=== PATIENT | male | born 1960 | race Caucasian/White ===

== ENCOUNTER 2018-10-03 16:16 | Inpatient (IN) | payer MEDICARE ==
[2018-10-03] MEDS ORDERED: ASPIRIN 81 MG PO STA (16:55)
[2018-10-03] MEDS ORDERED: IPRATROPIUM-ALBUTEROL 3 ML NEB INHALATION STA (16:55)
--- NOTE | 2018-10-03 17:10 | XR ---
EXAMINATION TYPE: XR chest 2V DATE OF EXAM: 10/03/2018 COMPARISON: NONE HISTORY: Chest pain TECHNIQUE: Frontal and lateral views of the chest are obtained. FINDINGS: Heart and mediastinum are normal. Lungs are clear of infiltrate. There is no pleural effus ion. There are chest leads. Bony thorax is intact. IMPRESSION: No active cardiopulmonary disease. Normal heart.
[2018-10-03 17:15] LABS: ALT 202 U/L (21-72); AST 685 U/L (17-59); African American GFR (CKD) >90 (>60 ml/min/1.73 sqM); Albumin 4.6 g/dL (3.5-5.0); Alkaline Phosphatase 154 U/L (38-126); Anion Gap 15 mmol/L; Blood Urea Nitrogen 10 mg/dL (9-20); Calcium 8.9 mg/dL (8.4-10.2); Carbon Dioxide 23 mmol/L (22-30); Chloride 101 mmol/L (98-107); Glucose 100 mg/dL (74-99); Magnesium 1.6 mg/dL (1.6-2.3); Non-African American GFR(CKD) >90 (>60 ml/min/1.73 sqM); Potassium 4.3 mmol/L (3.5-5.1); Sodium 139 mmol/L (137-145); Total Bilirubin 1.7 mg/dL (0.2-1.3)
[2018-10-03 17:19] LABS: Anisocytosis Slight; Basophils % (A) 1 %; Eosinophils # (A) 0.1 k/uL (0-0.7); Eosinophils % (A) 1 %; HCT 44.1 % (39.0-53.0); HGB 14.9 gm/dL (13.0-17.5); Lymphocytes # (A) 1.8 k/uL (1.0-4.8); Lymphocytes % (A) 41 %; MCH 30.4 pg (25.0-35.0); MCHC 33.8 g/dL (31.0-37.0); Mean Platelet Volume 9.9; Monocytes # (A) 0.3 k/uL (0-1.0); Monocytes % (A) 6 %; Neutrophils # (A) 2.1 k/uL (1.3-7.7); Neutrophils % (A) 48 %; RDW 16.1 % (11.5-15.5); WBC 4.5 k/uL (3.8-10.6)
[2018-10-03 17:20] LABS: INR 0.9 (<1.2); Partial Thromboplastin Time 26.6 sec (22.0-30.0); Prothrombin Time 10.2 sec (9.0-12.0)
[2018-10-03 17:33] LABS: Alcohol 378 mg/dL
[2018-10-03 17:42] LABS: Platelet Count 95 k/uL (150-450)
--- NOTE | 2018-10-03 18:58 | ED ---
Chest Pain HPI - General Chief Complaint: Chest Pain Stated Complaint: CHEST PAIN, Hx HEART DISEASE Time Seen by Provider: 10/03/18 16:25 Source: patient, family Mode of arrival: wheelchair Limitations: no limitations - History of Present Illness Initial Comments: The patient is a 57-year-old male who presents to the emergency department with reported chest pain. He does admit to a history of coronary artery disease. States his last cath was 2 years ago and he had a 50% occlusion. States that he has not followed up with his post splitter since then. He will occasionally get chest pain which starts in the right side of his chest and radiates over onto his left arm. Symptoms started 3 hours prior to arrival. Patient reports that he was resting comfortably in his chair when the pain came on. Admits to associated shortness of breath. Denies ripping or tearing to his back. The pain is not reproducible upon palpation. Denies any unilateral numbness or weakness. States that his sister did provide him with nitro that was not prescribed to him which did alleviated his symptoms. His sister then called EMS for assistance. He does arrive and states that he is pain-free. Denies associated nausea or vomiting. No diaphoresis. Denies any fevers or chills. Reports exertional shortness of breath over the past several weeks. Sister states that he cannot walk 10 feet across a room without having to stop and catch his breath. He does have a history of COPD. He is supposed to be on "10 different medications" however has not had them for approximately 3 weeks. He used to live in [place] up until 3 weeks ago when he moved to [place] to be with his sister. States when he traveled, he left his medications behind. He is only able to remember a few these medications. He has not been using any of his inhalers. He denies any abdominal pain. No changes in his bowel or bladder habits. There are no alleviating, precipitating or modifying factors - Related Data Home Medications Medication Instructions Recorded Confirmed Atorvastatin [Lipitor] 40 mg PO DAILY 10/04/18 10/04/18 Methocarbamol [Robaxin] 500 mg PO DAILY PRN 10/04/18 10/04/18 traZODone HCL 150 mg PO HS 10/04/18 10/04/18 Previous Rx's Medication Instructions Recorded Albuterol Sulfate [Proair Hfa] 2 puff INHALATION RT-Q6H PRN #1 10/05/18 hfa.aer.ad Aspirin EC [Ecotrin Low Dose] 81 mg PO DAILY #30 tablet. 10/05/18 Citalopram Hydrobromide [CeleXA] 40 mg PO DAILY #30 tablet 10/05/18 Isosorbide Mononitrate ER [Imdur] 30 mg PO DAILY #30 tab.er.24h 10/05/18 Lisinopril [Prinivil] 10 mg PO DAILY #30 tablet 10/05/18 Nitroglycerin Sl Tabs [Nitrostat] 0.4 mg SUBLINGUAL Q5M PRN #50 tab 10/05/18 Pantoprazole Sodium [Protonix] 40 mg PO DAILY #30 tablet. 10/05/18 Thiamine [Vitamin B-1] 100 mg PO DAILY #30 tab 10/05/18 Allergies Allergy/AdvReac Type Severity Reaction Status Date / Time Penicillins Allergy Anaphylaxis Verified 10/03/18 17:12 meperidine [From Demerol] AdvReac Hallucinati Verified 10/03/18 17:12 ons Opioids-Meperidine and AdvReac Hallucinati Verified 10/03/18 17:12 Related ons Opioids-Methadone and Related AdvReac Hallucinati Verified 10/03/18 17:12 ons quetiapine [From Seroquel] AdvReac Hallucinati Verified 10/03/18 17:12 ons Review of Systems ROS Statement: Those systems with pertinent positive or pertinent negative responses have been documented in the HPI. ROS Other: All systems not noted in ROS Statement are negative. EKG Findings - EKG Comments: EKG Findings:: EKG demonstrates a normal sinus rhythm with a ventricular rate of 90. WV interval 142. QRS 88. QTC 455. No acute ST segment elevations or depressions concerning for ischemic changes. Past Medical History Past Medical History: No Reported History History of Any Multi-Drug Resistant Organisms: None Reported Past Surgical History: No Surgical Hx Reported Past Psychological History: No Psychological Hx Reported Smoking Status: Current every day smoker Past Alcohol Use History: None Reported, Abuse, Daily, Heavy Past Drug Use History: None Reported - Past Family History Father Family Medical History: Coronary Artery Disease (CAD), Liver Disease Mother Family Medical History: Cancer Additional Family Medical History / Comment(s): LUNG DISEASE General Exam Limitations: no limitations General appearance: alert, in no apparent distress, appears intoxicated Head exam: Present: atraumatic, normocephalic, normal inspection Eye exam: Present: normal appearance, PERRL, EOMI. Absent: scleral icterus, conjunctival injection, periorbital swelling ENT exam: Present: normal exam, mucous membranes moist Neck exam: Present: normal inspection. Absent: tenderness, meningismus, lymphadenopathy Respiratory exam: Present: other (The patient has minimally decreased breath sounds bilaterally.). Absent: respiratory distress, wheezes, rales, rhonchi, stridor Cardiovascular Exam: Present: regular rate, normal rhythm, normal heart sounds. Absent: systolic murmur, diastolic murmur, rubs, gallop, clicks GI/Abdominal exam: Present: soft, tenderness (Mild generalized abdominal pain), normal bowel sounds. Absent: distended, guarding, rebound, rigid, pulsatile mass Extremities exam: Present: normal inspection, full ROM, normal capillary refill. Absent: tenderness, pedal edema, joint swelling, calf tenderness Back exam: Present: normal inspection Neurological exam: Present: alert, oriented X3, CN II-XII intact Psychiatric exam: Present: normal mood (The patient is mildly slurring his speech and does appear intoxicated) Skin exam: Present: warm, dry, intact, normal color. Absent: rash Course Vital Signs 10/03/18 10/03/18 10/03/18 16:20 16:28 16:30 Temperature 98.0 F Pulse Rate 98 92 Respiratory 18 20 Rate Blood Pressure 119/83 O2 Sat by Pulse 93 L 93 L 93 L Oximetry 10/03/18 10/03/18 10/03/18 17:00 17:21 17:29 Temperature Pulse Rate 93 87 90 Respiratory 20 Rate Blood Pressure 133/94 O2 Sat by Pulse 93 L Oximetry 10/03/18 10/03/18 10/03/18 17:30 18:00 18:30 Temperature Pulse Rate 95 86 85 Respiratory 19 18 14 Rate Blood Pressure 133/94 144/99 115/84 O2 Sat by Pulse Oximetry 10/03/18 10/03/18 10/03/18 19:00 19:30 20:00 Temperature Pulse Rate 79 84 103 H Respiratory 17 15 14 Rate Blood Pressure 113/77 108/80 111/79 O2 Sat by Pulse Oximetry Chest Pain MDM - Core Measures AMI Core Measures Followed: Yes - Differential Diagnosis AMI, ACS, Pericarditis, Pneumonia, Pleurisy-Other - MDM Upon arrival the patient is placed into room 1. He is hooked up to continuous pulse ox and cardiac monitoring. A 12-lead EKG is performed which demonstrates no acute ST elevations or depressions concerning for ischemia or infarction.. Physical exam is performed and the patient does appear intoxicated. He does report to drinking "a few" beers today. Sister is at bedside and states the patient is a daily drinker. The patient has an IV established. He is given 324 mg of chewable aspirin. He is pain free at this time. Laboratory studies are conducted. The patient did have a chest x-ray performed. He is provided with a Duonebs breathing treatment. Upon return of the results I did discuss them with the patient. His alcohol level is elevated at 378. I did recommend hospital admission for alcohol detoxification and for evaluation by cardiology. The patient did agree to this. I did call discuss case with Dr. Ocampo who did accept admission. Bridging orders were placed to include CIWA protocol. The patient was then transferred to floor in stable condition Disposition Clinical Impression: Chest pain, COPD (chronic obstructive pulmonary disease) with emphysema, Acute respiratory insufficiency Disposition: ADMITTED IP TO THIS HOSP Condition: Fair Is patient prescribed a controlled substance at d/c from ED?: No Decision to Admit Reason: Admit from EC Decision Date: 10/03/18 Decision Time: 18:58
[2018-10-03] MEDS ORDERED: NALOXONE 0.4 MG/ML 1 ML VIAL IV PRN (20:12)
[2018-10-03] MEDS ORDERED: THIAMINE 100 MG/ML 2 ML VIAL IM STA (20:19)
[2018-10-03] MEDS ORDERED: LORazepam 2 MG/ML INJ IV PRN ×3 (20:19)
[2018-10-03 21:19] VITALS: BMI 29.7
[2018-10-03 21:47] VITALS: RESP 18
[2018-10-04] MEDS: THIAMINE 100 MG TAB PO SCH ×3 (05:30→18:01)
[2018-10-04 06:04] LABS: Basophils % (A) 1 %; Eosinophils % (A) 1 %; HCT 43.5 % (39.0-53.0); HGB 14.5 gm/dL (13.0-17.5); Lymphocytes # (A) 1.1 k/uL (1.0-4.8); Lymphocytes % (A) 23 %; MCH 30.8 pg (25.0-35.0); MCHC 33.3 g/dL (31.0-37.0); MCV 92.5 fL (80.0-100.0); Mean Platelet Volume 9.6; Monocytes # (A) 0.2 k/uL (0-1.0); Monocytes % (A) 5 %; Neutrophils # (A) 3.2 k/uL (1.3-7.7); Neutrophils % (A) 69 %; RBC 4.71 m/uL (4.30-5.90); RDW 14.7 % (11.5-15.5); WBC 4.7 k/uL (3.8-10.6)
[2018-10-04 06:10] LABS: Platelet Count 65 k/uL (150-450)
[2018-10-04 06:15] LABS: ALT 211 U/L (21-72); African American GFR (CKD) >90 (>60 ml/min/1.73 sqM); Albumin 4.5 g/dL (3.5-5.0); Alkaline Phosphatase 155 U/L (38-126); Anion Gap 10 mmol/L; Blood Urea Nitrogen 10 mg/dL (9-20); Calcium 9.5 mg/dL (8.4-10.2); Carbon Dioxide 29 mmol/L (22-30); Chloride 101 mmol/L (98-107); Glucose 125 mg/dL (74-99); Non-African American GFR(CKD) >90 (>60 ml/min/1.73 sqM); Sodium 140 mmol/L (137-145); Total Protein 7.9 g/dL (6.3-8.2)
[2018-10-04 06:45] LABS: AST 831 U/L (17-59)
[2018-10-04] MEDS ORDERED: ONDANSETRON 4 MG/2 ML VIAL IVP STA (08:06)
[2018-10-04] MEDS ORDERED: METOPROLOL TARTRATE 25 MG TAB PO SCH (09:00)
[2018-10-04] MEDS ORDERED: ATORVASTATIN 80 MG TAB PO SCH (09:00)
--- NOTE | 2018-10-04 09:22 | US ---
EXAMINATION TYPE: US abdomen complete DATE OF EXAM: 10/04/2018 COMPARISON: NONE CLINICAL HISTORY: nausea, vomting, pain, elev LFTs. nausea and vomiting, RUQ pain, elevated LFT's EXAM MEASUREMENTS: Liver Length: 21.0 cm Gallbladder Wall: 0.3 cm CBD: 0.4 cm Spleen: 12.6 cm Right Kidney: 11.1 x 6.0 x 5.1 cm Left Kidney: 9.0 x 5.6 x 4.7 cm Technical limitations due to large amount of overlying bowel content Pancreas: Obscured by bowel gas Liver: enlarged, attenuating Gallbladder: hydropic Evidence for sonographic Tidwell's sign: yes CBD: appears wnl Spleen: wnl Right Kidney: no evidence of hydronephrosis Left Kidney: no evidence of hydronephrosis Upper IVC: wnl Abd Aorta: Obscured by overlying bowel gas IMPRESSION: 1. Bowel gas severely limits exam. 2. Mild fatty infiltration of liver and hepatomegaly
[2018-10-04] MEDS: PANTOPRAZOLE 40 MG/10 ML VIAL IVP SCH (09:51)
[2018-10-04] MEDS: ASPIRIN 81 MG PO SCH (09:52)
[2018-10-04] MEDS: SODIUM CHLORIDE 0.9% 1,000 ML IV SCH (09:52)
[2018-10-04 10:42] LABS: Cholesterol 247 mg/dL (<200); HDL Cholesterol 88 mg/dL (40-60); Triglycerides 450 mg/dL (<150)
--- NOTE | 2018-10-04 11:19 | ECHOF ---
Referral Reason: MEASUREMENTS -------- HEIGHT: 170.2 cm WEIGHT: 86.2 kg BP: 135/60 RVIDd: 2.8 cm (< 3.3) IVSd: 1.0 cm (0.6 - 1.1) LVIDd: 3.9 cm (3.9 - 5.3) LVPWd: 0.9 cm (0.6 - 1.1) IVSs: 1.6 cm LVIDs: 2.9 cm LVPWs: 1.1 cm Ao Diam: 3.1 cm (2.0 - 3.7) AV Cusp: 1.9 cm (1.5 - 2.6) LA Diam: 3.6 cm (2.7 - 3.8) MV EXCURSION: 16.594 mm (> 18.000) MV EF SLOPE: 107 mm/s (70 - 150) EPSS: 0.6 cm MV E Zeeshan: 0.46 m/s MV DecT: 260 ms MV A Zeeshan: 0.90 m/s MV E/A Ratio: 0.51 RAP: 5.00 mmHg RVSP: 12.32 mmHg FINDINGS -------- Sinus rhythm. This was a technically adequate study. LV size, wall thickness and systolic function are normal, with an EF greater than 55%. The left julian tricular size is normal. The right ventricle is normal in size. The left atrial size is normal. The right atrial size is normal. The aortic valve is trileaflet, and appears structurally normal. No aortic stenosis or regurgitation. There is trace mitral regurgitation. The tricuspid valve appears structurally normal. Right ventricular systolic pressure is normal at < 35 mmHg. There is no evidence of pulmonary hypertension. There is no pulmonic regurgitation present. The aortic root size is normal. There is no pericardial effusion. CONCLUSIONS -------- 1. Sinus rhythm. 2. This was a technically adequate study. 3. LV size, wall thickness and systolic function are normal, with an EF greater than 55%. 4. The left ventricular size is normal. 5. The right ventricle is normal in size. 6. The left atrial size is normal. 7. The right atrial size is normal. 8. The aortic valve is trileaflet, and appears structurally normal. No aortic stenosis or regurgitati on. 9. There is trace mitral regurgitation. 10. The tricuspid valve appears structurally normal. 11. Right ventricular systolic pressure is normal at < 35 mmHg. 12. There is no evidence of pulmonary hypertension. 13. There is no pulmonic regurgitation present. 14. The aortic root size is normal. 15. There is no pericardial effusion. PORCELAIN SLUSHER: Teresa Portillo RDCS
--- NOTE | 2018-10-04 11:39 | P.CRDCN ---
History of Present Illness History of present illness: This is a pleasant 57-year-old male past medical history significant for coronary artery disease, hypertension, dyslipidemia, regular heavy alcohol abuse, chronic nicotine dependence and asthma. He states he recently came to [place] from [place]. While living there he did see a trust officer and has undergone a heart catheterization revealing 2 blockages, one 50% and the other 20%. Unsure which vessel. We have been asked to see him in consultation for chest pain. He states he drinks heavily daily if he can help it. Yesterday he was drinking and started having pain in his chest from side to side and down in his abdomen. Last night he started feeling increasingly nauseated and has been vomiting all night. He denies any further symptoms of chest pain. He denies associated shortness of breath, dizziness or palpitations. There was no radiation to the arm, back, neck or jaw. EKG reveals sinus mechanism with no acute ST or T wave abnormalities noted. Chest x-ray is negative for an acute cardiopulmonary process. Echocardiogram reveals preserved LV systolic function with ejection fraction greater than 55%. Abdominal ultrasound reveals mild fatty infiltration of the liver and hepatomegaly, hydropic gallbladder and positive Tidwell sign. Laboratory data reviewed, WBC 4.7, hemoglobin 14.5, platelets 65, sodium 140, potassium 4.0, creatinine 0.73, magnesium 1.6, AST 831, a LT 211, alkaline phosphatase 155, cardiac enzymes negative 3, triglycerides 450. Current cardiac medications include aspirin 81 mg daily, atorvastatin 40 mg daily, imdur 30 mg daily, lisinopril 10 mg daily. At the time of my exam: CONSTITUTIONAL: Denies fever. Denies chills. EYES: Denies blurred vision. Denies vision changes. Denies eye pain. EARS, NOSE, MOUTH & THROAT: Denies headache. Denies sore throat. Denies ear pain. CARDIOVASCULAR: Denies chest pain. Denies shortness of breath. Denies orthopnea. Denies PND. Denies palpitations. RESPIRATORY: Denies cough. GASTROINTESTINAL: Complains of abdominal pain. Denies diarrhea. Denies constipation. complains of nausea and vomiting. MUSCULOSKELETAL: Denies myalgias. INTEGUMENTARY: Denies pruitis. Denies rash. NEUROLOGIC: Denies numbness. Denies tingling. Denies weakness. PSYCHIATRIC: Denies anxiety. Denies depression. ENDOCRINE: Denies fatigue. Denies weight change. Denies polydipsia. Denies polyurina. GENITOURINARY: Denies burning, hematuria or urgency with micturation. HEMATOLOGIC: Denies history of anemia. Denies bleeding. GENERAL: This is a 57-year-old male in no apparent distress at the time of my examination. HEENT: Head is atraumatic, normocephalic. Pupils are equal, round. Sclerae anicteric. Conjunctivae are clear. Mucous membranes of the mouth are moist. Neck is supple. There is no jugular venous distention. No carotid bruit is heard. LUNGS: Clear to auscultation no wheezes, rales or rhonchi. No chest wall tenderness is noted on palpation or with deep breathing. Diminished bilaterally. HEART: Regular rate and rhythm without murmurs, rubs or gallops. S1 and S2 heard. ABDOMEN: Soft, mildly tender throughout, positive Tidwell's sign. Bowel sounds are heard. No organomegaly noted. EXTREMITIES: No evidence of peripheral edema and no calf tenderness noted. VASCULAR: Radial and dorsalis pedis pulses palpated, no evidence of clubbing. NEUROLOGIC: Patient is awake, alert and oriented x3. ASSESSMENT Chest pain, atypical for angina. An acute coronary event has been ruled. Acute alcohol intoxication Thrombocytopenia Hypertension Dyslipidemia History of coronary artery disease. Per the patient he underwent heart catheterization last year and was told he has 2 blockages, 50% and 20%. Unsure of exact arteries or details. He does not remember the name of the trust officer or the hospital where he had it done. Chronic nicotine dependence PLAN An acute coronary event has been ruled out. Obtain 2D echocardiogram and doppler study to assess cardiac structure and function. Resume lisinopril, imdur and aspirin as previously ordered. Ongoing medical management of abdominal pain. Tobacco and alcohol cessation recommended. We will continue to follow as needed. Thank you kindly for this consultation. Nurse Practitioner note has been reviewed, I agree with a documented findings an d plan of care. Patient was seen and examined. Past Medical History Past Medical History: No Reported History History of Any Multi-Drug Resistant Organisms: None Reported Past Surgical History: No Surgical Hx Reported Additional Past Surgical History / Comment(s): LEFT AND AND RIGHT KNEE SX. LEFT FEMUR FX. HEART CATH NO STENTS Past Anesthesia/Blood Transfusion Reactions: No Reported Reaction Past Psychological History: No Psychological Hx Reported Smoking Status: Current every day smoker Past Alcohol Use History: None Reported, Abuse, Daily, Heavy Past Drug Use History: None Reported - Past Family History Father Family Medical History: Coronary Artery Disease (CAD), Liver Disease Mother Family Medical History: Cancer Additional Family Medical History / Comment(s): LUNG DISEASE Medications and Allergies Home Medications Medication Instructions Recorded Confirmed Type Albuterol Sulfate [Proair Hfa] 2 puff INHALATION RT-Q6H PRN 10/04/18 10/04/18 History Aspirin EC [Ecotrin Low Dose] 81 mg PO DAILY 10/04/18 10/04/18 History Atorvastatin [Lipitor] 40 mg PO DAILY 10/04/18 10/04/18 History Citalopram Hydrobromide [CeleXA] 40 mg PO DAILY 10/04/18 10/04/18 History Ibuprofen [Motrin] 600 mg PO Q6HR PRN 10/04/18 10/04/18 History Isosorbide Mononitrate ER [Imdur] 30 mg PO DAILY 10/04/18 10/04/18 History Lisinopril [Prinivil] 10 mg PO DAILY 10/04/18 10/04/18 History Methocarbamol [Robaxin] 500 mg PO DAILY PRN 10/04/18 10/04/18 History Nitroglycerin Sl Tabs [Nitrostat] 0.4 mg SUBLINGUAL Q5M PRN 10/04/18 10/04/18 History Pantoprazole Sodium [Protonix] 40 mg PO DAILY 10/04/18 10/04/18 History Thiamine [Vitamin B-1] 100 mg PO DAILY 10/04/18 10/04/18 History traZODone HCL 150 mg PO HS 10/04/18 10/04/18 History Allergies Allergy/AdvReac Type Severity Reaction Status Date / Time Penicillins Allergy Anaphylaxis Verified 10/03/18 17:12 meperidine [From Demerol] AdvReac Hallucinati Verified 10/03/18 17:12 ons Opioids-Meperidine and AdvReac Hallucinati Verified 10/03/18 17:12 Related ons Opioids-Methadone and Related AdvReac Hallucinati Verified 10/03/18 17:12 ons quetiapine [From Seroquel] AdvReac Hallucinati Verified 10/03/18 17:12 ons Physical Exam Vitals: Vital Signs Temp Pulse Pulse Resp BP BP BP 10/04/18 07:00 98.0 F 85 18 150/107 10/04/18 04:00 98.2 F 92 18 147/66 10/04/18 00:00 85 18 10/03/18 23:41 98.2 F 85 18 126/84 10/03/18 21:00 98.6 F 88 18 133/87 10/03/18 20:00 103 H 14 111/79 10/03/18 19:30 84 15 108/80 10/03/18 19:00 79 17 113/77 10/03/18 18:30 85 14 115/84 10/03/18 18:00 86 18 144/99 10/03/18 17:30 95 19 133/94 10/03/18 17:29 90 10/03/18 17:21 87 10/03/18 17:00 93 20 133/94 10/03/18 16:30 92 20 10/03/18 16:28 10/03/18 16:20 98.0 F 98 18 119/83 Pulse Ox 10/04/18 07:00 10/04/18 04:00 93 L 10/04/18 00:00 10/03/18 23:41 97 10/03/18 21:00 92 L 10/03/18 20:00 10/03/18 19:30 10/03/18 19:00 10/03/18 18:30 10/03/18 18:00 10/03/18 17:30 10/03/18 17:29 10/03/18 17:21 10/03/18 17:00 93 L 10/03/18 16:30 93 L 10/03/18 16:28 93 L 10/03/18 16:20 93 L Intake and Output 10/03/18 10/04/18 10/04/18 22:59 06:59 14:59 Other: # Voids 1 Weight 86.183 kg Results 10/04/18 05:22 10/04/18 05:22 Cardiac Enzymes 10/03/18 10/03/18 10/03/18 Range/Units 16:30 16:30 22:25 AST 685 H (17-59) U/L Troponin I <0.012 <0.012 (0.000-0.034) ng/mL 10/04/18 10/04/18 Range/Units 05:22 05:22 AST 831 H (17-59) U/L Troponin I <0.012 (0.000-0.034) ng/mL Coagulation 10/03/18 Range/Units 16:30 PT 10.2 (9.0-12.0) sec APTT 26.6 (22.0-30.0) sec CBC 10/03/18 10/04/18 Range/Units 16:30 05:22 WBC 4.5 4.7 (3.8-10.6) k/uL RBC 4.90 4.71 (4.30-5.90) m/uL Hgb 14.9 14.5 (13.0-17.5) gm/dL Hct 44.1 43.5 (39.0-53.0) % Plt Count 95 L 65 L (150-450) k/uL Comprehensive Metabolic Panel 10/03/18 10/04/18 Range/Units 16:30 05:22 Sodium 139 140 (137-145) mmol/L Potassium 4.3 4.0 (3.5-5.1) mmol/L Chloride 101 101 (98-107) mmol/L Carbon Dioxide 23 29 (22-30) mmol/L BUN 10 10 (9-20) mg/dL Creatinine 0.59 L 0.73 (0.66-1.25) mg/dL Glucose 100 H 125 H (74-99) mg/dL Calcium 8.9 9.5 (8.4-10.2) mg/dL AST 685 H 831 H (17-59) U/L ALT 202 H 211 H (21-72) U/L Alkaline Phosphatase 154 H 155 H (38-126) U/L Total Protein 8.0 7.9 (6.3-8.2) g/dL Albumin 4.6 4.5 (3.5-5.0) g/dL Current Medications Generic Name Dose Route Start Last Admin Trade Name Freq PRN Reason Stop Dose Admin Lorazepam 1 mg 10/03/18 20:19 Ativan IV Q2HR PRN CIWA 8 or 9 Lorazepam 1 mg 10/03/18 20:19 10/03/18 21:35 Ativan IV 1 mg Q1HR PRN Administration CIWA 10 to 15 Lorazepam 2 mg 10/03/18 20:19 Ativan IV 10/05/18 20:19 Q10M PRN CIWA 16 or higher Naloxone HCl 0.2 mg 10/03/18 20:12 Narcan IV Q2M PRN Opioid Reversal Pantoprazole Sodium 40 mg 10/04/18 09:00 Protonix IVP DAILY DEAN Thiamine HCl 100 mg 10/03/18 21:00 10/04/18 05:30 Vitamin B-1 PO Not Given BID-W/MEALS DEAN Intake and Output 10/03/18 10/04/18 10/04/18 22:59 06:59 14:59 Other: # Voids 1 Weight 86.183 kg 10/04/18 05:22 10/04/18 05:22
[2018-10-04] MEDS: LISINOPRIL 10 MG TAB PO SCH (11:51)
[2018-10-04] MEDS: ISOSORBIDE MONONITRATE ER 30 MG TAB.ER.24H PO SCH (11:51)
--- NOTE | 2018-10-04 19:04 | P.HPIM ---
History of Present Illness H&P Date: 10/04/18 Chief Complaint: Chest pain Patient is a 57-year-old male with a known history of coronary artery disease, hypertension, hyperlipidemia and alcohol abuse and nicotine addiction recently came from [place] presented to hospital with complaints of chest pain. Chest pain is mainly epigastric region and is radiating across the right side of the abdomen and to the back sometimes. No radiation to the on neck or to back Denied any shortness of breath. No headache or dizziness. Patient does have nausea and episodes of vomiting. No status of vomiting. Patient otherwise has been drinking on a daily basis. Patient was intoxicated on admission. X-ray showed no acute cardio process next and EKG showed normal sinus rhythm. Echo cardiac exam showed normal ejection fraction with ejection fraction 55%. No r wall motion abnormalities noted Laboratory data showed elevated liver enzymes AST 831 and ALT 211 and alk phos 155 Triglycerides 450 neck and troponin 3 negative THE ABDOMEN SHOWED MILD FATTY INFILTRATION OF THE LIVER AND HEPATOMEGALY, HYDROPIC GALLBLADDER AND POSITIVE MOSHER SIGN. Review of Systems Constitutional: Patient denies any fever or chills . No generalized weakness or weight loss. Abdomen: Does have nausea vomiting or abdominal pain. Cardiovascular: Patient denies any chest pain or short of breath no palpitations. Respiratory: patient denied any cough is from production. No shortness of br eath Neurologic: Patient denied any numbness or tingling headache. Musculoskeletal: Patient denies any complaints of joint swelling or deformity. Skin: Negative Psychiatric: Negative Endocrine: No heat or cold intolerance. No recent weight gain. Genitourinary: No dysuria or hematuria. All other 14 point ROS negative except the above Past Medical History Past Medical History: No Reported History History of Any Multi-Drug Resistant Organisms: None Reported Past Surgical History: No Surgical Hx Reported Additional Past Surgical History / Comment(s): LEFT AND AND RIGHT KNEE SX. LEFT FEMUR FX. HEART CATH NO STENTS Past Anesthesia/Blood Transfusion Reactions: No Reported Reaction Past Psychological History: No Psychological Hx Reported Smoking Status: Current every day smoker Past Alcohol Use History: None Reported, Abuse, Daily, Heavy Past Drug Use History: None Reported - Past Family History Father Family Medical History: Coronary Artery Disease (CAD), Liver Disease Mother Family Medical History: Cancer Additional Family Medical History / Comment(s): LUNG DISEASE Medications and Allergies Home Medications Medication Instructions Recorded Confirmed Type Albuterol Sulfate [Proair Hfa] 2 puff INHALATION RT-Q6H PRN 10/04/18 10/04/18 History Aspirin EC [Ecotrin Low Dose] 81 mg PO DAILY 10/04/18 10/04/18 History Atorvastatin [Lipitor] 40 mg PO DAILY 10/04/18 10/04/18 History Citalopram Hydrobromide [CeleXA] 40 mg PO DAILY 10/04/18 10/04/18 History Ibuprofen [Motrin] 600 mg PO Q6HR PRN 10/04/18 10/04/18 History Isosorbide Mononitrate ER [Imdur] 30 mg PO DAILY 10/04/18 10/04/18 History Lisinopril [Prinivil] 10 mg PO DAILY 10/04/18 10/04/18 History Methocarbamol [Robaxin] 500 mg PO DAILY PRN 10/04/18 10/04/18 History Nitroglycerin Sl Tabs [Nitrostat] 0.4 mg SUBLINGUAL Q5M PRN 10/04/18 10/04/18 History Pantoprazole Sodium [Protonix] 40 mg PO DAILY 10/04/18 10/04/18 History Thiamine [Vitamin B-1] 100 mg PO DAILY 10/04/18 10/04/18 History traZODone HCL 150 mg PO HS 10/04/18 10/04/18 History Allergies Allergy/AdvReac Type Severity Reaction Status Date / Time Penicillins Allergy Anaphylaxis Verified 10/03/18 17:12 meperidine [From Demerol] AdvReac Hallucinati Verified 10/03/18 17:12 ons Opioids-Meperidine and AdvReac Hallucinati Verified 10/03/18 17:12 Related ons Opioids-Methadone and Related AdvReac Hallucinati Verified 10/03/18 17:12 ons quetiapine [From Seroquel] AdvReac Hallucinati Verified 10/03/18 17:12 ons Physical Exam Vitals: Vital Signs Temp Pulse Pulse Resp BP BP BP 10/04/18 07:00 98.0 F 85 18 150/107 10/04/18 04:00 98.2 F 92 18 147/66 10/04/18 00:00 85 18 10/03/18 23:41 98.2 F 85 18 126/84 10/03/18 21:00 98.6 F 88 18 133/87 10/03/18 20:00 103 H 14 111/79 10/03/18 19:30 84 15 108/80 10/03/18 19:00 79 17 113/77 10/03/18 18:30 85 14 115/84 10/03/18 18:00 86 18 144/99 10/03/18 17:30 95 19 133/94 10/03/18 17:29 90 10/03/18 17:21 87 10/03/18 17:00 93 20 133/94 10/03/18 16:30 92 20 10/03/18 16:28 10/03/18 16:20 98.0 F 98 18 119/83 Pulse Ox 10/04/18 07:00 10/04/18 04:00 93 L 10/04/18 00:00 10/03/18 23:41 97 10/03/18 21:00 92 L 10/03/18 20:00 10/03/18 19:30 10/03/18 19:00 10/03/18 18:30 10/03/18 18:00 10/03/18 17:30 10/03/18 17:29 10/03/18 17:21 10/03/18 17:00 93 L 10/03/18 16:30 93 L 10/03/18 16:28 93 L 10/03/18 16:20 93 L Intake and Output 10/03/18 10/04/18 10/04/18 22:59 06:59 14:59 Other: # Voids 1 Weight 86.183 kg PHYSICAL EXAMINATION: Patient is lying in the bed comfortably, no acute distress, awake alert and oriented.. HEENT: Normocephalic. Neck is supple. Pupils reactive. Nostrils clear. Oral cavity is moist. Ears reveal no drainage. Neck reveals no JVD, carotid bruits, or thyromegaly. CHEST EXAMINATION: Trachea is central. Symmetrical expansion. Lung lowery clear to auscultation and percussion. CARDIAC: Normal S1, S2 with no gallops. No murmurs ABDOMEN: Soft. No right upper quadrant tenderness. Mild epigastric tenderness. Bowel sounds normal. No organomegaly. No abdominal bruits. Extremities: reveal no edema. No clubbing or cyanosis Neurologically awake, alert, oriented x3 with well-coordinated movements. No focal deficits noted Skin: No rash or skin lesions. Psychiatric: Coperative. Nonsuicidal Musculoskeletal: No joint swelling or deformity. Normal range of motion. Results CBC & Chem 7: 10/04/18 05:22 10/04/18 05:22 Labs: Abnormal Lab Results - Last 24 Hours (Table) 10/03/18 10/03/18 10/04/18 Range/Units 16:30 16:30 05:22 RDW 16.1 H (11.5-15.5) % Plt Count 95 L 65 L (150-450) k/uL Creatinine 0.59 L (0.66-1.25) mg/dL Glucose 100 H (74-99) mg/dL Total Bilirubin 1.7 H (0.2-1.3) mg/dL AST 685 H (17-59) U/L ALT 202 H (21-72) U/L Alkaline Phosphatase 154 H (38-126) U/L Serum Alcohol 378 H* mg/dL 10/04/18 Range/Units 05:22 RDW (11.5-15.5) % Plt Count (150-450) k/uL Creatinine (0.66-1.25) mg/dL Glucose 125 H (74-99) mg/dL Total Bilirubin 2.0 H (0.2-1.3) mg/dL AST 831 H (17-59) U/L ALT 211 H (21-72) U/L Alkaline Phosphatase 155 H (38-126) U/L Serum Alcohol mg/dL Thrombosis Risk Factor Assmnt - DVT/VTE Prophylaxis DVT/VTE Prophylaxis: Pharmacologic Prophylaxis ordered - Choose All That Apply Any of the Below Risk Factors Present?: Yes Each Factor Represents 1 point: Acute [place], Age 41-60 years, Obesity (BMI >25) Other Risk Factors: No Other congenital or acquired thrombophilia - If yes, enter type in comment: No Thrombosis Risk Factor Assessment Total Risk Factor Score: 3 Thrombosis Risk Factor Assessment Level: Moderate Risk Assessment and Plan Assessment: Atypical chest pain. Ruled out ACS. Epigastric pain likely alcoholic gastritis Fatty infiltration of the liver Elevated liver and dense possible alcohol Hepatitis Acute alcohol intoxication on admission Osteopenia Hypertriglyceridemia Hypertension and hyperlipidemia History of coronary artery disease no history of PCI Nicotine dependence DVT prophylaxis Plan: Patient will be continued on home blood pressure medications in the form of Imdur, lisinopril and also continue with aspirin. Patient be started on Protonix IV. Continue with IV hydration. Monitor for alcohol withdrawal symptoms. Follow up liver enzymes. Cardiology has seen the patient and 2-D echo Was done which showed normal ejection fraction. Smoking cessation and CESSATION was counseled extensively. Further recommendations based on the clinical course. Time with Patient: Greater than 30
[2018-10-05 04:51] VITALS: BP 127/85; PULSE 79; TEMP 98.4
[2018-10-05] MEDS: SODIUM CHLORIDE 0.9% 1,000 ML IV SCH ×2 (05:12→06:47)
[2018-10-05 07:37] LABS: Basophils # (A) 0.1 k/uL (0-0.2); Basophils % (A) 1 %; Eosinophils # (A) 0.1 k/uL (0-0.7); Eosinophils % (A) 2 %; HGB 13.3 gm/dL (13.0-17.5); Lymphocytes # (A) 1.1 k/uL (1.0-4.8); Lymphocytes % (A) 28 %; MCH 30.7 pg (25.0-35.0); MCHC 32.4 g/dL (31.0-37.0); MCV 94.7 fL (80.0-100.0); Mean Platelet Volume 10.1; Monocytes # (A) 0.3 k/uL (0-1.0); Monocytes % (A) 6 %; Neutrophils # (A) 2.4 k/uL (1.3-7.7); Neutrophils % (A) 61 %; RBC 4.33 m/uL (4.30-5.90); RDW 14.9 % (11.5-15.5)
[2018-10-05] MEDS: ISOSORBIDE MONONITRATE ER 30 MG TAB.ER.24H PO SCH (07:40)
[2018-10-05] MEDS: ASPIRIN 81 MG PO SCH (07:40)
[2018-10-05] MEDS: THIAMINE 100 MG TAB PO SCH (07:40)
[2018-10-05] MEDS: LISINOPRIL 10 MG TAB PO SCH (07:40)
[2018-10-05] MEDS: PANTOPRAZOLE 40 MG/10 ML VIAL IVP SCH (07:41)
[2018-10-05 07:42] LABS: Platelet Count 51 k/uL (150-450)
[2018-10-05 07:54] LABS: ALT 181 U/L (21-72); AST 623 U/L (17-59); African American GFR (CKD) >90 (>60 ml/min/1.73 sqM); Albumin 4.1 g/dL (3.5-5.0); Alkaline Phosphatase 142 U/L (38-126); Anion Gap 6 mmol/L; Blood Urea Nitrogen 9 mg/dL (9-20); Calcium 8.8 mg/dL (8.4-10.2); Carbon Dioxide 31 mmol/L (22-30); Chloride 101 mmol/L (98-107); Glucose 90 mg/dL (74-99); Non-African American GFR(CKD) >90 (>60 ml/min/1.73 sqM); Potassium 4.3 mmol/L (3.5-5.1); Sodium 138 mmol/L (137-145); Total Bilirubin 2.8 mg/dL (0.2-1.3); Total Protein 7.1 g/dL (6.3-8.2)
--- NOTE | 2018-10-05 12:23 | P.DS ---
Providers Date of admission: 10/04/18 08:57 Expected date of discharge: 10/05/18 Attending physician: Rob Griffith Consults: 10/03/18 20:16 Consult Physician Urgent Consulting Provider: [facility] Consult Reason/Comments: acute chest pain, hx ASCAD Do you want consulting provider notified?: Yes Primary care physician: Stated None Hospital Course: Discharge diagnoses Atypical chest pain. Ruled out ACS. Echo showed normal ejection fraction. Seen by cardiology. Epigastric pain likely alcoholic gastritis Fatty infiltration of the liver Elevated liver and dense possible alcohol Hepatitis Acute alcohol intoxication on admission Osteopenia Hypertriglyceridemia Hypertension and hyperlipidemia History of coronary artery disease no history of PCI Nicotine dependence DVT prophylaxis Hospital course Patient is a 57-year-old male with a known history of coronary artery disease, hypertension, hyperlipidemia and alcohol abuse and nicotine addiction recently bianca salas from [place] presented to hospital with complaints of chest pain. Chest pain is mainly epigastric region and is radiating across the right side of the abdomen and to the back sometimes. No radiation to the on neck or to back Denied any shortness of breath. No headache or dizziness. Patient does have nausea and episodes of vomiting. No status of vomiting. Patient otherwise has been drinking on a daily basis. Patient was intoxicated on admission. X-ray showed no acute cardio process next and EKG showed normal sinus rhythm. Echo cardiac exam showed normal ejection fraction with ejection fraction 55%. No r wall motion abnormalities noted Laboratory data showed elevated liver enzymes AST 831 and ALT 211 and alk phos 155 Triglycerides 450 neck and troponin 3 negative THE ABDOMEN SHOWED MILD FATTY INFILTRATION OF THE LIVER AND HEPATOMEGALY, HYDROPIC GALLBLADDER AND POSITIVE MOSHER SIGN. 10/05/2018 Patient denied any complaints of chest pain or shortness of breath today. Right upper quadrant discomfort is much improved. Liver enzymes are trending down. Patient is able to walk with a walker. Patient will need support with a walker with ambulation for which DME prescription was signed. No nausea vomiting or diarrhea. Patient is stable to be discharged home and follow-up with family physician. He was counseled extensively for alcohol cessation. Patient was advised to hold atorvastatin for the next 1 week due to elevated liver enzymes. Continue Protonix daily. PHYSICAL EXAMINATION: Patient is lying in the bed comfortably, no acute distress, awake alert and oriented.. HEENT: Normocephalic. Neck is supple. Pupils reactive. Nostrils clear. Oral cavity is moist. Ears reveal no drainage. Neck reveals no JVD, carotid bruits, or thyromegaly. CHEST EXAMINATION: Trachea is central. Symmetrical expansion. Lung lowery clear to auscultation and percussion. CARDIAC: Normal S1, S2 with no gallops. No murmurs ABDOMEN: Soft. Mild Right upper quadrant tenderness. Bowel sounds normal. No organomegaly. No abdominal bruits. Extremities: reveal no edema. No clubbing or cyanosis Neurologically awake, alert, oriented x3 with well-coordinated movements. No focal deficits noted Skin: No rash or skin lesions. Psychiatric: Coperative. Nonsuicidal Musculoskeletal: No joint swelling or deformity. Normal range of motion. Vital Signs 10/05/18 04:50 Temperature 98.4 F Pulse Rate [ 79 Bilateral Dorsalis Pedis] Respiratory 18 Rate Blood Pressure 127/85 [Left Arm] O2 Sat by Pulse 95 Oximetry Total time taken greater than 35 minutes including 18 minutes for counseling and coordination of care. Patient Condition at Discharge: Stable Plan - Discharge Summary Discharge Rx Participant: No New Discharge Prescriptions: Continue Thiamine [Vitamin B-1] 100 mg PO DAILY Nitroglycerin Sl Tabs [Nitrostat] 0.4 mg SUBLINGUAL Q5M PRN PRN Reason: Chest Pain Methocarbamol [Robaxin] 500 mg PO DAILY PRN PRN Reason: Muscle Spasm Lisinopril [Prinivil] 10 mg PO DAILY Isosorbide Mononitrate ER [Imdur] 30 mg PO DAILY Citalopram Hydrobromide [CeleXA] 40 mg PO DAILY Atorvastatin [Lipitor] 40 mg PO DAILY Aspirin EC [Ecotrin Low Dose] 81 mg PO DAILY Albuterol Sulfate [Proair Hfa] 2 puff INHALATION RT-Q6H PRN PRN Reason: Shortness Of Breath traZODone HCL 150 mg PO HS Pantoprazole Sodium [Protonix] 40 mg PO DAILY #30 tablet.dr Discontinued Ibuprofen [Motrin] 600 mg PO Q6HR PRN PRN Reason: Pain Discharge Medication List Albuterol Sulfate [Proair Hfa] 2 puff INHALATION RT-Q6H PRN 10/04/18 [History] Aspirin EC [Ecotrin Low Dose] 81 mg PO DAILY 10/04/18 [History] Atorvastatin [Lipitor] 40 mg PO DAILY 10/04/18 [History] Citalopram Hydrobromide [CeleXA] 40 mg PO DAILY 10/04/18 [History] Isosorbide Mononitrate ER [Imdur] 30 mg PO DAILY 10/04/18 [History] Lisinopril [Prinivil] 10 mg PO DAILY 10/04/18 [History] Methocarbamol [Robaxin] 500 mg PO DAILY PRN 10/04/18 [History] Nitroglycerin Sl Tabs [Nitrostat] 0.4 mg SUBLINGUAL Q5M PRN 10/04/18 [History] Thiamine [Vitamin B-1] 100 mg PO DAILY 10/04/18 [History] traZODone HCL 150 mg PO HS 10/04/18 [History] Pantoprazole Sodium [Protonix] 40 mg PO DAILY #30 tablet. 10/05/18 [Rx] Follow up Appointment(s)/Referral(s): None,Stated [Primary Care Provider] - 1-2 days Frandy Mason MD [STAFF PHYSICIAN] - 1 Week Activity/Diet/Wound Care/Special Instructions: pt will be d/c with a walker - s/t weakness, COPD, and gait disfunction. Discharge Disposition: HOME SELF-CARE
== END 2018-10-05 13:32 | disposition home or self-care (01) | DRG 392 ==
LOC: EC 16:16 → 1SOBS 20:12 → OBSVTOIN 10-04 08:57 → 3NMEDONC 10-04 14:12
PROVIDERS: ADMIT Internal Medicine; ATTEND Internal Medicine
DX: K29.20 Alcoholic gastritis without bleeding (principal); K82.1 Hydrops of gallbladder; R07.89 Other chest pain; F10.129 Alcohol abuse with intoxication, unspecified; D69.6 Thrombocytopenia, unspecified; I25.10 Atherosclerotic heart disease of native coronary artery without angina pectoris; I10 Essential (primary) hypertension; K70.10 Alcoholic hepatitis without ascites; E78.5 Hyperlipidemia, unspecified; F17.200 Nicotine dependence, unspecified, uncomplicated; E78.1 Pure hyperglyceridemia; J44.9 Chronic obstructive pulmonary disease, unspecified; Y90.8 Blood alcohol level of 240 mg/100 ml or more; M85.80 Other specified disorders of bone density and structure, unspecified site; Z79.82 Long term (current) use of aspirin; Z79.899 Other long term (current) drug therapy; Z82.49 Family history of ischemic heart disease and other diseases of the circulatory system; Z88.5 Allergy status to narcotic agent; Z88.0 Allergy status to penicillin; Z88.8 Allergy status to other drugs, medicaments and biological substances; Z98.890 Other specified postprocedural states; Z83.6 Family history of other diseases of the respiratory system
CPT/HCPCS: 36415; 71046; 76700; 80053; 80061; 80320; 83690; 83735; 83880; 84484; 85025; 85610; 85730; 93005; 93306; 94640; 99285

== ENCOUNTER 2019-05-09 12:48 | Inpatient (IN) | payer MEDICARE ==
[2019-05-09] MEDS ORDERED: SODIUM CHLORIDE 0.9% 1,000 ML IV STA (13:04)
[2019-05-09] MEDS ORDERED: HYDROmorphone 0.5 MG/0.5 ML SYRINGE IVP STA (13:04)
[2019-05-09] MEDS ORDERED: PANTOPRAZOLE 40 MG/10 ML VIAL IVP STA (13:04)
[2019-05-09] MEDS ORDERED: ONDANSETRON 4 MG/2 ML VIAL IVP STA (13:05)
--- NOTE | 2019-05-09 13:16 | ED ---
General Adult HPI - General Chief complaint: Abdominal Pain Stated complaint: abd pain Time Seen by Provider: 05/09/19 12:50 Source: patient, RN notes reviewed, old records reviewed Mode of arrival: ambulatory Limitations: no limitations - History of Present Illness Initial comments: This is a 58-year-old male who presents emergency department with past medical history significant for smoking high blood pressure high cholesterol states his heart disease. Patient also states he is a heavy drinker. Patient states she's been having intermittent right upper quadrant abdominal pain for a few months. Patient states he vomits almost every single day. Patient states he is having much more right upper quadrant abdominal pain today so he decided come to the emergency department. Patient denies any fever chills. Patient denies any chest pain palpitations difficulty breathing shortness of breath. Patient denies any diarrhea. Patient denies any dysuria hematuria or urinary frequency patient states his last drink was yesterday - Related Data Previous Rx's Medication Instructions Recorded Albuterol Sulfate [Proair Hfa] 2 puff INHALATION RT-Q6H PRN #1 10/05/18 hfa.[id number] Aspirin EC [Ecotrin Low Dose] 81 mg PO DAILY #30 tablet. 10/05/18 Citalopram Hydrobromide [CeleXA] 40 mg PO DAILY #30 tablet 10/05/18 Isosorbide Mononitrate ER [Imdur] 30 mg PO DAILY #30 tab.er.24h 10/05/18 Lisinopril [Prinivil] 10 mg PO DAILY #30 tablet 10/05/18 Nitroglycerin Sl Tabs [Nitrostat] 0.4 mg SUBLINGUAL Q5M PRN #50 tab 10/05/18 Pantoprazole Sodium [Protonix] 40 mg PO DAILY #30 tablet. 10/05/18 Thiamine [Vitamin B-1] 100 mg PO DAILY #30 tab 10/05/18 Allergies Allergy/AdvReac Type Severity Reaction Status Date / Time Penicillins Allergy Anaphylaxis Verified 05/09/19 16:09 meperidine [From Demerol] AdvReac Hallucinati Verified 05/09/19 16:09 ons Opioids-Meperidine and AdvReac Hallucinati Verified 05/09/19 16:09 Related ons Opioids-Methadone and Related AdvReac Hallucinati Verified 05/09/19 16:09 ons quetiapine [From Seroquel] AdvReac Hallucinati Verified 05/09/19 16:09 ons Review of Systems ROS Statement: Those systems with pertinent positive or pertinent negative responses have been documented in the HPI. ROS Other: All systems not noted in ROS Statement are negative. Past Medical History Past Medical History: GERD/Reflux, Hyperlipidemia, Hypertension History of Any Multi-Drug Resistant Organisms: None Reported Past Surgical History: Orthopedic Surgery Additional Past Surgical History / Comment(s): LEFT AND AND RIGHT KNEE SX. LEFT FEMUR FX. HEART CATH NO STENTS Past Anesthesia/Blood Transfusion Reactions: No Reported Reaction Past Psychological History: No Psychological Hx Reported Smoking Status: Current every day smoker Past Alcohol Use History: None Reported, Abuse, Daily, Heavy Past Drug Use History: None Reported - Past Family History Father Family Medical History: Coronary Artery Disease (CAD), Liver Disease Mother Family Medical History: Cancer Additional Family Medical History / Comment(s): LUNG DISEASE General Exam - General Exam Comments Initial Comments: GENERAL: Patient is well-developed and well-nourished. Patient is nontoxic and well- hydrated and is in mild distress. ENT: Neck is soft and supple. No significant lymphadenopathy is noted. Oropharynx is clear. Moist mucous membranes. Neck has full range of motion without eliciting any pain. EYES: The sclera were anicteric and conjunctiva were pink and moist. Extraocular movements were intact and pupils were equal round and reactive to light. Eyelids were unremarkable. PULMONARY: Unlabored respirations. Good breath sounds bilaterally. No audible rales rhonchi or wheezing was noted. CARDIOVASCULAR: There is a regular rate and rhythm without any murmurs gallops or rubs. ABDOMEN: Patient is right upper quadrant abdominal pain epigastric abdominal pain SKIN: Skin is clear with no lesions or rashes and otherwise unremarkable. NEUROLOGIC: Patient is alert and oriented x3. Cranial nerves II through XII are grossly intact. Motor and sensory are also intact. Normal speech, volume and content. Symmetrical smile. MUSCULOSKELETAL: Normal extremities with adequate strength and full range of motion. No lower extremity swelling or edema. No calf tenderness. LYMPHATICS: No significant lymphadenopathy is noted PSYCHIATRIC: Normal psychiatric evaluation. Limitations: no limitations Course Vital Signs 05/09/19 05/09/19 12:50 15:53 Temperature 99.2 F Pulse Rate 104 H 78 Respiratory 18 16 Rate Blood Pressure 134/88 132/76 O2 Sat by Pulse 97 99 Oximetry Medical Decision Making - Medical Decision Making EKG shows sinus tachycardia at 104 bpm UT interval 144 QRS is 82 QT intervals 358 QTC is 470. I spoke with the nurse practitioner for Dr. Fitzgerald and she accepted the patient. Wrote admitting orders. CT showed an enlarged liver with ascites and some gallstones with sludge. - Lab Data Result diagrams: 05/09/19 13:15 05/09/19 13:15 Lab Results 05/09/19 05/09/19 05/09/19 Range/Units 13:15 13:15 13:15 WBC 7.3 (3.8-10.6) k/uL RBC 4.25 L (4.30-5.90) m/uL Hgb 13.1 (13.0-17.5) gm/dL Hct 38.4 L (39.0-53.0) % MCV 90.3 (80.0-100.0) fL MCH 30.9 (25.0-35.0) pg MCHC 34.2 (31.0-37.0) g/dL RDW 15.5 (11.5-15.5) % Plt Count 83 L (150-450) k/uL Neutrophils % 70 % Lymphocytes % 16 % Monocytes % 10 % Eosinophils % 3 % Basophils % 1 % Neutrophils # 5.1 (1.3-7.7) k/uL Lymphocytes # 1.1 (1.0-4.8) k/uL Monocytes # 0.7 (0-1.0) k/uL Eosinophils # 0.2 (0-0.7) k/uL Basophils # 0.1 (0-0.2) k/uL PT 12.9 H (9.0-12.0) sec INR 1.3 H (<1.2) APTT 31.8 H (22.0-30.0) sec Sodium 135 L (137-145) mmol/L Potassium 5.2 H (3.5-5.1) mmol/L Chloride 101 (98-107) mmol/L Carbon Dioxide 26 (22-30) mmol/L Anion Gap 8 mmol/L BUN 4 L (9-20) mg/dL Creatinine 0.54 L (0.66-1.25) mg/dL Est GFR (CKD-EPI)AfAm >90 (>60 ml/min/1.73 sqM) Est GFR (CKD-EPI)NonAf >90 (>60 ml/min/1.73 sqM) Glucose 103 H (74-99) mg/dL Plasma Lactic Acid [place] (0.7-2.0) mmol/L Calcium 7.9 L (8.4-10.2) mg/dL Total Bilirubin 4.1 H (0.2-1.3) mg/dL AST 208 H (17-59) U/L ALT 19 (4-49) U/L Alkaline Phosphatase 149 H (38-126) U/L Troponin I (0.000-0.034) ng/mL Total Protein 8.2 (6.3-8.2) g/dL Albumin 3.5 (3.5-5.0) g/dL Amylase 144 H (30-110) U/L Lipase 268 (23-300) U/L Urine Color Urine Appearance (Clear) Urine pH (5.0-8.0) Ur Specific [place] (1.001-1.035) Urine Protein (Negative) Urine Glucose (UA) (Negative) Urine Ketones (Negative) Urine Blood (Negative) Urine Nitrite (Negative) Urine Bilirubin (Negative) Urine Urobilinogen (<2.0) mg/dL Ur Leukocyte Esterase (Negative) Serum Alcohol 212 H* mg/dL 05/09/19 05/09/19 05/09/19 Range/Units 13:15 13:15 13:55 WBC (3.8-10.6) k/uL RBC (4.30-5.90) m/uL Hgb (13.0-17.5) gm/dL Hct (39.0-53.0) % MCV (80.0-100.0) fL MCH (25.0-35.0) pg MCHC (31.0-37.0) g/dL RDW (11.5-15.5) % Plt Count (150-450) k/uL Neutrophils % % Lymphocytes % % Monocytes % % Eosinophils % % Basophils % % Neutrophils # (1.3-7.7) k/uL Lymphocytes # (1.0-4.8) k/uL Monocytes # (0-1.0) k/uL Eosinophils # (0-0.7) k/uL Basophils # (0-0.2) k/uL PT (9.0-12.0) sec INR (<1.2) APTT (22.0-30.0) sec Sodium (137-145) mmol/L Potassium (3.5-5.1) mmol/L Chloride (98-107) mmol/L Carbon Dioxide (22-30) mmol/L Anion Gap mmol/L BUN (9-20) mg/dL Creatinine (0.66-1.25) mg/dL Est GFR (CKD-EPI)AfAm (>60 ml/min/1.73 sqM) Est GFR (CKD-EPI)NonAf (>60 ml/min/1.73 sqM) Glucose (74-99) mg/dL Plasma Lactic Acid [place] 1.8 (0.7-2.0) mmol/L Calcium (8.4-10.2) mg/dL Total Bilirubin (0.2-1.3) mg/dL AST (17-59) U/L ALT (4-49) U/L Alkaline Phosphatase (38-126) U/L Troponin I <0.012 (0.000-0.034) ng/mL Total Protein (6.3-8.2) g/dL Albumin (3.5-5.0) g/dL Amylase (30-110) U/L Lipase (23-300) U/L Urine Color Dark Yellow Urine Appearance Clear (Clear) Urine pH 6.5 (5.0-8.0) Ur Specific [place] 1.012 (1.001-1.035) Urine Protein Trace H (Negative) Urine Glucose (UA) Negative (Negative) Urine Ketones Negative (Negative) Urine Blood Negative (Negative) Urine Nitrite Negative (Negative) Urine Bilirubin 1+ H (Negative) Urine Urobilinogen 12.0 (<2.0) mg/dL Ur Leukocyte Esterase Negative (Negative) Serum Alcohol mg/dL Disposition Clinical Impression: Right upper quadrant pain, Alcohol intoxication, Ascites Disposition: ADMITTED IP TO THIS [facility] Referrals: Bon Reich MD [Primary Care Provider] - 1-2 days Time of Disposition: 16:20
[2019-05-09 13:36] LABS: ALT 19 U/L (4-49); AST 208 U/L (17-59); African American GFR (CKD) >90 (>60 ml/min/1.73 sqM); Albumin 3.5 g/dL (3.5-5.0); Alkaline Phosphatase 149 U/L (38-126); Amylase 144 U/L (30-110); Anion Gap 8 mmol/L; Blood Urea Nitrogen 4 mg/dL (9-20); Calcium 7.9 mg/dL (8.4-10.2); Carbon Dioxide 26 mmol/L (22-30); Chloride 101 mmol/L (98-107); Glucose 103 mg/dL (74-99); Non-African American GFR(CKD) >90 (>60 ml/min/1.73 sqM); Sodium 135 mmol/L (137-145); Total Bilirubin 4.1 mg/dL (0.2-1.3); Total Protein 8.2 g/dL (6.3-8.2)
[2019-05-09 13:40] LABS: Basophils # (A) 0.1 k/uL (0-0.2); Basophils % (A) 1 %; Eosinophils # (A) 0.2 k/uL (0-0.7); Eosinophils % (A) 3 %; HCT 38.4 % (39.0-53.0); HGB 13.1 gm/dL (13.0-17.5); Lymphocytes # (A) 1.1 k/uL (1.0-4.8); Lymphocytes % (A) 16 %; MCH 30.9 pg (25.0-35.0); MCHC 34.2 g/dL (31.0-37.0); MCV 90.3 fL (80.0-100.0); Mean Platelet Volume 11.8; Monocytes # (A) 0.7 k/uL (0-1.0); Monocytes % (A) 10 %; Neutrophils # (A) 5.1 k/uL (1.3-7.7); Neutrophils % (A) 70 %; RBC 4.25 m/uL (4.30-5.90); RDW 15.5 % (11.5-15.5); WBC 7.3 k/uL (3.8-10.6)
[2019-05-09 13:41] LABS: Platelet Count 83 k/uL (150-450)
[2019-05-09 13:46] LABS: Alcohol 212 mg/dL; Potassium 5.2 mmol/L (3.5-5.1)
--- NOTE | 2019-05-09 13:53 | XR ---
EXAMINATION TYPE: XR chest 2V DATE OF EXAM: 05/09/2019 COMPARISON: Chest x-ray October 03, 2018. HISTORY: Chest and abdominal pain. TECHNIQUE: Frontal and lateral views of the chest are obtained. FINDINGS: There is chronic parenchymal changes bilaterally without suspicious focal air space opacity, pleural effusion, or pneumothorax seen. The cardiac silhouette size remains within normal limits. Multilevel spurring in the thoracic spine. IMPRESSION: Chronic changes without acute pulmonary process.
[2019-05-09 14:07] LABS: INR 1.3 (<1.2); Partial Thromboplastin Time 31.8 sec (22.0-30.0); Prothrombin Time 12.9 sec (9.0-12.0)
[2019-05-09] MEDS ORDERED: LORazepam 2 MG/ML INJ IV PRN (14:10)
[2019-05-09] MEDS: LORazepam 2 MG/ML INJ IV PRN ×2 (14:14→22:50)
[2019-05-09 14:16] LABS: Appearance,Urine Clear (Clear); Bilirubin,Urine 1+ (Negative); Blood,Urine Negative (Negative); Color,Urine Dark Yellow; Glucose,Urine (UA) Negative (Negative); Ketones,Urine Negative (Negative); Leukocyte Esterase,Urine Negative (Negative); Nitrite,Urine Negative (Negative); PH, Urine 6.5 (5.0-8.0); Protein,Urine Trace (Negative); Specific Gravity,Urine 1.012 (1.001-1.035)
--- NOTE | 2019-05-09 15:02 | CT ---
EXAMINATION TYPE: CT abdomen pelvis w con DATE OF EXAM: 05/09/2019 COMPARISON: Ultrasound abdomen October 04, 2018 HISTORY: Right upper quadrant pain with vomiting. CT DLP: 1260.5 mGycm, Automated Exposure Control for Dose Reduction was Utilized. CONTRAST: CT scan of the abdomen and pelvis is performed with oral and with IV Contrast, patient injected with 100 mL of Isovue 300. FINDINGS: LUNG BASES: No significant abnormality is appreciated. LIVER/GB: Liver is diffusely low dense consistent with fatty infiltration and/or underlying hepatocel lular disease. Liver size upper limits of normal. Some surrounding ascites. Some inferior density in gallbladder could reflect small stones and/or gallbladder sludge. Gallbladder has some distended any ins without significant wall thickening or obvious focal surrounding inflammatory change. No biliary dilatation. PANCREAS: No significant abnormality is seen. SPLEEN: Splenomegaly at 14.4 cm long axis coronal image 74. Some surrounding ascites. ADRENALS: No significant abnormality is seen. KIDNEYS: No significant abnormality is seen. BOWEL: Small sized hiatal hernia. Evaluation slightly suboptimal due to lack of enteric contrast. No suspicious small or large bowel dilatation. Mild to moderate wall thickening in the transverse colon. Scattered diverticula throughout the transverse and left colon. PROSTATE/SEMINAL VESICLES: No gross abnormality seen. LYMPH NODES: No greater than 1cm abdominal or pelvic lymph nodes are appreciated. OSSEOUS STRUCTURES: No significant abnormality is seen. OTHER: Right sided pelvic phleboliths. Mild abdominal and mild to moderate pelvic ascites. Moderate c alcified plaque of the distal abdominal aorta extending into iliac branch vessels IMPRESSION: 1. Mild abdominal and pelvic ascites. Possible fatty infiltration of liver versus underlying hepatoce llular disease. Liver size noted upper limits of normal. Splenomegaly present. Findings of ascites an d splenomegaly would increase suspicion for the latter. 2. Possible small intraluminal gallstones and/or sludge without convincing secondary CT findings for acute cholecystitis. 3. Probable mild to moderate uncomplicated acute colitis involving the transverse colon. Correlate cl inically.
[2019-05-09] MEDS ORDERED: SODIUM CHLORIDE 0.9% 1,000 ML with MVI, ADULT NO.4 WITH VIT K 10 ML, THIAMINE 100 MG, F... IV ONE ×4 (16:06)
[2019-05-09] MEDS: SODIUM CHLORIDE 0.9% 1,000 ML IV ONE (16:24)
[2019-05-09] MEDS ORDERED: NITROGLYCERIN SL TABS 0.4 MG TAB SUBLINGUAL PRN (19:29)
[2019-05-09] MEDS ORDERED: ALBUTEROL NEBULIZED 2.5 MG/3 ML INHALATION PRN (19:29)
[2019-05-09] MEDS ORDERED: ACETAMINOPHEN TAB 325 MG TAB PO PRN (19:32)
[2019-05-09] MEDS: HYDROcodone/APAP 5-325MG 1 EACH TAB PO PRN (22:44)
[2019-05-10] MEDS: SODIUM CHLORIDE 0.9% 1,000 ML IV ONE (01:55)
[2019-05-10] MEDS: HYDROcodone/APAP 5-325MG 1 EACH TAB PO PRN ×2 (03:57→09:15)
[2019-05-10] MEDS: PANTOPRAZOLE 40 MG TABLET PO SCH (09:17)
[2019-05-10] MEDS: ASPIRIN 81 MG PO SCH (09:17)
[2019-05-10] MEDS: ISOSORBIDE MONONITRATE ER 30 MG TAB.ER.24H PO SCH (09:17)
[2019-05-10] MEDS: CITALOPRAM HYDROBROMIDE 20 MG TAB PO SCH (09:17)
[2019-05-10] MEDS: LISINOPRIL 10 MG TAB PO SCH (09:17)
--- NOTE | 2019-05-10 11:25 | US ---
EXAMINATION TYPE: US gallbladder DATE OF EXAM: 05/10/2019 COMPARISON: CT 2019 CLINICAL HISTORY: RUQ pain, gallstones, rule out CBD dilation. RUQ pain, N/V, exam done portable. EXAM MEASUREMENTS: Liver Length: 15.9 cm Gallbladder Wall: 0.4 cm CBD: 0.4 cm Right Kidney: 10.5 x 6.6 x 5.3 cm Pancreas: obscured by overlying midline bowel gas Liver: attenuating, heterogeneous, increased echogenicity, mildly nodular contour Gallbladder: borderline hydropic, mild wall thickening, low level echoes seen within dependant porti on represented of biliary sludge Evidence for sonographic Tidwell's sign: no CBD: visualized portions wnl, limited by overlying bowel gas Right Kidney: wnl Abdominal ascites seen in RUQ IMPRESSION: 1. Cirrhotic morphology of the liver with perihepatic ascites. 2. Biliary sludge is seen and mild gallbladder wall thickening, however the common bile duct is withi n normal limits and mild wall thickening is likely attributable to the adjacent ascites and hepatocel lular disease.
--- NOTE | 2019-05-10 12:42 | P.HPIM ---
History of Present Illness Patient is a pleasant 58-year-old male came in with complaints of right upper quadrant abdominal pain although patient has tenderness predominantly in the epigastric area rather than upper quadrant abdominal pain this pain has been g oing on for about a week not related to food squeezing type of pain moderate amount of pain which is better now because of IV pain medication he received patient denied any fever chills patient was having nausea and vomiting almost every day for about a month patient does drink alcohol heavily about 10-15 beers a day. Tums of breath fever chills hematuria or dysuria, hematemesis melena or hematochezia. Ultrasound circumflex showed some biliary sludge and mostly ascites. CAT scan was reviewed as well which showed mild colitis. Lipase within normal limits. Review of Systems REVIEW OF SYSTEMS: CONSTITUTIONAL: No fever, no malaise, no fatigue. HEENT: No recent visual problems or hearing problems. Denied any sore throat. CARDIOVASCULAR: No chest pain, orthopnea, PND, no palpitations, no syncope. PULMONARY: No shortness of breath, no cough, no hemoptysis. GASTROINTESTINAL: As mentioned in HPI NEUROLOGICAL: No headaches, no weakness, no numbness. HEMATOLOGICAL: Denies any bleeding or petechiae. GENITOURINARY: Denies any burning micturition, frequency, or urgency. MUSCULOSKELETAL/RHEUMATOLOGICAL: Denies any joint pain, swelling, or any muscle pain. ENDOCRINE: Denies any polyuria or polydipsia. The rest of the 14-point review of systems is negative. Past Medical History Past Medical History: GERD/Reflux, Hyperlipidemia, Hypertension Additional Past Medical History / Comment(s): Patient states he needs a left knee replacement. History of Any Multi-Drug Resistant Organisms: None Reported Past Surgical History: Orthopedic Surgery Additional Past Surgical History / Comment(s): LEFT AND AND RIGHT KNEE SX. LEFT FEMUR FX. HEART CATH NO STENTS Past Anesthesia/Blood Transfusion Reactions: No Reported Reaction Past Psychological History: No Psychological Hx Reported Smoking Status: Current every day smoker Past Alcohol Use History: None Reported, Abuse, Daily, Heavy Past Drug Use History: None Reported - Past Family History Father Family Medical History: Coronary Artery Disease (CAD), Liver Disease Mother Family Medical History: Cancer Additional Family Medical History / Comment(s): LUNG DISEASE Medications and Allergies Home Medications Medication Instructions Recorded Confirmed Type Albuterol Sulfate [Proair Hfa] 2 puff INHALATION RT-Q6H PRN #1 10/05/18 05/09/19 Rx hfa.aer.ad Aspirin EC [Ecotrin Low Dose] 81 mg PO DAILY #30 tablet. 10/05/18 05/09/19 Rx Citalopram Hydrobromide [CeleXA] 40 mg PO DAILY #30 tablet 10/05/18 05/09/19 Rx Isosorbide Mononitrate ER [Imdur] 30 mg PO DAILY #30 tab.er.24h 10/05/18 05/09/19 Rx Lisinopril [Prinivil] 10 mg PO DAILY #30 tablet 10/05/18 05/09/19 Rx Nitroglycerin Sl Tabs [Nitrostat] 0.4 mg SUBLINGUAL Q5M PRN #50 tab 10/05/18 05/09/19 Rx Pantoprazole Sodium [Protonix] 40 mg PO DAILY #30 tablet. 10/05/18 05/09/19 Rx Thiamine [Vitamin B-1] 100 mg PO DAILY #30 tab 10/05/18 05/09/19 Rx Allergies Allergy/AdvReac Type Severity Reaction Status Date / Time Penicillins Allergy Anaphylaxis Verified 05/09/19 16:09 meperidine [From Demerol] AdvReac Hallucinati Verified 05/09/19 16:09 ons Opioids-Meperidine and AdvReac Hallucinati Verified 05/09/19 16:09 Related ons Opioids-Methadone and Related AdvReac Hallucinati Verified 05/09/19 16:09 ons quetiapine [From Seroquel] AdvReac Hallucinati Verified 05/09/19 16:09 ons Physical Exam Vitals: Vital Signs Temp Pulse Pulse Resp BP BP Pulse Ox 05/10/19 11:59 98.1 F 96 20 144/83 95 05/10/19 05:00 98.7 F 89 16 145/80 93 L 05/09/19 20:53 98.5 F 96 20 122/78 95 05/09/19 17:10 98.3 F 117 H 17 136/86 88 L 05/09/19 15:53 78 16 132/76 99 05/09/19 12:50 99.2 F 104 H 18 134/88 97 Intake and Output 05/09/19 05/10/19 05/10/19 22:59 06:59 14:59 Other: Voiding Method Urinal # Voids 1 2 Weight 86.183 kg PHYSICAL EXAMINATION: GENERAL: The patient is alert and oriented x3, not in any acute distress. Well developed, well nourished. HEENT: Pupils are round and equally reacting to light. EOMI. patient does have scleral icterus scleral icterus. No conjunctival pallor. Normocephalic, atraumatic. No pharyngeal erythema. No thyromegaly. CARDIOVASCULAR: S1 and S2 present. No murmurs, rubs, or gallops. PULMONARY: Chest is clear to auscultation, no wheezing or crackles. ABDOMEN: Distended with fluid shift does have good bowel sounds, minimal tenderness in the epigastric area Tidwell's sign is negative MUSCULOSKELETAL: No joint swelling or deformity. EXTREMITIES: No cyanosis, clubbing, or pedal edema. NEUROLOGICAL: Gross neurological examination did not reveal any focal deficits. SKIN: No rashes. Results CBC & Chem 7: 05/09/19 13:15 05/09/19 13:15 Labs: Abnormal Lab Results - Last 24 Hours (Table) 05/09/19 05/09/19 05/09/19 Range/Units 13:15 13:15 13:15 RBC 4.25 L (4.30-5.90) m/uL Hct 38.4 L (39.0-53.0) % Plt Count 83 L (150-450) k/uL PT 12.9 H (9.0-12.0) sec INR 1.3 H (<1.2) APTT 31.8 H (22.0-30.0) sec Sodium 135 L (137-145) mmol/L Potassium 5.2 H (3.5-5.1) mmol/L BUN 4 L (9-20) mg/dL Creatinine 0.54 L (0.66-1.25) mg/dL Glucose 103 H (74-99) mg/dL Calcium 7.9 L (8.4-10.2) mg/dL Total Bilirubin 4.1 H (0.2-1.3) mg/dL AST 208 H (17-59) U/L Alkaline Phosphatase 149 H (38-126) U/L Amylase 144 H (30-110) U/L Urine Protein (Negative) Urine Bilirubin (Negative) Serum Alcohol 212 H* mg/dL 05/09/19 Range/Units 13:55 RBC (4.30-5.90) m/uL Hct (39.0-53.0) % Plt Count (150-450) k/uL PT (9.0-12.0) sec INR (<1.2) APTT (22.0-30.0) sec Sodium (137-145) mmol/L Potassium (3.5-5.1) mmol/L BUN (9-20) mg/dL Creatinine (0.66-1.25) mg/dL Glucose (74-99) mg/dL Calcium (8.4-10.2) mg/dL Total Bilirubin (0.2-1.3) mg/dL AST (17-59) U/L Alkaline Phosphatase (38-126) U/L Amylase (30-110) U/L Urine Protein Trace H (Negative) Urine Bilirubin 1+ H (Negative) Serum Alcohol mg/dL Thrombosis Risk Factor Assmnt - Choose All That Apply Each Factor Represents 1 point: Age 41-60 years, Obesity (BMI >25), Swollen legs (current) Other congenital or acquired thrombophilia - If yes, enter type in comment: No Thrombosis Risk Factor Assessment Total Risk Factor Score: 3 Thrombosis Risk Factor Assessment Level: Moderate Risk Assessment and Plan Plan: -Abdominal pain mostly epigastric mostly secondary to alcoholic gastritis patient will be continued on Protonix IV fluids will be discontinued because of ascites and volume overload. We'll also consult the general surgery as there is some biliary sludge with possible thickening of the gallbladder. Gastric probably was was consulted as well -Alcohol withdrawal: Patient will be monitored for withdrawals patient lasting of alcohol was yesterday and his alcohol level was about 200 on arrival to ER. Extensive counseling regarding alcohol was provided patient is accepting and agreeable that he is to quit alcohol -Alcoholic cirrhosis: Patient does have ascites further supportive care -Obstructive jaundice secondary to cirrhosis -Hypertension continue with lisinopril -Hyperkalemia secondary to hemolysis continue with lisinopril repeat compensative metabolic profile tomorrow -Depression -Acute alcoholic hepatitis expected to improve with cessation of alcohol -COPD without any acute exacerbation -Thrombocytopenia secondary to cirrhosis and splenic splenic sequestration
--- NOTE | 2019-05-10 15:01 | CONS ---
CONSULTATION DATE OF SERVICE: 05/10/2019 REASON FOR CONSULTATION: Elevated LFTs and right upper quadrant abdominal pain. HISTORY OF PRESENT ILLNESS: The patient is a 58-year-old pleasant white male with history of heavy alcohol abuse for the last 40 years duration. He came to the emergency room complaining of epigastric and right upper quadrant abdominal pain for the last several weeks duration. His symptoms have been progressively getting worse, especially in the last one week associated with nausea, vomiting, and not feeling well. He came to the emergency room and was noted to have elevated LFTs and jaundice and hence we are consulted for further evaluation. He did have a CT of the abdomen and pelvis done that showed enlarged liver with hepatic steatosis and some biliary sludge as well as mild ascites. PAST MEDICAL HISTORY: Significant for heavy alcohol abuse, hypertension, hyperlipidemia, gastroesophageal reflux disease. PAST SURGICAL HISTORY: Left and right knee surgery. MEDICATIONS: At home include albuterol, aspirin, Isordil, nitroglycerin sublingual p.r.n., Prinivil, pantoprazole, and thiamine. ALLERGIES: To DEMEROL, OPIOIDS, SEROQUEL and PENICILLIN. SOCIAL HISTORY: Heavy alcohol abuse as mentioned above, Chronic smoker. FAMILY HISTORY: Father coronary artery disease and chronic liver disease. Mother had lung disease. REVIEW OF SYSTEMS: CARDIOPULMONARY: He denies any chest pain. He does complain of some shortness of breath. : No dysuria, hematuria. MUSCULOSKELETAL: Unremarkable. SKIN: Unremarkable. ENDOCRINE: Unremarkable. PSYCHIATRIC: Unremarkable. NEUROLOGY: Unremarkable. ENT/VISION: Unremarkable. CONSTITUTIONAL: No recent weight loss. No fever, chills, night sweats. PHYSICAL EXAMINATION: Blood pressure is 144/83, pulse rate 96, temperature 98.1. HEENT: Examination unremarkable, sclerae deeply icteric. Oral cavity no lesions. NECK: No JVD or lymph node enlargement. CHEST: Clear to auscultation. HEART: Regular rate and rhythm. ABDOMEN: Soft. Tenderness in the right upper quadrant area. Liver was palpable at least 4 cm below the right costal margin and was very tender. Spleen was not palpable. No free fluid appreciated. EXTREMITIES: No pedal edema. SKIN: No rashes. NEUROLOGIC: Alert and oriented x3. No focal deficits. LABS: WBC 7.3, hemoglobin 13.1, platelets 83,000. PT 12.9, INR 1.3. Sodium 135, potassium 5.2, BUN and creatinine are normal. AST 208, ALT 19, alkaline phosphatase 149, and T- bilirubin of 4.1. Amylase and lipase are normal. CT of the abdomen and pelvis done in the emergency room did show evidence of hepatomegaly with fatty infiltration of the liver, but underlying hepatocellular disease could not be excluded. Also, there was small ascites noted and some sludge noted in the gallbladder with no biliary ductal dilation. IMPRESSION: 1. This is a patient with history of heavy alcohol abuse, admitted to the hospital with an epigastric and right upper quadrant abdominal pain for the last few weeks duration associated with intermittent nausea and vomiting. 2. Labs. He is noted to have elevated bilirubin with AST more than ALT now and CAT scan showing diffuse hepatomegaly with fatty infiltration of the liver and the clinical as well as biochemical picture is consistent with acute alcoholic hepatitis with possible superimposed on possible underlying alcoholic liver disease. 3. Mild ascites. 4. Splenomegaly secondary to portal hypertension. 5. Epigastric and right upper quadrant abdominal pain related to acute alcoholic hepatitis. 6. Sludge in the gallbladder. RECOMMENDATIONS: 1. I had a lengthy discussion with the patient regarding abstinence from alcohol. 2. Start him on Protonix 40 mg daily. 3. Obtain ultrasound of the right upper quadrant to rule out any gallstones or acute cholecystitis. 4. Start him on a clear liquid diet and advance as tolerated. 5. Repeat labs in the morning. 6. Hepatitis serologies for A, B and C and will follow with you closely during his hospital stay. Thank you for this consultation. MMODL / IJN: [id number] /
[2019-05-10 18:54] LABS: Hepatitis A Antibody IgM Non-Reactive (Non-Reactive); Hepatitis B Core IgM Non-Reactive (Non-Reactive); Hepatitis B Surface Antigen Non-Reactive (Non-Reactive); Hepatitis C IgG Antibody Non-Reactive (Non-Reactive)
[2019-05-11 07:26] LABS: ALT 16 U/L (4-49); AST 133 U/L (17-59); African American GFR (CKD) >90 (>60 ml/min/1.73 sqM); Alkaline Phosphatase 125 U/L (38-126); Amylase 64 U/L (30-110); Anion Gap 6 mmol/L; Blood Urea Nitrogen 9 mg/dL (9-20); Calcium 7.9 mg/dL (8.4-10.2); Carbon Dioxide 28 mmol/L (22-30); Chloride 100 mmol/L (98-107); Glucose 85 mg/dL (74-99); Non-African American GFR(CKD) >90 (>60 ml/min/1.73 sqM); Potassium 4.1 mmol/L (3.5-5.1); Sodium 134 mmol/L (137-145); Total Bilirubin 7.1 mg/dL (0.2-1.3); Total Protein 7.2 g/dL (6.3-8.2)
[2019-05-11] MEDS: NICOTINE 21MG/24HR PATCH TRANSDERM SCH ×2 (09:00→09:02)
[2019-05-11] MEDS: ISOSORBIDE MONONITRATE ER 30 MG TAB.ER.24H PO SCH (09:01)
[2019-05-11] MEDS: CITALOPRAM HYDROBROMIDE 20 MG TAB PO SCH (09:01)
[2019-05-11] MEDS: ASPIRIN 81 MG PO SCH (09:01)
[2019-05-11] MEDS: PANTOPRAZOLE 40 MG TABLET PO SCH (09:01)
[2019-05-11] MEDS: LISINOPRIL 10 MG TAB PO SCH (09:01)
[2019-05-11] MEDS: LORazepam 2 MG/ML INJ IV PRN ×6 (09:10→22:54)
--- NOTE | 2019-05-11 09:54 | P.GSCN ---
History of Present Illness Consult date: 05/11/19 Reason for Consult: Right upper quadrant pain History of present illness: This a 58-year-old male with history of alcohol abuse. Patient has h epatomegaly. He has known cirrhosis and ascites. Patient had complaints of right quadrant pain. Patient's gallbladder shows evidence of gallbladder wall thickening and sludge in the gallbladder. The patient was admitted after acute alcohol intoxication. His blood alcohol level was over 200. He currently feels better today. Past Medical History Past Medical History: GERD/Reflux, Hyperlipidemia, Hypertension Additional Past Medical History / Comment(s): Patient states he needs a left knee replacement. History of Any Multi-Drug Resistant Organisms: None Reported Past Surgical History: Orthopedic Surgery Additional Past Surgical History / Comment(s): LEFT AND AND RIGHT KNEE SX. LEFT FEMUR FX. HEART CATH NO STENTS Past Anesthesia/Blood Transfusion Reactions: No Reported Reaction Past Psychological History: No Psychological Hx Reported Smoking Status: Current every day smoker Past Alcohol Use History: None Reported, Abuse, Daily, Heavy Past Drug Use History: None Reported - Past Family History Father Family Medical History: Coronary Artery Disease (CAD), Liver Disease Mother Family Medical History: Cancer Additional Family Medical History / Comment(s): LUNG DISEASE Medications and Allergies Home Medications Medication Instructions Recorded Confirmed Type Albuterol Sulfate [Proair Hfa] 2 puff INHALATION RT-Q6H PRN #1 10/05/18 05/09/19 Rx hfa.aer.ad Aspirin EC [Ecotrin Low Dose] 81 mg PO DAILY #30 tablet. 10/05/18 05/09/19 Rx Citalopram Hydrobromide [CeleXA] 40 mg PO DAILY #30 tablet 10/05/18 05/09/19 Rx Isosorbide Mononitrate ER [Imdur] 30 mg PO DAILY #30 tab.er.24h 10/05/18 05/09/19 Rx Lisinopril [Prinivil] 10 mg PO DAILY #30 tablet 10/05/18 05/09/19 Rx Nitroglycerin Sl Tabs [Nitrostat] 0.4 mg SUBLINGUAL Q5M PRN #50 tab 10/05/18 05/09/19 Rx Pantoprazole Sodium [Protonix] 40 mg PO DAILY #30 tablet. 10/05/18 05/09/19 Rx Thiamine [Vitamin B-1] 100 mg PO DAILY #30 tab 10/05/18 05/09/19 Rx Allergies Allergy/AdvReac Type Severity Reaction Status Date / Time Penicillins Allergy Anaphylaxis Verified 05/09/19 16:09 meperidine [From Demerol] AdvReac Hallucinati Verified 05/09/19 16:09 ons Opioids-Meperidine and AdvReac Hallucinati Verified 05/09/19 16:09 Related ons Opioids-Methadone and Related AdvReac Hallucinati Verified 05/09/19 16:09 ons quetiapine [From Seroquel] AdvReac Hallucinati Verified 05/09/19 16:09 ons Surgical - Exam Vital Signs Temp Pulse Resp BP Pulse Ox 99.2 F 104 H 18 134/88 97 05/09/19 12:50 05/09/19 12:50 05/09/19 12:50 05/09/19 12:50 05/09/19 12:50 - General well developed, well nourished, no distress - Eyes PERRL - ENT normal pinna - Neck no masses - Respiratory normal expansion - Cardiovascular Rhythm: regular - Abdomen Mild right quadrant tenderness Abdomen: soft Results - Labs 05/09/19 13:15 05/11/19 06:52 Abnormal Lab Results - Last 24 Hours (Table) 05/11/19 05/11/19 Range/Units 06:52 06:52 Sodium 134 L (137-145) mmol/L Creatinine 0.52 L (0.66-1.25) mg/dL Calcium 7.9 L (8.4-10.2) mg/dL Total Bilirubin 7.1 H (0.2-1.3) mg/dL AST 133 H (17-59) U/L Ammonia 40 H (<30) umol/L Albumin 3.0 L (3.5-5.0) g/dL Diabetes panel 05/11/19 Range/Units 06:52 Sodium 134 L (137-145) mmol/L Potassium 4.1 (3.5-5.1) mmol/L Chloride 100 (98-107) mmol/L Carbon Dioxide 28 (22-30) mmol/L BUN 9 (9-20) mg/dL Creatinine 0.52 L (0.66-1.25) mg/dL Glucose 85 (74-99) mg/dL Calcium 7.9 L (8.4-10.2) mg/dL AST 133 H (17-59) U/L ALT 16 (4-49) U/L Alkaline Phosphatase 125 (38-126) U/L Total Protein 7.2 (6.3-8.2) g/dL Albumin 3.0 L (3.5-5.0) g/dL Calcium panel 05/11/19 Range/Units 06:52 Calcium 7.9 L (8.4-10.2) mg/dL Albumin 3.0 L (3.5-5.0) g/dL Pituitary panel 05/11/19 Range/Units 06:52 Sodium 134 L (137-145) mmol/L Potassium 4.1 (3.5-5.1) mmol/L Chloride 100 (98-107) mmol/L Carbon Dioxide 28 (22-30) mmol/L BUN 9 (9-20) mg/dL Creatinine 0.52 L (0.66-1.25) mg/dL Glucose 85 (74-99) mg/dL Calcium 7.9 L (8.4-10.2) mg/dL Adrenal panel 05/11/19 Range/Units 06:52 Sodium 134 L (137-145) mmol/L Potassium 4.1 (3.5-5.1) mmol/L Chloride 100 (98-107) mmol/L Carbon Dioxide 28 (22-30) mmol/L BUN 9 (9-20) mg/dL Creatinine 0.52 L (0.66-1.25) mg/dL Glucose 85 (74-99) mg/dL Calcium 7.9 L (8.4-10.2) mg/dL Total Bilirubin 7.1 H (0.2-1.3) mg/dL AST 133 H (17-59) U/L ALT 16 (4-49) U/L Alkaline Phosphatase 125 (38-126) U/L Total Protein 7.2 (6.3-8.2) g/dL Albumin 3.0 L (3.5-5.0) g/dL Assessment and Plan Assessment: Chronic cholecystitis Alcohol cirrhosis Patient will be observed. If he becomes symptomatic we may consider laparoscopic ostectomy as an outpatient.
--- NOTE | 2019-05-11 10:40 | PN ---
PROGRESS NOTE DATE OF SERVICE: 05/11/2019 Patient is a 58-year-old pleasant white male admitted with history of heavy alcohol abuse, admitted to the hospital with severe acute alcoholic hepatitis and right upper quadrant abdominal pain. He is very shaky this morning. He continues to complain of some discomfort in the right upper quadrant. He reports no nausea, vomiting. PHYSICAL EXAMINATION: Appears comfortable, in no apparent distress. Vital signs are stable. Blood pressure 146/88, pulse 85, temperature 98.2. HEENT: Examination unremarkable, conjunctivae pink, sclerae icteric, oral cavity no lesions. NECK: No JVD or lymph node enlargement. CHEST: Clear to auscultation. HEART: Regular rate and rhythm. ABDOMEN: Soft. There was a significant hepatomegaly with tenderness in the right upper quadrant noted. Rest of the abdomen was benign. No free fluid identified. EXTREMITIES: No pedal edema. SKIN: No rashes. NEURO: He is alert and oriented x3. No focal deficits. EXTREMITIES: Tremors noted. LABS: From today, CBC is not available. Bilirubin is 7.1, AST 133, ALT 16, alkaline phosphatase is 125, BUN and creatinine are normal. IMPRESSION: 1. Alcohol withdrawal. 2. Acute alcoholic hepatitis with hepatomegaly and right upper quadrant abdominal pain. 3. Alcoholic cirrhosis of the liver. 4. Mild thrombocytopenia. 5. Heavy alcohol abuse of 30 years' duration. RECOMMENDATION: 1. Watch for DTs closely. 2. Continue with Protonix 40 mg twice daily. 3. Advance diet as tolerated. 4. Agree with surgical consultation. 5. Abstinence from alcohol. 6. Repeat labs in the morning and will follow with you closely. Thank you for this consultation. MMODL / IJN: [id number] /
[2019-05-11] MEDS ORDERED: IPRATROPIUM 0.5 MG/2.5 ML NEBU INHALATION PRN (10:51)
[2019-05-11] MEDS: DOXYCYCLINE 100 MG CAP PO SCH ×2 (11:45→22:45)
--- NOTE | 2019-05-11 15:28 | P.PN ---
Subjective 58-year-old male was admitted for right upper quadrant abdominal pain patient still has abdominal pain was diagnosed with chronic cholecystitis although surgical intervention is not being planned at this time. Patient does have cirrhosis alcoholic. Patient is presently undergoing alcohol withdrawals and requiring high amounts of Ativan at this time. When I evaluated the patient is doing well but patient started having withdrawals later with significant hallucinations Constitutional: Denied any fatigue denied any fever. Cardio vascular: denied any chest pain, palpitations Gastrointestinal denied any nausea vomiting Pulmonary: Denied any shortness of breath cough Neurologic denied any new focal deficits All inpatient medications were reviewed and appropriate changes in these medications as dictated in the interval history and assessment and plan. Objective - Vital Signs Vital signs: Vital Signs Temp 97.9 F 05/11/19 12:58 Pulse 103 H 05/11/19 12:58 Resp 20 05/11/19 12:58 BP 124/78 05/11/19 12:58 Pulse Ox 93 L 05/11/19 12:58 Intake & Output 05/10/19 05/11/19 05/11/19 18:59 06:59 18:59 Intake Total 290 Output Total 450 650 Balance -450 -650 290 Intake: Oral 290 Output: Urine 400 650 Emesis 50 Other: Voiding Method Urinal Urinal Urinal # Voids 2 5 # Bowel Movements 1 - Exam PHYSICAL EXAMINATION: GENERAL: The patient is alert and oriented x3, not in any acute distress. Well developed, well nourished. HEENT: Pupils are round and equally reacting to light. EOMI. patient does have scleral icterus scleral icterus. No conjunctival pallor. Normocephalic, atraumatic. No pharyngeal erythema. No thyromegaly. CARDIOVASCULAR: S1 and S2 present. No murmurs, rubs, or gallops. PULMONARY: Chest is clear to auscultation, no wheezing or crackles. ABDOMEN: Distended with fluid shift does have good bowel sounds, minimal tenderness in the epigastric area , patient does have right upper quadrant tenderness MUSCULOSKELETAL: No joint swelling or deformity. EXTREMITIES: No cyanosis, clubbing, or pedal edema. NEUROLOGICAL: Gross neurological examination did not reveal any focal deficits. SKIN: No rashes. - Labs CBC & Chem 7: 05/09/19 13:15 05/11/19 06:52 Labs: Abnormal Lab Results - Last 24 Hours (Table) 05/11/19 05/11/19 Range/Units 06:52 06:52 Sodium 134 L (137-145) mmol/L Creatinine 0.52 L (0.66-1.25) mg/dL Calcium 7.9 L (8.4-10.2) mg/dL Total Bilirubin 7.1 H (0.2-1.3) mg/dL AST 133 H (17-59) U/L Ammonia 40 H (<30) umol/L Albumin 3.0 L (3.5-5.0) g/dL Assessment and Plan Plan: -Abdominal pain possibly of chronic cholecystitis, patient may have alcoholic gastritis as well mostly epigastric mostly secondary to alcoholic gastritis patient will be continued on Protonix I, Gen. surgery and gastroenterology evaluated the patient -Alcohol withdrawal: Patient will be monitored for withdrawals patient lasting of alcohol was yesterday and his alcohol level was about 200 on arrival to ER. Extensive counseling regarding alcohol was provided patient is accepting and agreeable that he is to quit alcohol -Alcoholic cirrhosis: Patient does have ascites further supportive care -Obstructive jaundice secondary to cirrhosis -Hypertension continue with lisinopril -Hyperkalemia secondary to hemolysis continue with lisinopril. 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
[2019-05-11] MEDS: SYMBICORT 160-4.5 MCG INHALER INHALATION SCH (18:53)
[2019-05-11] MEDS ORDERED: IBUPROFEN 400 MG TAB PO PRN (22:05)
[2019-05-12] MEDS: metroNIDAZOLE-NS PMX 500 MG in SALINE 1 100ML.BAG IVPB SCH ×3 (00:45→16:12)
[2019-05-12 06:41] LABS: HCT 35.1 % (39.0-53.0); HGB 11.3 gm/dL (13.0-17.5); MCH 30.6 pg (25.0-35.0); MCHC 32.3 g/dL (31.0-37.0); MCV 94.7 fL (80.0-100.0); Mean Platelet Volume 11.5; RBC 3.71 m/uL (4.30-5.90); RDW 15.6 % (11.5-15.5); WBC 6.2 k/uL (3.8-10.6)
[2019-05-12 06:45] LABS: Platelet Count 67 k/uL (150-450)
[2019-05-12 06:50] LABS: ALT 17 U/L (4-49); AST 119 U/L (17-59); African American GFR (CKD) >90 (>60 ml/min/1.73 sqM); Albumin 2.7 g/dL (3.5-5.0); Alkaline Phosphatase 111 U/L (38-126); Anion Gap 6 mmol/L; Blood Urea Nitrogen 9 mg/dL (9-20); Calcium 7.8 mg/dL (8.4-10.2); Carbon Dioxide 28 mmol/L (22-30); Chloride 100 mmol/L (98-107); Glucose 82 mg/dL (74-99); Non-African American GFR(CKD) >90 (>60 ml/min/1.73 sqM); Potassium 3.6 mmol/L (3.5-5.1); Sodium 134 mmol/L (137-145); Total Bilirubin 6.2 mg/dL (0.2-1.3); Total Protein 6.9 g/dL (6.3-8.2)
[2019-05-12] MEDS: CITALOPRAM HYDROBROMIDE 20 MG TAB PO SCH (08:11)
[2019-05-12] MEDS: DOXYCYCLINE 100 MG CAP PO SCH (08:11)
[2019-05-12] MEDS: PANTOPRAZOLE 40 MG TABLET PO SCH (08:12)
[2019-05-12] MEDS: LISINOPRIL 10 MG TAB PO SCH (08:12)
[2019-05-12] MEDS: NICOTINE 21MG/24HR PATCH TRANSDERM SCH (08:12)
[2019-05-12] MEDS: ISOSORBIDE MONONITRATE ER 30 MG TAB.ER.24H PO SCH (08:12)
[2019-05-12] MEDS: ASPIRIN 81 MG PO SCH (08:12)
[2019-05-12] MEDS: SYMBICORT 160-4.5 MCG INHALER INHALATION SCH ×2 (08:54→19:20)
--- NOTE | 2019-05-12 11:13 | P.PN ---
Progress Note - Text Progress Note Date: 05/12/19 The patient resting comfortably in his bed. He states he was confused last night. There is a question whether he went through DTs. On exam is lesser stable. His evidence soft. History of chronically cholecystitis with biliary sludge and thickened gallbladder wall. The patient is admitted for acute alcohol intoxication. He will be treated conservatively this time. We will plan to see him in the outpatient setting and reevaluate his gallbladder then.
--- NOTE | 2019-05-12 14:37 | P.PN ---
Subjective 58-year-old male was admitted for right upper quadrant abdominal pain patient still has abdominal pain was diagnosed with chronic cholecystitis although surgical intervention is not being planned at this time. Patient does have cirrhosis alcoholic. Patient is presently undergoing alcohol withdrawals and requiring high amounts of Ativan at this time. When I evaluated the patient is doing well but patient started having withdrawals later with significant hallucinations 05/12/2019 Patient right upper quadrant abdominal pain is much better today. This is secondary to alcoholic hepatitis rather than biliary sludge or gallbladder disease. Patient was started on antibiotics I do not believe he will require antibiotics upon discharge. Believe these were started secondary to mild colitis is pretty nonspecific colitis. Patient's withdrawal symptoms are much better today requiring much less Ativan today Constitutional: Denied any fatigue denied any fever. Cardio vascular: denied any chest pain, palpitations Gastrointestinal denied any nausea vomiting Pulmonary: Denied any shortness of breath cough Neurologic denied any new focal deficits All inpatient medications were reviewed and appropriate changes in these medications as dictated in the interval history and assessment and plan. Objective - Vital Signs Vital signs: Vital Signs Temp 98.6 F 05/12/19 12:51 Pulse 87 05/12/19 12:51 Resp 18 05/12/19 12:51 BP 145/92 05/12/19 12:51 Pulse Ox 95 05/12/19 12:51 Intake & Output 05/11/19 05/12/19 05/12/19 18:59 06:59 18:59 Intake Total 290 540 Balance 290 540 Intake: Oral 290 540 Other: Voiding Method Urinal Urinal # Voids 2 3 3 # Bowel Movements 1 - Exam PHYSICAL EXAMINATION: GENERAL: The patient is alert and oriented x3, not in any acute distress. Well developed, well nourished. HEENT: Pupils are round and equally reacting to light. EOMI. patient does have scleral icterus scleral icterus. No conjunctival pallor. Normocephalic, atraumatic. No pharyngeal erythema. No thyromegaly. CARDIOVASCULAR: S1 and S2 present. No murmurs, rubs, or gallops. PULMONARY: Chest is clear to auscultation, no wheezing or crackles. ABDOMEN: Distended with fluid shift does have good bowel sounds, minimal tenderness in the epigastric area , patient does have right upper quadrant tenderness MUSCULOSKELETAL: No joint swelling or deformity. EXTREMITIES: No cyanosis, clubbing, or pedal edema. NEUROLOGICAL: Gross neurological examination did not reveal any focal deficits. SKIN: No rashes. - Labs CBC & Chem 7: 05/12/19 06:16 05/12/19 06:16 Labs: Abnormal Lab Results - Last 24 Hours (Table) 05/12/19 05/12/19 Range/Units 06:16 06:16 RBC 3.71 L (4.30-5.90) m/uL Hgb 11.3 L (13.0-17.5) gm/dL Hct 35.1 L (39.0-53.0) % RDW 15.6 H (11.5-15.5) % Plt Count 67 L (150-450) k/uL Sodium 134 L (137-145) mmol/L Creatinine 0.55 L (0.66-1.25) mg/dL Calcium 7.8 L (8.4-10.2) mg/dL Total Bilirubin 6.2 H (0.2-1.3) mg/dL AST 119 H (17-59) U/L Albumin 2.7 L (3.5-5.0) g/dL Assessment and Plan Plan: -Abdominal pain probably secondary to alcoholic hepatitis patient does have some biliary sludge I do not believe that is completed to be getting his pain -Alcohol withdrawal: Patient will be monitored for withdrawals patient lasting of alcohol was yesterday and his alcohol level was about 200 on arrival to ER. Extensive counseling regarding alcohol was provided patient is accepting and agreeable that he is to quit alcohol -Alcoholic cirrhosis: Patient does have ascites further supportive care -Obstructive jaundice secondary to cirrhosis -Hypertension continue with lisinopril -Hyperkalemia resolved now -Depression -Acute alcoholic hepatitis expected to improve with cessation of alcohol -COPD without any acute exacerbation -Thrombocytopenia secondary to cirrhosis and splenic splenic sequestration
--- NOTE | 2019-05-12 16:37 | PN ---
PROGRESS NOTE DATE OF SERVICE: 05/12/2019 Patient is a 58 -year-old white male with acute alcoholic hepatitis and cirrhosis of the liver, admitted to the hospital with severe right upper quadrant abdominal pain associated with nausea, vomiting. He states that the pain is improving. He is going through alcohol withdrawal. He denies any nausea, vomiting. No fever, chills, night sweats. PHYSICAL EXAMINATION: Appears comfortable in no apparent distress. VITAL SIGNS: Stable. Blood pressure is 145/92, pulse 87, temperature 98.6. HEENT examination unremarkable. Conjunctivae pink. Sclerae icteric. Oral cavity no lesions. NECK: No JVD. No lymph node enlargement. CHEST: Clear to auscultation. HEART: Regular rate and rhythm. ABDOMEN is tender in the right upper quadrant area. Bowel sounds are positive. EXTREMITIES: No pedal edema. Significant tremor noted. NEUROLOGIC: Alert and oriented x3. No focal deficits. LABS: From today WBC 6.2, hemoglobin 11.3, platelets 67,000. T-bilirubin is 6.2, AST 119, ALT 17, alkaline phosphatase 111. Hepatitis serology for A, B and C were negative. IMPRESSION: 1. Acute alcohol withdrawal. 2. Alcoholic hepatitis superimposed on alcoholic cirrhosis of the liver. 3. Right upper quadrant pain, most likely related to tender hepatomegaly from acute alcoholic hepatitis, cannot rule out cholecystitis. 4. Thrombocytopenia secondary to underlying liver disease. RECOMMENDATIONS: 1. Continue with symptomatic and supportive care. 2. Repeat labs in the morning. 3. Abstinence from alcohol. 4. We will follow with you closely. Thank you for this consultation. MMODL / IJN: [id number] /
[2019-05-12] MEDS: HYDROcodone/APAP 5-325MG 1 EACH TAB PO PRN (19:33)
[2019-05-13] MEDS: metroNIDAZOLE-NS PMX 500 MG in SALINE 1 100ML.BAG IVPB SCH ×2 (00:20→10:30)
[2019-05-13] MEDS: HYDROcodone/APAP 5-325MG 1 EACH TAB PO PRN (02:08)
[2019-05-13] MEDS: SYMBICORT 160-4.5 MCG INHALER INHALATION SCH ×2 (07:20→19:35)
[2019-05-13] MEDS ORDERED: PROCHLORPERAZINE 10 MG TAB PO PRN (09:27)
[2019-05-13] MEDS: PANTOPRAZOLE 40 MG TABLET PO SCH (10:30)
[2019-05-13] MEDS: NICOTINE 21MG/24HR PATCH TRANSDERM SCH ×2 (10:30→10:35)
[2019-05-13] MEDS: CITALOPRAM HYDROBROMIDE 20 MG TAB PO SCH (10:31)
[2019-05-13] MEDS: ASPIRIN 81 MG PO SCH (10:31)
[2019-05-13] MEDS: LISINOPRIL 10 MG TAB PO SCH (10:31)
[2019-05-13] MEDS: ISOSORBIDE MONONITRATE ER 30 MG TAB.ER.24H PO SCH (10:31)
--- NOTE | 2019-05-13 11:24 | P.PN ---
Subjective Progress Note Date: 05/13/19 CHIEF COMPLAINT: Cholecystitis HISTORY OF PRESENT ILLNESS: Patient examined at the bedside and Dr. Mckee. Patient reports his abdominal pain is tolerable. He complains of shakiness and nausea this morning. PHYSICAL EXAM: VITAL SIGNS: Reviewed. GENERAL: Well-developed in no acute distress. HEENT: No sclera icterus. Extraocular movements grossly intact. Moist buccal mucosa. Head is atraumatic, normocephalic. ABDOMEN: Soft. Nondistended. Minimal tenderness. NEUROLOGIC: Alert and oriented. Cranial nerves II through XII grossly intact. ASSESSMENT: 1. Chronic cholecystitis 2. Alcohol abuse PLAN: -Continue diet as tolerated. NPO at midnight -Patient to undergo laparoscopic cholecystectomy tomorrow with Dr. Mckee Nurse practitioner note has been reviewed by physician. Signing provider agrees with the documented findings, assessment, and plan of care. Objective - Vital Signs Vital signs: Vital Signs Temp 97.7 F 05/13/19 05:15 Pulse 71 05/13/19 05:15 Resp 20 05/13/19 05:15 BP 95/47 05/13/19 05:15 Pulse Ox 98 05/13/19 05:15 Intake & Output 05/12/19 05/13/19 05/13/19 18:59 06:59 18:59 Intake Total 640 300 Balance 640 300 Intake: IV 100 metroNIDAZOLE-NS PMX 500 100 mg In Saline 1 100ml.bag @ 100 mls/hr IVPB Q8HR [facility] Rx#:[id number] Oral 540 300 Other: Voiding Method Urinal Incontinent # Voids 3 2 2 # Bowel Movements 0 - Labs CBC & Chem 7: 05/12/19 06:16 05/13/19 11:39 Labs: Microbiology - Last 24 Hours (Table) 05/11/19 22:09 Blood Culture - Preliminary Blood No Growth after 24 hours
[2019-05-13 12:00] LABS: ALT 19 U/L (4-49); AST 112 U/L (17-59); African American GFR (CKD) >90 (>60 ml/min/1.73 sqM); Alkaline Phosphatase 115 U/L (38-126); Anion Gap 6 mmol/L; Blood Urea Nitrogen 9 mg/dL (9-20); Calcium 7.7 mg/dL (8.4-10.2); Carbon Dioxide 28 mmol/L (22-30); Chloride 97 mmol/L (98-107); Glucose 124 mg/dL (74-99); Non-African American GFR(CKD) >90 (>60 ml/min/1.73 sqM); Potassium 3.8 mmol/L (3.5-5.1); Sodium 131 mmol/L (137-145); Total Bilirubin 6.6 mg/dL (0.2-1.3); Total Protein 7.4 g/dL (6.3-8.2)
--- NOTE | 2019-05-13 13:31 | P.PN ---
Subjective Progress Note Date: 05/13/19 Principal diagnosis: 58-year-old male was admitted for right upper quadrant abdominal pain patient still has abdominal pain was diagnosed with chronic cholecystitis although surgical intervention is not being planned at this time. Patient does have cirrhosis alcoholic. Patient is presently undergoing alcohol withdrawals and requiring high amounts of Ativan at this time. When I evaluated the patient is doing well but patient started having withdrawals later with significant hallucinations 05/12/2019 Patient right upper quadrant abdominal pain is much better today. This is secondary to alcoholic hepatitis rather than biliary sludge or gallbladder disease. Patient was started on antibiotics I do not believe he will require antibiotics upon discharge. Believe these were started secondary to mild colitis is pretty nonspecific colitis. Patient's withdrawal symptoms are much better today requiring much less Ativan today Constitutional: Denied any fatigue denied any fever. Cardio vascular: denied any chest pain, palpitations Gastrointestinal denied any nausea vomiting Pulmonary: Denied any shortness of breath cough Neurologic denied any new focal deficits 05/13/2019 Patient is seen in follow-up today and continues to be quite weak requiring assistance with ambulation. PT/OT evaluated the patient recommending subacute rehab for strength and mobility. Patient states that his abdominal pain is gotten better although he continues to be nauseated at times and states that he had an episode of emesis last night. Flagyl will be discontinued today. Surgery following the patient. Patient will undergo laparoscopic cholecystectomy tomorrow. Currently no reports of chest pain, shortness of breath, or palpitations. Patient is afebrile. Patient remains on a regular diet and will be made nothing by mouth at midnight. Case management and social work following as patient will likely need subacute rehab upon discharge. Objective - Vital Signs Vital signs: Vital Signs Temp 98.0 F 05/13/19 12:02 Pulse 86 05/13/19 12:02 Resp 20 05/13/19 12:02 BP 122/79 05/13/19 12:02 Pulse Ox 94 L 05/13/19 12:02 Intake & Output 05/12/19 05/13/19 05/13/19 18:59 06:59 18:59 Intake Total 640 300 Balance 640 300 Intake: IV 100 metroNIDAZOLE-NS PMX 500 100 mg In Saline 1 100ml.bag @ 100 mls/hr IVPB Q8HR [facility] Rx#:[id number] Oral 540 300 Other: Voiding Method Urinal Incontinent # Voids 3 2 2 # Bowel Movements 0 - Exam GENERAL: The patient is alert and oriented x3, not in any acute distress. Well developed, well nourished. HEENT: Pupils are round and equally reacting to light. EOMI. patient does have scleral icterus scleral icterus. No conjunctival pallor. Normocephalic, atraumatic. No pharyngeal erythema. No thyromegaly. CARDIOVASCULAR: S1 and S2 present. No murmurs, rubs, or gallops. PULMONARY: Chest is clear to auscultation, no wheezing or crackles. ABDOMEN: Positive bowel sounds, mildly distended, obese minimal tenderness in the epigastric area , patient does have right upper quadrant tenderness MUSCULOSKELETAL: No joint swelling or deformity. EXTREMITIES: No cyanosis, clubbing, or pedal edema. NEUROLOGICAL: Gross neurological examination did not reveal any focal deficits. Diffusely weak. SKIN: No rashes. - Labs CBC & Chem 7: 05/12/19 06:16 05/13/19 11:39 Labs: Abnormal Lab Results - Last 24 Hours (Table) 05/13/19 Range/Units 11:39 Sodium 131 L (137-145) mmol/L Chloride 97 L (98-107) mmol/L Creatinine 0.52 L (0.66-1.25) mg/dL Glucose 124 H (74-99) mg/dL Calcium 7.7 L (8.4-10.2) mg/dL Total Bilirubin 6.6 H (0.2-1.3) mg/dL AST 112 H (17-59) U/L Albumin 3.0 L (3.5-5.0) g/dL Microbiology - Last 24 Hours (Table) 05/11/19 22:09 Blood Culture - Preliminary Blood No Growth after 24 hours Assessment and Plan Assessment: -Abdominal pain probably secondary to alcoholic hepatitis patient does have some biliary sludge and is being followed by surgery. Patient undergoing cholecystectomy with Dr. Mckee tomorrow -Alcohol withdrawal: Patient will be monitored for withdrawals -Alcoholic cirrhosis: Patient does have ascites further supportive care -Obstructive jaundice secondary to cirrhosis -Hypertension -Hyperkalemia resolved now -Depression -Acute alcoholic hepatitis expected to improve with cessation of alcohol -COPD without any acute exacerbation -Thrombocytopenia secondary to cirrhosis and splenic sequestration Plan: To continue with current medications. Patient will undergo acute cholecystectomy tomorrow and will be made nothing by mouth midnight. Lisinopril is on hold as patient was slightly hypotensive and will continue to monitor closely. Will repeat a.m. labs. Further recommendations to follow. Case management and social work following as patient will likely need some form of subacute rehab upon discharge.
--- NOTE | 2019-05-13 14:49 | PN ---
PROGRESS NOTE DATE OF SERVICE: 05/13/2019 Patient is a 58-year-old pleasant white male with history of acute alcoholic hepatitis/alcoholic cirrhosis of the liver. Admitted to the hospital with right upper quadrant abdominal pain which is gradually improving. He still is going through alcohol withdrawal. He denies any symptoms. Reports no nausea, vomiting. On a regular diet, tolerating well. PHYSICAL EXAMINATION: He appears comfortable. No apparent distress. Vital signs are stable. Blood pressure is 122/79, pulse rate 89, temperature 98. HEENT: Examination unremarkable. Conjunctivae are pink. Sclerae nonicteric. Oral cavity no lesions. NECK: No JVD or lymph node enlargement. CHEST: Clear to auscultation. HEART: Regular rate and rhythm. ABDOMEN: Soft. Bowel sounds are positive. Mild tenderness in the right upper quadrant area. EXTREMITIES: No pedal edema. SKIN: No rashes. NEUROLOGIC: Alert and oriented x3. No focal deficits. LABS: From today CBC not available. T-bilirubin is down to 6.6, AST 112, ALT 19, alkaline phosphatase normal, BUN and creatinine normal. Hepatitis serologies for A, B and C were negative. IMPRESSION: 1. Right upper quadrant abdominal pain secondary to acute alcoholic hepatitis, but he may have a component of chronic cholecystitis. Will be following the patient closely. 2. Alcoholic cirrhosis of the liver. 3. Alcohol withdrawal. 4. Thrombocytopenia secondary to alcoholic liver disease. RECOMMENDATION: 1. Management of alcohol withdrawal for the medicine team. 2. Monitor LFTs on a daily basis. 3. Advance diet as tolerated. 4. Abstinence from alcohol. 5. Will follow with you closely. Thank you for this consultation. MMODL / IJN: [id number] /
[2019-05-14 07:06] LABS: Anisocytosis Slight; Basophils # (A) 0.1 k/uL (0-0.2); Basophils % (A) 1 %; Eosinophils # (A) 0.2 k/uL (0-0.7); Eosinophils % (A) 3 %; HCT 36.1 % (39.0-53.0); HGB 11.7 gm/dL (13.0-17.5); Lymphocytes % (A) 15 %; MCH 30.8 pg (25.0-35.0); MCHC 32.3 g/dL (31.0-37.0); MCV 95.3 fL (80.0-100.0); Mean Platelet Volume 10.9; Monocytes # (A) 0.8 k/uL (0-1.0); Monocytes % (A) 13 %; Neutrophils % (A) 65 %; RBC 3.79 m/uL (4.30-5.90); RDW 16.1 % (11.5-15.5); WBC 6.2 k/uL (3.8-10.6)
[2019-05-14 07:12] LABS: ALT 17 U/L (4-49); AST 97 U/L (17-59); African American GFR (CKD) >90 (>60 ml/min/1.73 sqM); Albumin 2.8 g/dL (3.5-5.0); Alkaline Phosphatase 104 U/L (38-126); Anion Gap 8 mmol/L; Blood Urea Nitrogen 7 mg/dL (9-20); Calcium 7.6 mg/dL (8.4-10.2); Carbon Dioxide 24 mmol/L (22-30); Chloride 100 mmol/L (98-107); Glucose 86 mg/dL (74-99); Non-African American GFR(CKD) >90 (>60 ml/min/1.73 sqM); Potassium 3.8 mmol/L (3.5-5.1); Sodium 132 mmol/L (137-145); Total Bilirubin 6.1 mg/dL (0.2-1.3); Total Protein 6.9 g/dL (6.3-8.2)
[2019-05-14] MEDS: SYMBICORT 160-4.5 MCG INHALER INHALATION SCH ×2 (07:40→19:20)
[2019-05-14 07:41] LABS: Platelet Count 73 k/uL (150-450)
[2019-05-14] MEDS ORDERED: LACTATED RINGERS 1,000 ML IV ONE ×4 (08:32→14:12)
[2019-05-14] MEDS ORDERED: PROPOFOL 10 MG/ML 20 ML VIAL IV ONE (09:15)
[2019-05-14] MEDS ORDERED: NEOSTIGMINE 1 MG/ML 10 ML VIAL ONE (09:15)
[2019-05-14] MEDS ORDERED: GLYCOPYRROLATE 0.2 MG/ML 2 ML VIAL ONE (09:15)
[2019-05-14] MEDS ORDERED: SUCCINYLCHOLINE CHLORIDE 100 MG/5 ML SYR IV ONE (09:15)
[2019-05-14] MEDS ORDERED: LIDOCAINE 1% INJ 10MG/ML (20 ML MDV) ONE (09:15)
[2019-05-14] MEDS ORDERED: ROCURONIUM BROMIDE 10 MG/ML 5 ML VIAL IV ONE (09:15)
[2019-05-14] MEDS ORDERED: PHENYLEPHRINE-0.9% NACL SYG 1 MG/10 ML SYRINGE ONE (09:15)
[2019-05-14] MEDS ORDERED: fentaNYL (PF) 50 MCG/ML 2 ML AMP ONE (09:15)
[2019-05-14] MEDS ORDERED: MIDAZOLAM 2 MG/2 ML VIAL ONE (09:15)
[2019-05-14] MEDS ORDERED: BUPIVACAIN-EPI 0.25%-1:200,000 30 ML VIAL SQ ONE (09:21)
[2019-05-14] MEDS ORDERED: NALOXONE 0.4 MG/ML 1 ML VIAL IV PRN (11:05)
[2019-05-14] MEDS ORDERED: ONDANSETRON 4 MG/2 ML VIAL IVP PRN (11:05)
[2019-05-14] MEDS ORDERED: PHYTONADIONE 10 MG in SODIUM CHLORIDE 0.9% 50 ML IVPB STA (11:08)
--- NOTE | 2019-05-14 11:13 | P.OP ---
Date of Procedure: 05/14/19 Preoperative Diagnosis: Cholecystitis Cholelithiasis Postoperative Diagnosis: Cholecystitis Cholelithiasis Cirrhosis Ascites Procedure(s) Performed: Diagnostic laparoscopy Open cholecystectomy Anesthesia: BRITNEY Surgeon: Jerald Mckee Estimated Blood Loss (ml): 300 Pathology: other (Gallbladder) Condition: stable Disposition: PACU Description of Procedure: The patient was placed on the operating table. The patient received a general endotracheal tube anesthesia. The patients abdomen was prepped and draped in the usual sterile fashion. Through an infraumbilical stab incision, the fascia of the anterior abdominal wall was grasped with a pair of Kochers and then the Veress needle was placed in the peritoneal cavity. Position of the Veress needle was confirmed with positive drop test. The abdomen was then insufflated. After adequate insufflation, the 10 mm trocar was placed in the peritoneal cavity. Following this the laparoscope was placed in the peritoneal cavity. The patient was placed in the head-up, right side up position and then a 5 mm trocar was placed in the right lateral and right subcostal position under direct visualization. A 8 mm trocar was placed in the epigastric position. The gallbladder was grasped in the fundus and infundibulum. Traction on the gallbladder was placed in the lateral and the cephalad positions. There was a large volume ascites in the perineal cavity. Approximately 1500 mL of ascites was aspirated. The gallbladder was inflamed. The gallbladder cannot be retracted significantly due to cirrhosis of liver. The liver was quite quite firm and nonmobile. The gallbladder wall. Inflamed. During manipulation the gallbladder the gallbladder wall was torn and the fundus of the gallbladder. The bile and small gallstones were aspirated. At this point decided to perform a dome down technique removing the gallbladder the natasha hepatis appeared to be inflamed and due to the patient's history of cirrhosis the liver and perineal surface was very friable. During the dissection of the gallbladder and there was some bleeding from the gallbladder which was controlled using Harmonic scissors. At this point due to the inability of the gallbladder to be mobilized due to the cirrhotic liver decided to perform the procedure and open technique. The trochars withdrawn. A standard right subcostal incision was made. Using left cautery the abdominal wall was divided. And the abdomen was entered. There is approximately another liter of ascites which was aspirated. The Bookwalter passed this wound. The gallbladder was then dissected off of the liver using left cautery. Due to the inflammation near the natasha hepatis was decided to perform a subtotal cholecystectomy. Using a right angle clamp the neck of the gallbladder was occluded the gallbladder was then transected and sent to pathology. Using 0 silk ties the gallbladder neck was then ligated. 2-0 silk ties were used to ligate the neck of the gallbladder. The liver bed was inspected for hemostasis. There is small bleeding points which were quite blade. A piece of Surgicel was placed in the liver bed. A JANELL drain is placed across the gallbladder fossa. And brought out through separate stab incision. The sponges were removed. The abdomen was irrigated. The fascia was then closed with looped #1 PDS suture. Skin was closed rakel. The trocar sites were closed rakel. There was some ascites leaking from the trocar site at the umbilicus. And then the umbilicus was reclosed with using 3-0 Monocryl suture. Sterile dressing applied. Patient top she will was sent to recovery room stable condition. T
[2019-05-14] MEDS: HYDROmorphone 0.5 MG/0.5 ML SYRINGE IVP PRN ×6 (11:27→23:37)
--- NOTE | 2019-05-14 12:06 | P.PN ---
Subjective Progress Note Date: 05/14/19 Principal diagnosis: 58-year-old male was admitted for right upper quadrant abdominal pain patient still has abdominal pain was diagnosed with chronic cholecystitis although surgical intervention is not being planned at this time. Patient does have cirrhosis alcoholic. Patient is presently undergoing alcohol withdrawals and requiring high amounts of Ativan at this time. When I evaluated the patient is doing well but patient started having withdrawals later with significant hallucinations 05/12/2019 Patient right upper quadrant abdominal pain is much better today. This is secondary to alcoholic hepatitis rather than biliary sludge or gallbladder disease. Patient was started on antibiotics I do not believe he will require antibiotics upon discharge. Believe these were started secondary to mild colitis is pretty nonspecific colitis. Patient's withdrawal symptoms are much better today requiring much less Ativan today Constitutional: Denied any fatigue denied any fever. Cardio vascular: denied any chest pain, palpitations Gastrointestinal denied any nausea vomiting Pulmonary: Denied any shortness of breath cough Neurologic denied any new focal deficits 05/13/2019 Patient is seen in follow-up today and continues to be quite weak requiring assistance with ambulation. PT/OT evaluated the patient recommending subacute rehab for strength and mobility. Patient states that his abdominal pain is gotten better although he continues to be nauseated at times and states that he had an episode of emesis last night. Flagyl will be discontinued today. Surgery following the patient. Patient will undergo laparoscopic cholecystectomy tomorrow. Currently no reports of chest pain, shortness of breath, or palpitations. Patient is afebrile. Patient remains on a regular diet and will be made nothing by mouth at midnight. Case management and social work following as patient will likely need subacute rehab upon discharge. 05/14/2019 Patient is being taken to the OR for prepping to have a cholecystectomy today. Will await report. No reports of chest pain, shortness of breath, or palpitations. Patient has been nothing by mouth since midnight. Some slight nausea with no vomiting noted. Sodium is slightly low at 132. Bilirubin slowly trending down at 6.1. Hemoglobin is stable at 11.7. Patient is maintained on ceftriaxone and will continue at this time. Objective - Vital Signs Vital signs: Vital Signs Temp 98.6 F 05/14/19 11:15 Pulse 83 05/14/19 11:46 Resp 18 05/14/19 11:46 BP 78/52 05/14/19 11:46 Pulse Ox 99 05/14/19 11:46 Intake & Output 05/13/19 05/14/19 05/14/19 18:59 06:59 18:59 Intake Total 350 1000 Output Total 100 500 Balance -100 350 500 Intake: IV 1000 Oral 350 Output: Urine 100 Estimated Blood Loss 500 Other: Voiding Method Incontinent Urinal # Voids 1 2 # Bowel Movements 0 1 - Exam GENERAL: The patient is alert and oriented x3, not in any acute distress. Well developed, well nourished. HEENT: Pupils are round and equally reacting to light. EOMI. patient does have scleral icterus. No conjunctival pallor. Normocephalic, atraumatic. No pharyngeal erythema. No thyromegaly. CARDIOVASCULAR: S1 and S2 present. No murmurs, rubs, or gallops. PULMONARY: Chest is clear to auscultation, no wheezing or crackles. ABDOMEN: Positive bowel sounds, mildly distended, obese, minimal tenderness in the epigastric area , patient does have right upper quadrant tenderness MUSCULOSKELETAL: No joint swelling or deformity. EXTREMITIES: No cyanosis, clubbing, or pedal edema. NEUROLOGICAL: Gross neurological examination did not reveal any focal deficits. Diffusely weak. SKIN: No rashes. - Labs CBC & Chem 7: 05/14/19 06:13 05/14/19 06:13 Labs: Abnormal Lab Results - Last 24 Hours (Table) 05/13/19 05/14/19 05/14/19 Range/Units 11:39 06:13 06:13 RBC 3.79 L (4.30-5.90) m/uL Hgb 11.7 L (13.0-17.5) gm/dL Hct 36.1 L (39.0-53.0) % RDW 16.1 H (11.5-15.5) % Plt Count 73 L (150-450) k/uL Sodium 131 L 132 L (137-145) mmol/L Chloride 97 L (98-107) mmol/L BUN 7 L (9-20) mg/dL Creatinine 0.52 L 0.51 L (0.66-1.25) mg/dL Glucose 124 H (74-99) mg/dL Calcium 7.7 L 7.6 L (8.4-10.2) mg/dL Total Bilirubin 6.6 H 6.1 H (0.2-1.3) mg/dL AST 112 H 97 H (17-59) U/L Albumin 3.0 L 2.8 L (3.5-5.0) g/dL Microbiology - Last 24 Hours (Table) 05/11/19 22:09 Blood Culture - Preliminary Blood No Growth after 48 hours Assessment and Plan Assessment: -Abdominal pain probably secondary to alcoholic hepatitis patient does have some biliary sludge and is being followed by surgery. Patient will be undergoing cholecystectomy with Dr. Mckee today. Will await report. -Alcohol withdrawal: Patient will be monitored for withdrawals -Alcoholic cirrhosis: Patient does have ascites further supportive care -Obstructive jaundice secondary to cirrhosis. GI following. 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 Patient is undergoing an acute cholecystectomy this morning. Will continue to monitor vital signs and labs closely. Will repeat a.m. labs. Further recommendations to follow. Case management and social work following as patient will need some subacute rehab upon discharge.
[2019-05-14 12:12] LABS: Anisocytosis Slight; HGB 10.9 gm/dL (13.0-17.5); MCH 31.7 pg (25.0-35.0); MCV 96.2 fL (80.0-100.0); Mean Platelet Volume 11.2; RBC 3.43 m/uL (4.30-5.90); RDW 16.2 % (11.5-15.5); WBC 7.9 k/uL (3.8-10.6)
[2019-05-14 12:18] LABS: Platelet Count 85 k/uL (150-450)
[2019-05-14 12:19] LABS: ALT 20 U/L (4-49); AST 118 U/L (17-59); African American GFR (CKD) >90 (>60 ml/min/1.73 sqM); Albumin 2.5 g/dL (3.5-5.0); Alkaline Phosphatase 93 U/L (38-126); Anion Gap 10 mmol/L; Blood Urea Nitrogen 8 mg/dL (9-20); Calcium 7.4 mg/dL (8.4-10.2); Carbon Dioxide 22 mmol/L (22-30); Chloride 100 mmol/L (98-107); Glucose 105 mg/dL (74-99); Non-African American GFR(CKD) >90 (>60 ml/min/1.73 sqM); Sodium 132 mmol/L (137-145); Total Protein 6.2 g/dL (6.3-8.2)
[2019-05-14 12:23] LABS: INR 1.7 (<1.2); Prothrombin Time 16.4 sec (9.0-12.0)
[2019-05-14] MEDS: ISOSORBIDE MONONITRATE ER 30 MG TAB.ER.24H PO SCH (12:54)
[2019-05-14] MEDS: CITALOPRAM HYDROBROMIDE 20 MG TAB PO SCH (12:54)
[2019-05-14] MEDS: PANTOPRAZOLE 40 MG TABLET PO SCH (12:54)
[2019-05-14] MEDS: NICOTINE 21MG/24HR PATCH TRANSDERM SCH (12:54)
[2019-05-14] MEDS: ASPIRIN 81 MG PO SCH (12:54)
[2019-05-14] MEDS ORDERED: ALBUMIN HUMAN 5% 500 ML in EMPTY BAG 1 BAG IVPB ONE (13:00)
[2019-05-14] MEDS: HYDROmorphone 0.5 MG/0.5 ML SYRINGE IVP ONE ×2 (13:25→15:12)
[2019-05-14] MEDS ORDERED: SODIUM CHLORIDE 0.9% 500 ML 500 ML IV ONE (14:12)
--- NOTE | 2019-05-14 15:52 | PN ---
PROGRESS NOTE DATE OF SERVICE: 05/14/2019 Patient is a 58-year-old white male admitted to hospital with right upper quadrant abdominal pain. History of alcoholic cirrhosis of the liver and acute alcoholic hepatitis. He is being evaluated by Dr. Mckee and the plan is to proceed with gallbladder surgery for chronic cholecystitis. The patient still has some right upper quadrant abdominal pain. He reports no other symptoms. Alcohol withdrawal is improving. PHYSICAL EXAMINATION: He appears comfortable, in no apparent distress. Vital signs are stable. Blood pressure is 102/65, pulse rate of 83, temperature 98. HEENT: Examination unremarkable, conjunctivae are pink, sclerae icteric. Oral cavity no lesions. NECK: No JVD or lymph node enlargement. CHEST: Clear to auscultation. HEART: Regular rate and rhythm. ABDOMEN: Soft mild tenderness in the right upper quadrant area, the rest of the abdomen is benign. EXTREMITIES: No pedal edema. SKIN: No rashes. NEURO: He is more alert and oriented x3. No focal deficits. Mild tremors noted. LABS: From today WBC 7.9, hemoglobin 10.9, platelets 85,000. INR is 1.7. Bilirubin down to 6. ALT and AST 118 and 20, respectively, albumin is 2.5. IMPRESSION: 1. Acute alcoholic hepatitis with jaundice and mild elevation of serum transaminases, gradually improving. 2. Alcohol withdrawal, improving. 3. Right upper quadrant abdominal pain/questionable chronic cholecystitis surgery. Schedule him for gallbladder surgery today. RECOMMENDATION: 1. Continue with current management. 2. Repeat labs in the morning and will follow with you closely. Thank you for this consultation. MMODL / IJN: [id number] /
[2019-05-14] MEDS: LACTATED RINGERS 1,000 ML IV ONE ×2 (15:53→16:43)
[2019-05-15] MEDS ORDERED: ACETAMINOPHEN TAB 325 MG TAB PO PRN (00:09)
[2019-05-15] MEDS: PANTOPRAZOLE 40 MG TABLET PO SCH (07:41)
[2019-05-15] MEDS: HYDROcodone/APAP 5-325MG 1 EACH TAB PO PRN ×2 (07:41→15:57)
[2019-05-15 07:50] LABS: Anisocytosis Slight; Basophils % (A) 0 %; Eosinophils # (A) 0.2 k/uL (0-0.7); Eosinophils % (A) 2 %; HCT 29.8 % (39.0-53.0); HGB 9.7 gm/dL (13.0-17.5); Lymphocytes # (A) 1.1 k/uL (1.0-4.8); Lymphocytes % (A) 13 %; MCH 31.6 pg (25.0-35.0); MCHC 32.4 g/dL (31.0-37.0); MCV 97.5 fL (80.0-100.0); Macrocytosis Slight; Mean Platelet Volume 11.6; Monocytes # (A) 1.1 k/uL (0-1.0); Monocytes % (A) 13 %; Neutrophils % (A) 70 %; RBC 3.06 m/uL (4.30-5.90); RDW 16.4 % (11.5-15.5); WBC 8.6 k/uL (3.8-10.6)
[2019-05-15 07:59] LABS: ALT 18 U/L (4-49); AST 91 U/L (17-59); African American GFR (CKD) >90 (>60 ml/min/1.73 sqM); Albumin 2.6 g/dL (3.5-5.0); Alkaline Phosphatase 63 U/L (38-126); Anion Gap 8 mmol/L; Blood Urea Nitrogen 15 mg/dL (9-20); Calcium 7.5 mg/dL (8.4-10.2); Carbon Dioxide 26 mmol/L (22-30); Chloride 100 mmol/L (98-107); Glucose 92 mg/dL (74-99); Non-African American GFR(CKD) >90 (>60 ml/min/1.73 sqM); Potassium 4.1 mmol/L (3.5-5.1); Sodium 134 mmol/L (137-145); Total Bilirubin 5.7 mg/dL (0.2-1.3)
[2019-05-15] MEDS: SYMBICORT 160-4.5 MCG INHALER INHALATION SCH ×2 (08:56→20:05)
[2019-05-15 09:03] LABS: Large Platelets Present; Platelet Count 92 k/uL (150-450)
[2019-05-15] MEDS: CITALOPRAM HYDROBROMIDE 20 MG TAB PO SCH (10:00)
[2019-05-15] MEDS: ASPIRIN 81 MG PO SCH (10:00)
[2019-05-15] MEDS: NICOTINE 21MG/24HR PATCH TRANSDERM SCH (10:00)
[2019-05-15] MEDS: ISOSORBIDE MONONITRATE ER 30 MG TAB.ER.24H PO SCH (10:00)
--- NOTE | 2019-05-15 11:49 | P.PN ---
Progress Note - Text Progress Note Date: 05/15/19 The patient resting comfortably in his bed. He is very hungry and wishes some Z. On exam his vital signs are stable. His abdomen soft. Incision sites clean and intact. Patient has a JANELL drain with obvious ascites present. Status post open cholecystectomy, cirrhosis, ascites. Patient will start diet. We will remove his JANELL drain once we are certain that there is no evidence of a bile leak.
--- NOTE | 2019-05-15 14:29 | P.PN ---
Subjective Progress Note Date: 05/15/19 Principal diagnosis: 58-year-old male was admitted for right upper quadrant abdominal pain patient still has abdominal pain was diagnosed with chronic cholecystitis although surgical intervention is not being planned at this time. Patient does have cirrhosis alcoholic. Patient is presently undergoing alcohol withdrawals and requiring high amounts of Ativan at this time. When I evaluated the patient is doing well but patient started having withdrawals later with significant hallucinations 05/12/2019 Patient right upper quadrant abdominal pain is much better today. This is secondary to alcoholic hepatitis rather than biliary sludge or gallbladder disease. Patient was started on antibiotics I do not believe he will require antibiotics upon discharge. Believe these were started secondary to mild colitis is pretty nonspecific colitis. Patient's withdrawal symptoms are much better today requiring much less Ativan today Constitutional: Denied any fatigue denied any fever. Cardio vascular: denied any chest pain, palpitations Gastrointestinal denied any nausea vomiting Pulmonary: Denied any shortness of breath cough Neurologic denied any new focal deficits 05/13/2019 Patient is seen in follow-up today and continues to be quite weak requiring assistance with ambulation. PT/OT evaluated the patient recommending subacute rehab for strength and mobility. Patient states that his abdominal pain is gotten better although he continues to be nauseated at times and states that he had an episode of emesis last night. Flagyl will be discontinued today. Surgery following the patient. Patient will undergo laparoscopic cholecystectomy tomorrow. Currently no reports of chest pain, shortness of breath, or palpitations. Patient is afebrile. Patient remains on a regular diet and will be made nothing by mouth at midnight. Case management and social work following as patient will likely need subacute rehab upon discharge. 05/14/2019 Patient is being taken to the OR for prepping to have a cholecystectomy today. Will await report. No reports of chest pain, shortness of breath, or palpitations. Patient has been nothing by mouth since midnight. Some slight nausea with no vomiting noted. Sodium is slightly low at 132. Bilirubin slowly trending down at 6.1. Hemoglobin is stable at 11.7. Patient is maintained on ceftriaxone and will continue at this time. 05/15/2019 Patient is seen and evaluated status post open cholecystectomy yesterday. Maria Elena ent was noted to have a large amount of ascites noted during surgery. Patient has a JANELL drain on the lower right side that continues to drain large amounts of ascitic fluid. He is currently nothing by mouth and states that he is feeling better and would like to eat. Patient denies any passing of gas or bowel movements at this time. Patient remains on ceftriaxone and will continue at this time. Patient is also requesting for physical therapy to come and work with them today as he would like to get out of the bed. Patient is urinating with a urinal. Currently no reports of chest pain, shortness of breath, or palpitations. Patient is afebrile. No reports of nausea or vomiting as patient has been nothing by mouth. Diet will be ordered. Will continue to monitor closely. Case management and social work are following as patient will be going to rehab for continued PT/OT therapy once stabilized and discharged. Objective - Vital Signs Vital signs: Vital Signs Temp 99.2 F 05/15/19 06:12 Pulse 91 05/15/19 06:12 Resp 20 05/15/19 06:12 BP 101/66 05/15/19 06:12 Pulse Ox 95 05/15/19 06:12 Intake & Output 05/14/19 05/15/19 05/15/19 18:59 06:59 18:59 Intake Total 3964 0 Output Total 880 1060 100 Balance 3084 -1060 -100 Intake: IV 2600 Oral 0 Blood Product 1364 Ffp 24 Cp2d Unit 242 [id number] Ffp 24 Cpd Unit 311 [id number] Output: Drainage 80 1010 Abdomen 80 1010 Urine 300 100 Post Void Residual 50 Estimated Blood Loss 500 Other: Voiding Method Urinal Urinal # Voids 2 - Exam GENERAL: The patient is alert and oriented x3, not in any acute distress. Well developed, well nourished. HEENT: Pupils are round and equally reacting to light. EOMI. patient does have scleral icterus. No conjunctival pallor. Normocephalic, atraumatic. No pharyngeal erythema. No thyromegaly. CARDIOVASCULAR: S1 and S2 present. No murmurs, rubs, or gallops. PULMONARY: Chest is clear to auscultation, no wheezing or crackles. ABDOMEN: Positive bowel sounds, mildly distended, obese, minimal tenderness in the mid-epigastric area , surgical dressings status post open cholecystectomy yesterday are dry and intact with JANELL drain noted on the right side MUSCULOSKELETAL: No joint swelling or deformity. EXTREMITIES: No cyanosis, clubbing, or pedal edema. NEUROLOGICAL: Gross neurological examination did not reveal any focal deficits. Diffusely weak. SKIN: No rashes. - Labs CBC & Chem 7: 05/15/19 06:51 05/15/19 06:51 Labs: Abnormal Lab Results - Last 24 Hours (Table) 05/15/19 05/15/19 Range/Units 06:51 06:51 RBC 3.06 L (4.30-5.90) m/uL Hgb 9.7 L (13.0-17.5) gm/dL Hct 29.8 L (39.0-53.0) % RDW 16.4 H (11.5-15.5) % Plt Count 92 L (150-450) k/uL Monocytes # 1.1 H (0-1.0) k/uL Sodium 134 L (137-145) mmol/L Calcium 7.5 L (8.4-10.2) mg/dL Total Bilirubin 5.7 H (0.2-1.3) mg/dL AST 91 H (17-59) U/L Total Protein 6.0 L (6.3-8.2) g/dL Albumin 2.6 L (3.5-5.0) g/dL Microbiology - Last 24 Hours (Table) 05/11/19 22:09 Blood Culture - Preliminary Blood No Growth after 72 hours Assessment and Plan Assessment: -Abdominal pain probably secondary to alcoholic hepatitis patient does have some biliary sludge and is being followed by surgery. Patient underwent open cholecystectomy with Dr. Mckee yesterday and is postop day #1. Large amount of ascites noted during surgery and irrigated. JANELL drain noted with large a john of ascitic fluid. -Alcohol withdrawal: Patient will be monitored for withdrawals, no active w ithdrawals noted. -Alcoholic cirrhosis: Patient does have ascites further supportive care -Obstructive jaundice secondary to cirrhosis. GI following. 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 Patient underwent open cholecystectomy yesterday. Will continue to monitor vital signs and labs closely. Will repeat a.m. labs. Encouraged Increased activity as tolerated and incentive spirometer ordered. Diet will be resumed. Further recommendations to follow. Case management and social work following as patient will need subacute rehab once stabilized and discharged.
--- NOTE | 2019-05-15 15:10 | PN ---
PROGRESS NOTE DATE OF DICTATION: 05/15/2019 Patient is a 58-year-old pleasant white male admitted to the hospital with acute alcoholic hepatitis and right upper quadrant abdominal pain. While in the hospital, he went through DTs. He was also diagnosed with chronic cholecystitis and underwent open cholecystectomy by Dr. Mckee yesterday, has a JANELL drain in place. The patient still complains of right upper quadrant abdominal pain. He reports no nausea, vomiting. He feels somewhat weak and tired. He is undergoing physical therapy currently. PHYSICAL EXAMINATION: Vital signs are stable, blood pressure is 199/62, pulse rate 92, temperature 98.7. HEENT: Examination unremarkable. Conjunctivae are pink. Sclerae nonicteric. Oral cavity, no lesions. NECK: No JVD or lymph node enlargement. CHEST: Clear to auscultation. HEART: Regular rate and rhythm. ABDOMEN: Soft. There is a JANELL drain in the right upper quadrant. There was benign extremities, no pedal edema. SKIN: No rashes. NEURO: He is alert and oriented x3. No focal deficits. LABS: WBC 8.6, hemoglobin 9.7, platelets are 92,000. Bilirubin is 5.7, AST 91, ALT 18, and alkaline phosphatase normal. IMPRESSION: 1. Acute alcoholic hepatitis with alcoholic cirrhosis of the liver with stable LFTs. 2. Alcohol withdrawal, resolved. 3. Chronic cholecystitis, status post gallbladder surgery yesterday. 4. Mild coagulopathy secondary to underlying liver disease. 5. Anemia and thrombocytopenia secondary to hypersplenism from chronic liver disease. RECOMMENDATION: 1. Continue with symptomatic and supportive care. 2. Follow labs on a daily basis. 3. Abstinence from alcohol. 4. Continue antibiotics. 5. Continue Protonix 40 mg daily. 6. Will follow with you closely. Thank you for this consultation. MMODL / IJN: [id number] /
[2019-05-16] MEDS: HYDROcodone/APAP 5-325MG 1 EACH TAB PO PRN ×3 (01:50→22:19)
[2019-05-16 07:43] LABS: Anisocytosis Slight; Basophils % (A) 0 %; Eosinophils # (A) 0.2 k/uL (0-0.7); Eosinophils % (A) 2 %; HCT 30.5 % (39.0-53.0); Lymphocytes % (A) 11 %; MCHC 32.7 g/dL (31.0-37.0); MCV 97.9 fL (80.0-100.0); Macrocytosis Slight; Mean Platelet Volume 11.3; Monocytes # (A) 1.1 k/uL (0-1.0); Monocytes % (A) 13 %; Neutrophils # (A) 6.1 k/uL (1.3-7.7); Neutrophils % (A) 71 %; Platelet Count 108 k/uL (150-450); RBC 3.11 m/uL (4.30-5.90); RDW 16.3 % (11.5-15.5); WBC 8.6 k/uL (3.8-10.6)
[2019-05-16 07:55] LABS: African American GFR (CKD) >90 (>60 ml/min/1.73 sqM); Anion Gap 6 mmol/L; Blood Urea Nitrogen 14 mg/dL (9-20); Calcium 7.7 mg/dL (8.4-10.2); Carbon Dioxide 27 mmol/L (22-30); Chloride 100 mmol/L (98-107); Glucose 121 mg/dL (74-99); Non-African American GFR(CKD) >90 (>60 ml/min/1.73 sqM); Potassium 3.7 mmol/L (3.5-5.1); Sodium 133 mmol/L (137-145)
[2019-05-16] MEDS: SYMBICORT 160-4.5 MCG INHALER INHALATION SCH ×2 (07:55→21:01)
[2019-05-16 09:25] LABS: Large Platelets Present
[2019-05-16 09:26] LABS: Poikilocytosis (M) Present; Target Cells Present
--- NOTE | 2019-05-16 10:24 | PN ---
PROGRESS NOTE DATE OF DICTATION: 05/16/2019 The patient is a 58-year-old pleasant white male admitted to the hospital with right upper quadrant abdominal pain, acute alcoholic hepatitis/alcoholic cirrhosis of the liver and chronic cholecystitis, status post gallbladder surgery [address] Mckee, has a JANELL drain in place which had approximately 200 mL of bilious fluid. The patient states overall he is feeling better. No nausea, vomiting. PHYSICAL EXAMINATION: On physical examination, blood pressure 111/70, pulse rate 98, temperature 98.4. HEENT EXAMINATION: Unremarkable. Conjunctivae pink. Sclerae anicteric. Oral cavity no lesions. NECK; No JVD or lymph node enlargement. CHEST: Clear to auscultation. HEART: Regular rate and rhythm. ABDOMEN: Soft. Bowel sounds are positive. No organomegaly. EXTREMITIES: No pedal edema. SKIN: No rashes. NEURO: He is alert and oriented x3. No focal deficits. LABS: Labs from today: WBC 8.6, hemoglobin 10, platelets 108. Basic metabolic panel is within normal limits. IMPRESSION: 1. Acute alcoholic hepatitis/alcoholic cirrhosis of the liver, which is gradually improving. 2. Chronic cholecystitis, status post gallbladder surgery by Dr. Mckee 2 days ago. Has some serosanguineous drainage from the JANELL drain, but no obvious bile leak noted. 3. Thrombocytopenia and anemia secondary to portal hypertension. 4. Mild coagulopathy. RECOMMENDATIONS: Advance diet as tolerated. Monitor labs closely. Continue current management. Repeat labs in the morning and will follow with you closely. MMODL / IJN: [id number] /
[2019-05-16] MEDS: ASPIRIN 81 MG PO SCH (10:38)
[2019-05-16] MEDS: PANTOPRAZOLE 40 MG TABLET PO SCH (10:39)
[2019-05-16] MEDS: CITALOPRAM HYDROBROMIDE 20 MG TAB PO SCH (10:39)
[2019-05-16] MEDS: ISOSORBIDE MONONITRATE ER 30 MG TAB.ER.24H PO SCH (10:39)
[2019-05-16] MEDS: NICOTINE 21MG/24HR PATCH TRANSDERM SCH (10:39)
[2019-05-16 10:54] LABS: Albumin 2.5 g/dL (3.5-5.0); Bilirubin, Conjugated 0.9 mg/dL (0.0-0.3); Bilirubin, Delta 1.9 mg/dL (0.0-0.2); Bilirubin,Unconjugated 1.9 mg/dL (0.0-1.1); Total Bilirubin 4.7 mg/dL (0.2-1.3); Total Protein 5.7 g/dL (6.3-8.2)
--- NOTE | 2019-05-16 13:40 | P.PN ---
Subjective Progress Note Date: 05/16/19 Principal diagnosis: 58-year-old male was admitted for right upper quadrant abdominal pain patient still has abdominal pain was diagnosed with chronic cholecystitis although surgical intervention is not being planned at this time. Patient does have cirrhosis alcoholic. Patient is presently undergoing alcohol withdrawals and requiring high amounts of Ativan at this time. When I evaluated the patient is doing well but patient started having withdrawals later with significant hallucinations 05/12/2019 Patient right upper quadrant abdominal pain is much better today. This is secondary to alcoholic hepatitis rather than biliary sludge or gallbladder disease. Patient was started on antibiotics I do not believe he will require antibiotics upon discharge. Believe these were started secondary to mild colitis is pretty nonspecific colitis. Patient's withdrawal symptoms are much better today requiring much less Ativan today Constitutional: Denied any fatigue denied any fever. Cardio vascular: denied any chest pain, palpitations Gastrointestinal denied any nausea vomiting Pulmonary: Denied any shortness of breath cough Neurologic denied any new focal deficits 05/13/2019 Patient is seen in follow-up today and continues to be quite weak requiring assistance with ambulation. PT/OT evaluated the patient recommending subacute rehab for strength and mobility. Patient states that his abdominal pain is gotten better although he continues to be nauseated at times and states that he had an episode of emesis last night. Flagyl will be discontinued today. Surgery following the patient. Patient will undergo laparoscopic cholecystectomy tomorrow. Currently no reports of chest pain, shortness of breath, or palpitations. Patient is afebrile. Patient remains on a regular diet and will be made nothing by mouth at midnight. Case management and social work following as patient will likely need subacute rehab upon discharge. 05/14/2019 Patient is being taken to the OR for prepping to have a cholecystectomy today. Will await report. No reports of chest pain, shortness of breath, or palpitations. Patient has been nothing by mouth since midnight. Some slight nausea with no vomiting noted. Sodium is slightly low at 132. Bilirubin slowly trending down at 6.1. Hemoglobin is stable at 11.7. Patient is maintained on ceftriaxone and will continue at this time. 05/15/2019 Patient is seen and evaluated status post open cholecystectomy yesterday. Maria Elena ent was noted to have a large amount of ascites noted during surgery. Patient has a JANELL drain on the lower right side that continues to drain large amounts of ascitic fluid. He is currently nothing by mouth and states that he is feeling better and would like to eat. Patient denies any passing of gas or bowel movements at this time. Patient remains on ceftriaxone and will continue at this time. Patient is also requesting for physical therapy to come and work with them today as he would like to get out of the bed. Patient is urinating with a urinal. Currently no reports of chest pain, shortness of breath, or palpitations. Patient is afebrile. No reports of nausea or vomiting as patient has been nothing by mouth. Diet will be ordered. Will continue to monitor closely. Case management and social work are following as patient will be going to rehab for continued PT/OT therapy once stabilized and discharged. 05/16/2019 Patient is seen in follow-up today postop day #2 cholecystectomy and is up walking with physical therapy. Patient states he is passing gas although no bowel movements yet. Patient was resumed on a regular diet and tolerating well with no reports of nausea or vomiting. Patient remains on oxygen of 2 L with saturations of 93%. Orthopedics of chest pain, shortness of breath, or palpitations. Patient is having a hard time coughing due to abdominal discomf ort and instructed the patient to continue using a pillow when needing to cough. Will order incentive spirometer. Patient continues to have a large amounts of serosanguineous fluid which is mostly due to his ascites from the JANELL drain. Surgery is following. Plan is for rehab at [facility] once stabilized and discharged. Objective - Vital Signs Vital signs: Vital Signs Temp 98.4 F 05/16/19 05:00 Pulse 98 05/16/19 05:00 Resp 20 05/16/19 05:00 BP 111/70 05/16/19 05:00 Pulse Ox 93 L 05/16/19 05:00 Intake & Output 05/15/19 05/16/19 05/16/19 18:59 06:59 18:59 Intake Total 200 Output Total 870 790 100 Balance -870 -790 100 Intake: Oral 200 Output: Drainage 570 340 100 Abdomen 570 340 100 Urine 300 450 Other: Voiding Method Urinal Urinal - Exam GENERAL: The patient is alert and oriented x3, not in any acute distress. Well developed, well nourished. HEENT: Pupils are round and equally reacting to light. EOMI. patient does have scleral icterus. No conjunctival pallor. Normocephalic, atraumatic. No pharyngeal erythema. No thyromegaly. CARDIOVASCULAR: S1 and S2 present. No murmurs, rubs, or gallops. PULMONARY: Diminished breath sounds at the bases with a few scattered crackles noted ABDOMEN: Positive bowel sounds, non-distended, obese, minimal tenderness in the mid-epigastric area , surgical dressings status post open cholecystectomy yesterday are dry and intact with JANELL drain noted on the right side MUSCULOSKELETAL: No joint swelling or deformity. EXTREMITIES: No cyanosis, clubbing, or pedal edema. NEUROLOGICAL: Gross neurological examination did not reveal any focal deficits. Diffusely weak. SKIN: No rashes. - Labs CBC & Chem 7: 05/16/19 06:47 05/16/19 06:47 Labs: Abnormal Lab Results - Last 24 Hours (Table) 05/16/19 05/16/19 05/16/19 Range/Units 06:47 06:47 06:47 RBC 3.11 L (4.30-5.90) m/uL Hgb 10.0 L (13.0-17.5) gm/dL Hct 30.5 L (39.0-53.0) % RDW 16.3 H (11.5-15.5) % Plt Count 108 L (150-450) k/uL Monocytes # 1.1 H (0-1.0) k/uL Sodium 133 L (137-145) mmol/L Creatinine 0.58 L (0.66-1.25) mg/dL Glucose 121 H (74-99) mg/dL Calcium 7.7 L (8.4-10.2) mg/dL Total Bilirubin 4.7 H (0.2-1.3) mg/dL Conjugated Bilirubin 0.9 H (0.0-0.3) mg/dL Unconjugated Bilirubin 1.9 H (0.0-1.1) mg/dL Delta Bilirubin 1.9 H (0.0-0.2) mg/dL AST 85 H (17-59) U/L Total Protein 5.7 L (6.3-8.2) g/dL Albumin 2.5 L (3.5-5.0) g/dL Microbiology - Last 24 Hours (Table) 05/15/19 01:32 Blood Culture - Preliminary Blood No Growth after 24 hours 05/11/19 22:09 Blood Culture - Preliminary Blood No Growth after 96 hours Assessment and Plan Assessment: -Abdominal pain probably secondary to alcoholic hepatitis patient does have some biliary sludge and is being followed by surgery. Patient underwent open cholecystectomy with Dr. Mckee yesterday and is postop day #2. Large amount of ascites noted during surgery and irrigated. JANELL drain noted with large amounts of ascitic fluid. -Alcohol withdrawal: Patient will be monitored for withdrawals, no active withdrawals noted. -Alcoholic cirrhosis: Patient does have ascites further supportive care -Obstructive jaundice secondary to cirrhosis. GI following. 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 Patient underwent open cholecystectomy postop day #2. Will continue to monitor vital signs and labs closely. Will repeat a.m. labs. Encouraged Increased activity as tolerated and incentive spirometer ordered. Further recommendations to follow. Case management and social work following as patient will need subacute rehab once stabilized and discharged.
[2019-05-17] MEDS: HYDROcodone/APAP 5-325MG 1 EACH TAB PO PRN ×3 (06:25→23:07)
[2019-05-17 07:55] LABS: ALT 17 U/L (4-49); AST 89 U/L (17-59); African American GFR (CKD) >90 (>60 ml/min/1.73 sqM); Albumin 2.4 g/dL (3.5-5.0); Alkaline Phosphatase 87 U/L (38-126); Anion Gap 5 mmol/L; Blood Urea Nitrogen 16 mg/dL (9-20); Calcium 7.6 mg/dL (8.4-10.2); Carbon Dioxide 26 mmol/L (22-30); Chloride 101 mmol/L (98-107); Glucose 99 mg/dL (74-99); Non-African American GFR(CKD) >90 (>60 ml/min/1.73 sqM); Potassium 3.9 mmol/L (3.5-5.1); Sodium 132 mmol/L (137-145); Total Protein 5.8 g/dL (6.3-8.2)
[2019-05-17] MEDS: SYMBICORT 160-4.5 MCG INHALER INHALATION SCH ×2 (07:59→19:48)
[2019-05-17] MEDS: ISOSORBIDE MONONITRATE ER 30 MG TAB.ER.24H PO SCH (08:07)
[2019-05-17] MEDS: NICOTINE 21MG/24HR PATCH TRANSDERM SCH (08:07)
[2019-05-17] MEDS: CITALOPRAM HYDROBROMIDE 20 MG TAB PO SCH (08:07)
[2019-05-17] MEDS: PANTOPRAZOLE 40 MG TABLET PO SCH (08:07)
[2019-05-17] MEDS: ASPIRIN 81 MG PO SCH (08:07)
[2019-05-17 10:15] VITALS: BMI 29.7
--- NOTE | 2019-05-17 11:25 | PN ---
PROGRESS NOTE DATE OF DICTATION: 05/17/2019 The patient is a 58-year-old pleasant white male with history of alcoholic cirrhosis of the liver and acute alcoholic hepatitis, admitted to the hospital with right upper quadrant abdominal pain, chronic cholecystitis, underwent cholecystectomy with Dr. Mckee with a JANELL drain which is draining approximately 800 mL of serosanguineous fluid. The patient states he is feeling better. He was complaining of constipation and abdominal bloating. He denies any nausea, vomiting. PHYSICAL EXAMINATION: On physical examination, blood pressure is 96/61, pulse rate 94, temperature 98.1. HEENT EXAMINATION: Unremarkable. Conjunctivae pink. Sclerae icteric. Oral cavity no lesions. NECK: No JVD or lymph node enlargement. CHEST: Clear to auscultation. HEART: Regular rate and rhythm. ABDOMEN: Soft. JANELL drain in place. Serosanguineous fluid noted EXTREMITIES: No pedal edema. SKIN: No rashes. NEURO: He is alert and oriented x3. No focal deficits. LABS: CBC was not done today, but basic metabolic panel was within normal limits. Bilirubin is 4. AST and ALT are 89 and 17 respectively. Alkaline phosphatase 87. IMPRESSION: 1. Acute alcoholic hepatitis with alcoholic cirrhosis of the liver which is gradually improving. 2. Status post gallbladder surgery 3 days ago with JANELL drain of serous fluid, which most likely is ascitic fluid. 3. Mild anemia and thrombocytopenia secondary to underlying liver disease. 4. Alcohol withdrawal, resolved. 5. Mild coagulopathy secondary to underlying liver disease. RECOMMENDATIONS: 1. Continue with broad-spectrum antibiotics. 2. Monitor LFTs closely. 3. We will start him on Lasix 40 mg daily as well as Aldactone 50 mg daily for the ascites in the hope that JANELL drain will improve. 4. We will follow with you. Thank you for this consultation. MMODL / IJN: [id number] /
[2019-05-17] MEDS: SPIRONOLACTONE 25 MG TAB PO SCH ×2 (12:04→14:56)
[2019-05-17] MEDS: FUROSEMIDE 40 MG TAB PO SCH ×2 (12:07→12:28)
--- NOTE | 2019-05-17 13:36 | P.PN ---
Subjective Progress Note Date: 05/17/19 Principal diagnosis: 58-year-old male was admitted for right upper quadrant abdominal pain patient still has abdominal pain was diagnosed with chronic cholecystitis although surgical intervention is not being planned at this time. Patient does have cirrhosis alcoholic. Patient is presently undergoing alcohol withdrawals and requiring high amounts of Ativan at this time. When I evaluated the patient is doing well but patient started having withdrawals later with significant hallucinations 05/12/2019 Patient right upper quadrant abdominal pain is much better today. This is secondary to alcoholic hepatitis rather than biliary sludge or gallbladder disease. Patient was started on antibiotics I do not believe he will require antibiotics upon discharge. Believe these were started secondary to mild colitis is pretty nonspecific colitis. Patient's withdrawal symptoms are much better today requiring much less Ativan today Constitutional: Denied any fatigue denied any fever. Cardio vascular: denied any chest pain, palpitations Gastrointestinal denied any nausea vomiting Pulmonary: Denied any shortness of breath cough Neurologic denied any new focal deficits 05/13/2019 Patient is seen in follow-up today and continues to be quite weak requiring assistance with ambulation. PT/OT evaluated the patient recommending subacute rehab for strength and mobility. Patient states that his abdominal pain is gotten better although he continues to be nauseated at times and states that he had an episode of emesis last night. Flagyl will be discontinued today. Surgery following the patient. Patient will undergo laparoscopic cholecystectomy tomorrow. Currently no reports of chest pain, shortness of breath, or palpitations. Patient is afebrile. Patient remains on a regular diet and will be made nothing by mouth at midnight. Case management and social work following as patient will likely need subacute rehab upon discharge. 05/14/2019 Patient is being taken to the OR for prepping to have a cholecystectomy today. Will await report. No reports of chest pain, shortness of breath, or palpitations. Patient has been nothing by mouth since midnight. Some slight nausea with no vomiting noted. Sodium is slightly low at 132. Bilirubin slowly trending down at 6.1. Hemoglobin is stable at 11.7. Patient is maintained on ceftriaxone and will continue at this time. 05/15/2019 Patient is seen and evaluated status post open cholecystectomy yesterday. Maria Elena ent was noted to have a large amount of ascites noted during surgery. Patient has a JANELL drain on the lower right side that continues to drain large amounts of ascitic fluid. He is currently nothing by mouth and states that he is feeling better and would like to eat. Patient denies any passing of gas or bowel movements at this time. Patient remains on ceftriaxone and will continue at this time. Patient is also requesting for physical therapy to come and work with them today as he would like to get out of the bed. Patient is urinating with a urinal. Currently no reports of chest pain, shortness of breath, or palpitations. Patient is afebrile. No reports of nausea or vomiting as patient has been nothing by mouth. Diet will be ordered. Will continue to monitor closely. Case management and social work are following as patient will be going to rehab for continued PT/OT therapy once stabilized and discharged. 05/16/2019 Patient is seen in follow-up today postop day #2 cholecystectomy and is up walking with physical therapy. Patient states he is passing gas although no bowel movements yet. Patient was resumed on a regular diet and tolerating well with no reports of nausea or vomiting. Patient remains on oxygen of 2 L with saturations of 93%. Orthopedics of chest pain, shortness of breath, or palpitations. Patient is having a hard time coughing due to abdominal discomf ort and instructed the patient to continue using a pillow when needing to cough. Will order incentive spirometer. Patient continues to have a large amounts of serosanguineous fluid which is mostly due to his ascites from the JANELL drain. Surgery is following. Plan is for rehab at [facility] once stabilized and discharged. 05/17/2019 Patient is seen in follow-up today sitting up in the chair on room air. No reports of chest pain, shortness of breath, or palpitations. Patient is afebr ile. No reports of nausea or vomiting and patient is tolerating diet. Patient continues with the JANELL drain with large amounts of serosanguineous output most likely due to the ascites. Patient was initiated on Lasix and Aldactone although being held at this time due to low blood pressures. 90s to low 100s systolic. GI and surgery following. Patient to continue working with physical therapy. Patient remains on ceftriaxone and will continue at this time. Patient states he was having some mild dysuria with urination and a urinalysis with culture reflux was ordered. Will await report. Sodium is slightly low at 132 will continue to monitor closely. Current creatinine is 0.60. Total bili lorenzo slightly improved at 4.0. Objective - Vital Signs Vital signs: Vital Signs Temp 98.1 F 05/17/19 04:50 Pulse 94 05/17/19 04:50 Resp 20 05/17/19 04:50 BP 96/61 05/17/19 04:50 Pulse Ox 92 L 05/17/19 04:50 Intake & Output 05/16/19 05/17/19 05/17/19 18:59 06:59 18:59 Intake Total 400 300 Output Total 2050 70 800 Balance -1650 230 -800 Weight 86.183 kg Intake: Oral 400 300 Output: Gastric Drainage 1700 Drainage 350 70 800 Abdomen 350 70 800 Other: Voiding Method Urinal # Voids 1 2 - Exam GENERAL: The patient is alert and oriented x3, not in any acute distress. Well developed, well nourished. HEENT: Pupils are round and equally reacting to light. EOMI. patient does have scleral icterus. No conjunctival pallor. Normocephalic, atraumatic. No pharyngeal erythema. No thyromegaly. CARDIOVASCULAR: S1 and S2 present. No murmurs, rubs, or gallops. PULMONARY: Diminished breath sounds at the bases with no wheezing or crackles noted. ABDOMEN: Positive bowel sounds, non-distended, obese, minimal tenderness in the mid-epigastric area , surgical dressings status post open cholecystectomy yesterday are dry and intact with JANELL drain noted on the right side MUSCULOSKELETAL: No joint swelling or deformity. EXTREMITIES: No cyanosis, clubbing, or pedal edema. NEUROLOGICAL: Gross neurological examination did not reveal any focal deficits. Diffusely weak. SKIN: No rashes. - Labs CBC & Chem 7: 05/16/19 06:47 05/17/19 07:03 Labs: Abnormal Lab Results - Last 24 Hours (Table) 05/17/19 Range/Units 07:03 Sodium 132 L (137-145) mmol/L Creatinine 0.60 L (0.66-1.25) mg/dL Calcium 7.6 L (8.4-10.2) mg/dL Total Bilirubin 4.0 H (0.2-1.3) mg/dL AST 89 H (17-59) U/L Total Protein 5.8 L (6.3-8.2) g/dL Albumin 2.4 L (3.5-5.0) g/dL Microbiology - Last 24 Hours (Table) 05/15/19 01:32 Blood Culture - Preliminary Blood No Growth after 48 hours 05/11/19 22:09 Blood Culture - Preliminary Blood No Growth after 120 hours Assessment and Plan Assessment: -Abdominal pain probably secondary to alcoholic hepatitis patient does have some biliary sludge and is being followed by surgery. Patient underwent open rigoberto cystectomy with Dr. Mckee yesterday and is postop day #3. Large amount of ascites noted during surgery and irrigated. JANELL drain noted with large amounts of ascitic fluid. -Alcohol withdrawal: Patient will be monitored for withdrawals, no active withdrawals noted. -Alcoholic cirrhosis: Patient does have ascites further supportive care -Obstructive jaundice secondary to cirrhosis. GI following. 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 Patient underwent open cholecystectomy postop day #3. Will continue to monitor vital signs and labs closely. Will repeat a.m. labs. Encouraged Increased activity as tolerated and incentive spirometer ordered. Further recommendations to follow. Case management and social work following as patient will need subacute rehab once stabilized and discharged.
--- NOTE | 2019-05-17 14:00 | P.PN ---
Progress Note - Text Progress Note Date: 05/17/19 The patient is resting comfortably in his bed. He appears to have some confusion. On exam his vital signs are stable. Abdomen soft. Incision sites clean and intact. Patient has history of ascites. There is some minimal bilious staining of his ascites. Status post open cholestatic. Patient will have his JANELL drain removed tomorrow. He may have significant ascites leak from this. It may require suturing of the skin. Dr. Byrnes we'll reassess him.
[2019-05-17 15:23] LABS: Appearance,Urine Clear (Clear); Bilirubin,Urine 1+ (Negative); Blood,Urine Negative (Negative); Color,Urine Dark Brown; Glucose,Urine (UA) Negative (Negative); Ketones,Urine Negative (Negative); Leukocyte Esterase,Urine Negative (Negative); Nitrite,Urine Negative (Negative); Protein,Urine Trace (Negative); Specific Gravity,Urine 1.036 (1.001-1.035); Urobilinogen,Urine <2.0 mg/dL (<2.0)
[2019-05-18] MEDS: HYDROcodone/APAP 5-325MG 1 EACH TAB PO PRN ×2 (05:35→15:07)
[2019-05-18 07:19] LABS: Glucose,Whole Blood 100 mg/dL (75-99)
[2019-05-18] MEDS: SYMBICORT 160-4.5 MCG INHALER INHALATION SCH ×2 (07:43→21:28)
[2019-05-18 07:47] LABS: ALT 17 U/L (4-49); AST 87 U/L (17-59); African American GFR (CKD) >90 (>60 ml/min/1.73 sqM); Alkaline Phosphatase 88 U/L (38-126); Anion Gap 7 mmol/L; Blood Urea Nitrogen 17 mg/dL (9-20); Calcium 7.4 mg/dL (8.4-10.2); Carbon Dioxide 27 mmol/L (22-30); Chloride 100 mmol/L (98-107); Glucose 94 mg/dL (74-99); Non-African American GFR(CKD) >90 (>60 ml/min/1.73 sqM); Potassium 3.9 mmol/L (3.5-5.1); Sodium 134 mmol/L (137-145); Total Bilirubin 3.1 mg/dL (0.2-1.3)
[2019-05-18 08:08] LABS: Anisocytosis Slight; Basophils # (A) 0.1 k/uL (0-0.2); Basophils % (A) 1 %; Eosinophils # (A) 0.2 k/uL (0-0.7); Eosinophils % (A) 3 %; HCT 30.1 % (39.0-53.0); HGB 9.8 gm/dL (13.0-17.5); Lymphocytes # (A) 1.4 k/uL (1.0-4.8); Lymphocytes % (A) 18 %; MCH 31.8 pg (25.0-35.0); MCHC 32.7 g/dL (31.0-37.0); MCV 97.3 fL (80.0-100.0); Macrocytosis Slight; Mean Platelet Volume 10.8; Monocytes # (A) 1.1 k/uL (0-1.0); Monocytes % (A) 14 %; Neutrophils # (A) 4.5 k/uL (1.3-7.7); Neutrophils % (A) 60 %; Platelet Count 159 k/uL (150-450); RBC 3.09 m/uL (4.30-5.90); RDW 16.2 % (11.5-15.5); WBC 7.5 k/uL (3.8-10.6)
[2019-05-18] MEDS: FUROSEMIDE 40 MG TAB PO SCH (09:28)
[2019-05-18] MEDS: PANTOPRAZOLE 40 MG TABLET PO SCH (09:28)
[2019-05-18] MEDS: SPIRONOLACTONE 25 MG TAB PO SCH ×2 (09:28→21:30)
[2019-05-18] MEDS: NICOTINE 21MG/24HR PATCH TRANSDERM SCH (09:28)
[2019-05-18] MEDS: ISOSORBIDE MONONITRATE ER 30 MG TAB.ER.24H PO SCH (09:28)
[2019-05-18] MEDS: ASPIRIN 81 MG PO SCH (09:28)
[2019-05-18] MEDS: CITALOPRAM HYDROBROMIDE 20 MG TAB PO SCH (09:28)
--- NOTE | 2019-05-18 13:38 | P.PN ---
Subjective Progress Note Date: 05/18/19 CHIEF COMPLAINT: Cholecystitis HISTORY OF PRESENT ILLNESS: The patient is a 58year-old male status open post cholecystectomy, 05/14/2019. He has history of alcoholism including cirrhosis of the liver as well as ascites. He is tolerating a soft diet. No reports of increased abdominal pain. He con tinues to have moderate drainage from his JANELL. He is pending placement for rehab ROS: No reports of nausea and vomiting. No fevers or chills. No new chest pain. PHYSICAL EXAM: VITAL SIGNS: Reviewed CONSTITUTIONAL: Well developed and in no acute distress. EYES: Conjuctivae without sclera icterus. Extraocular movements grossly intact. HEAD, EARS, NOSE, THROAT: Moist buccal mucosa. Head is atraumatic, normocephalic. Hears conversational speech. No nasal drainage. NECK: Supple. No thyroidomegaly. RESPIRATORY: Non-labored respirations and equal bilateral excursions. CARDIOVASCULAR: Palpable 2+ radial pulses. ABDOMEN: JANELL intact. JANELL output decreased from 3 L/24 hrs to under 1 L/12hrs today. JANELL serous. Has ascites MUSCULOSKELETAL: No gross deformity of the lower extremities noted. No clubbing. No cyanosis. SKIN: Good skin turgor. Well perfused. NEUROLOGIC: Cranial nerves I through XII grossly intact. No focal or lateralizing signs. PSYCH: Appropriate affect. Alert and oriented to person, place and time. CLINICAL LABS: White blood cell count normal, 7500. ASSESSMENT: 1. Cholecystitis with cirrhosis of the liver 2. Abdominal ascites PLAN: 1. Management of cirrhosis per medicine. 2. Continue JANELL drain to monitor treatment of cirrhosis Objective - Vital Signs Vital signs: Vital Signs Temp 98.3 F 05/18/19 04:24 Pulse 84 05/18/19 08:00 Resp 16 05/18/19 08:00 BP 102/69 05/18/19 04:24 Pulse Ox 93 L 05/18/19 04:24 Intake & Output 05/17/19 05/18/19 05/18/19 18:59 06:59 18:59 Output Total 3100 1145 Balance -3100 -1145 Weight 86.183 kg Output: Drainage 2900 795 Abdomen 2900 795 Urine 200 350 Other: Voiding Method Urinal Urinal # Voids 1 - Labs CBC & Chem 7: 05/18/19 06:59 05/18/19 06:59 Labs: Abnormal Lab Results - Last 24 Hours (Table) 05/17/19 05/18/19 05/18/19 Range/Units 15:00 06:58 06:59 RBC 3.09 L (4.30-5.90) m/uL Hgb 9.8 L (13.0-17.5) gm/dL Hct 30.1 L (39.0-53.0) % RDW 16.2 H (11.5-15.5) % Monocytes # 1.1 H (0-1.0) k/uL Sodium (137-145) mmol/L Creatinine (0.66-1.25) mg/dL POC Glucose (mg/dL) 100 H (75-99) mg/dL Calcium (8.4-10.2) mg/dL Total Bilirubin (0.2-1.3) mg/dL AST (17-59) U/L Ur Specific [place] 1.036 H (1.001-1.035) Urine Protein Trace H (Negative) Urine Bilirubin 1+ H (Negative) 05/18/19 Range/Units 06:59 RBC (4.30-5.90) m/uL Hgb (13.0-17.5) gm/dL Hct (39.0-53.0) % RDW (11.5-15.5) % Monocytes # (0-1.0) k/uL Sodium 134 L (137-145) mmol/L Creatinine 0.56 L (0.66-1.25) mg/dL POC Glucose (mg/dL) (75-99) mg/dL Calcium 7.4 L (8.4-10.2) mg/dL Total Bilirubin 3.1 H (0.2-1.3) mg/dL AST 87 H (17-59) U/L Ur Specific [place] (1.001-1.035) Urine Protein (Negative) Urine Bilirubin (Negative) Microbiology - Last 24 Hours (Table) 05/15/19 01:32 Blood Culture - Preliminary Blood No Growth after 72 hours 05/11/19 22:09 Blood Culture - Final Blood No Growth after 144 hours
--- NOTE | 2019-05-18 14:41 | PN ---
PROGRESS NOTE DATE OF DICTATION: 05/18/2019 The patient is a 58-year-old pleasant white male admitted to the hospital with right upper quadrant abdominal pain, status post gallbladder surgery 3 days ago. He has a JANELL drain in place which is draining approximately 800 mL of serosanguineous fluid. The patient denies any symptoms. PHYSICAL EXAMINATION: Appears comfortable. No apparent distress. Vital signs are stable. Blood pressure 122/86, pulse rate 67, temperature 98.3. HEENT examination unremarkable. Conjunctivae pink. Sclerae anicteric. Oral cavity no lesions. NECK: No JVD or lymph node enlargement. CHEST: Clear to auscultation. HEART: Regular rate and rhythm. ABDOMEN: Soft. Bowel sounds are positive. No organomegaly. JANELL drain has serosanguineous fluid noted. EXTREMITIES: No pedal edema. SKIN: No rashes. NEUROLOGIC: Alert and oriented x3. No focal deficits. LABS: Labs from today show WBC 7.5, hemoglobin 9.3, platelets normal. Basic metabolic panel is within normal limits. BUN and creatinine are normal. T-bilirubin is 3.1, AST 87, ALT 17, alkaline phosphatase 80. IMPRESSION: 1. Chronic cholecystitis, status post gallbladder surgery [address] Mckee; now has significant amount of serosanguineous drainage from the JANELL drain, probably from ongoing ascites. The patient was started on Lasix 40 mg daily and Aldactone 50 mg daily yesterday. 2. Acute alcoholic hepatitis with improving bilirubin and liver function tests. 3. Alcohol withdrawal, resolved. 4. Heavy alcohol abuse. 5. History of alcoholic cirrhosis of the liver. RECOMMENDATIONS: 1. Continue with diuretics. 2. Low-salt diet. 3. Monitor the JANELL drain closely. Thank you for this consultation. MMODL / IJN: [id number] /
[2019-05-19] MEDS: SYMBICORT 160-4.5 MCG INHALER INHALATION SCH ×2 (08:18→19:39)
--- NOTE | 2019-05-19 10:14 | PN ---
PROGRESS NOTE DATE OF DICTATION: 05/19/2019 The patient is a 58-year-old white male with history of alcoholic hepatitis, alcoholic cirrhosis and ascites, admitted to hospital with chronic cholecystitis/right upper quadrant abdominal pain, status post cholecystectomy by Dr. Mckee 3 days ago and has a JANELL drain in place draining ascites fluid. He had approximately 800 fluid of ascitic drained through the JANELL drain yesterday. He was started on Lasix 40 mg daily and Aldactone 150 mg daily with no significant change in output. The patient denies any complaints. PHYSICAL EXAMINATION: Appears comfortable. Blood pressure 102/67, pulse 82, temperature 98.7. HEENT examination unremarkable. Conjunctivae pink. Sclerae anicteric. Oral cavity no lesions. NECK: No JVD or lymph node enlargement. CHEST: Clear to auscultation. HEART: Regular rate and rhythm. ABDOMEN: Soft. Bowel sounds are positive. JANELL drain has serous fluid noted. EXTREMITIES: No pedal edema. SKIN no rashes. NEURO he is alert and oriented x3. No focal deficits. LAB: No labs done from today. IMPRESSION: 1. Acute alcoholic hepatitis/alcoholic cirrhosis of the liver with ascites. 2. Status post cholecystectomy 4 days ago with a JANELL drain which is draining ascitic fluid almost 800 mL yesterday. Presently on Lasix 40 mg daily as well as and Aldactone 50 mg daily with no significant change in the output. 3. Acute alcoholic hepatitis. Bilirubin is 3.1 today. 4. Alcoholic cirrhosis of the liver. RECOMMENDATIONS: 1. We will increase Aldactone to 100 mg daily. 2. Continue with Lasix 40 mg daily. 3. Low-salt diet. 4. Monitor JANELL output daily. Thank you for this consultation. MMODL / IJN: [id number] /
[2019-05-19] MEDS: SPIRONOLACTONE 25 MG TAB PO SCH ×2 (10:41→21:18)
[2019-05-19] MEDS: PANTOPRAZOLE 40 MG TABLET PO SCH (10:41)
[2019-05-19] MEDS: CITALOPRAM HYDROBROMIDE 20 MG TAB PO SCH (10:41)
[2019-05-19] MEDS: ISOSORBIDE MONONITRATE ER 30 MG TAB.ER.24H PO SCH (10:41)
[2019-05-19] MEDS: HYDROcodone/APAP 5-325MG 1 EACH TAB PO PRN ×2 (10:46→17:45)
[2019-05-19] MEDS: NICOTINE 21MG/24HR PATCH TRANSDERM SCH (11:03)
[2019-05-19] MEDS: ASPIRIN 81 MG PO SCH (11:03)
[2019-05-19] MEDS: FUROSEMIDE 40 MG TAB PO SCH ×2 (11:03→17:42)
--- NOTE | 2019-05-19 13:18 | P.PN ---
Subjective Progress Note Date: 05/19/19 CHIEF COMPLAINT: Cholecystitis HISTORY OF PRESENT ILLNESS: The patient is a 58-year-old male status open post cholecystectomy, 05/14/2019. He has history of alcoholism including cirrhosis of the liver as well as ascites. He reports occasional epigastric abdominal pain however is tolerating diet. He has moderate ascites which has improved with adjustment of medications. Output from ascites down at least 1 L. ROS: No reports of nausea and vomiting. No fevers or chills. No new chest pain. PHYSICAL EXAM: VITAL SIGNS: Reviewed CONSTITUTIONAL: Well developed and in no acute distress. EYES: Conjuctivae with mild sclera icterus. Extraocular movements grossly intact. HEAD, EARS, NOSE, THROAT: Moist buccal mucosa. Head is atraumatic, normocephalic. Hears conversational speech. No nasal drainage. NECK: Supple. No thyroidomegaly. RESPIRATORY: Non-labored respirations and equal bilateral excursions. CARDIOVASCULAR: Palpable 2+ radial pulses. ABDOMEN: JANELL serous. No peritonitis. JANELL output down from 3320 mL per 24 hours down to 1795 per 24 hours. Output for last 12 hours 860 mL MUSCULOSKELETAL: No gross deformity of the lower extremities noted. No clubbing. No cyanosis. SKIN: Good skin turgor. Well perfused. NEUROLOGIC: Cranial nerves I through XII grossly intact. No focal or lateralizing signs. PSYCH: Appropriate affect. Alert and oriented to person, place and time. CLINICAL LABS: Total bilirubin down from 4.0-3.1. ASSESSMENT: 1. Cholecystitis with cirrhosis of the liver 2. Abdominal ascites PLAN: 1. Adult and has been adjusted to accommodate for moderate abdominal ascites. Medication adjustment successful with 1500 mL less abdominal ascites out of JANELL 2. Continue JANELL to monitor ascites management Objective - Vital Signs Vital signs: Vital Signs Temp 98.6 F 05/19/19 12:13 Pulse 90 05/19/19 12:13 Resp 16 05/19/19 12:13 BP 111/76 05/19/19 12:13 Pulse Ox 93 L 05/19/19 12:13 Intake & Output 05/18/19 05/19/19 05/19/19 18:59 06:59 18:59 Intake Total 1080 500 Output Total 1350 860 Balance -270 -360 Intake: Oral 1080 500 Output: Drainage 1350 860 Abdomen 1350 860 Other: Voiding Method Urinal Urinal # Voids 2 3 - Labs CBC & Chem 7: 05/18/19 06:59 05/18/19 06:59 Labs: Microbiology - Last 24 Hours (Table) 05/15/19 01:32 Blood Culture - Preliminary Blood No Growth after 96 hours Assessment and Plan (1) Ascites Current Visit: Yes Status: Acute Code(s): R18.8 - OTHER ASCITES SNOMED C ode(s): 749393326 (2) Cirrhosis with alcoholism Current Visit: Yes Status: Acute Code(s): K70.30 - ALCOHOLIC CIRRHOSIS OF LIVER WITHOUT ASCITES SNOMED Code(s): 764965427 (3) Gallstones Current Visit: Yes Status: Acute Code(s): K80.20 - CALCULUS OF GALLBLADDER W/O CHOLECYSTITIS W/O OBSTRUCTION SNOMED Code(s): 355742540 (4) Hyperbilirubinemia Current Visit: Yes Status: Acute Code(s): E80.6 - OTHER DISORDERS OF BILIRUBIN METABOLISM SNOMED Code(s): 22652560 (5) Right upper quadrant pain Current Visit: Yes Status: Acute Code(s): R10.11 - RIGHT UPPER QUADRANT PAIN SNOMED Code(s): 979074160
--- NOTE | 2019-05-19 14:40 | P.PN ---
Subjective Progress Note Date: 05/19/19 Principal diagnosis: Acute cholecystitis Status post exploratory laparotomy and cholecystectomy Alcoholic liver cirrhosis/ascites 58-year-old male patient with history of alcoholic liver disease- cirrhosis/hepatitis/ascites admitted with chronic cholecystitis and underwent open posterior cholecystectomy on 05/14/2019; patient continues to have a JANELL drain for training acetic fluid 05/19/2019; Patient is seen and evaluated in room at bedside; has been tolerating diet well; patient continues to have JANELL drain left in place to monitor ascites; patient had 800 mL of the sciatic fluid drained through the JANELL drain yesterday; patient was started on Lasix 40 mg daily along with Aldactone 50 mg without any significant change in output; GI is following and recommending to increase Aldactone 200 mg daily and continue with Lasix 40 mg daily; patient will continue with a low-salt diet and JANELL drain output for be monitored closely Objective - Vital Signs Vital signs: Vital Signs Temp 98.6 F 05/19/19 12:13 Pulse 90 05/19/19 12:13 Resp 16 05/19/19 12:13 BP 111/76 05/19/19 12:13 Pulse Ox 93 L 05/19/19 12:13 Intake & Output 05/18/19 05/19/19 05/19/19 18:59 06:59 18:59 Intake Total 1080 500 Output Total 1350 860 Balance -270 -360 Intake: Oral 1080 500 Output: Drainage 1350 860 Abdomen 1350 860 Other: Voiding Method Urinal Urinal # Voids 2 3 - Exam GENERAL: The patient is alert and oriented x3, not in any acute distress. Well developed, well nourished. HEENT: Pupils are round and equally reacting to light. EOMI. patient does have scleral icterus. No conjunctival pallor. Normocephalic, atraumatic. No pharyngeal erythema. No thyromegaly. CARDIOVASCULAR: S1 and S2 present. No murmurs, rubs, or gallops. PULMONARY: Diminished breath sounds at the bases with no wheezing or crackles noted. ABDOMEN: Positive bowel sounds, non-distended, obese, minimal tenderness in the mid-epigastric area , surgical dressings status post open cholecystectomy yesterday are dry and intact with JANELL drain noted on the right side MUSCULOSKELETAL: No joint swelling or deformity. EXTREMITIES: No cyanosis, clubbing, or pedal edema. NEUROLOGICAL: Gross neurological examination did not reveal any focal deficits. Diffusely weak. SKIN: No rashes. - Labs CBC & Chem 7: 05/18/19 06:59 05/18/19 06:59 Labs: Microbiology - Last 24 Hours (Table) 05/15/19 01:32 Blood Culture - Preliminary Blood No Growth after 96 hours Assessment and Plan Assessment: -Abdominal pain probably secondary to alcoholic hepatitis patient does have some biliary sludge and is being followed by surgery. Patient underwent open cholecystectomy with Dr. Mckee yesterday and is postop day #3. Large amount of ascites noted during surgery and irrigated. JANELL drain noted with large amoun ts of ascitic fluid. -Alcohol withdrawal: Patient will be monitored for withdrawals, no active withd rawals noted. -Alcoholic cirrhosis: Patient does have ascites further supportive care -Obstructive jaundice secondary to cirrhosis. GI following. 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 Patient underwent open cholecystectomy postop day #3. Will continue to monitor vital signs and labs closely. Will repeat a.m. labs. Encouraged Increased activity as tolerated and incentive spirometer ordered. Further recommendations to follow. Case management and social work following as patient will need subacute rehab once stabilized and discharged.
[2019-05-20] MEDS: NICOTINE 21MG/24HR PATCH TRANSDERM SCH (07:23)
[2019-05-20] MEDS: SYMBICORT 160-4.5 MCG INHALER INHALATION SCH ×2 (07:39→20:03)
[2019-05-20] MEDS: CITALOPRAM HYDROBROMIDE 20 MG TAB PO SCH (07:51)
[2019-05-20] MEDS: FUROSEMIDE 40 MG TAB PO SCH ×2 (07:52→15:25)
[2019-05-20] MEDS: PANTOPRAZOLE 40 MG TABLET PO SCH (07:52)
[2019-05-20] MEDS: ASPIRIN 81 MG PO SCH (07:52)
[2019-05-20] MEDS: SPIRONOLACTONE 25 MG TAB PO SCH ×2 (07:52→20:03)
[2019-05-20] MEDS: ISOSORBIDE MONONITRATE ER 30 MG TAB.ER.24H PO SCH (07:52)
[2019-05-20 08:04] LABS: Anisocytosis Slight; Basophils # (A) 0.1 k/uL (0-0.2); Basophils % (A) 1 %; Eosinophils # (A) 0.3 k/uL (0-0.7); Eosinophils % (A) 2 %; HCT 35.2 % (39.0-53.0); HGB 11.2 gm/dL (13.0-17.5); Lymphocytes # (A) 1.6 k/uL (1.0-4.8); Lymphocytes % (A) 13 %; MCH 30.9 pg (25.0-35.0); MCHC 31.8 g/dL (31.0-37.0); MCV 96.9 fL (80.0-100.0); Mean Platelet Volume 10.8; Monocytes # (A) 1.4 k/uL (0-1.0); Monocytes % (A) 11 %; Neutrophils # (A) 8.6 k/uL (1.3-7.7); Neutrophils % (A) 70 %; Platelet Count 205 k/uL (150-450); RBC 3.63 m/uL (4.30-5.90); RDW 16.2 % (11.5-15.5); WBC 12.3 k/uL (3.8-10.6)
[2019-05-20 08:09] LABS: ALT 20 U/L (4-49); AST 104 U/L (17-59); African American GFR (CKD) >90 (>60 ml/min/1.73 sqM); Albumin 2.5 g/dL (3.5-5.0); Alkaline Phosphatase 110 U/L (38-126); Anion Gap 9 mmol/L; Bilirubin, Conjugated 0.4 mg/dL (0.0-0.3); Bilirubin, Delta 1.6 mg/dL (0.0-0.2); Bilirubin,Unconjugated 1.7 mg/dL (0.0-1.1); Blood Urea Nitrogen 20 mg/dL (9-20); Calcium 7.7 mg/dL (8.4-10.2); Carbon Dioxide 24 mmol/L (22-30); Chloride 99 mmol/L (98-107); Glucose 101 mg/dL (74-99); Non-African American GFR(CKD) >90 (>60 ml/min/1.73 sqM); Potassium 3.9 mmol/L (3.5-5.1); Sodium 132 mmol/L (137-145); Total Bilirubin 3.7 mg/dL (0.2-1.3); Total Protein 6.2 g/dL (6.3-8.2)
[2019-05-20] MEDS: HYDROcodone/APAP 5-325MG 1 EACH TAB PO PRN ×3 (09:10→21:25)
--- NOTE | 2019-05-20 14:33 | P.PN ---
Subjective This is a pleasant 58-year-old male status post open cholecystectomy 05/14/2019. JANELL drain in place with serous drainage noted in the drain. He denies abdominal pain, nausea or vomiting. Blood pressure 97/66 heart rate 59 afebrile and maintaining oxygen saturation on room air. Laboratory data reviewed, WBC 12.3, hemoglobin 11.2, platelets 205, total bilirubin 3.7, delta 1.6. There has been 1820 mL of drainage from the JANELL. GENERAL: No acute distress. HEENT: Head is atraumatic, normocephalic. Pupils are equal, round. Sclerae anicteric. Conjunctivae are clear. Mucous membranes of the mouth are moist. Neck is supple. ABDOMEN: Soft, nontender. Bowel sounds are heard. No organomegaly noted. JANELL drain in place with serous fluid noted in the bulb. NEUROLOGIC: Patient is awake, alert and oriented x3. ASSESSMENT Cholecystitis with cirrhosis of the liver status post cholecystectomy Ascites PLAN Remove JANELL drain. Suspect there may be minimal leakage from the drainage site. If it persists we will place a suture. Ascites management per primary care team with Philippe. Nurse Practitioner note has been reviewed, I agree with a documented findings and plan of care. Patient was seen and examined. Objective - Vital Signs Vital signs: Vital Signs Temp 97.5 F L 05/20/19 12:40 Pulse 59 L 05/20/19 12:40 Resp 16 05/20/19 12:40 BP 97/66 05/20/19 12:40 Pulse Ox 92 L 05/20/19 12:40 Intake & Output 05/19/19 05/20/19 05/20/19 18:59 06:59 18:59 Intake Total 540 200 Output Total 1270 550 Balance -730 -350 Intake: Oral 540 200 Output: Drainage 1270 550 Abdomen 1270 550 Other: # Voids 5 3 - Labs CBC & Chem 7: 05/20/19 07:18 05/20/19 07:18 Labs: Abnormal Lab Results - Last 24 Hours (Table) 05/20/19 05/20/19 Range/Units 07:18 07:18 WBC 12.3 H (3.8-10.6) k/uL RBC 3.63 L (4.30-5.90) m/uL Hgb 11.2 L (13.0-17.5) gm/dL Hct 35.2 L (39.0-53.0) % RDW 16.2 H (11.5-15.5) % Neutrophils # 8.6 H (1.3-7.7) k/uL Monocytes # 1.4 H (0-1.0) k/uL Sodium 132 L (137-145) mmol/L Glucose 101 H (74-99) mg/dL Calcium 7.7 L (8.4-10.2) mg/dL Total Bilirubin 3.7 H (0.2-1.3) mg/dL Conjugated Bilirubin 0.4 H (0.0-0.3) mg/dL Unconjugated Bilirubin 1.7 H (0.0-1.1) mg/dL Delta Bilirubin 1.6 H (0.0-0.2) mg/dL AST 104 H (17-59) U/L Total Protein 6.2 L (6.3-8.2) g/dL Albumin 2.5 L (3.5-5.0) g/dL Microbiology - Last 24 Hours (Table) 05/15/19 01:32 Blood Culture - Preliminary Blood No Growth after 120 hours
--- NOTE | 2019-05-20 15:23 | P.PN ---
Subjective Progress Note Date: 05/20/19 Principal diagnosis: 58-year-old male was admitted for right upper quadrant abdominal pain patient still has abdominal pain was diagnosed with chronic cholecystitis although surgical intervention is not being planned at this time. Patient does have cirrhosis alcoholic. Patient is presently undergoing alcohol withdrawals and requiring high amounts of Ativan at this time. When I evaluated the patient is doing well but patient started having withdrawals later with significant hallucinations 05/12/2019 Patient right upper quadrant abdominal pain is much better today. This is secondary to alcoholic hepatitis rather than biliary sludge or gallbladder disease. Patient was started on antibiotics I do not believe he will require antibiotics upon discharge. Believe these were started secondary to mild colitis is pretty nonspecific colitis. Patient's withdrawal symptoms are much better today requiring much less Ativan today Constitutional: Denied any fatigue denied any fever. Cardio vascular: denied any chest pain, palpitations Gastrointestinal denied any nausea vomiting Pulmonary: Denied any shortness of breath cough Neurologic denied any new focal deficits 05/13/2019 Patient is seen in follow-up today and continues to be quite weak requiring assistance with ambulation. PT/OT evaluated the patient recommending subacute rehab for strength and mobility. Patient states that his abdominal pain is gotten better although he continues to be nauseated at times and states that he had an episode of emesis last night. Flagyl will be discontinued today. Surgery following the patient. Patient will undergo laparoscopic cholecystectomy tomorrow. Currently no reports of chest pain, shortness of breath, or palpitations. Patient is afebrile. Patient remains on a regular diet and will be made nothing by mouth at midnight. Case management and social work following as patient will likely need subacute rehab upon discharge. 05/14/2019 Patient is being taken to the OR for prepping to have a cholecystectomy today. Will await report. No reports of chest pain, shortness of breath, or palpitations. Patient has been nothing by mouth since midnight. Some slight nausea with no vomiting noted. Sodium is slightly low at 132. Bilirubin slowly trending down at 6.1. Hemoglobin is stable at 11.7. Patient is maintained on ceftriaxone and will continue at this time. 05/15/2019 Patient is seen and evaluated status post open cholecystectomy yesterday. Maria Elena ent was noted to have a large amount of ascites noted during surgery. Patient has a JANELL drain on the lower right side that continues to drain large amounts of ascitic fluid. He is currently nothing by mouth and states that he is feeling better and would like to eat. Patient denies any passing of gas or bowel movements at this time. Patient remains on ceftriaxone and will continue at this time. Patient is also requesting for physical therapy to come and work with them today as he would like to get out of the bed. Patient is urinating with a urinal. Currently no reports of chest pain, shortness of breath, or palpitations. Patient is afebrile. No reports of nausea or vomiting as patient has been nothing by mouth. Diet will be ordered. Will continue to monitor closely. Case management and social work are following as patient will be going to rehab for continued PT/OT therapy once stabilized and discharged. 05/16/2019 Patient is seen in follow-up today postop day #2 cholecystectomy and is up walking with physical therapy. Patient states he is passing gas although no bowel movements yet. Patient was resumed on a regular diet and tolerating well with no reports of nausea or vomiting. Patient remains on oxygen of 2 L with saturations of 93%. Orthopedics of chest pain, shortness of breath, or palpitations. Patient is having a hard time coughing due to abdominal discomf ort and instructed the patient to continue using a pillow when needing to cough. Will order incentive spirometer. Patient continues to have a large amounts of serosanguineous fluid which is mostly due to his ascites from the JANELL drain. Surgery is following. Plan is for rehab at [facility] once stabilized and discharged. 05/17/2019 Patient is seen in follow-up today sitting up in the chair on room air. No reports of chest pain, shortness of breath, or palpitations. Patient is afebr ile. No reports of nausea or vomiting and patient is tolerating diet. Patient continues with the JANELL drain with large amounts of serosanguineous output most likely due to the ascites. Patient was initiated on Lasix and Aldactone although being held at this time due to low blood pressures. 90s to low 100s systolic. GI and surgery following. Patient to continue working with physical therapy. Patient remains on ceftriaxone and will continue at this time. Patient states he was having some mild dysuria with urination and a urinalysis with culture reflux was ordered. Will await report. Sodium is slightly low at 132 will continue to monitor closely. Current creatinine is 0.60. Total bili lorenzo slightly improved at 4.0. 05/20/2019 Patient is seen and evaluated in follow-up today sitting up at the side of the bed and appears to be in no acute distress. Surgery is planning on removing the JANELL drain today and patient states he would like to go today. Patient was recently initiated on Aldactone and Lasix and continues to have large amount of ascites drainage and will increase diuretics and continue to monitor. Will repeat a.m. labs. Patient's white blood count slightly elevated at 12.3 although not experiencing any fevers or other signs of infection. No reports of chest pain, shortness of breath, or palpitations. Patient is afebrile. No reports of nausea or vomiting and patient is tolerating diet. Patient sodium slightly low at 132. GI and surgery are following. acoustical material worker also following for possible ECF placement once patient is stabilized and discharged. Objective - Vital Signs Vital signs: Vital Signs Temp 97.5 F L 05/20/19 12:40 Pulse 59 L 05/20/19 12:40 Resp 16 05/20/19 12:40 BP 97/66 05/20/19 12:40 Pulse Ox 92 L 05/20/19 12:40 Intake & Output 05/19/19 05/20/19 05/20/19 18:59 06:59 18:59 Intake Total 540 200 540 Output Total 1270 550 Balance -730 -350 540 Intake: Oral 540 200 540 Output: Drainage 1270 550 Abdomen 1270 550 Other: # Voids 5 3 4 - Exam GENERAL: The patient is alert and oriented x3, not in any acute distress. Well developed, well nourished. HEENT: Pupils are round and equally reacting to light. EOMI. patient does have scleral icterus. No conjunctival pallor. Normocephalic, atraumatic. No pharyngeal erythema. No thyromegaly. CARDIOVASCULAR: S1 and S2 present. No murmurs, rubs, or gallops. PULMONARY: Diminished breath sounds at the bases with no wheezing or crackles noted. ABDOMEN: Positive bowel sounds, non-distended, obese, nontender, JANELL noted on the right side MUSCULOSKELETAL: No joint swelling or deformity. EXTREMITIES: No cyanosis, clubbing, or pedal edema. NEUROLOGICAL: Gross neurological examination did not reveal any focal deficits. Diffusely weak. SKIN: No rashes. - Labs CBC & Chem 7: 05/20/19 07:18 05/20/19 07:18 Labs: Abnormal Lab Results - Last 24 Hours (Table) 05/20/19 05/20/19 Range/Units 07:18 07:18 WBC 12.3 H (3.8-10.6) k/uL RBC 3.63 L (4.30-5.90) m/uL Hgb 11.2 L (13.0-17.5) gm/dL Hct 35.2 L (39.0-53.0) % RDW 16.2 H (11.5-15.5) % Neutrophils # 8.6 H (1.3-7.7) k/uL Monocytes # 1.4 H (0-1.0) k/uL Sodium 132 L (137-145) mmol/L Glucose 101 H (74-99) mg/dL Calcium 7.7 L (8.4-10.2) mg/dL Total Bilirubin 3.7 H (0.2-1.3) mg/dL Conjugated Bilirubin 0.4 H (0.0-0.3) mg/dL Unconjugated Bilirubin 1.7 H (0.0-1.1) mg/dL Delta Bilirubin 1.6 H (0.0-0.2) mg/dL AST 104 H (17-59) U/L Total Protein 6.2 L (6.3-8.2) g/dL Albumin 2.5 L (3.5-5.0) g/dL Microbiology - Last 24 Hours (Table) 05/15/19 01:32 Blood Culture - Preliminary Blood No Growth after 120 hours Assessment and Plan Assessment: -Abdominal pain probably secondary to alcoholic hepatitis patient does have some biliary sludge and is being followed by surgery. Patient underwent open cholecystectomy with Dr. Mckee. JANELL drain to be removed today. -Alcohol withdrawal: Patient will be monitored for withdrawals, no active withdrawals noted. -Alcoholic cirrhosis: Patient does have ascites further supportive care -Obstructive jaundice secondary to cirrhosis. GI following. 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 JANELL drain is scheduled to be removed today with surgery. Will continue to monitor vital signs and labs closely. Will repeat a.m. labs. Encouraged Increased activity as tolerated and incentive spirometer ordered. Further recommendations to follow. Case management and social work following as patient will need subacute rehab once stabilized and discharged. Aldactone and Lasix being increased. Possible discharge in 24-48 hours.
--- NOTE | 2019-05-20 21:15 | P.PN ---
Subjective Progress Note Date: 05/20/19 Principal diagnosis: Decompensated alcoholic cirrhosis Patient seen lying in bed reporting he is doing well tolerating diet. No abdominal pain. Objective - Vital Signs Vital signs: Vital Signs Temp 98.2 F 05/20/19 05:00 Pulse 80 05/20/19 05:00 Resp 20 05/20/19 05:00 BP 105/68 05/20/19 05:00 Pulse Ox 92 L 05/20/19 05:00 Intake & Output 05/19/19 05/20/19 05/20/19 18:59 06:59 18:59 Intake Total 540 200 Output Total 1270 550 Balance -730 -350 Intake: Oral 540 200 Output: Drainage 1270 550 Abdomen 1270 550 Other: # Voids 5 3 - Exam On physical examination, patient appears comfortable in no apparent distress. HEAD: Normocephalic, atraumatic. EYES: No scleral icterus. No conjunctival injection. MOUTH: No lesions, tongue midline. NECK: Trachea midline, no gross abnormalities. ABDOMEN: Soft, mildly distended. Bowel sounds are positive. No organomegaly. No guarding or rigidity. EXTREMITIES: No pedal edema. SKIN: No rashes, no jaundice. NEUROLOGIC: Alert and oriented x3. No focal deficits. - Labs CBC & Chem 7: 05/20/19 07:18 05/20/19 07:18 Labs: Abnormal Lab Results - Last 24 Hours (Table) 05/20/19 05/20/19 Range/Units 07:18 07:18 WBC 12.3 H (3.8-10.6) k/uL RBC 3.63 L (4.30-5.90) m/uL Hgb 11.2 L (13.0-17.5) gm/dL Hct 35.2 L (39.0-53.0) % RDW 16.2 H (11.5-15.5) % Neutrophils # 8.6 H (1.3-7.7) k/uL Monocytes # 1.4 H (0-1.0) k/uL Sodium 132 L (137-145) mmol/L Glucose 101 H (74-99) mg/dL Calcium 7.7 L (8.4-10.2) mg/dL Total Bilirubin 3.7 H (0.2-1.3) mg/dL Conjugated Bilirubin 0.4 H (0.0-0.3) mg/dL Unconjugated Bilirubin 1.7 H (0.0-1.1) mg/dL Delta Bilirubin 1.6 H (0.0-0.2) mg/dL AST 104 H (17-59) U/L Total Protein 6.2 L (6.3-8.2) g/dL Albumin 2.5 L (3.5-5.0) g/dL Microbiology - Last 24 Hours (Table) 05/15/19 01:32 Blood Culture - Preliminary Blood No Growth after 120 hours Assessment and Plan (1) Cirrhosis with alcoholism Narrative/Plan: 58-year-old male with decompensated alcoholic cirrhosis currently status post cholecystectomy. Current Visit: Yes Status: Acute Code(s): K70.30 - ALCOHOLIC CIRRHOSIS OF LIVER WITHOUT ASCITES SNOMED Code(s): 607421016 Plan: Supportive care Okay for diet as tolerated Continue to monitor CBC, CMP Avoid hepatotoxic medications Appreciate surgical recommendations Continue Aldactone and Lasix Avoid alcohol use Thank you for allowing us to the care of the patient
[2019-05-21] MEDS: HYDROcodone/APAP 5-325MG 1 EACH TAB PO PRN (06:05)
[2019-05-21] MEDS: SYMBICORT 160-4.5 MCG INHALER INHALATION SCH (08:01)
[2019-05-21 08:11] LABS: Anisocytosis Slight; Basophils # (A) 0.1 k/uL (0-0.2); Basophils % (A) 1 %; Eosinophils # (A) 0.3 k/uL (0-0.7); Eosinophils % (A) 2 %; HCT 34.7 % (39.0-53.0); Lymphocytes # (A) 1.3 k/uL (1.0-4.8); Lymphocytes % (A) 11 %; MCH 30.7 pg (25.0-35.0); MCHC 31.7 g/dL (31.0-37.0); MCV 96.9 fL (80.0-100.0); Mean Platelet Volume 10.7; Monocytes # (A) 1.3 k/uL (0-1.0); Monocytes % (A) 11 %; Neutrophils # (A) 8.2 k/uL (1.3-7.7); Neutrophils % (A) 71 %; Platelet Count 206 k/uL (150-450); RBC 3.58 m/uL (4.30-5.90); RDW 16.2 % (11.5-15.5); WBC 11.5 k/uL (3.8-10.6)
[2019-05-21] MEDS: NICOTINE 21MG/24HR PATCH TRANSDERM SCH (08:15)
[2019-05-21] MEDS: FUROSEMIDE 40 MG TAB PO SCH (08:15)
[2019-05-21] MEDS: SPIRONOLACTONE 25 MG TAB PO SCH (08:15)
[2019-05-21] MEDS: ISOSORBIDE MONONITRATE ER 30 MG TAB.ER.24H PO SCH (08:15)
[2019-05-21] MEDS: PANTOPRAZOLE 40 MG TABLET PO SCH (08:15)
[2019-05-21] MEDS: CITALOPRAM HYDROBROMIDE 20 MG TAB PO SCH (08:17)
[2019-05-21 08:18] LABS: ALT 21 U/L (4-49); AST 114 U/L (17-59); African American GFR (CKD) >90 (>60 ml/min/1.73 sqM); Albumin 2.5 g/dL (3.5-5.0); Alkaline Phosphatase 109 U/L (38-126); Anion Gap 9 mmol/L; Blood Urea Nitrogen 24 mg/dL (9-20); Calcium 7.8 mg/dL (8.4-10.2); Carbon Dioxide 26 mmol/L (22-30); Chloride 99 mmol/L (98-107); Glucose 100 mg/dL (74-99); Non-African American GFR(CKD) >90 (>60 ml/min/1.73 sqM); Potassium 3.9 mmol/L (3.5-5.1); Sodium 134 mmol/L (137-145); Total Bilirubin 3.5 mg/dL (0.2-1.3); Total Protein 6.3 g/dL (6.3-8.2)
[2019-05-21] MEDS: ASPIRIN 81 MG PO SCH (08:19)
--- NOTE | 2019-05-21 10:56 | P.PN ---
Subjective This is a pleasant 58-year-old male status post open cholecystectomy 05/14/2019. JANELL drain removed yesterday without incident. Dressing is clean, dry and intact with no evidence of drainage. Blood pressure 99/63 heart rate 74 afebrile maintaining oxygen saturation on room air. Laboratory data reviewed, WBC 11.5, hemoglobin 11, platelets 206, sodium 134, potassium 3.9, creatinine 0.88, total bilirubin 3.5, AST 114 and albumin 2.5. GENERAL: No acute distress. HEENT: Head is atraumatic, normocephalic. Pupils are equal, round. Sclerae anicteric. Conjunctivae are clear. Mucous membranes of the mouth are moist. Neck is supple. ABDOMEN: Soft, nontender. Bowel sounds are heard. No organomegaly noted. Dressi ng to the right upper abdomen clean, dry and intact with no evidence of drainage. NEUROLOGIC: Patient is awake, alert and oriented x3. ASSESSMENT Cholecystitis with cirrhosis of the liver status post cholecystectomy Ascites PLAN Stable for discharge from a surgical perspective. Follow up in the office in 1-week with Dr. Mckee The above impression and plan of care have been discussed and directed by the signing physician. Yvonne Bello, nurse practitioner, acting as scribe for signing physician. Objective - Vital Signs Vital signs: Vital Signs Temp 97.8 F 05/21/19 05:00 Pulse 74 05/21/19 05:00 Resp 16 05/21/19 05:00 BP 99/63 05/21/19 05:00 Pulse Ox 92 L 05/21/19 05:00 Intake & Output 05/20/19 05/21/19 05/21/19 18:59 06:59 18:59 Intake Total 1080 Output Total 650 500 Balance 430 -500 Intake: Oral 1080 Output: Drainage 650 Abdomen 650 Urine 500 Other: Voiding Method Urinal # Voids 2 1 - Labs CBC & Chem 7: 05/21/19 07:07 05/21/19 07:07 Labs: Abnormal Lab Results - Last 24 Hours (Table) 05/21/19 05/21/19 Range/Units 07:07 07:07 WBC 11.5 H (3.8-10.6) k/uL RBC 3.58 L (4.30-5.90) m/uL Hgb 11.0 L (13.0-17.5) gm/dL Hct 34.7 L (39.0-53.0) % RDW 16.2 H (11.5-15.5) % Neutrophils # 8.2 H (1.3-7.7) k/uL Monocytes # 1.3 H (0-1.0) k/uL Sodium 134 L (137-145) mmol/L BUN 24 H (9-20) mg/dL Glucose 100 H (74-99) mg/dL Calcium 7.8 L (8.4-10.2) mg/dL Total Bilirubin 3.5 H (0.2-1.3) mg/dL AST 114 H (17-59) U/L Albumin 2.5 L (3.5-5.0) g/dL Microbiology - Last 24 Hours (Table) 05/15/19 01:32 Blood Culture - Final Blood No Growth after 144 hours
[2019-05-21 13:51] VITALS: BP 102/66; PULSE 96; RESP 18; TEMP 98
--- NOTE | 2019-05-21 15:35 | P.DS ---
Providers Date of admission: 05/10/19 14:29 Expected date of discharge: 05/21/19 Attending physician: Cortney Matthews Consults: 05/09/19 16:04 Consult Physician Urgent Consulting Provider: Angeles Mason Consult Reason/Comments: Alcoholic hepatitis Do you want consulting provider notified?: Yes 05/10/19 12:34 Consult Physician Routine Consulting Provider: Jerald Mckee Consult Reason/Comments: biliary sludge Do you want consulting provider notified?: Yes Primary care physician: Rachana Crockett Hospital Course: Final diagnosis -Abdominal pain probably secondary to alcoholic hepatitis patient does have some biliary sludge -Status post cholecystectomy -Alcohol withdrawal -Alcoholic cirrhosis: Patient does have ascites -Obstructive jaundice secondary to cirrhosis -Hypertension -Hyperkalemia -Depression -Acute alcoholic hepatitis -COPD without any acute exacerbation -Thrombocytopenia secondary to cirrhosis and splenic sequestration Discharge disposition Patient is being discharged in a stable condition with guarded prognosis to home and will follow-up with Dr. Reich upon discharge. Patient will also follow-up with surgery and GI in the outpatient setting. Total time taken is 35 minutes. History of present illness This is a 58-year-old male who was recently admitted with right upper quadrant abdominal pain and alcoholic cirrhosis and was being closely monitored. GI and surgery were following. Patient continued to have severe abdominal discomfort along with vomiting and underwent open cholecystectomy. Patient continued to have large amounts of ascites with drainage from the JANELL drain. Patient was initiated on Lasix and Aldactone and will continue in the outpatient setting. Patient's JANELL drain was removed with no further leaking noted. Patient initially was quite weak requiring assistance and needing possible rehab upon discharge. Patient continued to significantly improve and has refused rehab and Homecare and would like to return home with his family. Patient instructed to follow-up with primary care provider along with surgery and GI in the outpatient setting. Discussed with the patient extensively about continuing to avoid alcohol and tobacco use. Currently no reports of chest pain, shortness of breath, or palpitations. Patient is afebrile. No reports of nausea or vomiting and patient is tolerating diet. Patient will be discharged home today. On exam vital signs are stable. Temp is 98.0F, pulse is 96, respirations are 18, blood pressure is 102/66, oxygen saturation is 92-95% on room air. Cardio S1, S2 are muffled. Respiratory shows diminished breath sounds at the bases otherwise clear to auscultation. Abdomen is soft and nontender. Nervous system shows no focal deficits. Please refer to medication reconciliation sheet for a list of medications. Patient Condition at Discharge: Stable Plan - Discharge Summary New Discharge Prescriptions: New Spironolactone [Aldactone] 50 mg PO BID 30 Days #60 tab Furosemide [Lasix] 40 mg PO BID@0900,1600 30 Days #60 tab HYDROcodone/APAP 5-325MG [[place] 5-325] 1 each PO Q6HR PRN #12 tab PRN Reason: MODERATE Pain Budesonide-Formot 160-4.5 Mcg [Symbicort 160-4.5 Mcg Inhaler] 2 puff INHALATION RT-BID 30 Days #1 puff Acetaminophen Tab [Tylenol] 650 mg PO Q6HR PRN tab PRN Reason: Fever And/ Or Pain Continue Pantoprazole Sodium [Protonix] 40 mg PO DAILY #30 tablet. Citalopram Hydrobromide [CeleXA] 40 mg PO DAILY #30 tablet Aspirin EC [Ecotrin Low Dose] 81 mg PO DAILY #30 tablet. Isosorbide Mononitrate ER [Imdur] 30 mg PO DAILY #30 tab.er.24h Nitroglycerin Sl Tabs [Nitrostat] 0.4 mg SUBLINGUAL Q5M PRN #50 tab PRN Reason: Chest Pain Albuterol Sulfate [Proair Hfa] 2 puff INHALATION RT-Q6H PRN #1 hfa.aer.ad PRN Reason: Shortness Of Breath Thiamine [Vitamin B-1] 100 mg PO DAILY #30 tab Discontinued Lisinopril [Prinivil] 10 mg PO DAILY #30 tablet Discharge Medication List Albuterol Sulfate [Proair Hfa] 2 puff INHALATION RT-Q6H PRN #1 hfa.aer.ad 10/05/18 [Rx] Aspirin EC [Ecotrin Low Dose] 81 mg PO DAILY #30 tablet. 10/05/18 [Rx] Citalopram Hydrobromide [CeleXA] 40 mg PO DAILY #30 tablet 10/05/18 [Rx] Isosorbide Mononitrate ER [Imdur] 30 mg PO DAILY #30 tab.er.24h 10/05/18 [Rx] Nitroglycerin Sl Tabs [Nitrostat] 0.4 mg SUBLINGUAL Q5M PRN #50 tab 10/05/18 [Rx] Pantoprazole Sodium [Protonix] 40 mg PO DAILY #30 tablet.dr 10/05/18 [Rx] Thiamine [Vitamin B-1] 100 mg PO DAILY #30 tab 10/05/18 [Rx] Acetaminophen Tab [Tylenol] 650 mg PO Q6HR PRN tab 05/21/19 [Rx] Budesonide-Formot 160-4.5 Mcg [Symbicort 160-4.5 Mcg Inhaler] 2 puff INHALATION RT-BID 30 Days #1 puff 05/21/19 [Rx] Furosemide [Lasix] 40 mg PO BID@0900,1600 30 Days #60 tab 05/21/19 [Rx] HYDROcodone/APAP 5-325MG [[place] 5-325] 1 each PO Q6HR PRN #12 tab 05/21/19 [Rx] Spironolactone [Aldactone] 50 mg PO BID 30 Days #60 tab 05/21/19 [Rx] Follow up Appointment(s)/Referral(s): Bon Reich MD [Primary Care Provider] - 1-2 days (Please call office for Hospital follow up appointment ) Angeles Mason MD [STAFF PHYSICIAN] - 06/10/19 2:30 pm ( Please arrive 15min early , bring ID and insurance card. ) Jerald Mckee MD [STAFF PHYSICIAN] - 05/28/19 1:40 pm (If PT feels like he is doing well at the end of the week, the appointment can be chaged to a phone call appointment by calling the office Monday to have the appointment changed. ) Ambulatory/Diagnostic Orders: Complete Blood Count w/diff [LAB.AMB] Time Frame: 2 Days, Location: None Selected Comprehensive Metabolic Panel [LAB.AMB] Time Frame: 2 Days, Location: None Selected Patient Instructions/Handouts: Low Fat Diet (DC), Open Cholecystectomy (DC) Activity/Diet/Wound Care/Special Instructions: Activity Limited until follow-up Continue current diet Follow-up with primary care provider upon discharge Repeat labs in 2-3 days Follow-up with surgery in one week Avoid all alcohol intake Avoid tobacco use Follow-up with GI in 2-3 weeks Discharge Disposition: HOME SELF-CARE
--- NOTE | 2019-05-21 19:45 | P.PN ---
Subjective Progress Note Date: 05/21/19 Principal diagnosis: Decompensated alcoholic cirrhosis Patient seen lying in bed, denying any acute complaints. Tolerating diet. He is reporting that abdominal pain is improved. Objective - Vital Signs Vital signs: Vital Signs Temp 97.8 F 05/21/19 05:00 Pulse 74 05/21/19 05:00 Resp 16 05/21/19 05:00 BP 99/63 05/21/19 05:00 Pulse Ox 92 L 05/21/19 05:00 Intake & Output 05/20/19 05/21/19 05/21/19 18:59 06:59 18:59 Intake Total 1080 Output Total 650 500 Balance 430 -500 Intake: Oral 1080 Output: Drainage 650 Abdomen 650 Urine 500 Other: Voiding Method Urinal # Voids 2 1 - Exam On physical examination, patient appears comfortable in no apparent distress. HEAD: Normocephalic, atraumatic. EYES: No scleral icterus. No conjunctival injection. MOUTH: No lesions, tongue midline. NECK: Trachea midline, no gross abnormalities. ABDOMEN: Soft, mildly distended. Bowel sounds are positive. No organomegaly. No guarding or rigidity. EXTREMITIES: No pedal edema. SKIN: No rashes, no jaundice. NEUROLOGIC: Alert and oriented x3. No focal deficits. - Labs CBC & Chem 7: 05/21/19 07:07 05/21/19 07:07 Labs: Abnormal Lab Results - Last 24 Hours (Table) 05/21/19 05/21/19 Range/Units 07:07 07:07 WBC 11.5 H (3.8-10.6) k/uL RBC 3.58 L (4.30-5.90) m/uL Hgb 11.0 L (13.0-17.5) gm/dL Hct 34.7 L (39.0-53.0) % RDW 16.2 H (11.5-15.5) % Neutrophils # 8.2 H (1.3-7.7) k/uL Monocytes # 1.3 H (0-1.0) k/uL Sodium 134 L (137-145) mmol/L BUN 24 H (9-20) mg/dL Glucose 100 H (74-99) mg/dL Calcium 7.8 L (8.4-10.2) mg/dL Total Bilirubin 3.5 H (0.2-1.3) mg/dL AST 114 H (17-59) U/L Albumin 2.5 L (3.5-5.0) g/dL Microbiology - Last 24 Hours (Table) 05/15/19 01:32 Blood Culture - Final Blood No Growth after 144 hours Assessment and Plan (1) Cirrhosis with alcoholism Narrative/Plan: 58-year-old male with decompensated alcoholic cirrhosis currently status post cholecystectomy. Status: Acute Code(s): K70.30 - ALCOHOLIC CIRRHOSIS OF LIVER WITHOUT ASCITES SNOMED Code(s): 996542996 Plan: Supportive care Okay for diet as tolerated Continue to monitor CBC, CMP Avoid hepatotoxic medications Appreciate surgical recommendations Continue Aldactone and Lasix Avoid alcohol use Thank you for allowing us to the care of the patient
--- NOTE | 2019-05-22 12:13 | CDI ---
Documentation Clarification Form Date: 05/22/19 From: Mildred Ty Phone: If you have a question about this query, please contact Ruth Reeder, [employer] at [phone] between 8am and 5pm. Admit Date: 05/09/19 Discharge Date:05/21/19 Patient Name: Og Ontiveros Visit Number: [id number] ATTENTION: The Clinical Documentation Specialists (CDI) and [facility] Coding Staff appreciate your assistance in clarifying documentation. Please respond to the clarification below the line at the bottom and electronically sign. The CDI & [facility] Coding staff will review the response and follow-up if needed. Please note: Queries are made part of the Legal Health Record. If you have any questions, please contact the author of this message via ITS. Dear Dr. Ocampo History of heavy alcohol abuse is documented in Dr. Mason's consult note and progress notes and Dr. Mckee's consult note and progress notes. Cirrhosis with alcoholism is documented in Dr. Peterson's 05/17 & 05/[address] Dinero's 05/19 & 05/20 progress notes. History/Risk Factors: Patient drinks about 10 - 15 beers a day. Clinical Indicators: Elevated alcohol level, withdrawals, hallucinations Labs: Alcohol level 212, AST 208, ALT 19, MCV 96.2 Treatment: IV Ativan, 1 liter bolus NS, IV vitamins(multivit, thiamine, folic acid) In your professional opinion, can you please clarify if the above clinical indicators and treatment signify any of the following? Alcohol withdrawal with withdrawal delirium Delirium tremens Impending delirium tremens Alcohol dependence with impending delirium tremens Alcohol dependence Alcohol abuse Alcohol abuse with preventative treatment for tremors Other, please specify Unable to determine AND Evidence of thiamine deficiency due to chronic alcohol use/alcoholism Prophylactic treatment of potential thiamine deficiency associated with alcohol use/alcoholism Unable to determine Other, please specify Alcohol dependence with impending DTs AND prophylactic treatment of potential thiamine deficiency. MTDD
== END 2019-05-21 15:03 | disposition home or self-care (01) | DRG 414 ==
LOC: EC 12:48 → 5NMEDONC 16:26 → 6NMEDSUR 05-10 11:35 → OBSVTOIN 05-10 14:29
PROVIDERS: ADMIT Hospitalist; ATTEND Hospitalist
DX: K70.11 Alcoholic hepatitis with ascites (principal); K83.1 Obstruction of bile duct; D68.9 Coagulation defect, unspecified; K76.6 Portal hypertension; K80.10 Calculus of gallbladder with chronic cholecystitis without obstruction; F10.239 Alcohol dependence with withdrawal, unspecified; E51.9 Thiamine deficiency, unspecified; K70.31 Alcoholic cirrhosis of liver with ascites; D63.8 Anemia in other chronic diseases classified elsewhere; D69.59 Other secondary thrombocytopenia; D73.1 Hypersplenism; E78.00 Pure hypercholesterolemia, unspecified; E78.5 Hyperlipidemia, unspecified; E87.5 Hyperkalemia; E87.70 Fluid overload, unspecified; F17.200 Nicotine dependence, unspecified, uncomplicated; F32.9 Major depressive disorder, single episode, unspecified; I10 Essential (primary) hypertension; J44.9 Chronic obstructive pulmonary disease, unspecified; K29.20 Alcoholic gastritis without bleeding; K52.9 Noninfective gastroenteritis and colitis, unspecified; K59.00 Constipation, unspecified; K21.9 Gastro-esophageal reflux disease without esophagitis; E66.9 Obesity, unspecified; R32 Unspecified urinary incontinence; Z68.29 Body mass index [BMI] 29.0-29.9, adult; Z79.82 Long term (current) use of aspirin; Z79.899 Other long term (current) drug therapy; Z88.5 Allergy status to narcotic agent; Z88.0 Allergy status to penicillin; Z88.8 Allergy status to other drugs, medicaments and biological substances; Z82.49 Family history of ischemic heart disease and other diseases of the circulatory system; Z80.9 Family history of malignant neoplasm, unspecified; Z83.79 Family history of other diseases of the digestive system; Z83.6 Family history of other diseases of the respiratory system; Y90.7 Blood alcohol level of 200-239 mg/100 ml
CPT/HCPCS: 36415; 71046; 74177; 76705; 80048; 80053; 80074; 80076; 80320; 81003; 82140; 82150; 82247; 83605; 83690; 84075; 84450; 84460; 84484; 85025; 85027; 85610; 85730; 86850; 86900; 86901; 87040; 88304; 93005; 94640; 94760; 96361; 96374; 96375; 99285

== ENCOUNTER → 2019-05-27 | Outpatient (CLI) | payer MEDICARE ==
[2019-05-27 12:43] LABS: Basophils # (A) 0.1 k/uL (0-0.2); Basophils % (A) 0 %; Eosinophils # (A) 0.2 k/uL (0-0.7); Eosinophils % (A) 2 %; HCT 40.8 % (39.0-53.0); HGB 13.7 gm/dL (13.0-17.5); Lymphocytes # (A) 1.4 k/uL (1.0-4.8); Lymphocytes % (A) 10 %; MCHC 33.5 g/dL (31.0-37.0); MCV 95.3 fL (80.0-100.0); Mean Platelet Volume 10.1; Monocytes # (A) 0.9 k/uL (0-1.0); Monocytes % (A) 7 %; Neutrophils % (A) 80 %; Platelet Count 265 k/uL (150-450); RBC 4.28 m/uL (4.30-5.90); RDW 15.6 % (11.5-15.5); WBC 13.8 k/uL (3.8-10.6)
[2019-05-27 13:10] LABS: ALT 25 U/L (4-49); AST 145 U/L (17-59); African American GFR (CKD) >90 (>60 ml/min/1.73 sqM); Albumin 3.3 g/dL (3.5-5.0); Albumin/Globulin Ratio 0.7; Alkaline Phosphatase 131 U/L (38-126); Anion Gap 14 mmol/L; Blood Urea Nitrogen 17 mg/dL (9-20); Calcium 8.6 mg/dL (8.4-10.2); Carbon Dioxide 25 mmol/L (22-30); Chloride 90 mmol/L (98-107); Globulin 4.5 g/dL; Glucose 107 mg/dL (74-99); Non-African American GFR(CKD) >90 (>60 ml/min/1.73 sqM); Sodium 129 mmol/L (137-145); Total Bilirubin 3.4 mg/dL (0.2-1.3); Total Protein 7.8 g/dL (6.3-8.2)
== END | disposition home or self-care (01) ==
LOC: LABWHC1 11:39
PROVIDERS: ATTEND Registered Nurse
DX: K70.30 Alcoholic cirrhosis of liver without ascites (principal); E87.1 Hypo-osmolality and hyponatremia; D72.829 Elevated white blood cell count, unspecified
CPT/HCPCS: 36415; 80053; 85025

== ENCOUNTER 2019-07-10 17:21 | Inpatient (IN) | payer MEDICARE ==
[2019-07-10] MEDS ORDERED: PANTOPRAZOLE 40 MG/10 ML VIAL IVP STA (18:40)
--- NOTE | 2019-07-10 18:46 | ED ---
General Adult HPI - General Chief complaint: Abdominal Pain Stated complaint: sent by pcp Time Seen by Provider: 07/10/19 18:08 Source: patient, RN notes reviewed Mode of arrival: wheelchair Limitations: no limitations - History of Present Illness Initial comments: Patient is a pleasant 58-year-old male presenting to the emergency department with abdominal distention. Symptoms have worsened over the past several days. Patient does have some mild discomfort of the upper abdomen. Patient has had similar symptoms previously and has been drained. Patient needed to have many liters drained off his abdomen prior to having gallbladder procedure. Patient was drinking again after that. Gallbladder was removed of May with Dr. Mckee. No fevers. No confusion - Related Data Previous Rx's Medication Instructions Recorded Albuterol Sulfate [Proair Hfa] 2 puff INHALATION RT-Q6H PRN #1 10/05/18 hfa.aer.ad Aspirin EC [Ecotrin Low Dose] 81 mg PO DAILY #30 tablet. 10/05/18 Citalopram Hydrobromide [CeleXA] 40 mg PO DAILY #30 tablet 10/05/18 Isosorbide Mononitrate ER [Imdur] 30 mg PO DAILY #30 tab.er.24h 10/05/18 Nitroglycerin Sl Tabs [Nitrostat] 0.4 mg SUBLINGUAL Q5M PRN #50 tab 10/05/18 Pantoprazole Sodium [Protonix] 40 mg PO DAILY #30 tablet. 10/05/18 Thiamine [Vitamin B-1] 100 mg PO DAILY #30 tab 10/05/18 Acetaminophen Tab [Tylenol] 650 mg PO Q6HR PRN tab 05/21/19 Budesonide-Formot 160-4.5 Mcg 2 puff INHALATION RT-BID 30 Days 05/21/19 [Symbicort 160-4.5 Mcg Inhaler] #1 puff Furosemide [Lasix] 40 mg PO BID@0900,1600 30 Days #60 05/21/19 tab HYDROcodone/APAP 5-325MG [[place] 1 each PO Q6HR PRN #12 tab 05/21/19 5-325] Spironolactone [Aldactone] 50 mg PO BID 30 Days #60 tab 05/21/19 Allergies Allergy/AdvReac Type Severity Reaction Status Date / Time Penicillins Allergy Anaphylaxis Verified 07/10/19 17:28 meperidine [From Demerol] AdvReac Hallucinati Verified 07/10/19 17:28 ons Opioids-Meperidine and AdvReac Hallucinati Verified 07/10/19 17:28 Related ons Opioids-Methadone and Related AdvReac Hallucinati Verified 07/10/19 17:28 ons quetiapine [From Seroquel] AdvReac Hallucinati Verified 07/10/19 17:28 ons Review of Systems ROS Statement: Those systems with pertinent positive or pertinent negative responses have been documented in the HPI. ROS Other: All systems not noted in ROS Statement are negative. Constitutional: Denies: fever Eyes: Denies: eye pain ENT: Denies: ear pain Respiratory: Denies: cough, dyspnea Cardiovascular: Denies: chest pain Endocrine: Denies: fatigue Gastrointestinal: Reports: as per HPI, abdominal pain Genitourinary: Denies: dysuria Musculoskeletal: Denies: back pain Skin: Denies: rash Neurological: Denies: weakness Past Medical History Past Medical History: GERD/Reflux, Hyperlipidemia, Hypertension Additional Past Medical History / Comment(s): Patient states he needs a left knee replacement. History of Any Multi-Drug Resistant Organisms: None Reported Past Surgical History: Orthopedic Surgery Additional Past Surgical History / Comment(s): LEFT AND AND RIGHT KNEE SX. LEFT FEMUR FX. HEART CATH NO STENTS Past Anesthesia/Blood Transfusion Reactions: No Reported Reaction Past Psychological History: No Psychological Hx Reported Smoking Status: Current every day smoker Past Alcohol Use History: Rare Past Drug Use History: None Reported - Past Family History Father Family Medical History: Coronary Artery Disease (CAD), Liver Disease Mother Family Medical History: Cancer Additional Family Medical History / Comment(s): LUNG DISEASE General Exam Limitations: no limitations General appearance: alert, in no apparent distress Head exam: Present: normocephalic Eye exam: Present: normal appearance Neck exam: Present: normal inspection Respiratory exam: Present: normal lung sounds bilaterally Cardiovascular Exam: Present: regular rate, normal rhythm Expanded Peripheral pulses: 2+: Dorsalis Pedis (R), Dorsalis Pedis (L) GI/Abdominal exam: Present: distended, tenderness (Mild upper abdominal tenderness) Extremities exam: Present: pedal edema (+1 bilateral). Absent: calf tenderness Neurological exam: Present: alert Psychiatric exam: Present: normal affect, normal mood Skin exam: Present: normal color Course Vital Signs 07/10/19 17:25 Temperature 98.8 F Pulse Rate 96 Respiratory 18 Rate Blood Pressure 101/69 O2 Sat by Pulse 97 Oximetry Medical Decision Making - Medical Decision Making Patient is updated on plan. Case was discussed with Dr. Matthews, who will admit covering for Dr. brooks. Consult will be placed for Dr. Mckee and interventional radiology. Disposition Clinical Impression: Ascites Disposition: ADMITTED IP TO THIS HOSP Is patient prescribed a controlled substance at d/c from ED?: No Referrals: Bon Reich MD [Primary Care Provider] - 1-2 days Decision Time: 18:48
[2019-07-10] MEDS ORDERED: ONDANSETRON 4 MG/2 ML VIAL IVP PRN (18:48)
[2019-07-10] MEDS ORDERED: NALOXONE 0.4 MG/ML 1 ML VIAL IV PRN (18:48)
[2019-07-10 19:30] LABS: ALT 14 U/L (4-49); AST 58 U/L (17-59); African American GFR (CKD) >90 (>60 ml/min/1.73 sqM); Albumin 2.8 g/dL (3.5-5.0); Alkaline Phosphatase 85 U/L (38-126); Amylase 67 U/L (30-110); Anion Gap 8 mmol/L; Blood Urea Nitrogen 7 mg/dL (9-20); Calcium 8.5 mg/dL (8.4-10.2); Carbon Dioxide 26 mmol/L (22-30); Chloride 94 mmol/L (98-107); Glucose 98 mg/dL (74-99); Non-African American GFR(CKD) >90 (>60 ml/min/1.73 sqM); Potassium 3.1 mmol/L (3.5-5.1); Sodium 128 mmol/L (137-145); Total Bilirubin 1.9 mg/dL (0.2-1.3); Total Protein 6.8 g/dL (6.3-8.2)
[2019-07-10 19:34] LABS: INR 1.2 (<1.2); Partial Thromboplastin Time 22.6 sec (22.0-30.0); Prothrombin Time 12.2 sec (9.0-12.0)
[2019-07-10 19:45] LABS: Basophils # (A) 0.1 k/uL (0-0.2); Basophils % (A) 1 %; Eosinophils # (A) 0.3 k/uL (0-0.7); Eosinophils % (A) 5 %; HCT 34.3 % (39.0-53.0); HGB 11.6 gm/dL (13.0-17.5); Lymphocytes # (A) 1.5 k/uL (1.0-4.8); Lymphocytes % (A) 26 %; MCH 31.4 pg (25.0-35.0); MCHC 33.9 g/dL (31.0-37.0); MCV 92.4 fL (80.0-100.0); Monocytes # (A) 0.6 k/uL (0-1.0); Monocytes % (A) 10 %; Neutrophils # (A) 3.2 k/uL (1.3-7.7); Neutrophils % (A) 55 %; RBC 3.71 m/uL (4.30-5.90); RDW 14.2 % (11.5-15.5); WBC 5.8 k/uL (3.8-10.6)
[2019-07-10 19:49] LABS: Platelet Count 122 k/uL (150-450)
[2019-07-10 20:22] LABS: Appearance,Urine Clear (Clear); Bilirubin,Urine Negative (Negative); Blood,Urine Negative (Negative); Color,Urine Yellow; Glucose,Urine (UA) Negative (Negative); Ketones,Urine Negative (Negative); Leukocyte Esterase,Urine Negative (Negative); Nitrite,Urine Negative (Negative); Protein,Urine Negative (Negative); Specific Gravity,Urine 1.008 (1.001-1.035)
[2019-07-10 20:31] LABS: Amphetamine Screen,Urine Not Detected (NotDetected); Barbiturate Screen,Urine Detected (NotDetected); Benzodiazepines Screen,Urine Not Detected (NotDetected); Cocaine Screen,Urine Not Detected (NotDetected); Methadone Screen, Urine Not Detected (NotDetected); Opiate Screen,Urine Not Detected (NotDetected); Oxycodone Screen, Urine Not Detected (NotDetected); Phencyclidine Screen,Urine Not Detected (NotDetected); Tricyclic Antidepressant,Urine Not Detected (NotDetected); Urn Cannabinoid Scrn Not Detected (NotDetected)
--- NOTE | 2019-07-10 20:41 | XR ---
EXAMINATION TYPE: XR KUB DATE OF EXAM: 07/10/2019 COMPARISON: NONE HISTORY: Abdominal pain TECHNIQUE: 2 views FINDINGS: 2 views upright were obtained and show no sign of intestinal obstruction or pneumoperitoneu m. Fecal pattern is normal. There is no evidence of a mass. Lung bases are clear. There are no pathol ogic calcifications over the kidneys. IMPRESSION: Nonacute abdomen.
[2019-07-10] MEDS: FUROSEMIDE 10 MG/ML 4 ML VIAL IV SCH (22:19)
[2019-07-10] MEDS: SODIUM CHLORIDE 0.9% 1,000 ML IV SCH (22:21)
--- NOTE | 2019-07-10 23:24 | HP ---
HISTORY AND PHYSICAL DATE OF SERVICE: 07/10/2019 CHIEF COMPLAINT: Abdominal pain. HISTORY OF PRESENT ILLNESS: This 58-year-old gentleman with a past medical history of multiple medical problems such as history of hypertension, hyperlipidemia, history of depression, history of COPD, being followed by Dr. Reich's office and [facility] in the outpatient setting, was admitted recently and had a cholecystectomy by Dr. Mckee. The patient had approximately 7 L fluid also drained during that admission. The patient also had a surgical biopsy of the gallbladder at that time and the patient apparently went to rehab. The biopsy showed chronic cholecystitis. After the rehab the patient was having progressive abdominal pain and abdominal distention. Because of increasing difficulty, the patient came to [facility] and was admitted for evaluation and treatment. The labs are pending at this time. The patient is even unable to ambulate. The patient has some difficulty in breathing, also. There is no history of any chest pain or palpitations. No history of headache, loss of consciousness, seizures. The abdomen is significantly distended. PAST MEDICAL HISTORY: History of recent cholecystectomy surgery and fluid drainage, hypertension, hyperlipidemia, history of DJD, history of GERD. HOME MEDICATIONS: 1. Thiamine 100 mg p.o. daily. 2. Aldactone 50 mg p.o. b.i.d. 3. Protonix 40 mg p.o. b.i.d. 4. Nitrostat 0.4 sublingually p.r.n. 5. Imdur 30 mg p.o. daily. 6. [place] one q.6 p.r.n. 7. Lasix 40 mg p.o. b.i.d. 8. Celexa 40 mg daily. 9. Symbicort 160/4.5 two puffs b.i.d. 10.Ecotrin 81 mg daily. 11.Albuterol 2 puffs q.6. 12.Tylenol 650 q.6 p.r.n. ALLERGIES: PENICILLIN, MEPERIDINE, OPIOIDS AND SEROQUEL. FAMILY HISTORY: History of coronary artery disease, liver disease and lung disease. SOCIAL HISTORY: History of significant alcoholism previously. Even now patient takes about 2 drinks per day. Continues smoking history. No history of substance abuse. REVIEW OF SYSTEMS: ENT: No diminished hearing. No diminished vision. CARDIOVASCULAR SYSTEM: No angina, palpitations. RESPIRATORY SYSTEM: As mentioned earlier. GI: As mentioned earlier. : No dysuria or retention. NERVOUS SYSTEM: No numbness, weakness. ALLERGY/IMMUNOLOGY: No asthma, hayfever. MUSCULOSKELETAL: As mentioned earlier. HEMATOLOGY/ONCOLOGY: No history of anemia. ENDOCRINE: No history of diabetes, hypothyroidism. CONSTITUTIONAL: As mentioned earlier. DERMATOLOGY: Negative. RHEUMATOLOGY: Negative. PSYCHIATRY: As mentioned earlier. PHYSICAL EXAMINATION: Patient alert and oriented x3. Pulse 96, blood pressure 101/69, respiration 18, temperature 98.8, pulse ox 97% on room air. HEENT: Conjunctivae normal. Oral mucosa moist. NECK: No jugular venous distention. No carotid bruit. No lymph node enlargement. CARDIOVASCULAR SYSTEM: S1, S2 muffled. No S3. No S4. RESPIRATORY SYSTEM: Breath sounds diminished at the bases. No rhonchi. No crackles. ABDOMEN: Soft. Diffuse distention. Massive ascites present. Fluid thrill also present. No mass palpable. Healed scars present. No tenderness. No guarding. No rigidity. Bowel sounds diminished. LEGS: Minimal edema. NERVOUS SYSTEM: Higher functions as mentioned earlier. Moves all 4 limbs. No focal motor or sensory deficit. LYMPHATICS: No lymph node palpable in neck, axillae or groin. SKIN: No ulcer, rash, bleeding. JOINTS: No active deforming arthropathy. LABS: Labs are pending at this time. The previous labs showed increased WBC and some coagulopathy as well as hyponatremia and features of obstructive jaundice as well. ASSESSMENT: 1. Diffuse abdominal distention with possible ascites secondary to cirrhosis of the liver. 2. Cirrhosis of the liver, possibly secondary to alcoholic cirrhosis. 3. History of recent cholecystectomy as well as drainage of ascitic fluid. 4. History of hypertension. 5. Hyperlipidemia. 6. History of gastroesophageal reflux disease. 7. History of degenerative joint disease, left knee replacement. 8. History of continued ongoing nicotine dependence. 9. History of hyponatremia. RECOMMENDATIONS AND DISCUSSION: In this 58-year-old gentleman who presented with multiple complex medical issues, we will monitor the patient closely, continue the current medications, continue symptomatic treatment. I would recommend basic labs. I would also recommend a CT scan of the abdomen and pelvis as well as interventional radiology evaluation for possible ascitic aspiration and studies of the ascitic fluid, including protein, albumin, LDH as well as culture and cytology. I would also recommend diuretics and continue to monitor. Surgery and Gastroenterology will be consulted. Overall prognosis guarded because of the multiple complex medical issues. Further recommendations to follow. Hepatitis panel also will be noted. A copy of this dictation is being forwarded to Dr. Salazar, who is the primary physician. [id number] / IJN: [id number] /
[2019-07-11 09:45] LABS: Basophils % (A) 0 %; Eosinophils # (A) 0.2 k/uL (0-0.7); Eosinophils % (A) 4 %; HGB 10.6 gm/dL (13.0-17.5); Lymphocytes # (A) 1.5 k/uL (1.0-4.8); Lymphocytes % (A) 32 %; MCH 29.8 pg (25.0-35.0); Mean Platelet Volume 9.7; Monocytes # (A) 0.5 k/uL (0-1.0); Monocytes % (A) 11 %; Neutrophils # (A) 2.4 k/uL (1.3-7.7); Neutrophils % (A) 51 %; Platelet Count 119 k/uL (150-450); RBC 3.55 m/uL (4.30-5.90); RDW 14.3 % (11.5-15.5); WBC 4.7 k/uL (3.8-10.6)
[2019-07-11] MEDS: FUROSEMIDE 10 MG/ML 4 ML VIAL IV SCH ×2 (09:54→21:07)
[2019-07-11] MEDS: PANTOPRAZOLE 40 MG/10 ML VIAL IV SCH (09:54)
[2019-07-11 09:59] LABS: ALT 12 U/L (4-49); AST 49 U/L (17-59); African American GFR (CKD) >90 (>60 ml/min/1.73 sqM); Albumin 2.4 g/dL (3.5-5.0); Alkaline Phosphatase 55 U/L (38-126); Anion Gap 5 mmol/L; Blood Urea Nitrogen 9 mg/dL (9-20); Calcium 8.1 mg/dL (8.4-10.2); Carbon Dioxide 32 mmol/L (22-30); Chloride 96 mmol/L (98-107); Glucose 91 mg/dL (74-99); Non-African American GFR(CKD) >90 (>60 ml/min/1.73 sqM); Potassium 3.3 mmol/L (3.5-5.1); Sodium 133 mmol/L (137-145); Total Bilirubin 2.6 mg/dL (0.2-1.3); Total Protein 5.9 g/dL (6.3-8.2)
--- NOTE | 2019-07-11 10:44 | US ---
EXAMINATION TYPE: US abdomen limited DATE OF EXAM: 07/11/2019 COMPARISON: None CLINICAL HISTORY: ascites. Fluid check TECHNIQUE/FINDINGS: Grayscale imaging was performed of the abdomen to assess for ascites only. All fo ur quadrants scanned. Ascites visualized in all quadrants. IMPRESSION: Moderate abdominal ascites visualized in all 4 quadrants.
--- NOTE | 2019-07-11 12:38 | P.GSCN ---
History of Present Illness Consult date: 07/11/19 Reason for Consult: Abdominal pain and ascites Requesting physician: Morro Cartagena History of present illness: CHIEF COMPLAINT: Abdominal pain and ascites HISTORY OF PRESENT ILLNESS: 58-year-old male who presented to the emergency room chief complaint of abdominal pain. Patient has a history of alcohol abuse. Patient underwent open cholecystectomy with Dr. Mckee on 05/14/2019. Patient had 1 L of ascites fluid aspirated during surgery. PAST MEDICAL HISTORY: See list. PAST SURGICAL HISTORY: See list. SOCIAL HISTORY: No illicit drug use. REVIEW OF SYSTEMS: CONSTITUTIONAL: Denies fever or chills. HEENT: Denies blurred vision, vision changes, or eye pain. Denies hemoptysis CARDIOVASCULAR: Denies chest pain or pressure. RESPIRATORY: No shortness of breath. GASTROINTESTINAL: Refer to HPI for pertinent findings HEMATOLOGIC: Denies bleeding disorders. GENITOURINARY: Denies any blood in urine. SKIN: Denies pruitis. Denies rash. PHYSICAL EXAM: VITAL SIGNS: Reviewed. GENERAL: Well-developed in no acute distress. HEENT: No sclera icterus. Extraocular movements grossly intact. Moist buccal mucosa. Head is atraumatic, normocephalic. ABDOMEN: Firm. Distended. Ascites present. NEUROLOGIC: Alert and oriented. Cranial nerves II through XII grossly intact. LABORATORY DATA: WBC 4.7. Hemoglobin 10.6. Platelet count 119. IMAGING: Abdominal ultrasound: Moderate abdominal ascites visualized in all 4 quadrants ASSESSMENT: 1. Abdominal pain 2. Ascites 3. History of alcohol abuse 4. History of open cholecystectomy, April 2019 PLAN: IR consulted for paracentesis No surgical intervention recommended Nurse practitioner note has been reviewed by physician. Signing provider agrees with the documented findings, assessment, and plan of care. Past Medical History Past Medical History: GERD/Reflux, Hyperlipidemia, Hypertension Additional Past Medical History / Comment(s): Patient states he needs a left knee replacement. History of Any Multi-Drug Resistant Organisms: None Reported Past Surgical History: Orthopedic Surgery Additional Past Surgical History / Comment(s): LEFT AND AND RIGHT KNEE SX. LEFT FEMUR FX. HEART CATH NO STENTS Past Anesthesia/Blood Transfusion Reactions: No Reported Reaction Past Psychological History: No Psychological Hx Reported Smoking Status: Current every day smoker Past Alcohol Use History: Rare Past Drug Use History: None Reported - Past Family History Father Family Medical History: Coronary Artery Disease (CAD), Liver Disease Mother Family Medical History: Cancer Additional Family Medical History / Comment(s): LUNG DISEASE Medications and Allergies Home Medications Medication Instructions Recorded Confirmed Type Albuterol Sulfate [Proair Hfa] 2 puff INHALATION RT-Q6H PRN #1 10/05/18 05/09/19 Rx hfa.aer.ad Aspirin EC [Ecotrin Low Dose] 81 mg PO DAILY #30 tablet. 10/05/18 05/09/19 Rx Citalopram Hydrobromide [CeleXA] 40 mg PO DAILY #30 tablet 10/05/18 05/09/19 Rx Isosorbide Mononitrate ER [Imdur] 30 mg PO DAILY #30 tab.er.24h 10/05/18 05/09/19 Rx Nitroglycerin Sl Tabs [Nitrostat] 0.4 mg SUBLINGUAL Q5M PRN #50 tab 10/05/18 05/09/19 Rx Pantoprazole Sodium [Protonix] 40 mg PO DAILY #30 tablet. 10/05/18 05/09/19 Rx Thiamine [Vitamin B-1] 100 mg PO DAILY #30 tab 10/05/18 05/09/19 Rx Acetaminophen Tab [Tylenol] 650 mg PO Q6HR PRN tab 05/21/19 Rx Budesonide-Formot 160-4.5 Mcg 2 puff INHALATION RT-BID 30 Days 05/21/19 Rx [Symbicort 160-4.5 Mcg Inhaler] #1 puff Furosemide [Lasix] 40 mg PO BID@0900,1600 30 Days #60 05/21/19 Rx tab HYDROcodone/APAP 5-325MG [[place] 1 each PO Q6HR PRN #12 tab 05/21/19 Rx 5-325] Spironolactone [Aldactone] 50 mg PO BID 30 Days #60 tab 05/21/19 Rx Allergies Allergy/AdvReac Type Severity Reaction Status Date / Time Penicillins Allergy Anaphylaxis Verified 07/10/19 17:28 meperidine [From Demerol] AdvReac Hallucinati Verified 07/10/19 17:28 ons Opioids-Meperidine and AdvReac Hallucinati Verified 07/10/19 17:28 Related ons Opioids-Methadone and Related AdvReac Hallucinati Verified 07/10/19 17:28 ons quetiapine [From Seroquel] AdvReac Hallucinati Verified 07/10/19 17:28 ons Surgical - Exam Vital Signs Temp Pulse Resp BP Pulse Ox 98.8 F 96 18 101/69 97 07/10/19 17:25 07/10/19 17:25 07/10/19 17:25 07/10/19 17:25 07/10/19 17:25 Results - Labs 07/11/19 08:53 07/11/19 08:53 Abnormal Lab Results - Last 24 Hours (Table) 07/10/19 07/10/19 07/10/19 Range/Units 19:05 19:05 19:05 RBC 3.71 L (4.30-5.90) m/uL Hgb 11.6 L (13.0-17.5) gm/dL Hct 34.3 L (39.0-53.0) % Plt Count 122 L D (150-450) k/uL PT 12.2 H (9.0-12.0) sec INR 1.2 H (<1.2) Sodium 128 L (137-145) mmol/L Potassium 3.1 L (3.5-5.1) mmol/L Chloride 94 L (98-107) mmol/L Carbon Dioxide (22-30) mmol/L BUN 7 L (9-20) mg/dL Creatinine 0.60 L (0.66-1.25) mg/dL Calcium (8.4-10.2) mg/dL Total Bilirubin 1.9 H (0.2-1.3) mg/dL Total Protein (6.3-8.2) g/dL Albumin 2.8 L (3.5-5.0) g/dL Lipase 338 H (23-300) U/L Ur Barbiturates Screen (NotDetected) 07/10/19 07/11/19 07/11/19 Range/Units 20:02 08:53 08:53 RBC 3.55 L (4.30-5.90) m/uL Hgb 10.6 L (13.0-17.5) gm/dL Hct 33.0 L (39.0-53.0) % Plt Count 119 L (150-450) k/uL PT (9.0-12.0) sec INR (<1.2) Sodium 133 L (137-145) mmol/L Potassium 3.3 L (3.5-5.1) mmol/L Chloride 96 L (98-107) mmol/L Carbon Dioxide 32 H (22-30) mmol/L BUN (9-20) mg/dL Creatinine 0.64 L (0.66-1.25) mg/dL Calcium 8.1 L (8.4-10.2) mg/dL Total Bilirubin 2.6 H (0.2-1.3) mg/dL Total Protein 5.9 L (6.3-8.2) g/dL Albumin 2.4 L (3.5-5.0) g/dL Lipase (23-300) U/L Ur Barbiturates Screen Detected H (NotDetected) Diabetes panel 07/10/19 07/11/19 Range/Units 19:05 08:53 Sodium 128 L 133 L (137-145) mmol/L Potassium 3.1 L 3.3 L (3.5-5.1) mmol/L Chloride 94 L 96 L (98-107) mmol/L Carbon Dioxide 26 32 H (22-30) mmol/L BUN 7 L 9 (9-20) mg/dL Creatinine 0.60 L 0.64 L (0.66-1.25) mg/dL Glucose 98 91 (74-99) mg/dL Calcium 8.5 8.1 L (8.4-10.2) mg/dL AST 58 49 (17-59) U/L ALT 14 12 (4-49) U/L Alkaline Phosphatase 85 55 (38-126) U/L Total Protein 6.8 5.9 L (6.3-8.2) g/dL Albumin 2.8 L 2.4 L (3.5-5.0) g/dL Calcium panel 07/10/19 07/11/19 Range/Units 19:05 08:53 Calcium 8.5 8.1 L (8.4-10.2) mg/dL Albumin 2.8 L 2.4 L (3.5-5.0) g/dL Pituitary panel 07/10/19 07/11/19 Range/Units 19:05 08:53 Sodium 128 L 133 L (137-145) mmol/L Potassium 3.1 L 3.3 L (3.5-5.1) mmol/L Chloride 94 L 96 L (98-107) mmol/L Carbon Dioxide 26 32 H (22-30) mmol/L BUN 7 L 9 (9-20) mg/dL Creatinine 0.60 L 0.64 L (0.66-1.25) mg/dL Glucose 98 91 (74-99) mg/dL Calcium 8.5 8.1 L (8.4-10.2) mg/dL Adrenal panel 07/10/19 07/11/19 Range/Units 19:05 08:53 Sodium 128 L 133 L (137-145) mmol/L Potassium 3.1 L 3.3 L (3.5-5.1) mmol/L Chloride 94 L 96 L (98-107) mmol/L Carbon Dioxide 26 32 H (22-30) mmol/L BUN 7 L 9 (9-20) mg/dL Creatinine 0.60 L 0.64 L (0.66-1.25) mg/dL Glucose 98 91 (74-99) mg/dL Calcium 8.5 8.1 L (8.4-10.2) mg/dL Total Bilirubin 1.9 H 2.6 H (0.2-1.3) mg/dL AST 58 49 (17-59) U/L ALT 14 12 (4-49) U/L Alkaline Phosphatase 85 55 (38-126) U/L Total Protein 6.8 5.9 L (6.3-8.2) g/dL Albumin 2.8 L 2.4 L (3.5-5.0) g/dL
--- NOTE | 2019-07-11 16:32 | US ---
EXAMINATION TYPE: US paracentesis abd w/image DATE OF EXAM: 07/11/2019 COMPARISON: NONE HISTORY: Ascites. PROCEDURE: Maximal barrier technique was utilized. The skin overlying a suitable pocket of fluid was localized with ultrasound and the overlying skin was prepped and draped. Ultrasound was utilized with sterile technique. Lidocaine was used for local anesthesia and a skin mark anthony made with a scalpel. Catheter was advanced under direct ultrasound guidance into a suitable pocket of fluid and approximately 6.7 liter s of serous fluid were removed. Catheter was withdrawn and hemostasis achieved. There is no immedia te complication; the patient is discharged in stable condition. IMPRESSION: STATUS POST ULTRASOUND GUIDED PARACENTESIS FOR PALLIATION OF ASCITES. THIS PROCEDURE WA S PERFORMED BY THE UNDERSIGNED. Specimen obtained for laboratory analysis.
--- NOTE | 2019-07-11 16:43 | PN ---
PROGRESS NOTE DATE OF SERVICE: 07/11/2019 This is a 58-year-old gentleman who was admitted with diffuse abdominal distention and possible ascites is being closely monitored at this time. The hemoglobin is 10.2, sodium 133, potassium 3.3. The patient is being closely monitored. Ascitic tap is being planned. No chest pain, no palpitation. PHYSICAL EXAMINATION: Alert and oriented x3. Pulse is 77, blood pressure 120/60, respirations 16, temperature is normal, pulse ox 98% on room air. HEENT: Conjunctivae normal. NECK: No jugular venous distension. CARDIOVASCULAR: S1, S2 muffled. RESPIRATORY SYSTEM: Breath sounds diminished at the bases, scattered rhonchi, no crackles. ABDOMEN: Soft, obese, ascites. LEGS: No edema. No swelling. NERVOUS SYSTEM: No focal deficits. LABS: WBC 4.2, hemoglobin is 10.6, sodium 133, potassium 3.3. ASSESSMENT: 1. Diffuse abdominal distention and possible ascites secondary to cirrhosis of the liver. 2. Cirrhosis of the liver secondary to alcoholic cirrhosis. 3. History of recent cholecystectomy as well as drainage of ascitic fluid. 4. Hypertension, hyperlipidemia. 5. History of gastroesophageal reflux disease. 6. History of degenerative joint disease, left knee replacement. 7. History of continued ongoing nicotine dependence. 8. History of hyponatremia. 9. Hypokalemia. 10.Hyperbilirubinemia, possibly secondary to cirrhosis of the liver. 11.Anemia, normocytic. 12.Thrombocytopenia. 13.FULL CODE. RECOMMENDATION: In this 58-year-old gentleman who presented with multiple complex medical issues, will monitor the patient closely. Continue with the current management and symptomatic treatment. Recommend abdominal paracentesis and fluids sent for full cultures, cytology and protein and albumin. Otherwise, prognosis guarded because of multiple complex medical issues. Further recommendations to follow. MMODL / IJN: [id number] /
[2019-07-11] MEDS ORDERED: Potassium Replacement Protocol 1 EACH MISC MISCELLANE PRN (17:08)
[2019-07-11] MEDS: POTASSIUM CHLORIDE ER 20 MEQ TAB.ER PO SCH ×2 (17:47→21:06)
--- NOTE | 2019-07-11 20:24 | CONS ---
CONSULTATION DATE OF DICTATION: 07/11/2019 REASON FOR CONSULTATION: Abdominal pain and ascites. HISTORY OF PRESENT ILLNESS: The patient is a 58-year-old pleasant white male admitted to the hospital with abdominal distention and ascites. He just underwent large-volume paracentesis and 7 liters of fluid was removed. He has a history of heavy alcohol abuse for the last 40 years' duration. He was admitted to the hospital in April of this year with abdominal pain, and subsequently he was diagnosed with cholecystitis and had surgery by Dr. Mckee during that hospitalization. Subsequently he developed a significant amount of ascites and he was being managed with diuretics on an outpatient basis. He has been on Lasix 40 mg twice daily and Aldactone 50 mg twice daily. He continued to have abdominal distention and hence was admitted to the hospital. He is feeling much better today. He denies any more discomfort. He reports no nausea or vomiting. PAST MEDICAL HISTORY: His past medical history is significant for alcoholic liver disease diagnosed during his last admission in April of 2019, history of hypertension, hyperlipidemia, gastroesophageal reflux disease, degenerative joint disease. MEDICATIONS: Medications at home are thiamine 100 mg daily, Aldactone 50 mg twice daily, Lasix 40 mg twice daily, [place], Imdur, Nitrostat, Protonix, Ecotrin, Symbicort, Lasix, Celexa, albuterol and Tylenol. ALLERGIES: PENICILLIN, MEPERIDINE, OPIOIDS, SEROQUEL. SOCIAL HISTORY: Heavy alcohol use for 40 years. He quit drinking 2 months ago. FAMILY HISTORY: Dad had coronary artery disease and liver disease. REVIEW OF SYSTEMS: CARDIOPULMONARY: No chest pain or shortness of breath. GENITOURINARY: No dysuria or hematuria. MUSCULOSKELETAL: Unremarkable. SKIN: Unremarkable. ENDOCRINE: Unremarkable. PSYCHIATRIC: Unremarkable. NEUROLOGY: Unremarkable. ENT/VISION: Unremarkable. CONSTITUTIONAL: No recent weight loss. No fever, chills, night sweats. PHYSICAL EXAMINATION: Blood pressure 195/68, pulse rate 81, temperature 98.1. HEENT examination unremarkable. Conjunctivae pink. Sclerae anicteric. Oral cavity no lesions. NECK: No JVD or lymph node enlargement. CHEST: Clear to auscultation. HEART: Regular rate and rhythm. ABDOMEN: Soft. Non-distended. EXTREMITIES: No pedal edema. SKIN: No rashes. NEUROLOGIC: Alert and oriented x3. No focal deficits. LABS: Labs from yesterday showed WBC 5.8, hemoglobin 11.6, platelets 122. BUN and creatinine were 7 and 0.60, respectively. The rest of the labs are within normal limits. IMPRESSION: 1. Ascites secondary to alcoholic cirrhosis of the liver with portal hypertension, status post large-volume paracentesis with 7 liters of fluid removed. He is presently on Lasix 40 mg twice daily and Aldactone 50 mg twice daily. Will increase the Aldactone to 100 mg twice daily. 2. Alcoholic cirrhosis of the liver with gradual decompensation. 3. Status post gallbladder surgery 2 months ago. RECOMMENDATIONS: 1. Continue Lasix 40 mg twice daily. 2. Add Aldactone 100 mg twice daily. 3. Low-salt diet. 4. If patient is stable, he can be discharged home tomorrow with outpatient followup in the office in 2 weeks. Thank you for this consultation. NAVIN / YANNI: [id number] /
[2019-07-11] MEDS: IBUPROFEN 200 MG TAB PO PRN (21:05)
[2019-07-11] MEDS: SPIRONOLACTONE 25 MG TAB PO SCH (21:07)
[2019-07-11] MEDS: SODIUM CHLORIDE 0.9% 1,000 ML IV SCH (21:13)
[2019-07-12 03:25] VITALS: TEMP 98.5
[2019-07-12 04:08] LABS: Albumin, Fluid Source Peritoneal Fluid
[2019-07-12] MEDS: FUROSEMIDE 10 MG/ML 4 ML VIAL IV SCH (07:59)
[2019-07-12] MEDS: IBUPROFEN 200 MG TAB PO PRN (08:03)
[2019-07-12] MEDS: SPIRONOLACTONE 25 MG TAB PO SCH (08:03)
[2019-07-12] MEDS: PANTOPRAZOLE 40 MG/10 ML VIAL IV SCH (08:04)
[2019-07-12 08:25] VITALS: BP 96/63; PULSE 82; RESP 16
[2019-07-12 08:34] LABS: Basophils % (A) 1 %; Eosinophils # (A) 0.2 k/uL (0-0.7); Eosinophils % (A) 3 %; HCT 34.8 % (39.0-53.0); HGB 11.7 gm/dL (13.0-17.5); Lymphocytes # (A) 1.7 k/uL (1.0-4.8); Lymphocytes % (A) 26 %; MCHC 33.6 g/dL (31.0-37.0); MCV 92.3 fL (80.0-100.0); Mean Platelet Volume 9.6; Monocytes # (A) 0.5 k/uL (0-1.0); Monocytes % (A) 8 %; Neutrophils # (A) 4.1 k/uL (1.3-7.7); Neutrophils % (A) 62 %; Platelet Count 176 k/uL (150-450); RBC 3.77 m/uL (4.30-5.90); RDW 14.5 % (11.5-15.5); WBC 6.7 k/uL (3.8-10.6)
[2019-07-12 08:44] LABS: ALT 14 U/L (4-49); AST 50 U/L (17-59); African American GFR (CKD) >90 (>60 ml/min/1.73 sqM); Albumin 2.5 g/dL (3.5-5.0); Alkaline Phosphatase 65 U/L (38-126); Anion Gap 5 mmol/L; Blood Urea Nitrogen 12 mg/dL (9-20); Calcium 8.1 mg/dL (8.4-10.2); Carbon Dioxide 32 mmol/L (22-30); Chloride 96 mmol/L (98-107); Glucose 108 mg/dL (74-99); Non-African American GFR(CKD) 79 (>60 ml/min/1.73 sqM); Potassium 3.4 mmol/L (3.5-5.1); Sodium 133 mmol/L (137-145); Total Bilirubin 1.7 mg/dL (0.2-1.3); Total Protein 6.3 g/dL (6.3-8.2)
--- NOTE | 2019-07-12 14:32 | P.DS ---
Providers Date of admission: 07/10/19 18:48 Expected date of discharge: 07/12/19 Attending physician: Cortney Matthews Consults: 07/10/19 18:49 Consult Physician Urgent Consulting Provider: Jerald Mckee Consult Reason/Comments: Abdominal pain and ascities Do you want consulting provider notified?: Yes 07/10/19 19:22 Consult Physician Routine Consulting Provider: Angeles Mason Consult Reason/Comments: cirrhosis Do you want consulting provider notified?: Yes Primary care physician: Rachana Locke [facility] Course: Final Diagnosis Diffuse abdominal distention and possible ascites secondary to cirrhosis of the liver Cirrhosis of liver secondary to alcoholic cirrhosis History of recent cholecystectomy as well as drainage of ascitic fluid Hypertension Hyperlipidemia History of gastroesophageal reflux disease History of degenerative joint disease, left knee replacement History of continued ongoing nicotine dependence history of hyponatremia Hypokalemia Hyperbilirubinemia, possibly secondary to cirrhosis of the liver Anemia, normocytic Thrombocytopenia Full code Discharge disposition Patient is being discharged in a stable condition with guarded prognosis to home and will follow-up with Dr. Pacheco in the outpatient setting upon discharge. Total time taken is greater than 35 minutes. History of present illness This is a 58-year-old male who was recently admitted with diffuse abdominal distention and possible ascites and was being closely monitored. Patient was seen and evaluated by GI. Patient underwent abdominal paracentesis during hospitalization and is feeling much better and would like to go home. Patient will follow-up with GI in the outpatient setting in 2 weeks. Patient instructed to continue taking Aldactone 51 g twice daily along with Lasix 40 mg twice daily and following a low-salt diet. Currently no reports of chest pain, shortness of breath, or palpitations. Patient is afebrile. No reports of nausea or vomiting and patient is tolerating diet. Patient will be going home today. On exam vital signs are stable. Temp is 98.5F, pulse is 82, respirations are 16, blood pressure is 96/63, oxygen saturation is 95% on room air. Cardio S1, S2 are muffled. Respiratory system shows diminished breath sounds at the bases with no wheezing or rhonchi noted. Abdomen is soft and nontender. Nervous system shows no focal deficits. Please refer to medication reconciliation sheet for a list of medications. Patient Condition at Discharge: Stable Plan - Discharge Summary Discharge Rx Participant: No New Discharge Prescriptions: Continue Isosorbide Mononitrate ER [Imdur] 30 mg PO DAILY #30 tab.er.24h Spironolactone [Aldactone] 50 mg PO BID 30 Days #60 tab Furosemide [Lasix] 40 mg PO BID@0900,1600 30 Days #60 tab Budesonide-Formot 160-4.5 Mcg [Symbicort 160-4.5 Mcg Inhaler] 2 puff INHALATION RT-BID 30 Days #1 puff Ibuprofen [Motrin Ib] 200 mg PO Q6H PRN PRN Reason: Pain Multivitamins, Thera [Multivitamin (formulary)] 1 tab PO DAILY Calcium Carbonate [Tums] 500 mg PO QID Discharge Medication List Isosorbide Mononitrate ER [Imdur] 30 mg PO DAILY #30 tab.er.24h 10/05/18 [Rx] Budesonide-Formot 160-4.5 Mcg [Symbicort 160-4.5 Mcg Inhaler] 2 puff INHALATION RT-BID 30 Days #1 puff 05/21/19 [Rx] Furosemide [Lasix] 40 mg PO BID@0900,1600 30 Days #60 tab 05/21/19 [Rx] Spironolactone [Aldactone] 50 mg PO BID 30 Days #60 tab 05/21/19 [Rx] Calcium Carbonate [Tums] 500 mg PO QID 07/11/19 [History] Ibuprofen [Motrin Ib] 200 mg PO Q6H PRN 07/11/19 [History] Multivitamins, Thera [Multivitamin (formulary)] 1 tab PO DAILY 07/11/19 [History] Follow up Appointment(s)/Referral(s): Bon Reich MD [Primary Care Provider] - 07/17/19 1:00 pm Ambulatory/Diagnostic Orders: Basic Metabolic Panel [LAB.AMB] Time Frame: 3 Days, Location: None Selected Patient Instructions/Handouts: Ascites (DC) Activity/Diet/Wound Care/Special Instructions: Activity limited until follow up follow low salt diet follow up with pcp upon discharge Repeat labs in 2-3 days Discharge Disposition: HOME SELF-CARE
== END 2019-07-12 11:57 | disposition home or self-care (01) | DRG 433 ==
LOC: EC 17:21 → 5NMEDONC 18:48 → 4SSUR 07-11 11:24
PROVIDERS: ADMIT Hospitalist; ATTEND Hospitalist
PROC: 0W9G3ZX Drainage of Peritoneal Cavity, Percutaneous Approach, Diagnostic (ICD-10-PCS; principal; 2019-07-11)
DX: K70.31 Alcoholic cirrhosis of liver with ascites (principal); E87.1 Hypo-osmolality and hyponatremia; K76.6 Portal hypertension; D69.6 Thrombocytopenia, unspecified; D64.9 Anemia, unspecified; F10.20 Alcohol dependence, uncomplicated; J44.9 Chronic obstructive pulmonary disease, unspecified; Z20.828 Contact with and (suspected) exposure to other viral communicable diseases; I10 Essential (primary) hypertension; E87.6 Hypokalemia; E78.5 Hyperlipidemia, unspecified; K21.9 Gastro-esophageal reflux disease without esophagitis; M17.12 Unilateral primary osteoarthritis, left knee; F17.210 Nicotine dependence, cigarettes, uncomplicated; Z71.6 Tobacco abuse counseling; Z79.82 Long term (current) use of aspirin; Z79.51 Long term (current) use of inhaled steroids; Z79.899 Other long term (current) drug therapy; Z90.49 Acquired absence of other specified parts of digestive tract; Z87.81 Personal history of (healed) traumatic fracture; Z86.59 Personal history of other mental and behavioral disorders; Z98.890 Other specified postprocedural states; Z88.5 Allergy status to narcotic agent; Z88.0 Allergy status to penicillin; Z88.8 Allergy status to other drugs, medicaments and biological substances; Z82.49 Family history of ischemic heart disease and other diseases of the circulatory system; Z80.9 Family history of malignant neoplasm, unspecified; Z83.6 Family history of other diseases of the respiratory system
CPT/HCPCS: 36415; 49083; 74018; 76705; 80053; 80306; 81003; 82042; 82150; 83690; 85025; 85610; 85730; 88108; 88305; 96374; 96375; 96376; 99285

== ENCOUNTER 2019-08-07 11:10 | Observation (INO) | payer MEDICARE ==
[2019-08-07 12:19] LABS: Basophils # (A) 0.1 k/uL (0-0.2); Basophils % (A) 1 %; Eosinophils # (A) 0.2 k/uL (0-0.7); Eosinophils % (A) 3 %; HCT 36.2 % (39.0-53.0); HGB 12.2 gm/dL (13.0-17.5); Lymphocytes # (A) 1.8 k/uL (1.0-4.8); Lymphocytes % (A) 28 %; MCH 30.8 pg (25.0-35.0); MCHC 33.6 g/dL (31.0-37.0); MCV 91.5 fL (80.0-100.0); Mean Platelet Volume 8.3; Monocytes # (A) 0.5 k/uL (0-1.0); Monocytes % (A) 8 %; Neutrophils # (A) 3.7 k/uL (1.3-7.7); Neutrophils % (A) 58 %; Platelet Count 147 k/uL (150-450); RBC 3.95 m/uL (4.30-5.90); RDW 15.1 % (11.5-15.5); WBC 6.4 k/uL (3.8-10.6)
[2019-08-07 12:26] LABS: Appearance,Urine Clear (Clear); Bilirubin,Urine Negative (Negative); Blood,Urine Negative (Negative); Color,Urine Light Yellow; Glucose,Urine (UA) Negative (Negative); Ketones,Urine Negative (Negative); Leukocyte Esterase,Urine Negative (Negative); Nitrite,Urine Negative (Negative); Protein,Urine Negative (Negative); Specific Gravity,Urine 1.002 (1.001-1.035); Urobilinogen,Urine <2.0 mg/dL (<2.0)
--- NOTE | 2019-08-07 12:26 | ED ---
Abdominal Pain HPI - General Source: patient, RN notes reviewed Mode of arrival: ambulatory Limitations: no limitations <Cesar Esparza - Last Filed: 08/07/19 13:56> <Manuel Maciel - Last Filed: 08/07/19 14:09> - General Chief Complaint: Abdominal Pain Stated Complaint: lung issues Time Seen by Provider: 08/07/19 11:25 - History of Present Illness Initial Comments: This a 58-year-old male presents emergency Department chief complaint abdominal pain, abdominal swelling. Patient has a history of alcoholic cirrhosis. Patient states is extensive weight gain, swelling of his abdomen. Patient states that he has paracentesis but every 2 weeks. He doesn't have one scheduled at this time. Patient states he cannot tolerate the pain this time. Patient does admit that he continues to drink at least 70 beers daily. Patient states that he used to drink much more than this. Patient denies any fevers or chills no chest pain or shortness of breath. (Cesar Esparza) - Related Data Home Medications Medication Instructions Recorded Confirmed Calcium Carbonate [Tums] 500 mg PO QID PRN 07/11/19 08/07/19 Multivitamins, Thera [Multivitamin 1 tab PO DAILY 07/11/19 08/07/19 (formulary)] Furosemide [Lasix] 20 mg PO BID 08/07/19 08/07/19 Midodrine HCl [ProAmatine] 10 mg PO TID 08/07/19 08/07/19 Spironolactone [Aldactone] 100 mg PO DAILY 08/07/19 08/07/19 Thiamine [Vitamin B-1] 100 mg PO DAILY 08/07/19 08/07/19 traMADol HCL 50 mg PO BID PRN 08/07/19 08/07/19 Previous Rx's Medication Instructions Recorded Isosorbide Mononitrate ER [Imdur] 30 mg PO DAILY #30 tab.er.24h 10/05/18 Budesonide-Formot 160-4.5 Mcg 2 puff INHALATION RT-BID 30 Days 05/21/19 [Symbicort 160-4.5 Mcg Inhaler] #1 puff Allergies Allergy/AdvReac Type Severity Reaction Status Date / Time Penicillins Allergy Anaphylaxis Verified 08/07/19 12:15 meperidine [From Demerol] AdvReac Hallucinati Verified 08/07/19 12:15 ons Opioids-Meperidine and AdvReac Hallucinati Verified 08/07/19 12:15 Related ons Opioids-Methadone and Related AdvReac Hallucinati Verified 08/07/19 12:15 ons quetiapine [From Seroquel] AdvReac Hallucinati Verified 08/07/19 12:15 ons Review of Systems ROS Other: All systems not noted in ROS Statement are negative. <IsaiasCesar Mcdaniel - Last Filed: 08/07/19 13:56> ROS Other: All systems not noted in ROS Statement are negative. <Manuel Maciel - Last Filed: 08/07/19 14:09> ROS Statement: Those systems with pertinent positive or pertinent negative responses have been documented in the HPI. Past Medical History Past Medical History: GERD/Reflux, Hyperlipidemia, Hypertension, Liver Disease Additional Past Medical History / Comment(s): Patient states he needs a left knee replacement. History of Any Multi-Drug Resistant Organisms: None Reported Past Surgical History: Orthopedic Surgery Additional Past Surgical History / Comment(s): LEFT AND AND RIGHT KNEE SX. LEFT FEMUR FX. HEART CATH NO STENTS Past Anesthesia/Blood Transfusion Reactions: No Reported Reaction Past Psychological History: No Psychological Hx Reported Smoking Status: Current every day smoker Past Alcohol Use History: Occasional Past Drug Use History: None Reported - Past Family History Father Family Medical History: Coronary Artery Disease (CAD), Liver Disease Mother Family Medical History: Cancer Additional Family Medical History / Comment(s): LUNG DISEASE <ReenaCesar wilkerson - Last Filed: 08/07/19 13:56> General Exam Limitations: no limitations General appearance: alert, in no apparent distress Head exam: Present: atraumatic, normocephalic, normal inspection Eye exam: Present: normal appearance, PERRL, EOMI. Absent: scleral icterus, conjunctival injection, periorbital swelling Neck exam: Present: normal inspection, full ROM. Absent: tenderness, meningismus, lymphadenopathy Respiratory exam: Present: normal lung sounds bilaterally. Absent: respiratory distress, wheezes, rales, rhonchi, stridor Cardiovascular Exam: Present: regular rate, normal rhythm, normal heart sounds. Absent: systolic murmur, diastolic murmur, rubs, gallop, clicks GI/Abdominal exam: Present: soft, distended, tenderness, normal bowel sounds. Absent: guarding, rebound, rigid Back exam: Absent: CVA tenderness (R), CVA tenderness (L) Neurological exam: Present: alert Skin exam: Present: warm, dry, intact, normal color. Absent: rash <Cesar Esparza - Last Filed: 08/07/19 13:56> Course <Manuel Maciel - Last Filed: 08/07/19 14:09> Vital Signs 08/07/19 11:19 Temperature 98.2 F Pulse Rate 97 Respiratory 18 Rate Blood Pressure 132/82 O2 Sat by Pulse 97 Oximetry - Reevaluation(s) Reevaluation #1: 08/07/19 14:09 PA supervision: I did personally evaluate this case patient presents with complaints of abdominal distention. He does demonstrate evidence of a marked ascites. Patient be admitted with GI consultation. (Manuel Maciel) Medical Decision Making - Lab Data Result diagrams: 08/07/19 12:10 08/07/19 12:10 <Cesar Esparza - Last Filed: 08/07/19 13:56> - Lab Data Result diagrams: 08/07/19 12:10 08/07/19 12:10 <Manuel Maciel - Last Filed: 08/07/19 14:09> - Medical Decision Making 49-year-old male presented for increased abdominal pain. Patient has distended abdomen rate to alcoholic cirrhosis. Patient is in need for paracentesis. Patient will be admitted. With consult to the interventional radiologist. (Cesar Esparza) - Lab Data Lab Results 08/07/19 08/07/19 08/07/19 Range/Units 12:10 12:10 12:10 WBC 6.4 (3.8-10.6) k/uL RBC 3.95 L (4.30-5.90) m/uL Hgb 12.2 L (13.0-17.5) gm/dL Hct 36.2 L (39.0-53.0) % MCV 91.5 (80.0-100.0) fL MCH 30.8 (25.0-35.0) pg MCHC 33.6 (31.0-37.0) g/dL RDW 15.1 (11.5-15.5) % Plt Count 147 L (150-450) k/uL Neutrophils % 58 % Lymphocytes % 28 % Monocytes % 8 % Eosinophils % 3 % Basophils % 1 % Neutrophils # 3.7 (1.3-7.7) k/uL Lymphocytes # 1.8 (1.0-4.8) k/uL Monocytes # 0.5 (0-1.0) k/uL Eosinophils # 0.2 (0-0.7) k/uL Basophils # 0.1 (0-0.2) k/uL PT 12.9 H (9.0-12.0) sec INR 1.3 H (<1.2) APTT 29.3 (22.0-30.0) sec Sodium (137-145) mmol/L Potassium (3.5-5.1) mmol/L Chloride (98-107) mmol/L Carbon Dioxide (22-30) mmol/L Anion Gap mmol/L BUN (9-20) mg/dL Creatinine (0.66-1.25) mg/dL Est GFR (CKD-EPI)AfAm (>60 ml/min/1.73 sqM) Est GFR (CKD-EPI)NonAf (>60 ml/min/1.73 sqM) Glucose (74-99) mg/dL Calcium (8.4-10.2) mg/dL Magnesium (1.6-2.3) mg/dL Total Bilirubin (0.2-1.3) mg/dL AST (17-59) U/L ALT (4-49) U/L Alkaline Phosphatase (38-126) U/L Total Protein (6.3-8.2) g/dL Albumin (3.5-5.0) g/dL Amylase (30-110) U/L Lipase (23-300) U/L Urine Color Light Yellow Urine Appearance Clear (Clear) Urine pH 6.0 (5.0-8.0) Ur Specific [place] 1.002 (1.001-1.035) Urine Protein Negative (Negative) Urine Glucose (UA) Negative (Negative) Urine Ketones Negative (Negative) Urine Blood Negative (Negative) Urine Nitrite Negative (Negative) Urine Bilirubin Negative (Negative) Urine Urobilinogen <2.0 (<2.0) mg/dL Ur Leukocyte Esterase Negative (Negative) 08/07/19 08/07/19 Range/Units 12:10 12:10 WBC (3.8-10.6) k/uL RBC (4.30-5.90) m/uL Hgb (13.0-17.5) gm/dL Hct (39.0-53.0) % MCV (80.0-100.0) fL MCH (25.0-35.0) pg MCHC (31.0-37.0) g/dL RDW (11.5-15.5) % Plt Count (150-450) k/uL Neutrophils % % Lymphocytes % % Monocytes % % Eosinophils % % Basophils % % Neutrophils # (1.3-7.7) k/uL Lymphocytes # (1.0-4.8) k/uL Monocytes # (0-1.0) k/uL Eosinophils # (0-0.7) k/uL Basophils # (0-0.2) k/uL PT (9.0-12.0) sec INR (<1.2) APTT (22.0-30.0) sec Sodium 131 L (137-145) mmol/L Potassium 3.8 (3.5-5.1) mmol/L Chloride 100 (98-107) mmol/L Carbon Dioxide 25 (22-30) mmol/L Anion Gap 6 mmol/L BUN 3 L (9-20) mg/dL Creatinine 0.48 L (0.66-1.25) mg/dL Est GFR (CKD-EPI)AfAm >90 (>60 ml/min/1.73 sqM) Est GFR (CKD-EPI)NonAf >90 (>60 ml/min/1.73 sqM) Glucose 104 H (74-99) mg/dL Calcium 9.0 (8.4-10.2) mg/dL Magnesium 1.8 (1.6-2.3) mg/dL Total Bilirubin 2.3 H (0.2-1.3) mg/dL AST 60 H (17-59) U/L ALT 16 (4-49) U/L Alkaline Phosphatase 80 (38-126) U/L Total Protein 7.5 (6.3-8.2) g/dL Albumin 3.4 L (3.5-5.0) g/dL Amylase 74 (30-110) U/L Lipase 187 (23-300) U/L Urine Color Urine Appearance (Clear) Urine pH (5.0-8.0) Ur Specific [place] (1.001-1.035) Urine Protein (Negative) Urine Glucose (UA) (Negative) Urine Ketones (Negative) Urine Blood (Negative) Urine Nitrite (Negative) Urine Bilirubin (Negative) Urine Urobilinogen (<2.0) mg/dL Ur Leukocyte Esterase (Negative) Disposition <Cesar Esparza - Last Filed: 08/07/19 13:56> <Manuel Maciel - Last Filed: 08/07/19 14:09> Clinical Impression: Hyperbilirubinemia, Ascites, Cirrhosis with alcoholism Disposition: ADMITTED IP TO THIS HOSP Condition: Fair Referrals: Bon Reich MD [Primary Care Provider] - 1-2 days
[2019-08-07 12:30] LABS: ALT 16 U/L (4-49); AST 60 U/L (17-59); African American GFR (CKD) >90 (>60 ml/min/1.73 sqM); Albumin 3.4 g/dL (3.5-5.0); Alkaline Phosphatase 80 U/L (38-126); Amylase 74 U/L (30-110); Anion Gap 6 mmol/L; Blood Urea Nitrogen 3 mg/dL (9-20); Carbon Dioxide 25 mmol/L (22-30); Chloride 100 mmol/L (98-107); Glucose 104 mg/dL (74-99); Non-African American GFR(CKD) >90 (>60 ml/min/1.73 sqM); Potassium 3.8 mmol/L (3.5-5.1); Sodium 131 mmol/L (137-145); Total Bilirubin 2.3 mg/dL (0.2-1.3); Total Protein 7.5 g/dL (6.3-8.2)
[2019-08-07 12:40] LABS: INR 1.3 (<1.2); Partial Thromboplastin Time 29.3 sec (22.0-30.0); Prothrombin Time 12.9 sec (9.0-12.0)
--- NOTE | 2019-08-07 12:53 | XR ---
EXAMINATION TYPE: XR chest 1V DATE OF EXAM: 08/07/2019 HISTORY: Shortness of breath. COMPARISON: 05/09/2019 TECHNIQUE: Single view of the chest is submitted. FINDINGS: Demonstrated are scattered senescent parenchymal change. There is no evidence for focal infiltrate. Probable nipple shadow right lower lobe. The heart is stable. Hilar and mediastinal structures are within normal limits. Degenerative changes are seen of the dorsal spine. IMPRESSION: 1. Chronic changes without evidence for acute pulmonary disease.
--- NOTE | 2019-08-07 12:55 | XR ---
EXAMINATION TYPE: XR KUB DATE OF EXAM: 08/07/2019 COMPARISON: NONE HISTORY: Pain TECHNIQUE: Single supine KUB image of the abdomen is obtained FINDINGS: Small bowel demonstrates no evidence for dilatation or air fluid levels. Gas and fecal material is seen in non-distended colon. No convincing evidence for pneumoperitoneum. No unusual calcifications. The lung bases are clear. The osseous structures are intact. IMPRESSION: 1. Overall nonobstructive bowel gas pattern.
[2019-08-07] MEDS ORDERED: ONDANSETRON 4 MG/2 ML VIAL IVP PRN (13:59)
[2019-08-07] MEDS ORDERED: NALOXONE 0.4 MG/ML 1 ML VIAL IV PRN (13:59)
[2019-08-07] MEDS ORDERED: HYDROcodone/APAP 5-325MG 1 EACH TAB PO PRN (13:59)
--- NOTE | 2019-08-07 15:03 | US ---
EXAMINATION TYPE: US abdomen limited DATE OF EXAM: 08/07/2019 COMPARISON: NONE CLINICAL HISTORY: assess for fluid pocket. Ascites visualized. Ascites is visualized. IMPRESSION: Ascites
[2019-08-07] MEDS ORDERED: CALCIUM CARBONATE 500 MG CHEWABLE PO PRN (19:21)
[2019-08-07] MEDS ORDERED: traMADol 50 MG TAB PO PRN (19:21)
[2019-08-07] MEDS ORDERED: FUROSEMIDE 20 MG TAB PO SCH (21:00)
[2019-08-07] MEDS: SYMBICORT 160-4.5 MCG INHALER INHALATION SCH (21:28)
[2019-08-07] MEDS: MIDODRINE 5 MG TAB PO SCH (21:28)
[2019-08-07] MEDS ORDERED: LORazepam 1 MG TAB PO PRN (23:22)
[2019-08-07 23:50] VITALS: TEMP 98.3
[2019-08-08 00:46] LABS: ALT 13 U/L (4-49); AST 47 U/L (17-59); African American GFR (CKD) >90 (>60 ml/min/1.73 sqM); Albumin 2.6 g/dL (3.5-5.0); Alkaline Phosphatase 80 U/L (38-126); Anion Gap 5 mmol/L; Blood Urea Nitrogen 4 mg/dL (9-20); Calcium 8.5 mg/dL (8.4-10.2); Carbon Dioxide 25 mmol/L (22-30); Chloride 101 mmol/L (98-107); Glucose 95 mg/dL (74-99); Non-African American GFR(CKD) >90 (>60 ml/min/1.73 sqM); Potassium 4.3 mmol/L (3.5-5.1); Sodium 131 mmol/L (137-145); Total Bilirubin 1.7 mg/dL (0.2-1.3); Total Protein 6.3 g/dL (6.3-8.2)
--- NOTE | 2019-08-08 02:10 | HP ---
HISTORY AND PHYSICAL DATE OF SERVICE: 08/07/2019 CHIEF COMPLAINT: Abdominal pain, distention. HISTORY OF PRESENT ILLNESS: This 58-year-old gentleman with a past medical history of multiple medical problems including GERD, hypertension, hyperlipidemia, liver disease, alcoholism, being followed Dr. Reich in the outpatient setting, was complaining of abdominal distention and pain. The patient continues to drink. Suspect diagnosis of cirrhosis. Patient has weight gain. Patient came to [facility] and admitted for further evaluation and treatment. Interventional Radiology has been consulted. No chest pain. No palpitations. No fever. PAST MEDICAL HISTORY: History of GERD, hypertension, hyperlipidemia, history of liver disease, history of left knee replacement. MEDICATIONS: Home medications are: 1. Ultram 50 mg b.i.d. p.r.n. 2. ProAmatine 10 mg p.o. t.i.d. 3. Lasix 20 mg p.o. b.i.d. 4. Vitamin B1, 100 mg p.o. daily. 5. Aldactone 100 mg p.o. daily. 6. Multivitamins 1 p.o. daily. 7. Imdur 30 mg p.o. daily. 8. Tums 500 mg q.i.d. p.r.n. 9. Symbicort 160/4.5 two puffs b.i.d. ALLERGIES: PENICILLIN, DEMEROL, OPIOIDS, SEROQUEL. FAMILY HISTORY: History of CAD, liver disease and lung disease in the family. SOCIAL HISTORY: History of smoking. History of alcohol. REVIEW OF SYSTEMS: ENT: No diminished hearing or diminished vision. CARDIOVASCULAR SYSTEM: No angina. RESPIRATORY SYSTEM: As mentioned earlier. GI: As mentioned earlier. : No dysuria. NERVOUS SYSTEM: No numbness or weakness. ALLERGY/IMMUNOLOGY: No asthma or hayfever. MUSCULOSKELETAL: As mentioned earlier. HEMATOLOGY: No history of anemia. ENDOCRINE: As mentioned earlier. CONSTITUTIONAL: As mentioned earlier. DERMATOLOGY: Negative. RHEUMATOLOGY: Negative. PHYSICAL EXAMINATION: The patient is alert and oriented x3. Pulse is 104, blood pressure 100/58, respiration 19, temperature 98.2, pulse ox 96% on room air. HEENT: Conjunctivae normal. Oral mucosa moist. NECK: No jugular venous distention. No carotid bruit. No lymph node enlargement. CARDIOVASCULAR: S1, S2 muffled. RESPIRATORY: Breath sounds diminished at the bases. A few scattered rhonchi and crackles. ABDOMEN: Soft, nontender. No mass palpable. LEGS: No edema, no swelling. NERVOUS SYSTEM: Higher function as mentioned. Moves all 4 limbs. No focal motor or sensory deficits. LYMPHATICS: No lymphadenopathy of the neck, axillae or groin. SKIN: No ulcer, rash or bleeding. JOINTS: No active deforming arthropathy. LABS: WBC 6.4, hemoglobin 12.2. INR is 1.3. Sodium 131. The total bilirubin was 2.3. ASSESSMENT: 1. Abdominal distention, ascites secondary to cirrhosis of the liver. 2. Abdominal pain secondary to ascites. 3. Cirrhosis of the liver secondary to alcohol. 4. Hyponatremia. 5. Anemia, normocytic. 6. Elevated bilirubin and elevated AST, alcoholic hepatitis. 7. Continued EtOH. 8. Gastroesophageal reflux disease. 9. Hypertension. 10.Hyperlipidemia. 11.History of left knee replacement. 12.History of nicotine dependence. 13.FULL CODE. RECOMMENDATIONS AND DISCUSSION: This 58-year-old gentleman presented with multiple medical issues, at this time I recommend to continue current medications. Continue symptomatic treatment. Otherwise, continue with pain medications and resume the home medications Lasix. Interventional Radiology evaluation. Guarded prognosis because of multiple complex medical issues. Further recommendations to follow. A copy of this dictation is being forwarded to Dr. Reich, who is the primary physician. MMHEIDIL / YANNI: [id number] /
[2019-08-08] MEDS ORDERED: PANTOPRAZOLE 40 MG TABLET PO SCH (07:30)
[2019-08-08 08:06] LABS: Basophils # (A) 0.1 k/uL (0-0.2); Basophils % (A) 1 %; Eosinophils # (A) 0.2 k/uL (0-0.7); Eosinophils % (A) 4 %; HCT 35.5 % (39.0-53.0); HGB 11.2 gm/dL (13.0-17.5); Lymphocytes # (A) 1.9 k/uL (1.0-4.8); Lymphocytes % (A) 34 %; MCH 29.1 pg (25.0-35.0); MCHC 31.7 g/dL (31.0-37.0); MCV 91.7 fL (80.0-100.0); Mean Platelet Volume 8.3; Monocytes # (A) 0.5 k/uL (0-1.0); Monocytes % (A) 9 %; Neutrophils # (A) 2.7 k/uL (1.3-7.7); Neutrophils % (A) 49 %; Platelet Count 134 k/uL (150-450); RBC 3.86 m/uL (4.30-5.90); RDW 15.5 % (11.5-15.5); WBC 5.5 k/uL (3.8-10.6)
[2019-08-08] MEDS: SYMBICORT 160-4.5 MCG INHALER INHALATION SCH (08:09)
[2019-08-08 08:23] LABS: African American GFR (CKD) >90 (>60 ml/min/1.73 sqM); Anion Gap 6 mmol/L; Blood Urea Nitrogen 5 mg/dL (9-20); Calcium 8.5 mg/dL (8.4-10.2); Carbon Dioxide 25 mmol/L (22-30); Chloride 104 mmol/L (98-107); Glucose 92 mg/dL (74-99); Non-African American GFR(CKD) >90 (>60 ml/min/1.73 sqM); Potassium 4.1 mmol/L (3.5-5.1); Sodium 135 mmol/L (137-145)
[2019-08-08] MEDS: MIDODRINE 5 MG TAB PO SCH (08:31)
[2019-08-08] MEDS ORDERED: ISOSORBIDE MONONITRATE ER 30 MG TAB.ER.24H PO SCH (09:00)
[2019-08-08] MEDS ORDERED: FUROSEMIDE 10 MG/ML 4 ML VIAL IV SCH (09:00)
[2019-08-08] MEDS ORDERED: MULTIVITAMINS, THERA 1 EACH TAB PO SCH (09:00)
[2019-08-08] MEDS ORDERED: SPIRONOLACTONE 25 MG TAB PO SCH (09:00)
[2019-08-08] MEDS ORDERED: THIAMINE 100 MG TAB PO SCH (09:00)
--- NOTE | 2019-08-08 10:45 | US ---
Ultrasound-guided paracentesis. DATE OF EXAM: 08/08/2019 CLINICAL HISTORY: Ascites The procedure was discussed with the patient. The risks, complications, benefits, and alternatives we re discussed and any questions were answered. Informed consent was obtained. The patient was placed s upine on the ultrasound table and prepped and draped in the usual sterile fashion. All elements of maximal barrier technique were utilized. Under ultrasound guidance, access into the right lower quadrant was obtained, via the paracentesis catheter system and direct ultrasound guidanc e. Approximately 3.3 liters of straw-colored fluid was removed. The patient was stable throughout the pr ocedure and remained stable upon discharge from Department of Radiology. IMPRESSION: Successful paracentesis under ultrasound guidance.
[2019-08-08 11:32] VITALS: BP 103/59; PULSE 75; RESP 14
--- NOTE | 2019-08-09 06:14 | DS ---
DISCHARGE SUMMARY DATE OF SERVICE: 08/08/2019 FINAL DIAGNOSES: 1. Abdominal distention, ascites secondary to cirrhosis of the liver, status post paracentesis. 2. Abdominal pain secondary to ascites, improved. 3. Cirrhosis of the liver secondary to alcohol. 4. Hyponatremia. 5. Anemia, normocytic. 6. Elevated bilirubin, AST, ALT, alcoholic hepatitis. 7. Continued EtOH. 8. Gastroesophageal reflux disease. 9. Hypertension. 10.Hyperlipidemia. 11.History of left knee replacement. 12.History of nicotine dependence. 13.FULL CODE. DISCHARGE DISPOSITION: The patient will be discharged in stable condition with guarded condition. The patient is extremely keen on going home. HISTORY OF PRESENT ILLNESS: This 58-year-old gentleman with a past medical history of multiple medical problems including alcoholic cirrhosis of the liver was admitted abdominal distention and as well as pain secondary to cirrhosis of the liver and ascites. Patient underwent abdominal paracentesis. Post procedure, albumin was given. About 3.3 L of straw-colored fluid was removed. On exam, vitals are stable. CARDIOVASCULAR: S1, S2 muffled. ABDOMEN: Soft. Minimal ascites. NERVOUS SYSTEM: No focal deficits. DISCHARGE ADVICE: 1. Diet is cardiac. No added salt and fluid restriction. 2. Activity limited until followup. 3. Follow up with Dr. Reich 1 to 2 days. Medications are as follows: 1. Aldactone 100 mg p.o. daily. 2. Multivitamins one p.o. daily. 3. ProAmatine 10 mg t.i.d. 4. Ultram 50 mg b.i.d. p.r.n. 5. Calcium carbonate 500 mg q.i.d. 6. Thiamine 100 mg p.o. daily. 7. Imdur ER 30 mg p.o. daily. 8. Lasix 40 mg p.o. b.i.d. 9. Symbicort 160/4.5 two puffs b.i.d. 10.No alcohol. Once again, the patient will be discharged in a stable condition with guarded prognosis. MMODL / IJN: [id number] /
== END 2019-08-08 11:37 | disposition home or self-care (01) ==
LOC: EC 11:10 → 1SOBS 14:08
PROVIDERS: ADMIT Hospitalist; ATTEND Hospitalist
DX: K70.31 Alcoholic cirrhosis of liver with ascites (principal); K70.11 Alcoholic hepatitis with ascites; K21.9 Gastro-esophageal reflux disease without esophagitis; I10 Essential (primary) hypertension; E78.5 Hyperlipidemia, unspecified; F17.200 Nicotine dependence, unspecified, uncomplicated; F10.20 Alcohol dependence, uncomplicated; D64.9 Anemia, unspecified; E87.1 Hypo-osmolality and hyponatremia; Z03.818 Encounter for observation for suspected exposure to other biological agents ruled out; Z79.891 Long term (current) use of opiate analgesic; Z79.51 Long term (current) use of inhaled steroids; Z79.899 Other long term (current) drug therapy; Z88.0 Allergy status to penicillin; Z88.5 Allergy status to narcotic agent; Z88.8 Allergy status to other drugs, medicaments and biological substances; Z96.652 Presence of left artificial knee joint; Z82.49 Family history of ischemic heart disease and other diseases of the circulatory system; Z83.79 Family history of other diseases of the digestive system; Z83.6 Family history of other diseases of the respiratory system; Z80.9 Family history of malignant neoplasm, unspecified
CPT/HCPCS: 99285; 36415; 94640; 80053; 80048; 82150; 83690; 83735; 85025 ×2; 85610; 85730; 81003; 71045; 74018; 76705; 49083; G0378 ×2; U0003

== ENCOUNTER 2019-08-20 18:56 | Observation (INO) | payer MEDICARE ==
--- NOTE | 2019-08-20 19:48 | ED ---
Abdominal Pain HPI - General Chief Complaint: Abdominal Pain Stated Complaint: Abd pain Time Seen by Provider: 08/20/19 19:06 Source: patient, RN notes reviewed Mode of arrival: ambulatory Limitations: no limitations - History of Present Illness Initial Comments: Is a 58-year-old male with a history of cirrhosis and ascites who presents with complaints of abdominal pain. He states that he has ascites he's been drained almost every 2 weeks recently. He has a basal drinks a lot of alcohol. Denies any fevers chills or sweats or other symptoms. MD Complaint: abdominal pain - Related Data Home Medications Medication Instructions Recorded Confirmed Calcium Carbonate [Tums] 500 mg PO QID PRN 07/11/19 08/07/19 Multivitamins, Thera [Multivitamin 1 tab PO DAILY 07/11/19 08/07/19 (formulary)] Midodrine HCl [ProAmatine] 10 mg PO TID 08/07/19 08/07/19 Spironolactone [Aldactone] 100 mg PO DAILY 08/07/19 08/07/19 Thiamine [Vitamin B-1] 100 mg PO DAILY 08/07/19 08/07/19 traMADol HCL 50 mg PO BID PRN 08/07/19 08/07/19 Previous Rx's Medication Instructions Recorded Isosorbide Mononitrate ER [Imdur] 30 mg PO DAILY #30 tab.er.24h 10/05/18 Budesonide-Formot 160-4.5 Mcg 2 puff INHALATION RT-BID 30 Days 05/21/19 [Symbicort 160-4.5 Mcg Inhaler] #1 puff Furosemide [Lasix] 40 mg PO BID #60 08/08/19 Allergies Allergy/AdvReac Type Severity Reaction Status Date / Time Penicillins Allergy Anaphylaxis Verified 08/07/19 12:15 meperidine [From Demerol] AdvReac Hallucinati Verified 08/07/19 12:15 ons Opioids-Meperidine and AdvReac Hallucinati Verified 08/07/19 12:15 Related ons Opioids-Methadone and Related AdvReac Hallucinati Verified 08/07/19 12:15 ons quetiapine [From Seroquel] AdvReac Hallucinati Verified 08/07/19 12:15 ons Review of Systems ROS Statement: Those systems with pertinent positive or pertinent negative responses have been documented in the HPI. ROS Other: All systems not noted in ROS Statement are negative. Past Medical History Past Medical History: GERD/Reflux, Hyperlipidemia, Hypertension, Liver Disease Additional Past Medical History / Comment(s): Patient states he needs a left knee replacement. History of Any Multi-Drug Resistant Organisms: None Reported Past Surgical History: Heart Catheterization, Orthopedic Surgery Additional Past Surgical History / Comment(s): LEFT KNEE AND RIGHT ANKLE SX. LEFT FEMUR FX. HEART CATH NO STENTS Past Anesthesia/Blood Transfusion Reactions: No Reported Reaction Past Psychological History: No Psychological Hx Reported Smoking Status: Current every day smoker Past Alcohol Use History: Abuse, Daily, Heavy Past Drug Use History: None Reported - Past Family History Father Family Medical History: Coronary Artery Disease (CAD), Liver Disease Mother Family Medical History: Cancer Additional Family Medical History / Comment(s): LUNG DISEASE General Exam - General Exam Comments Initial Comments: This is a well-developed is awake alert oriented 3 patient does have the smell of alcohol conjoiners on his breath Limitations: no limitations General appearance: alert, anxious Head exam: Present: atraumatic, normocephalic, normal inspection Eye exam: Present: normal appearance, PERRL, EOMI. Absent: scleral icterus, conjunctival injection, periorbital swelling ENT exam: Present: normal exam, mucous membranes moist Neck exam: Present: normal inspection. Absent: tenderness, meningismus, lymphadenopathy Respiratory exam: Present: normal lung sounds bilaterally. Absent: respiratory distress, wheezes, rales, rhonchi, stridor Cardiovascular Exam: Present: regular rate, normal rhythm, normal heart sounds. Absent: systolic murmur, diastolic murmur, rubs, gallop, clicks GI/Abdominal exam: Present: soft, distended, tenderness, other (Exam consistent with ascites). Absent: guarding, rebound, rigid Extremities exam: Present: normal inspection, full ROM, normal capillary refill. Absent: tenderness, pedal edema, joint swelling, calf tenderness Back exam: Present: normal inspection Neurological exam: Present: alert, oriented X3, CN II-XII intact Psychiatric exam: Present: normal affect, normal mood Skin exam: Present: warm, dry, intact, normal color. Absent: rash Course Vital Signs 08/20/19 18:58 Temperature 97.9 F Pulse Rate 99 Respiratory 16 Rate Blood Pressure 116/83 O2 Sat by Pulse 99 Oximetry Medical Decision Making - Medical Decision Making I did discuss the case with Dr. Ocampo. Patient be admitted interventional radiology will be consulted. - Lab Data Result diagrams: 08/20/19 19:33 Lab Results 08/20/19 Range/Units 19:33 WBC 7.4 (3.8-10.6) k/uL RBC 3.58 L (4.30-5.90) m/uL Hgb 11.1 L (13.0-17.5) gm/dL Hct 32.7 L (39.0-53.0) % MCV 91.3 (80.0-100.0) fL MCH 31.2 (25.0-35.0) pg MCHC 34.1 (31.0-37.0) g/dL RDW 16.2 H (11.5-15.5) % Plt Count 162 (150-450) k/uL Neutrophils % 47 % Lymphocytes % 39 % Monocytes % 7 % Eosinophils % 4 % Basophils % 1 % Neutrophils # 3.5 (1.3-7.7) k/uL Lymphocytes # 2.9 (1.0-4.8) k/uL Monocytes # 0.5 (0-1.0) k/uL Eosinophils # 0.3 (0-0.7) k/uL Basophils # 0.1 (0-0.2) k/uL Anisocytosis Slight Disposition Clinical Impression: Alcohol intoxication, Ascites, Abdominal pain Disposition: ADMITTED IP TO THIS [facility] Condition: Fair Referrals: Bon Reich MD [Primary Care Provider] - 1-2 days
[2019-08-20 19:59] LABS: Anisocytosis Slight; Basophils # (A) 0.1 k/uL (0-0.2); Basophils % (A) 1 %; Eosinophils # (A) 0.3 k/uL (0-0.7); Eosinophils % (A) 4 %; HCT 32.7 % (39.0-53.0); HGB 11.1 gm/dL (13.0-17.5); Lymphocytes # (A) 2.9 k/uL (1.0-4.8); Lymphocytes % (A) 39 %; MCH 31.2 pg (25.0-35.0); MCHC 34.1 g/dL (31.0-37.0); MCV 91.3 fL (80.0-100.0); Mean Platelet Volume 8.1; Monocytes # (A) 0.5 k/uL (0-1.0); Monocytes % (A) 7 %; Neutrophils # (A) 3.5 k/uL (1.3-7.7); Neutrophils % (A) 47 %; Platelet Count 162 k/uL (150-450); RBC 3.58 m/uL (4.30-5.90); RDW 16.2 % (11.5-15.5); WBC 7.4 k/uL (3.8-10.6)
[2019-08-20] MEDS ORDERED: NALOXONE 0.4 MG/ML 1 ML VIAL IV PRN (20:01)
[2019-08-20] MEDS ORDERED: traMADol 50 MG TAB PO PRN (20:08)
[2019-08-20] MEDS ORDERED: CALCIUM CARBONATE 500 MG CHEWABLE PO PRN (20:08)
[2019-08-20] MEDS ORDERED: THIAMINE 100 MG/ML 2 ML VIAL IM STA (20:09)
[2019-08-20] MEDS ORDERED: LORazepam 2 MG/ML INJ IV PRN ×3 (20:09)
[2019-08-20 20:10] LABS: ALT 16 U/L (4-49); AST 63 U/L (17-59); African American GFR (CKD) >90 (>60 ml/min/1.73 sqM); Albumin 2.9 g/dL (3.5-5.0); Alkaline Phosphatase 90 U/L (38-126); Anion Gap 10 mmol/L; Blood Urea Nitrogen 4 mg/dL (9-20); Calcium 8.2 mg/dL (8.4-10.2); Carbon Dioxide 20 mmol/L (22-30); Chloride 104 mmol/L (98-107); Glucose 105 mg/dL (74-99); Magnesium 1.8 mg/dL (1.6-2.3); Non-African American GFR(CKD) >90 (>60 ml/min/1.73 sqM); Sodium 134 mmol/L (137-145); Total Bilirubin 1.8 mg/dL (0.2-1.3); Total Protein 6.6 g/dL (6.3-8.2)
[2019-08-20] MEDS ORDERED: SODIUM CHLORIDE 0.9% 1,000 ML IV SCH (20:15)
[2019-08-20 20:19] LABS: INR 1.2 (<1.2); Partial Thromboplastin Time 28.7 sec (22.0-30.0)
[2019-08-20 20:20] LABS: Alcohol 258 mg/dL
[2019-08-20] MEDS ORDERED: FUROSEMIDE 10 MG/ML 4 ML VIAL IV SCH (21:00)
--- NOTE | 2019-08-20 21:05 | P.HPIM ---
History of Present Illness 58-year-old male with the known history of cirrhosis seconded alcoholism came in with the mild diffuse abdominal discomfort secondary to abdominal distention. Patient usually gets paracentesis once in 2 weeks. Patient can use to drink alcohol as he is he was told he has 6 months to revisit drinks alcohol if not one year to live. Patient denied any fever chills. Patient had nausea vomiting. She does have significant pedal edema. Patient can use to smoke. Review of Systems REVIEW OF SYSTEMS: CONSTITUTIONAL: No fever, no malaise, no fatigue. HEENT: No recent visual problems or hearing problems. Denied any sore throat. CARDIOVASCULAR: No chest pain, orthopnea, PND, no palpitations, no syncope. PULMONARY: No shortness of breath, no cough, no hemoptysis. GASTROINTESTINAL: As mentioned in HPI NEUROLOGICAL: No headaches, no weakness, no numbness. HEMATOLOGICAL: Denies any bleeding or petechiae. GENITOURINARY: Denies any burning micturition, frequency, or urgency. MUSCULOSKELETAL/RHEUMATOLOGICAL: Denies any joint pain, swelling, or any muscle pain. ENDOCRINE: Denies any polyuria or polydipsia. The rest of the 14-point review of systems is negative. Past Medical History Past Medical History: GERD/Reflux, Hyperlipidemia, Hypertension, Liver Disease Additional Past Medical History / Comment(s): Patient states he needs a left knee replacement. History of Any Multi-Drug Resistant Organisms: None Reported Past Surgical History: Heart Catheterization, Orthopedic Surgery Additional Past Surgical History / Comment(s): LEFT KNEE AND RIGHT ANKLE SX. LEFT FEMUR FX. HEART CATH NO STENTS Past Anesthesia/Blood Transfusion Reactions: No Reported Reaction Past Psychological History: No Psychological Hx Reported Smoking Status: Current every day smoker Past Alcohol Use History: Abuse, Daily, Heavy Past Drug Use History: None Reported - Past Family History Father Family Medical History: Coronary Artery Disease (CAD), Liver Disease Mother Family Medical History: Cancer Additional Family Medical History / Comment(s): LUNG DISEASE Medications and Allergies Home Medications Medication Instructions Recorded Confirmed Type Isosorbide Mononitrate ER [Imdur] 30 mg PO DAILY #30 tab.er.24h 10/05/18 08/20/19 Rx Budesonide-Formot 160-4.5 Mcg 2 puff INHALATION RT-BID 30 Days 04/07/20 07/07/20 Rx [Symbicort 160-4.5 Mcg Inhaler] #1 puff Calcium Carbonate [Tums] 500 mg PO QID PRN 07/11/19 08/20/19 History Multivitamins, Thera [Multivitamin 1 tab PO DAILY 07/11/19 08/20/19 History (formulary)] Midodrine HCl [ProAmatine] 10 mg PO TID 08/07/19 08/20/19 History Spironolactone [Aldactone] 100 mg PO DAILY 08/07/19 08/20/19 History Thiamine [Vitamin B-1] 100 mg PO DAILY 08/07/19 08/20/19 History traMADol HCL 50 mg PO BID PRN 08/07/19 08/20/19 History Furosemide [Lasix] 40 mg PO BID #60 08/08/19 08/20/19 Rx Allergies Allergy/AdvReac Type Severity Reaction Status Date / Time Penicillins Allergy Anaphylaxis Verified 08/07/19 12:15 meperidine [From Demerol] AdvReac Hallucinati Verified 08/07/19 12:15 ons Opioids-Meperidine and AdvReac Hallucinati Verified 08/07/19 12:15 Related ons Opioids-Methadone and Related AdvReac Hallucinati Verified 08/07/19 12:15 ons quetiapine [From Seroquel] AdvReac Hallucinati Verified 08/07/19 12:15 ons Physical Exam Vitals: Vital Signs Temp Pulse Resp BP Pulse Ox 08/20/19 20:56 97.4 F L 98 16 111/74 96 08/20/19 18:58 97.9 F 99 16 116/83 99 Intake and Output 08/20/19 08/20/19 08/20/19 06:59 14:59 22:59 Other: Weight 84.822 kg PHYSICAL EXAMINATION: GENERAL: The patient is alert and oriented x3, not in any acute distress. Well developed, well nourished. HEENT: Pupils are round and equally reacting to light. EOMI. No scleral icterus. No conjunctival pallor. Normocephalic, atraumatic. No pharyngeal erythema. No thyromegaly. CARDIOVASCULAR: S1 and S2 present. No murmurs, rubs, or gallops. PULMONARY: Chest is clear to auscultation, no wheezing or crackles. ABDOMEN: Abdomen is distended ascites with shifting dullness does have pedal edema, pitting. No significant tenderness MUSCULOSKELETAL: No joint swelling or deformity. EXTREMITIES: No cyanosis, clubbing, NEUROLOGICAL: Gross neurological examination did not reveal any focal deficits. SKIN: No rashes. Results CBC & Chem 7: 08/20/19 19:33 08/20/19 19:33 Labs: Abnormal Lab Results - Last 24 Hours (Table) 08/20/19 08/20/19 08/20/19 Range/Units 19:33 19:33 19:33 RBC 3.58 L (4.30-5.90) m/uL Hgb 11.1 L (13.0-17.5) gm/dL Hct 32.7 L (39.0-53.0) % RDW 16.2 H (11.5-15.5) % INR 1.2 H (<1.2) Sodium 134 L (137-145) mmol/L Carbon Dioxide 20 L (22-30) mmol/L BUN 4 L (9-20) mg/dL Creatinine 0.62 L (0.66-1.25) mg/dL Glucose 105 H (74-99) mg/dL Calcium 8.2 L (8.4-10.2) mg/dL Total Bilirubin 1.8 H (0.2-1.3) mg/dL AST 63 H (17-59) U/L Ammonia (<30) umol/L Albumin 2.9 L (3.5-5.0) g/dL Serum Alcohol 258 H* mg/dL 08/20/19 Range/Units 19:33 RBC (4.30-5.90) m/uL Hgb (13.0-17.5) gm/dL Hct (39.0-53.0) % RDW (11.5-15.5) % INR (<1.2) Sodium (137-145) mmol/L Carbon Dioxide (22-30) mmol/L BUN (9-20) mg/dL Creatinine (0.66-1.25) mg/dL Glucose (74-99) mg/dL Calcium (8.4-10.2) mg/dL Total Bilirubin (0.2-1.3) mg/dL AST (17-59) U/L Ammonia 46 H (<30) umol/L Albumin (3.5-5.0) g/dL Serum Alcohol mg/dL Assessment and Plan Plan: -Abdominal discomfort: Secondary to abdominal distention no evidence of a spontaneous Bactrim peritonitis. We will order ultrasound guided paracentesis after that patient probably can be discharged patient is not willing to quit alcohol at this time. Patient is on oral Lasix will be switched to IV Lasix continue with Aldactone. -Hyponatremia hypervolemic hyponatremia continue with IV Lasix and expected to improve with IV Lasix -Anasarca, pedal edema secondary to cirrhosis -Mildly elevated ammonia level without any clinical signs of for hepatic encephalopathy: Patient was started on lactulose -Obstructive jaundice secondary to cirrhosis -Continued alcohol use patient's admits to drinking quite a bit patient was started on Ativan CIWA protocol patient is not willing to quit alcohol because of that reason I may not keep him for alcohol withdrawal. Once the paracentesis is done patient will be discharged most probably -Hyperlipidemia -Hypertension -Continued nicotine use: Counseling was provided -Due to prophylaxis early ambulation
[2019-08-20] MEDS ORDERED: MIDODRINE 5 MG TAB PO SCH (22:00)
[2019-08-20] MEDS ORDERED: LACTULOSE 20 GM/30 ML CUP PO SCH (22:00)
[2019-08-20] MEDS: THIAMINE 100 MG TAB PO SCH ×2 (22:06→22:08)
[2019-08-20] MEDS ORDERED: MELATONIN 5 MG TABLET PO SCH (23:45)
[2019-08-21] MEDS ORDERED: MELATONIN 5 MG TABLET PO PRN (01:02)
[2019-08-21] MEDS ORDERED: ONDANSETRON 4 MG/2 ML VIAL IVP PRN (02:48)
[2019-08-21 07:17] LABS: ALT 15 U/L (4-49); AST 57 U/L (17-59); African American GFR (CKD) >90 (>60 ml/min/1.73 sqM); Albumin 2.6 g/dL (3.5-5.0); Alkaline Phosphatase 74 U/L (38-126); Anion Gap 6 mmol/L; Blood Urea Nitrogen 6 mg/dL (9-20); Calcium 8.1 mg/dL (8.4-10.2); Carbon Dioxide 25 mmol/L (22-30); Chloride 107 mmol/L (98-107); Glucose 103 mg/dL (74-99); Non-African American GFR(CKD) >90 (>60 ml/min/1.73 sqM); Potassium 4.2 mmol/L (3.5-5.1); Sodium 138 mmol/L (137-145); Total Bilirubin 1.8 mg/dL (0.2-1.3); Total Protein 6.1 g/dL (6.3-8.2)
[2019-08-21] MEDS ORDERED: FUROSEMIDE 40 MG TAB PO SCH (07:30)
[2019-08-21] MEDS ORDERED: SYMBICORT 160-4.5 MCG INHALER INHALATION SCH (08:00)
[2019-08-21] MEDS ORDERED: THIAMINE 100 MG TAB PO SCH (09:00)
[2019-08-21] MEDS ORDERED: SPIRONOLACTONE 25 MG TAB PO SCH (09:00)
[2019-08-21] MEDS ORDERED: MULTIVITAMINS, THERA 1 EACH TAB PO SCH (09:00)
[2019-08-21] MEDS ORDERED: ISOSORBIDE MONONITRATE ER 30 MG TAB.ER.24H PO SCH (09:00)
--- NOTE | 2019-08-21 15:10 | P.DS ---
Providers Date of admission: 08/20/19 20:02 Attending physician: Aileen Ocampo Consults: 08/20/19 20:02 Consult Physician Routine Consulting Provider: Phu Marion Reason/Comments: Paracentesis Do you want consulting provider notified?: Yes, Notify in am Primary care physician: Rachana [facility] [place] Course: 58-year-old male with the known history of cirrhosis seconded alcoholism came in with the mild diffuse abdominal discomfort secondary to abdominal distention. Patient usually gets paracentesis once in 2 weeks. Patient can use to drink alcohol as he is he was told he has 6 months to revisit drinks alcohol if not one year to live. Patient denied any fever chills. Patient had nausea vomiting. She does have significant pedal edema. Patient can use to smoke. 08/21/2019 Patient is feeling better with diuresis with IV Lasix. Patient doesn't want to wait for paracentesis. Patient states he has scheduled paracentesis endocrine follow-up with the patient and discomfort is much better even today to a extensively counseled regarding alcohol cessation patient is still not getting to quit alcohol . PHYSICAL EXAMINATION: GENERAL: The patient is alert and oriented x3, not in any acute distress. Well developed, well nourished. HEENT: Pupils are round and equally reacting to light. EOMI. No scleral icterus. No conjunctival pallor. Normocephalic, atraumatic. No pharyngeal erythema. No thyromegaly. CARDIOVASCULAR: S1 and S2 present. No murmurs, rubs, or gallops. PULMONARY: Chest is clear to auscultation, no wheezing or crackles. ABDOMEN: Abdomen is distended ascites with shifting dullness does have pedal edema, pitting. No significant tenderness MUSCULOSKELETAL: No joint swelling or deformity. EXTREMITIES: No cyanosis, clubbing, NEUROLOGICAL: Gross neurological examination did not reveal any focal deficits. SKIN: No rashes. Assessment and Plan Plan: -Abdominal discomfort: Secondary to abdominal distention no evidence of a spontaneous bacterial peritonitis. -Hyponatremia hypervolemic hyponatremia -Anasarca, pedal edema secondary to cirrhosis -Mildly elevated ammonia level without any clinical signs of for hepatic encephalopathy: patient is being discharged on lactulose -Obstructive jaundice secondary to cirrhosis -Continued alcohol use patient's admits to drinking quite a bit -Hyperlipidemia -Hypertension -Continued nicotine use: Counseling was provided Patient Condition at Discharge: Fair Plan - Discharge Summary New Discharge Prescriptions: No Action Isosorbide Mononitrate ER [Imdur] 30 mg PO DAILY #30 tab.er.24h Budesonide-Formot 160-4.5 Mcg [Symbicort 160-4.5 Mcg Inhaler] 2 puff INHALATION RT-BID 30 Days #1 puff Multivitamins, Thera [Multivitamin (formulary)] 1 tab PO DAILY Calcium Carbonate [Tums] 500 mg PO QID PRN PRN Reason: UPSET STOMACH Midodrine HCl [ProAmatine] 10 mg PO TID Thiamine [Vitamin B-1] 100 mg PO DAILY Spironolactone [Aldactone] 100 mg PO DAILY traMADol HCL 50 mg PO BID PRN PRN Reason: Pain Furosemide [Lasix] 40 mg PO BID #60 Discharge Medication List Isosorbide Mononitrate ER [Imdur] 30 mg PO DAILY #30 tab.er.24h 10/05/18 [Rx] Budesonide-Formot 160-4.5 Mcg [Symbicort 160-4.5 Mcg Inhaler] 2 puff INHALATION RT-BID 30 Days #1 puff 05/21/19 [Rx] Calcium Carbonate [Tums] 500 mg PO QID PRN 07/11/19 [History] Multivitamins, Thera [Multivitamin (formulary)] 1 tab PO DAILY 07/11/19 [History] Midodrine HCl [ProAmatine] 10 mg PO TID 08/07/19 [History] Spironolactone [Aldactone] 100 mg PO DAILY 08/07/19 [History] Thiamine [Vitamin B-1] 100 mg PO DAILY 08/07/19 [History] traMADol HCL 50 mg PO BID PRN 08/07/19 [History] Furosemide [Lasix] 40 mg PO BID #60 08/08/19 [Rx] Follow up Appointment(s)/Referral(s): Bon Reich MD [Primary Care Provider] - 1-2 days Discharge Disposition: HOME SELF-CARE
[2019-08-23 09:01] VITALS: BP 104/58; PULSE 74; RESP 20; TEMP 98
== END 2019-08-21 12:08 | disposition home or self-care (01) ==
LOC: EC 18:56 → 1SOBS 20:02
PROVIDERS: ADMIT Internal Medicine; ATTEND Internal Medicine
DX: K70.31 Alcoholic cirrhosis of liver with ascites (principal); E72.20 Disorder of urea cycle metabolism, unspecified; Z03.818 Encounter for observation for suspected exposure to other biological agents ruled out; E87.1 Hypo-osmolality and hyponatremia; E87.70 Fluid overload, unspecified; K83.1 Obstruction of bile duct; F10.229 Alcohol dependence with intoxication, unspecified; I10 Essential (primary) hypertension; E78.5 Hyperlipidemia, unspecified; K21.9 Gastro-esophageal reflux disease without esophagitis; R60.0 Localized edema; F17.200 Nicotine dependence, unspecified, uncomplicated; Z79.899 Other long term (current) drug therapy; Z79.51 Long term (current) use of inhaled steroids; Z88.5 Allergy status to narcotic agent; Z88.0 Allergy status to penicillin; Z88.8 Allergy status to other drugs, medicaments and biological substances; Z87.81 Personal history of (healed) traumatic fracture; Z82.49 Family history of ischemic heart disease and other diseases of the circulatory system; Z83.79 Family history of other diseases of the digestive system; Z80.9 Family history of malignant neoplasm, unspecified; Z83.6 Family history of other diseases of the respiratory system
CPT/HCPCS: 96374; 96375; 96372; 99284; 36415; 94640; 80053 ×2; 82140; 83690; 83735; 85025; 85610; 85730; G0378 ×2; G0480; U0003; J1940; J3411; J2405; 80320

== ENCOUNTER 2019-08-22 22:56 | Inpatient (IN) | payer MEDICARE ==
[2019-08-22] MEDS ORDERED: PANTOPRAZOLE 40 MG/10 ML VIAL IVP STA (23:15)
[2019-08-22] MEDS ORDERED: OCTREOTIDE 100 MCG/ML INJ IVP STA (23:15)
--- NOTE | 2019-08-22 23:23 | ED ---
GI Bleed HPI - General Chief complaint: GI Bleed Stated complaint: Vomiting blood Time Seen by Provider: 08/22/19 23:15 Source: patient Mode of arrival: ambulatory Limitations: no limitations - History of Present Illness Initial comments: Og is a 58-year-old gentleman with a history of alcoholic liver disease and daily alcohol use. Patient has abdominal ascites secondary to his liver disease he has frequent paracentesis he reports he was in the hospital on the for paracentesis but did not have it completed and went home. Patient reports that throughout the day on the he had vomiting with bloody vomitus. He denies any lightheadedness palpitations or syncope. He can't recall the last time he had an endoscopy. Not certain if he has esophageal varices. Does admit that despite vomiting he still been drinking today. - Related Data Home Medications Medication Instructions Recorded Confirmed Calcium Carbonate [Tums] 500 mg PO QID PRN 07/11/19 08/20/19 Multivitamins, Thera [Multivitamin 1 tab PO DAILY 07/11/19 08/20/19 (formulary)] Midodrine HCl [ProAmatine] 10 mg PO TID 08/07/19 08/20/19 Spironolactone [Aldactone] 100 mg PO DAILY 08/07/19 08/20/19 Thiamine [Vitamin B-1] 100 mg PO DAILY 08/07/19 08/20/19 traMADol HCL 50 mg PO BID PRN 08/07/19 08/20/19 Previous Rx's Medication Instructions Recorded Isosorbide Mononitrate ER [Imdur] 30 mg PO DAILY #30 tab.er.24h 10/05/18 Budesonide-Formot 160-4.5 Mcg 2 puff INHALATION RT-BID 30 Days 05/21/19 [Symbicort 160-4.5 Mcg Inhaler] #1 puff Furosemide [Lasix] 40 mg PO BID #60 08/08/19 Allergies Allergy/AdvReac Type Severity Reaction Status Date / Time Penicillins Allergy Anaphylaxis Verified 08/22/19 23:08 meperidine [From Demerol] AdvReac Hallucinati Verified 08/22/19 23:08 ons Opioids-Meperidine and AdvReac Hallucinati Verified 08/22/19 23:08 Related ons Opioids-Methadone and Related AdvReac Hallucinati Verified 08/22/19 23:08 ons quetiapine [From Seroquel] AdvReac Hallucinati Verified 08/22/19 23:08 ons Review of Systems ROS Statement: Those systems with pertinent positive or pertinent negative responses have been documented in the HPI. ROS Other: All systems not noted in ROS Statement are negative. Past Medical History Past Medical History: GERD/Reflux, Hyperlipidemia, Hypertension, Liver Disease Additional Past Medical History / Comment(s): Patient states he needs a left knee replacement. History of Any Multi-Drug Resistant Organisms: None Reported Past Surgical History: Heart Catheterization, Orthopedic Surgery Additional Past Surgical History / Comment(s): LEFT KNEE AND RIGHT ANKLE SX. LEFT FEMUR FX. HEART CATH NO STENTS Past Anesthesia/Blood Transfusion Reactions: No Reported Reaction Past Psychological History: No Psychological Hx Reported Smoking Status: Current every day smoker Past Alcohol Use History: Abuse, Daily, Heavy Past Drug Use History: None Reported - Past Family History Father Family Medical History: Coronary Artery Disease (CAD), Liver Disease Mother Family Medical History: Cancer Additional Family Medical History / Comment(s): LUNG DISEASE General Exam - General Exam Comments Initial Comments: Physical Exam GENERAL: Chronically ill-appearing gentleman with stigmata of alcohol abuse HENT: Normocephalic, Atraumatic. EYES: PERRL, EOMI Mild scleral icterus PULMONARY: Unlabored respirations. Tachypnea secondary to abdominal ascities No audible rales rhonchi or wheezing was noted. CARDIOVASCULAR: RRR ABDOMEN: Distended, non-tender SKIN: Skin is clear with no lesions or rashes and otherwise unremarkable. : Deferred NEUROLOGIC: Patient is alert and oriented x3. Moving all extremities spontaneously MUSCULOSKELETAL: Normal extremities with adequate strength and full range of motion. No lower extremity swelling or edema. No calf tenderness. PSYCHIATRIC: Pleasantly intoxicated Limitations: no limitations Course Vital Signs 08/22/19 08/22/19 08/23/19 23:04 23:37 01:03 Temperature 97.9 F 97.6 F Pulse Rate 100 97 97 Respiratory 18 18 19 Rate Blood Pressure 97/64 95/56 95/68 O2 Sat by Pulse 96 96 96 Oximetry Medical Decision Making - Medical Decision Making The patient was seen and evaluated immediately upon arrival the emergency department Patient was noted be hypotensive but not tachycardic he did have an episode of dark bloody vomitus in the emergency department waiting room but no further vomiting since arrival but was not large volume Review of medical record reveals patient has chronic liver failure, alcohol abuse, previous admissions had blood pressure of approximately 100 systolic so his current blood pressures not significantly changed from his baseline Labs were ordered Protonix octreotide were giving given the patient's ALLERGY to penicillin he will receive Levaquin for antibiotic prophylaxis Patient's labs resulted at baseline, no significant anemia no further vomiting while in the emergency department however given his history he is very high risk and I would recommend admission to the ICU. This plan was discussed with Dr. Ramirez who agrees. Patient care was also discussed with Latosha the mid-level provider for [facility] who agrees with plan for admission. Patient care was discussed with gastroenterology Dr. Dinero agrees with plan for admission, medications as ordered, nothing by mouth status plan for likely endoscopy tomorrow. Patient remained awake alert oriented, hemodynamically stable throughout his stay in the emergency department. - Lab Data Result diagrams: 08/22/19 23:32 08/22/19 23:32 Lab Results 08/22/19 08/22/19 08/22/19 Range/Units 23:32 23:32 23:32 WBC 6.6 (3.8-10.6) k/uL RBC 3.69 L (4.30-5.90) m/uL Hgb 10.9 L (13.0-17.5) gm/dL Hct 33.8 L (39.0-53.0) % MCV 91.4 (80.0-100.0) fL MCH 29.4 (25.0-35.0) pg MCHC 32.2 (31.0-37.0) g/dL RDW 16.0 H (11.5-15.5) % Plt Count 119 L (150-450) k/uL Neutrophils % 47 % Lymphocytes % 33 % Monocytes % 11 % Eosinophils % 5 % Basophils % 1 % Neutrophils # 3.1 (1.3-7.7) k/uL Lymphocytes # 2.2 (1.0-4.8) k/uL Monocytes # 0.7 (0-1.0) k/uL Eosinophils # 0.3 (0-0.7) k/uL Basophils # 0.1 (0-0.2) k/uL PT 11.9 (9.0-12.0) sec INR 1.2 H (<1.2) APTT 29.8 (22.0-30.0) sec Sodium 130 L (137-145) mmol/L Potassium 3.9 (3.5-5.1) mmol/L Chloride 95 L (98-107) mmol/L Carbon Dioxide 25 (22-30) mmol/L Anion Gap 10 mmol/L BUN 6 L (9-20) mg/dL Creatinine 0.70 (0.66-1.25) mg/dL Est GFR (CKD-EPI)AfAm >90 (>60 ml/min/1.73 sqM) Est GFR (CKD-EPI)NonAf >90 (>60 ml/min/1.73 sqM) Glucose 111 H (74-99) mg/dL Plasma Lactic Acid Hayden (0.7-2.0) mmol/L Calcium 8.1 L (8.4-10.2) mg/dL Total Bilirubin 2.3 H (0.2-1.3) mg/dL AST 63 H (17-59) U/L ALT 15 (4-49) U/L Alkaline Phosphatase 79 (38-126) U/L Troponin I (0.000-0.034) ng/mL Total Protein 6.8 (6.3-8.2) g/dL Albumin 3.0 L (3.5-5.0) g/dL Serum Alcohol 199 mg/dL Blood Type Blood Type Recheck Bld Type Recheck Status Antibody Screen Crossmatch Spec Expiration Date 08/22/19 08/22/19 08/22/19 Range/Units 23:32 23:32 23:32 WBC (3.8-10.6) k/uL RBC (4.30-5.90) m/uL Hgb (13.0-17.5) gm/dL Hct (39.0-53.0) % MCV (80.0-100.0) fL MCH (25.0-35.0) pg MCHC (31.0-37.0) g/dL RDW (11.5-15.5) % Plt Count (150-450) k/uL Neutrophils % % Lymphocytes % % Monocytes % % Eosinophils % % Basophils % % Neutrophils # (1.3-7.7) k/uL Lymphocytes # (1.0-4.8) k/uL Monocytes # (0-1.0) k/uL Eosinophils # (0-0.7) k/uL Basophils # (0-0.2) k/uL PT (9.0-12.0) sec INR (<1.2) APTT (22.0-30.0) sec Sodium (137-145) mmol/L Potassium (3.5-5.1) mmol/L Chloride (98-107) mmol/L Carbon Dioxide (22-30) mmol/L Anion Gap mmol/L BUN (9-20) mg/dL Creatinine (0.66-1.25) mg/dL Est GFR (CKD-EPI)AfAm (>60 ml/min/1.73 sqM) Est GFR (CKD-EPI)NonAf (>60 ml/min/1.73 sqM) Glucose (74-99) mg/dL Plasma Lactic Acid Hayden 1.6 (0.7-2.0) mmol/L Calcium (8.4-10.2) mg/dL Total Bilirubin (0.2-1.3) mg/dL AST (17-59) U/L ALT (4-49) U/L Alkaline Phosphatase (38-126) U/L Troponin I <0.012 (0.000-0.034) ng/mL Total Protein (6.3-8.2) g/dL Albumin (3.5-5.0) g/dL Serum Alcohol mg/dL Blood Type O Positive Blood Type Recheck O Pos Bld Type Recheck Status No Antibody Screen NEGATIVE Crossmatch See Detail Spec Expiration Date 08/25/2019 2843 Critical Care Time Critical Care Time: Yes Total Critical Care Time: 30 Critical Care Time: Critical Care Time Critical care time was exclusive of separately billable procedures and treating other patients and teaching time. Critical care was necessary to treat or prevent imminent or life-threatening deterioration. Given the critical condition in which the patient arrived, the patient was immediately assessed by myself and the nurse, and cardiac monitoring initiated due to the potential for rapid decompensation of the patient's clinical condition. During the course of the patients stay, I spent a considerable amount of time at the bedside performing serial re-evaluations of the patient's hemodynamic and clinical status because of the recognized potential threat to life or limb in this condition. I then had a chance to review not only all of the available current laboratory and radiographic studies obtained today, but I also reviewed old records available to me at the time. Additionally, any ancillary information available including centrifugal station operator records were reviewed. Sequential vital signs were obtained. Disposition Clinical Impression: Abdominal pain, Alcohol intoxication, Ascites, Upper GI bleed Disposition: ADMITTED IP TO THIS HOSP Condition: Stable Is patient prescribed a controlled substance at d/c from ED?: No
[2019-08-22] MEDS: OCTREOTIDE 500 MCG in SODIUM CHLORIDE 0.9% 250 ML IV STA (23:43)
[2019-08-22 23:56] LABS: Basophils # (A) 0.1 k/uL (0-0.2); Basophils % (A) 1 %; Eosinophils # (A) 0.3 k/uL (0-0.7); Eosinophils % (A) 5 %; HCT 33.8 % (39.0-53.0); HGB 10.9 gm/dL (13.0-17.5); Lymphocytes # (A) 2.2 k/uL (1.0-4.8); Lymphocytes % (A) 33 %; MCH 29.4 pg (25.0-35.0); MCHC 32.2 g/dL (31.0-37.0); MCV 91.4 fL (80.0-100.0); Mean Platelet Volume 8.7; Monocytes # (A) 0.7 k/uL (0-1.0); Monocytes % (A) 11 %; Neutrophils # (A) 3.1 k/uL (1.3-7.7); Neutrophils % (A) 47 %; Platelet Count 119 k/uL (150-450); RBC 3.69 m/uL (4.30-5.90); WBC 6.6 k/uL (3.8-10.6)
[2019-08-23] MEDS ORDERED: ONDANSETRON 4 MG/2 ML VIAL IVP STA ×2 (00:04→05:27)
[2019-08-23 00:05] LABS: ALT 15 U/L (4-49); AST 63 U/L (17-59); African American GFR (CKD) >90 (>60 ml/min/1.73 sqM); Alkaline Phosphatase 79 U/L (38-126); Anion Gap 10 mmol/L; Blood Urea Nitrogen 6 mg/dL (9-20); Calcium 8.1 mg/dL (8.4-10.2); Carbon Dioxide 25 mmol/L (22-30); Chloride 95 mmol/L (98-107); Glucose 111 mg/dL (74-99); Non-African American GFR(CKD) >90 (>60 ml/min/1.73 sqM); Potassium 3.9 mmol/L (3.5-5.1); Sodium 130 mmol/L (137-145); Total Bilirubin 2.3 mg/dL (0.2-1.3); Total Protein 6.8 g/dL (6.3-8.2)
[2019-08-23 00:09] LABS: INR 1.2 (<1.2)
[2019-08-23 00:10] LABS: Partial Thromboplastin Time 29.8 sec (22.0-30.0); Prothrombin Time 11.9 sec (9.0-12.0)
[2019-08-23] MEDS ORDERED: NALOXONE 0.4 MG/ML 1 ML VIAL IV PRN (00:15)
[2019-08-23] MEDS ORDERED: LEVOFLOXACIN 750MG-D5W PMX 750 MG in DEXTROSE/WATER 1 150ML.BAG IVPB STA (00:25)
[2019-08-23 00:28] LABS: Alcohol 199 mg/dL
[2019-08-23] MEDS ORDERED: LORazepam 2 MG/ML INJ IV PRN ×2 (01:26)
[2019-08-23] MEDS ORDERED: THIAMINE 100 MG/ML 2 ML VIAL IM STA (01:26)
[2019-08-23 04:52] LABS: Basophils % (A) 1 %; Eosinophils # (A) 0.3 k/uL (0-0.7); Eosinophils % (A) 7 %; HGB 9.9 gm/dL (13.0-17.5); Lymphocytes # (A) 1.3 k/uL (1.0-4.8); Lymphocytes % (A) 27 %; MCHC 32.9 g/dL (31.0-37.0); MCV 91.2 fL (80.0-100.0); Mean Platelet Volume 9.2; Monocytes # (A) 0.3 k/uL (0-1.0); Monocytes % (A) 7 %; Neutrophils # (A) 2.7 k/uL (1.3-7.7); Neutrophils % (A) 57 %; Platelet Count 110 k/uL (150-450); RBC 3.29 m/uL (4.30-5.90); RDW 15.8 % (11.5-15.5); WBC 4.7 k/uL (3.8-10.6)
[2019-08-23 05:17] LABS: African American GFR (CKD) >90 (>60 ml/min/1.73 sqM); Anion Gap 9 mmol/L; Blood Urea Nitrogen 7 mg/dL (9-20); Calcium 7.8 mg/dL (8.4-10.2); Carbon Dioxide 23 mmol/L (22-30); Chloride 97 mmol/L (98-107); Glucose 110 mg/dL (74-99); Non-African American GFR(CKD) >90 (>60 ml/min/1.73 sqM); Potassium 4.2 mmol/L (3.5-5.1); Sodium 129 mmol/L (137-145)
[2019-08-23 07:29] LABS: Appearance,Urine Clear (Clear); Bilirubin,Urine Negative (Negative); Blood,Urine Negative (Negative); Color,Urine Yellow; Glucose,Urine (UA) Negative (Negative); Ketones,Urine Negative (Negative); Leukocyte Esterase,Urine Negative (Negative); Nitrite,Urine Negative (Negative); PH, Urine 5.5 (5.0-8.0); Protein,Urine Negative (Negative); Specific Gravity,Urine 1.004 (1.001-1.035); Urobilinogen,Urine <2.0 mg/dL (<2.0)
--- NOTE | 2019-08-23 08:56 | P.CNPUL ---
History of Present Illness Consult date: 08/23/19 Requesting physician: Latosha Rodrigues Reason for consult: other Chief complaint: Hematemesis History of present illness: 58-year-old white male patient of Dr. Reich, with known history of alcoholic liver disease, and daily alcohol use, portal hypertension, ascites requiring frequent paracentesis, hypertension, hyperlipidemia, current day smoker, who was discharged 2 days ago on 08/21/2019 after being hospitalized for abdominal pain secondary to abdominal distention, nausea, vomiting and pedal edema. Workup did not show any evidence of spontaneous bacterial peritonitis. Patient was treated with diuretics, improved, and was discharged home. Of note patient had his last paracentesis on 08/08/[address] Jamil with successful removal of 3.3 L of straw-colored fluid. Patient present back to the emergency department on 08/22/2019 with complaints of vomiting blood. Today he was discharged home he went home and started drinking again. He denies any lightheadedness, palpitations or syncope. Despite vomiting patient admitted that she was still drinking. Blood pressure in the emergency department was as low as 84/56. Admission blood work showed hemoglobin of 10.9, platelet count is 119, white count is 6.6, sodium is 1:30, potassium 3.9, chloride is 95, CO2 is 25, BUN is 6, creatinine 0.70, AST was 63, ALT was 15, alkaline phosphatase a 79, troponin is less than 0.012, serum alcohol level was 199. Patient was started on IV fluids, and Sandostatin infusion currently running at 25 g per hour. CIWA protocol was started. Awaiting GI evaluation this morning, no further bleeding since admission to the intensive care unit, however patient does admit to being nauseous. Abdomen significantly distended but soft, and patient states he is probably due for another paracentesis. Today's hemoglobin is 9.9. Urinalysis was negative. Abdomen is soft, nontender. Mentation is appropriate, patient is awake and alert oriented 3. Appears to be in no acute distress, denies any shortness of breath, supplemental oxygen at 2 L, with a pulse ox of 95%. Review of Systems All systems: negative Constitutional: Denies chills, Denies fever Eyes: denies blurred vision, denies pain Ears, nose, mouth and throat: Denies headache, Denies sore throat Cardiovascular: Denies chest pain, Denies shortness of breath Respiratory: Denies cough Gastrointestinal: Reports hematemesis, Reports nausea, Reports vomiting, Denies abdominal pain, Denies diarrhea Musculoskeletal: Denies myalgias Integumentary: Denies pruritus, Denies rash Neurological: Denies numbness, Denies weakness Psychiatric: Denies anxiety, Denies depression Endocrine: Denies fatigue, Denies weight change Past Medical History Past Medical History: GERD/Reflux, Hyperlipidemia, Hypertension, Liver Disease Additional Past Medical History / Comment(s): Patient states he needs a left knee replacement. History of Any Multi-Drug Resistant Organisms: None Reported Past Surgical History: Heart Catheterization, Orthopedic Surgery Additional Past Surgical History / Comment(s): LEFT KNEE AND RIGHT ANKLE SX. LEFT FEMUR FX. HEART CATH NO STENTS Past Anesthesia/Blood Transfusion Reactions: No Reported Reaction Past Psychological History: No Psychological Hx Reported Smoking Status: Current every day smoker Past Alcohol Use History: Abuse, Daily, Heavy Past Drug Use History: None Reported - Past Family History Father Family Medical History: Coronary Artery Disease (CAD), Liver Disease Mother Family Medical History: Cancer Additional Family Medical History / Comment(s): LUNG DISEASE Medications and Allergies Home Medications Medication Instructions Recorded Confirmed Type Isosorbide Mononitrate ER [Imdur] 30 mg PO DAILY #30 tab.er.24h 10/05/18 08/20/19 Rx Budesonide-Formot 160-4.5 Mcg 2 puff INHALATION RT-BID 30 Days 05/21/19 08/20/19 Rx [Symbicort 160-4.5 Mcg Inhaler] #1 puff Calcium Carbonate [Tums] 500 mg PO QID PRN 07/11/19 08/20/19 History Multivitamins, Thera [Multivitamin 1 tab PO DAILY 07/11/19 08/20/19 History (formulary)] Midodrine HCl [ProAmatine] 10 mg PO TID 08/07/19 08/20/19 History Spironolactone [Aldactone] 100 mg PO DAILY 08/07/19 08/20/19 History Thiamine [Vitamin B-1] 100 mg PO DAILY 08/07/19 08/20/19 History traMADol HCL 50 mg PO BID PRN 08/07/19 08/20/19 History Furosemide [Lasix] 40 mg PO BID #60 08/08/19 08/20/19 Rx Allergies Allergy/AdvReac Type Severity Reaction Status Date / Time Penicillins Allergy Anaphylaxis Verified 08/22/19 23:08 meperidine [From Demerol] AdvReac Hallucinati Verified 08/22/19 23:08 ons Opioids-Meperidine and AdvReac Hallucinati Verified 08/22/19 23:08 Related ons Opioids-Methadone and Related AdvReac Hallucinati Verified 08/22/19 23:08 ons quetiapine [From Seroquel] AdvReac Hallucinati Verified 08/22/19 23:08 ons Physical Exam Vitals: Vital Signs Temp Pulse Pulse Resp BP BP Pulse Ox 08/23/19 07:00 89 18 88/60 95 08/23/19 06:00 87 16 92/68 89 L 08/23/19 05:00 93 20 95/60 92 L 08/23/19 04:00 97.6 F 101 H 16 94/67 08/23/19 03:38 18 08/23/19 03:00 95 18 84/56 93 L 08/23/19 02:00 97.9 F 97 18 100/64 95 08/23/19 01:03 97.6 F 97 19 95/68 96 08/22/19 23:37 97 18 95/56 96 08/22/19 23:04 97.9 F 100 18 97/64 96 Intake and Output 08/22/19 08/23/19 08/23/19 22:59 06:59 14:59 Intake Total 225 Output Total 450 Balance -225 Intake: IV 125 0.9 NaCl 125 Intake, IV Titration 100 Amount Levofloxacin 750Mg-D5w 100 Pmx 750 mg In Dextrose/ Water 1 150ml.bag @ 100 mls/hr IVPB ONCE STA Rx#: [id number] Output: Urine 450 Other: Voiding Method Urinal Weight 82.554 kg GENERAL EXAM: Alert, pleasant, 58-year-old white male, quite disheveled, but pleasant, in no acute distress, on 2 L of oxygen and the pulse ox of 95% comfortable in no apparent distress. HEAD: Normocephalic/atraumatic. EYES: Normal reaction of pupils, equal size. Conjunctiva pink, sclera white. NOSE: Clear with pink turbinates. THROAT: No erythema or exudates. NECK: No masses, no JVD, no thyroid enlargement, no adenopathy. CHEST: No chest wall deformity. Symmetrical expansion. LUNGS: Equal air entry with no crackles, wheeze, rhonchi or dullness. CVS: Regular rate and rhythm, normal S1 and S2, no gallops, no murmurs, no rubs ABDOMEN: Soft, nontender, distended. No hepatosplenomegaly, normal bowel sounds, no guarding or rigidity. EXTREMITIES: No clubbing, no edema, no cyanosis, 2+ pulses and upper and lower extremities. MUSCULOSKELETAL: Muscle strength and tone normal. SPINE: No scoliosis or deformity SKIN: No rashes CENTRAL NERVOUS SYSTEM: Alert and oriented -3. No focal deficits, tone is normal in all 4 extremities. PSYCHIATRIC: Alert and oriented -3. Appropriate affect. Intact judgment and insight. Results - Laboratory Findings CBC and BMP: 08/23/19 04:38 08/23/19 04:38 PT/INR, D-dimer PT 11.9 sec (9.0-12.0) 08/22/19 23:32 INR 1.2 (<1.2) H 08/22/19 23:32 Abnormal lab findings: Abnormal Labs 08/22/19 08/22/19 08/22/19 23:32 23:32 23:32 RBC 3.69 L Hgb 10.9 L Hct 33.8 L RDW 16.0 H Plt Count 119 L INR 1.2 H Sodium 130 L Chloride 95 L BUN 6 L Creatinine Glucose 111 H Calcium 8.1 L Total Bilirubin 2.3 H AST 63 H Albumin 3.0 L Crossmatch 08/22/19 08/23/19 08/23/19 23:32 04:38 04:38 RBC 3.29 L Hgb 9.9 L Hct 30.0 L RDW 15.8 H Plt Count 110 L INR Sodium 129 L Chloride 97 L BUN 7 L Creatinine 0.64 L Glucose 110 H Calcium 7.8 L Total Bilirubin AST Albumin Crossmatch See Detail Assessment and Plan Plan: Assessment: #1. Acute GI bleeding, likely from upper GI tract, patient presented with hematemesis #2. Acute blood loss anemia related to the above #3. Chronic alcoholic liver disease #4. Straight of portal hypertension, ascites requiring frequent paracentesis, last paracentesis was on 08/08/2019 would removal of 3.3 L of straw-colored ascitic fluid #5. Recent admission for abdominal distention, and anasarca, patient has been diuresed, and discharged home on 08/21/2019 #6. Chronic and ongoing alcohol abuse, alcohol level was 199 on admission #7. Chronic smoker #8. Hyponatremia, likely hypervolemic #9. Hypertension #10. Hyperlipidemia Plan: Continue with Sandostatin infusion, PPI therapy, CIWA protocol, serial H&H's, monitor for signs of bleeding. Awaiting GI service evaluation, keep patient nothing by mouth. No signs of DTs right now, we'll continue to closely monitor. Thiamine replacement, will restart the Levaquin for possibility of spontaneous bacterial peritonitis. Will consult interventional radiology for paracentesis. We'll continue to monitor in the intensive care unit. I performed a history & physical examination of the patient and discussed their management with my nurse practitioner, Alisson Chadwick. I reviewed the nurse practitioner's note and agree with the documented findings and plan of care. Lung sounds are positive for clear breath sounds. The findings and the impression was discussed with the patient. I attest to the documentation by the nurse practitioner. Time with Patient: Greater than 30
[2019-08-23] MEDS ORDERED: SPIRONOLACTONE 25 MG TAB PO SCH (10:30)
[2019-08-23] MEDS: NICOTINE 21MG/24HR PATCH TRANSDERM SCH (11:00)
[2019-08-23] MEDS: PANTOPRAZOLE 40 MG/10 ML VIAL IVP SCH ×2 (11:05→21:30)
--- NOTE | 2019-08-23 13:11 | US ---
EXAMINATION TYPE: US paracentesis abd w/image DATE OF EXAM: 08/23/2019 COMPARISON: NONE HISTORY: Ascites. PROCEDURE: Maximal barrier technique was utilized. The skin overlying a suitable pocket of fluid was localized with ultrasound and the overlying skin was prepped and draped. Ultrasound was utilized with sterile technique. Lidocaine was used for local anesthesia and a skin mark anthony made with a scalpel. Catheter was advanced under direct ultrasound guidance into a suitable pocket of fluid and approximately 7.3 liter s of serous fluid were removed. Catheter was withdrawn and hemostasis achieved. There is no immedia te complication; the patient is discharged in stable condition. IMPRESSION: STATUS POST ULTRASOUND GUIDED PARACENTESIS FOR PALLIATION OF ASCITES. THIS PROCEDURE WA S PERFORMED BY THE UNDERSIGNED.
[2019-08-23 14:06] LABS: Glucose,Whole Blood 105 mg/dL (75-99)
--- NOTE | 2019-08-23 14:19 | P.HPIM ---
History of Present Illness Patient is a very pleasant 58-year-old male came in with the hematemesis. Patient was discharged couple days ago from my service after he was treated for abdominal discomfort and patient insisted on going home and getting outpatient paracentesis. Patient went home and started drinking again. Patient to started having hematemesis yesterday came back to the hospital. Patient does have history of cirrhosis portal hypertension. Patient undergoes frequent paracentesis. Patient underwent paracentesis today with new mole of around 2.3 L patient is presently not sure tried patient is bit hyponatremic because of which I'm holding of diuretics. Patient was started on octreotide and antibiotics patient is ALLERGIC to Rocephin because of which patient was started on levofloxacin and this is for possible variceal bleed rather than spontaneous back hepatitis patient doesn't have any evidence of SBP Review of Systems REVIEW OF SYSTEMS: CONSTITUTIONAL: No fever, no malaise, no fatigue. HEENT: No recent visual problems or hearing problems. Denied any sore throat. CARDIOVASCULAR: No chest pain, orthopnea, PND, no palpitations, no syncope. PULMONARY: No shortness of breath, no cough, no hemoptysis. GASTROINTESTINAL: No diarrhea, no abdominal pain. NEUROLOGICAL: No headaches, no weakness, no numbness. HEMATOLOGICAL: Denies any bleeding or petechiae. GENITOURINARY: Denies any burning micturition, frequency, or urgency. MUSCULOSKELETAL/RHEUMATOLOGICAL: Denies any joint pain, swelling, or any muscle pain. ENDOCRINE: Denies any polyuria or polydipsia. The rest of the 14-point review of systems is negative. Past Medical History Past Medical History: GERD/Reflux, Hyperlipidemia, Hypertension, Liver Disease Additional Past Medical History / Comment(s): Patient states he needs a left knee replacement. History of Any Multi-Drug Resistant Organisms: None Reported Past Surgical History: Heart Catheterization, Orthopedic Surgery Additional Past Surgical History / Comment(s): LEFT KNEE AND RIGHT ANKLE SX. LEFT FEMUR FX. HEART CATH NO STENTS Past Anesthesia/Blood Transfusion Reactions: No Reported Reaction Past Psychological History: No Psychological Hx Reported Smoking Status: Current every day smoker Past Alcohol Use History: Abuse, Daily, Heavy Past Drug Use History: None Reported - Past Family History Father Family Medical History: Coronary Artery Disease (CAD), Liver Disease Mother Family Medical History: Cancer Additional Family Medical History / Comment(s): LUNG DISEASE Medications and Allergies Home Medications Medication Instructions Recorded Confirmed Type Isosorbide Mononitrate ER [Imdur] 30 mg PO DAILY #30 tab.er.24h 10/05/18 08/23/19 Rx Multivitamins, Thera [Multivitamin 1 tab PO DAILY 07/11/19 08/23/19 History (formulary)] Midodrine HCl [ProAmatine] 10 mg PO TID 08/07/19 08/23/19 History Thiamine [Vitamin B-1] 100 mg PO DAILY 08/07/19 08/23/19 History traMADol HCL 50 mg PO BID PRN 08/07/19 08/23/19 History Furosemide [Lasix] 20 mg PO BID 08/23/19 08/23/19 History Ibuprofen [Motrin Ib] 400 mg PO Q8H PRN 08/23/19 08/23/19 History Spironolactone [Aldactone] 50 mg PO DAILY 08/23/19 08/23/19 History Allergies Allergy/AdvReac Type Severity Reaction Status Date / Time Penicillins Allergy Anaphylaxis Verified 08/22/19 23:08 meperidine [From Demerol] AdvReac Hallucinati Verified 08/22/19 23:08 ons Opioids-Meperidine and AdvReac Hallucinati Verified 08/22/19 23:08 Related ons Opioids-Methadone and Related AdvReac Hallucinati Verified 08/22/19 23:08 ons quetiapine [From Seroquel] AdvReac Hallucinati Verified 08/22/19 23:08 ons Physical Exam Vitals: Vital Signs Temp Pulse Pulse Pulse Resp BP BP 08/23/19 13:45 92 11 L 112/75 08/23/19 13:30 93 15 118/77 08/23/19 13:00 93 16 107/77 08/23/19 12:38 88 16 103/77 08/23/19 12:25 93 14 102/65 08/23/19 12:15 92 14 88/63 08/23/19 12:05 90 16 88/64 08/23/19 12:00 92 16 102/73 08/23/19 11:52 93 14 102/73 08/23/19 11:47 100 18 96/67 08/23/19 11:00 98.2 F 97 16 108/68 08/23/19 10:00 85 16 98/69 08/23/19 09:00 86 14 102/73 08/23/19 08:00 92 16 95/53 08/23/19 07:00 89 18 88/60 08/23/19 06:00 87 16 92/68 08/23/19 05:00 93 20 95/60 08/23/19 04:00 97.6 F 101 H 16 94/67 08/23/19 03:38 18 08/23/19 03:00 95 18 84/56 08/23/19 02:00 97.9 F 97 18 100/64 08/23/19 01:03 97.6 F 97 19 95/68 08/22/19 23:37 97 18 95/56 08/22/19 23:04 97.9 F 100 18 97/64 Pulse Ox 08/23/19 13:45 93 L 08/23/19 13:30 94 L 08/23/19 13:00 94 L 08/23/19 12:38 95 08/23/19 12:25 93 L 08/23/19 12:15 93 L 08/23/19 12:05 94 L 08/23/19 12:00 93 L 08/23/19 11:52 92 L 08/23/19 11:47 92 L 08/23/19 11:00 97 08/23/19 10:00 96 08/23/19 09:00 96 08/23/19 08:00 96 08/23/19 07:00 95 08/23/19 06:00 89 L 08/23/19 05:00 92 L 08/23/19 04:00 08/23/19 03:38 08/23/19 03:00 93 L 08/23/19 02:00 95 08/23/19 01:03 96 08/22/19 23:37 96 08/22/19 23:04 96 Intake and Output 08/22/19 08/23/19 08/23/19 22:59 06:59 14:59 Intake Total 225 150 Output Total 450 200 Balance -225 -50 Intake: IV 125 150 0.9 NaCl 125 150 Intake, IV Titration 100 Amount Levofloxacin 750Mg-D5w 100 Pmx 750 mg In Dextrose/ Water 1 150ml.bag @ 100 mls/hr IVPB ONCE STA Rx#: [id number] Output: Urine 450 200 Other: Voiding Method Urinal Urinal # Voids 0 Weight 82.554 kg PHYSICAL EXAMINATION: GENERAL: The patient is alert and oriented x3, not in any acute distress. Well developed, well nourished. HEENT: Pupils are round and equally reacting to light. EOMI. does have scleral icterus. No conjunctival pallor. Normocephalic, atraumatic. No pharyngeal erythema. No thyromegaly. CARDIOVASCULAR: S1 and S2 present. No murmurs, rubs, or gallops. PULMONARY: Chest is clear to auscultation, no wheezing or crackles. ABDOMEN: Soft, patient is status post paracentesis with improvement in his ascites nondistended, normoactive bowel sounds. No palpable organomegaly. MUSCULOSKELETAL: No joint swelling or deformity. EXTREMITIES: No cyanosis, clubbing, or pedal edema. NEUROLOGICAL: Gross neurological examination did not reveal any focal deficits. SKIN: No rashes. Results CBC & Chem 7: 08/23/19 04:38 08/23/19 04:38 Labs: Abnormal Lab Results - Last 24 Hours (Table) 08/22/19 08/22/19 08/22/19 Range/Units 23:32 23:32 23:32 RBC 3.69 L (4.30-5.90) m/uL Hgb 10.9 L (13.0-17.5) gm/dL Hct 33.8 L (39.0-53.0) % RDW 16.0 H (11.5-15.5) % Plt Count 119 L (150-450) k/uL INR 1.2 H (<1.2) Sodium 130 L (137-145) mmol/L Chloride 95 L (98-107) mmol/L BUN 6 L (9-20) mg/dL Creatinine (0.66-1.25) mg/dL Glucose 111 H (74-99) mg/dL POC Glucose (mg/dL) (75-99) mg/dL Calcium 8.1 L (8.4-10.2) mg/dL Total Bilirubin 2.3 H (0.2-1.3) mg/dL AST 63 H (17-59) U/L Albumin 3.0 L (3.5-5.0) g/dL Crossmatch 07/11/0208/23/19 08/23/19 Range/Units 23:32 01:35 04:38 RBC 3.29 L (4.30-5.90) m/uL Hgb 9.9 L (13.0-17.5) gm/dL Hct 30.0 L (39.0-53.0) % RDW 15.8 H (11.5-15.5) % Plt Count 110 L (150-450) k/uL INR (<1.2) Sodium (137-145) mmol/L Chloride (98-107) mmol/L BUN (9-20) mg/dL Creatinine (0.66-1.25) mg/dL Glucose (74-99) mg/dL POC Glucose (mg/dL) 105 H (75-99) mg/dL Calcium (8.4-10.2) mg/dL Total Bilirubin (0.2-1.3) mg/dL AST (17-59) U/L Albumin (3.5-5.0) g/dL Crossmatch See Detail 08/23/19 Range/Units 04:38 RBC (4.30-5.90) m/uL Hgb (13.0-17.5) gm/dL Hct (39.0-53.0) % RDW (11.5-15.5) % Plt Count (150-450) k/uL INR (<1.2) Sodium 129 L (137-145) mmol/L Chloride 97 L (98-107) mmol/L BUN 7 L (9-20) mg/dL Creatinine 0.64 L (0.66-1.25) mg/dL Glucose 110 H (74-99) mg/dL POC Glucose (mg/dL) (75-99) mg/dL Calcium 7.8 L (8.4-10.2) mg/dL Total Bilirubin (0.2-1.3) mg/dL AST (17-59) U/L Albumin (3.5-5.0) g/dL Crossmatch Thrombosis Risk Factor Assmnt - Choose All That Apply Any of the Below Risk Factors Present?: Yes Each Factor Represents 1 point: Age 41-60 years, Medical pt on bed rest, Obesity (BMI >25), Swollen legs (current) Thrombosis Risk Factor Assessment Total Risk Factor Score: 4 Thrombosis Risk Factor Assessment Level: Moderate Risk Assessment and Plan Plan: Acute blood loss anemia from acute the upper GI bleed: Probably secondary to gastritis or peptic ulcer disease from him alcoholism or variceal bleed continue with antibiotics, octreotide and Protonix. Gastroenterology will perform upper GI endoscopy tomorrow -Alcohol withdrawal for which patient is on Ativan CIWA protocol. -Hyponatremia secondary to diuretics which will be held today -Alcoholic hepatitis -Alcohol abuse patient is not willing to quit alcohol. -Hypertension - hyperlipidemia -Portal hypertension -Gastroesophageal reflux disease Have nicotine abuse: Counseling was provided
[2019-08-23] MEDS: THIAMINE 100 MG TAB PO SCH (17:53)
[2019-08-23] MEDS: OCTREOTIDE 500 MCG in SODIUM CHLORIDE 0.9% 250 ML IV STA (18:00)
[2019-08-23] MEDS ORDERED: MORPHINE SULFATE 2 MG/ML SYRINGE IVP STA (20:42)
[2019-08-23] MEDS ORDERED: FUROSEMIDE 20 MG TAB PO SCH (21:00)
[2019-08-23] MEDS: LEVOFLOXACIN 500MG-D5W PMX 500 MG in DEXTROSE/WATER 1 100ML.BAG IVPB SCH (21:30)
--- NOTE | 2019-08-23 22:43 | CONS ---
CONSULTATION DATE OF DICTATION: 08/23/2019 REASON FOR CONSULTATION: Acute upper GI bleed. HISTORY OF PRESENT ILLNESS: The patient is a 58-year-old pleasant white male with a history of alcoholic cirrhosis of the liver who was admitted to the hospital because of abdominal pain, abdominal distention and coffee-ground emesis. The patient threw up about 3 or 4 episodes of coffee-ground emesis, and prior to that he had one episode of hematemesis. He was diagnosed with alcoholic cirrhosis of the liver about 3 months ago, undergoing paracentesis every 2 to 3 weeks. Last one was done this morning; about 3.2 L of fluid was aspirated. He has a remote history of EGD in the past. No history of peptic ulcer disease. He denies any recent NSAID use. In the emergency room he was noted to have a hemoglobin of 10.9, and repeat hemoglobin was 9.9 g/dL. He denies any melena. PAST MEDICAL HISTORY: Past medical history is significant for alcoholic cirrhosis of the liver, refractory ascites, history of alcohol abuse, hypertension, hyperlipidemia, gastroesophageal reflux disease. PAST SURGICAL HISTORY: Cardiac catheterization, left ankle repair. SOCIAL HISTORY: Chronic smoker. Alcohol abuse daily. FAMILY HISTORY: Father had chronic liver disease and coronary artery disease. Mother had COPD. MEDICATIONS: Medications at home include Imdur, multivitamin, midodrine, thiamine, tramadol, Lasix, Motrin, Aldactone. ALLERGIES: PENICILLIN, SEROQUEL, DEMEROL. REVIEW OF SYSTEMS: CARDIOPULMONARY: No chest pain or shortness of breath. GENITOURINARY: No dysuria or hematuria. MUSCULOSKELETAL: Unremarkable. SKIN: Unremarkable. ENDOCRINE: Unremarkable. PSYCHIATRIC: Unremarkable. NEUROLOGY: Unremarkable. ENT/VISION: Unremarkable. CONSTITUTIONAL: No recent weight loss. No fever, chills, night sweats. PHYSICAL EXAMINATION: He appears comfortable. No apparent distress. Vital signs are stable. Blood pressure 112/75, pulse rate 92, temperature 98.3. HEENT examination unremarkable. Conjunctivae pink. Sclerae anicteric. Oral cavity no lesions. NECK: No JVD or lymph node enlargement. CHEST: Clear to auscultation. HEART: Regular rate and rhythm. ABDOMEN: Soft. Bowel sounds are positive. No organomegaly. Some free fluid noted. EXTREMITIES: No pedal edema. SKIN: No rashes. NEUROLOGIC: Alert and oriented x3. No focal deficits. LABS: Labs done at the time of admission to the hospital showed WBC was 6.6, hemoglobin 10.9, platelets 119. This morning hemoglobin is 9.9 g/dL. The PT/INR is 1.2. BUN is 6, creatinine 0.70. T-bilirubin 2.3. AST 63, ALT 15. Serum alcohol level 199. IMPRESSION: 1. Acute upper gastrointestinal bleed in this patient with history of alcoholic cirrhosis of the liver diagnosed about 2 months ago. Hemoglobin is 9.9 g/dL. No further bleeding since being in the hospital. Remote history of EGD in the past. 2. Heavy alcohol abuse. 3. Thrombocytopenia secondary to underlying alcoholic liver disease and cirrhosis of the liver. 4. Refractory ascites, status post large-volume paracentesis this morning. RECOMMENDATIONS: 1. Continue with Protonix 40 mg twice daily. 2. Continue empiric antibiotics to prevent spontaneous bacterial peritonitis. 3. CBC every 12 hours. 4. Continue with IV Sandostatin. 5. Abstinence from alcohol. 6. Will proceed with an upper endoscopy tomorrow. Discussed with the patient risks, benefits and complications of the procedure, and he is agreeable to it. Thank you for this consultation. MMODL / IJN: [id number] /
[2019-08-24 05:27] LABS: Basophils % (A) 1 %; Eosinophils # (A) 0.3 k/uL (0-0.7); Eosinophils % (A) 5 %; HCT 33.2 % (39.0-53.0); HGB 11.1 gm/dL (13.0-17.5); Lymphocytes # (A) 1.6 k/uL (1.0-4.8); Lymphocytes % (A) 27 %; MCH 31.2 pg (25.0-35.0); MCHC 33.5 g/dL (31.0-37.0); Mean Platelet Volume 8.9; Monocytes # (A) 0.7 k/uL (0-1.0); Monocytes % (A) 11 %; Neutrophils # (A) 3.2 k/uL (1.3-7.7); Neutrophils % (A) 54 %; Platelet Count 109 k/uL (150-450); RBC 3.57 m/uL (4.30-5.90); RDW 15.8 % (11.5-15.5)
[2019-08-24 05:46] LABS: African American GFR (CKD) >90 (>60 ml/min/1.73 sqM); Anion Gap 5 mmol/L; Blood Urea Nitrogen 7 mg/dL (9-20); Calcium 7.9 mg/dL (8.4-10.2); Carbon Dioxide 24 mmol/L (22-30); Chloride 99 mmol/L (98-107); Glucose 107 mg/dL (74-99); Non-African American GFR(CKD) >90 (>60 ml/min/1.73 sqM); Potassium 4.3 mmol/L (3.5-5.1); Sodium 128 mmol/L (137-145)
--- NOTE | 2019-08-24 07:27 | XR ---
EXAMINATION TYPE: XR chest 1V DATE OF EXAM: 08/24/2019 HISTORY: Shortness of breath. COMPARISON: 08/07/2019 TECHNIQUE: Single view of the chest is submitted. FINDINGS: Demonstrated are scattered senescent parenchymal change. There is no evidence for focal infiltrate. The heart is stable. Hilar and mediastinal structures are within normal limits. Degenerative changes are seen of the dorsal spine. IMPRESSION: 1. Chronic changes without evidence for acute pulmonary disease.
[2019-08-24] MEDS ORDERED: LIDOCAINE 1% INJ 10MG/ML (20 ML MDV) ONE (07:37)
[2019-08-24] MEDS ORDERED: PROPOFOL 10 MG/ML 20 ML VIAL IV ONE (07:37)
[2019-08-24] MEDS ORDERED: IV FLUID CONTINUATION 300 ML IV ONE (07:45)
--- NOTE | 2019-08-24 07:57 | P.PCN ---
Date of Procedure: 08/24/19 Procedure(s) Performed: BRIEF HISTORY: Patient is a 58-year-old, pleasant, male admitted hospital with acute upper GI bleed. History of alcohol cirrhosis of the liver with portal hypertension and ascites. His and IV Sandostatin and Protonix and is scheduled for an upper endoscopy to evaluate source of GI bleed. PROCEDURE PERFORMED: Esophagogastroduodenoscopy with variceal ligation. PREOPERATIVE DIAGNOSIS: Acute upper GI bleed. IV sedation per anesthesia. PROCEDURE: After informed consent was obtained, the patient was brought into the endoscopy unit. IV sedation was administered by Anesthesia under continuous monitoring. Initially the Olympus GIF-140 video endoscope was inserted into the mouth. Esophagus intubated without any difficulty. It was gradually advanced into the stomach and duodenum and carefully examined. The bulb and the second part of the duodenum appeared normal. The scope at this time was withdrawn to the stomach, adequately insufflated with air, and upon careful examination, mucosa of the antrum, appeared normal. There were some changes to suggest appearing mucosa in the proximal body the stomach consistent with gastropathy. No gastric varices seen. The scope was then withdrawn into the esophagus. The GE junction was located at 39 cm from the incisors. There were 2 linear distal esophageal varices noted with no stigmata of active bleed. The rest of the esophagus appeared normal. There were no erosions or ulcerations seen. At this time the scope was removed and esophageal variceal ligation equipment was introduced onto the tip of the scope and was intubated without any difficulty. It was advanced into the distal esophagus. 2 bands were deployed in the distal esophageal variceal columns. Rest of the esophagus appeared normal and the patient tolerated the procedure well. IMPRESSION: 1. Distal esophageal varices with no stigmata of bleeding status post variceal ligation as described above. 2. Mild portal hypertensive gastropathy. RECOMMENDATIONS: The findings of this examination were discussed with the patient . He will be started on clear liquid diet. Continue IV Sandostatin today. Monitor CBC on a daily basis.
[2019-08-24] MEDS: MORPHINE SULFATE 2 MG/ML SYRINGE IVP PRN ×2 (09:48→21:12)
[2019-08-24] MEDS: THIAMINE 100 MG TAB PO SCH ×2 (10:35→16:25)
[2019-08-24] MEDS: PANTOPRAZOLE 40 MG/10 ML VIAL IVP SCH ×2 (10:42→20:59)
[2019-08-24] MEDS: NICOTINE 21MG/24HR PATCH TRANSDERM SCH (10:42)
--- NOTE | 2019-08-24 11:55 | P.PN ---
Subjective Progress Note Date: 08/24/19 Principal diagnosis: Acute upper GI bleed 58-year-old white male patient of Dr. Reich, with known history of alcoholic liver disease, and daily alcohol use, portal hypertension, ascites requiring frequent paracentesis, hypertension, hyperlipidemia, current day smoker, who was discharged 2 days ago on 08/21/2019 after being hospitalized for abdominal pain secondary to abdominal distention, nausea, vomiting and pedal edema. Workup did not show any evidence of spontaneous bacterial peritonitis. Patient was treated with diuretics, improved, and was discharged home. Of note patient had his last paracentesis on 08/08/[address] Jamil with successful removal of 3.[address] raw-colored fluid. Patient present back to the emergency department on 08/22/2019 with complaints of vomiting blood. Today he was discharged home he went home and started drinking again. He denies any lightheadedness, palpitations or syncope. Despite vomiting patient admitted that she was still drinking. Blood pressure in the emergency department was as low as 84/56. Admission blood work showed hemoglobin of 10.9, platelet count is 119, white count is 6.6, sodium is 1:30, potassium 3.9, chloride is 95, CO2 is 25, BUN is 6, creatinine 0.70, AST was 63, ALT was 15, alkaline phosphatase a 79, troponin is less than 0.012, serum alcohol level was 199. Patient was started on IV fluids, and Sandostatin infusion currently running at 25 g per hour. CIWA protocol was started. Awaiting GI evaluation this morning, no further bleeding since admission to the intensive care unit, however patient does admit to being nauseous. Abdomen significantly distended but soft, and patient states he is probably due for another paracentesis. Today's hemoglobin is 9.9. Urinalysis was negative. Abdomen is soft, nontender. Mentation is appropriate, patient is awake and alert oriented 3. Appears to be in no acute distress, denies any shortness of breath, supplemental oxygen at 2 L, with a pulse ox of 95%. The patient is seen today 08/24/2019 in follow-up in the intensive care unit. He is currently awake and alert in no acute distress. Chest x-ray revealed chronic changes without evidence of acute pulmonary process. He is maintaining good O2 saturation in the 90s on room air. He did undergo EGD today and was found to have a distal esophageal varices with no stigmata of bleeding status post variceal ligation. Mild portal hypertensive gastropathy. He remains on octreotide at 25 mcg per hour. 0.9 normal saline at 25 mL per hour. Current hemoglobin 11.1. White count 6.0. Sodium 128. Potassium 4.3. Creatinine 0.60. Objective - Vital Signs Vital signs: Vital Signs Temp 98.4 F 08/24/19 00:00 Pulse 89 08/24/19 06:00 Resp 17 08/24/19 06:00 BP 104/72 08/24/19 06:00 Pulse Ox 93 L 08/24/19 06:00 Intake & Output 08/23/19 08/24/19 08/24/19 18:59 06:59 18:59 Intake Total 503.542 395 100 Output Total 700 420 Balance -196.458 -25 100 Intake: IV 275 395 100 0.9 NaCl 275 295 Levofloxacin 500Mg-D5w 100 Pmx 500 mg In Dextrose/ Water 1 100ml.bag @ 100 mls/hr IVPB Q24H DEAN Rx#: [id number] Intake, IV Titration 228.542 Amount Octreotide 500 mcg In 228.542 Sodium Chloride 0.9% 250 ml @ 25 MCG/HR 12.5 mls/ hr IV .Q20H STA Rx#: [id number] Output: Urine 700 420 Other: Voiding Method Urinal Urinal # Voids 0 0 - Exam GENERAL EXAM: Alert, pleasant, 58-year-old male patient, quite disheveled, unkept, but pleasant, in no acute distress, on room air, comfortable in no apparent distress. HEAD: Normocephalic/atraumatic. EYES: Normal reaction of pupils, equal size. Conjunctiva pink, sclera white. NOSE: Clear with pink turbinates. THROAT: No erythema or exudates. NECK: No masses, no JVD, no thyroid enlargement, no adenopathy. CHEST: No chest wall deformity. Symmetrical expansion. LUNGS: Equal air entry with no crackles, wheeze, rhonchi or dullness. CVS: Regular rate and rhythm, normal S1 and S2, no gallops, no murmurs, no rubs ABDOMEN: Soft, nontender, distended. No hepatosplenomegaly, normal bowel sounds, no guarding or rigidity. EXTREMITIES: No clubbing, no edema, no cyanosis, 2+ pulses and upper and lower extremities. MUSCULOSKELETAL: Muscle strength and tone normal. SPINE: No scoliosis or deformity SKIN: No rashes CENTRAL NERVOUS SYSTEM: No focal deficits, tone is normal in all 4 extremities. PSYCHIATRIC: Alert and oriented -3. Appropriate affect. Intact judgment and insight. - Labs CBC & Chem 7: 08/24/19 04:43 08/24/19 04:43 Labs: Abnormal Lab Results - Last 24 Hours (Table) 08/23/19 08/24/19 08/24/19 Range/Units 01:35 04:43 04:43 RBC 3.57 L (4.30-5.90) m/uL Hgb 11.1 L (13.0-17.5) gm/dL Hct 33.2 L (39.0-53.0) % RDW 15.8 H (11.5-15.5) % Plt Count 109 L (150-450) k/uL Sodium 128 L (137-145) mmol/L BUN 7 L (9-20) mg/dL Creatinine 0.60 L (0.66-1.25) mg/dL Glucose 107 H (74-99) mg/dL POC Glucose (mg/dL) 105 H (75-99) mg/dL Calcium 7.9 L (8.4-10.2) mg/dL Microbiology - Last 24 Hours (Table) 08/23/19 11:52 Gram Stain - Preliminary Ascites Fluid Body Fluid Culture - Preliminary 08/23/19 11:52 Anaerobic Culture - Preliminary Ascites Fluid Assessment and Plan Assessment: #1. Acute GI bleeding, patient presented with hematemesis. Status post EGD today that revealed distal esophageal varices with no stigmata of bleeding status post variceal ligation. Mild portal hypertensive gastropathy. Remains on octreotide. #2. Acute blood loss anemia related to the above #3. Chronic alcoholic liver disease #4. Straight of portal hypertension, ascites requiring frequent paracentesis, last paracentesis was on 08/08/2019 would removal of 3.3 L of straw-colored ascitic fluid #5. Recent admission for abdominal distention, and anasarca, patient has been diuresed, and discharged home on 08/21/2019 #6. Chronic and ongoing alcohol abuse, alcohol level was 199 on admission #7. Chronic smoker #8. Hyponatremia, likely hypervolemic #9. Hypertension #10. Hyperlipidemia Plan: The patient was seen and evaluated by Dr. Ramirez Chest x-ray revealed EGD reviewed Continue on octreotide at 25 mcg per hour Continue to monitor hemoglobin Remain in the ICU another 24 hours We will continue to follow I, the cosigning physician, performed a history & physical examination of the patient. Lungs sounds are clear. Maintaining good O2 saturations in the 90s on room air. I discussed the assessment and plan of care with my nurse practitioner, Anaya Benavidez. I attest to the above note as dictated by her.
[2019-08-24] MEDS: LORazepam 2 MG/ML INJ IV PRN ×2 (13:05→21:14)
[2019-08-24] MEDS: OCTREOTIDE 500 MCG in SODIUM CHLORIDE 0.9% 250 ML IV SCH (13:05)
--- NOTE | 2019-08-24 14:07 | P.PN ---
Subjective Patient is a very pleasant 58-year-old male came in with the hematemesis. Patient was discharged couple days ago from my service after he was treated for abdominal discomfort and patient insisted on going home and getting outpatient paracentesis. Patient went home and started drinking again. Patient to started having hematemesis yesterday came back to the hospital. Patient does have history of cirrhosis portal hypertension. Patient undergoes frequent paracentesis. Patient underwent paracentesis today with new mole of around 2.3 L patient is presently not sure tried patient is bit hyponatremic because of which I'm holding of diuretics. Patient was started on octreotide and antibiotics patient is ALLERGIC to Rocephin because of which patient was started on levofloxacin and this is for possible variceal bleed rather than spontaneous back hepatitis patient doesn't have any evidence of SBP. 08/24/2019 Patient underwent EGD and had clipping of distal esophageal varices. Patient can he is to be on the octreotide patient had portal hypertensive gastropathy as well. Patient presently is not having any bleed patient is now willing to quit drinking. We'll commuter hold off on the diuretics as his blood pressure can use to live be low and serum sodium continues to be low. Patient is complaining of some abdominal pain along with all call withdrawal patient is having withdrawals at this time. Constitutional: Denied any fatigue denied any fever. Cardio vascular: denied any chest pain, palpitations Gastrointestinal as mentioned in the interval history Pulmonary: Denied any shortness of breath cough Neurologic denied any new focal deficits All inpatient medications were reviewed and appropriate changes in these medications as dictated in the interval history and assessment and plan. Objective - Vital Signs Vital signs: Vital Signs Temp 98.3 F 08/24/19 12:00 Pulse 94 08/24/19 13:00 Resp 14 08/24/19 13:00 BP 90/68 08/24/19 13:00 Pulse Ox 95 08/24/19 13:00 Intake & Output 08/23/19 08/24/19 08/24/19 18:59 06:59 18:59 Intake Total 503.542 395 362.5 Output Total 700 420 Balance -196.458 -25 362.5 Intake: IV 275 395 362.5 0.9 NaCl 275 295 175 Levofloxacin 500Mg-D5w 100 Pmx 500 mg In Dextrose/ Water 1 100ml.bag @ 100 mls/hr IVPB Q24H DEAN Rx#: [id number] Octreotide 500 mcg In 87.5 Sodium Chloride 0.9% 250 ml @ 25 MCG/HR 12.5 mls/ hr IV .Q20H DEAN Rx#: [id number] Intake, IV Titration 228.542 Amount Octreotide 500 mcg In 228.542 Sodium Chloride 0.9% 250 ml @ 25 MCG/HR 12.5 mls/ hr IV .Q20H STA Rx#: [id number] Output: Urine 700 420 Other: Voiding Method Urinal Urinal Urinal # Voids 0 0 # Emeses 2 - Exam PHYSICAL EXAMINATION: GENERAL: The patient is alert and oriented x3, not in any acute distress. Well developed, well nourished. HEENT: Pupils are round and equally reacting to light. EOMI. does have scleral icterus. No conjunctival pallor. Normocephalic, atraumatic. No pharyngeal erythema. No thyromegaly. CARDIOVASCULAR: S1 and S2 present. No murmurs, rubs, or gallops. PULMONARY: Chest is clear to auscultation, no wheezing or crackles. ABDOMEN: Soft, patient is status post paracentesis with improvement in his ascites nondistended, normoactive bowel sounds. No palpable organomegaly. MUSCULOSKELETAL: No joint swelling or deformity. EXTREMITIES: No cyanosis, clubbing, or pedal edema. NEUROLOGICAL: Gross neurological examination did not reveal any focal deficits. SKIN: No rashes. - Labs CBC & Chem 7: 08/24/19 04:43 08/24/19 04:43 Labs: Abnormal Lab Results - Last 24 Hours (Table) 08/23/19 08/24/19 08/24/19 Range/Units 01:35 04:43 04:43 RBC 3.57 L (4.30-5.90) m/uL Hgb 11.1 L (13.0-17.5) gm/dL Hct 33.2 L (39.0-53.0) % RDW 15.8 H (11.5-15.5) % Plt Count 109 L (150-450) k/uL Sodium 128 L (137-145) mmol/L BUN 7 L (9-20) mg/dL Creatinine 0.60 L (0.66-1.25) mg/dL Glucose 107 H (74-99) mg/dL POC Glucose (mg/dL) 105 H (75-99) mg/dL Calcium 7.9 L (8.4-10.2) mg/dL Microbiology - Last 24 Hours (Table) 08/23/19 11:52 Gram Stain - Preliminary Ascites Fluid Body Fluid Culture - Preliminary 08/23/19 11:52 Anaerobic Culture - Preliminary Ascites Fluid Assessment and Plan Plan: Acute blood loss anemia from acute the upper GI bleed: Patient had variceal bleed and patient underwent clipping of the valve disease. Patient remains on octreotide. Does have portal hypertensive gastropathy -Alcohol withdrawal for which patient is on Ativan CIWA protocol. She is having withdrawals -Hyponatremia secondary to diuretics which will be held today, patient is hypotensive as well. -Alcoholic hepatitis -Alcohol abuse patient is now willing to quit alcohol after seeing so much blood. Hemoglobin is 11.1 -Hypertension - hyperlipidemia -Portal hypertension -Gastroesophageal reflux disease Have nicotine abuse: Counseling was provided
[2019-08-24] MEDS: LEVOFLOXACIN 500MG-D5W PMX 500 MG in DEXTROSE/WATER 1 100ML.BAG IVPB SCH (20:59)
[2019-08-25] MEDS: MORPHINE SULFATE 2 MG/ML SYRINGE IVP PRN ×4 (03:43→22:39)
[2019-08-25] MEDS: LORazepam 2 MG/ML INJ IV PRN (03:48)
[2019-08-25 05:01] LABS: African American GFR (CKD) >90 (>60 ml/min/1.73 sqM); Anion Gap 4 mmol/L; Blood Urea Nitrogen 9 mg/dL (9-20); Calcium 7.9 mg/dL (8.4-10.2); Carbon Dioxide 23 mmol/L (22-30); Chloride 100 mmol/L (98-107); Glucose 136 mg/dL (74-99); Non-African American GFR(CKD) >90 (>60 ml/min/1.73 sqM); Potassium 4.4 mmol/L (3.5-5.1); Sodium 127 mmol/L (137-145)
[2019-08-25 05:34] LABS: Anisocytosis Slight; Basophils # (A) 0.1 k/uL (0-0.2); Basophils % (A) 1 %; Eosinophils # (A) 0.4 k/uL (0-0.7); Eosinophils % (A) 6 %; HCT 33.3 % (39.0-53.0); HGB 11.2 gm/dL (13.0-17.5); Lymphocytes # (A) 1.3 k/uL (1.0-4.8); Lymphocytes % (A) 19 %; MCH 31.7 pg (25.0-35.0); MCHC 33.6 g/dL (31.0-37.0); MCV 94.3 fL (80.0-100.0); Mean Platelet Volume 9.5; Monocytes # (A) 0.6 k/uL (0-1.0); Monocytes % (A) 9 %; Neutrophils # (A) 4.4 k/uL (1.3-7.7); Neutrophils % (A) 63 %; Platelet Count 102 k/uL (150-450); RBC 3.53 m/uL (4.30-5.90); RDW 16.2 % (11.5-15.5); WBC 6.9 k/uL (3.8-10.6)
--- NOTE | 2019-08-25 09:17 | PN ---
PROGRESS NOTE DATE OF SERVICE: 08/25/2019 Patient is a 58-year-old pleasant white male admitted to the hospital with acute upper GI bleed. History of alcoholic cirrhosis of the liver. He had an EGD done yesterday that showed small distal esophageal varices for which he underwent variceal ligation. There was mild portal hypertensive gastropathy noted. He is on IV Sandostatin drip. Currently doing well. No further episodes of bleeding. He is complaining of some abdominal distention, abdominal pain. He had paracentesis done 2 days ago and 3.2 L of fluid was removed. PHYSICAL EXAMINATION: VITAL SIGNS: Blood pressure 187/64, pulse rate 83, temperature 96. HEENT: Examination unremarkable. Conjunctivae pink. Sclerae anicteric. Oral cavity no lesions. NECK: No JVD. No lymph node enlargement. CHEST: Clear to auscultation. HEART: Regular rate and rhythm. ABDOMEN: Soft, slightly distended but was benign. EXTREMITIES: No pedal edema. NEURO: He is alert and oriented x3. No focal deficits. LABS: From today WBC 6.9, hemoglobin 11.2 platelets 102, basic metabolic panel is within normal limits. Sodium is 127. IMPRESSION: 1. Acute upper gastrointestinal bleed status post EGD yesterday that showed nonbleeding distal esophageal varices that were ligated and portal hypertensive gastropathy. Hemoglobin stable at 11.2. No active bleeding. 2. Alcoholic cirrhosis of the liver. 3. Hyponatremia. 4. Ascites. RECOMMENDATIONS: 1. Advance diet as tolerated. 2. He can be transferred to the floor. 3. Restart diuretics. 4. Discontinue Sandostatin. 5. Continue Protonix 40 mg daily. 6. We will follow with you closely. Thank you for this consultation. MMODL / IJN: [id number] /
[2019-08-25] MEDS: THIAMINE 100 MG TAB PO SCH ×2 (09:23→16:59)
[2019-08-25] MEDS: PANTOPRAZOLE 40 MG/10 ML VIAL IVP SCH ×2 (09:23→20:46)
[2019-08-25] MEDS: NICOTINE 21MG/24HR PATCH TRANSDERM SCH (09:24)
--- NOTE | 2019-08-25 11:25 | P.PN ---
Subjective Progress Note Date: 08/25/19 Principal diagnosis: Acute upper GI bleed 58-year-old white male patient of Dr. Reich, with known history of alcoholic liver disease, and daily alcohol use, portal hypertension, ascites requiring frequent paracentesis, hypertension, hyperlipidemia, current day smoker, who was discharged 2 days ago on 08/21/2019 after being hospitalized for abdominal pain secondary to abdominal distention, nausea, vomiting and pedal edema. Workup did not show any evidence of spontaneous bacterial peritonitis. Patient was treated with diuretics, improved, and was discharged home. Of note patient had his last paracentesis on 08/08/[address] Jamil with successful removal of 3.[address] raw-colored fluid. Patient present back to the emergency department on 08/22/2019 with complaints of vomiting blood. Today he was discharged home he went home and started drinking again. He denies any lightheadedness, palpitations or syncope. Despite vomiting patient admitted that she was still drinking. Blood pressure in the emergency department was as low as 84/56. Admission blood work showed hemoglobin of 10.9, platelet count is 119, white count is 6.6, sodium is 1:30, potassium 3.9, chloride is 95, CO2 is 25, BUN is 6, creatinine 0.70, AST was 63, ALT was 15, alkaline phosphatase a 79, troponin is less than 0.012, serum alcohol level was 199. Patient was started on IV fluids, and Sandostatin infusion currently running at 25 g per hour. CIWA protocol was started. Awaiting GI evaluation this morning, no further bleeding since admission to the intensive care unit, however patient does admit to being nauseous. Abdomen significantly distended but soft, and patient states he is probably due for another paracentesis. Today's hemoglobin is 9.9. Urinalysis was negative. Abdomen is soft, nontender. Mentation is appropriate, patient is awake and alert oriented 3. Appears to be in no acute distress, denies any shortness of breath, supplemental oxygen at 2 L, with a pulse ox of 95%. The patient is seen today 08/24/2019 in follow-up in the intensive care unit. He is currently awake and alert in no acute distress. Chest x-ray revealed chronic changes without evidence of acute pulmonary process. He is maintaining good O2 saturation in the 90s on room air. He did undergo EGD today and was found to have a distal esophageal varices with no stigmata of bleeding status post variceal ligation. Mild portal hypertensive gastropathy. He remains on octreotide at 25 mcg per hour. 0.9 normal saline at 25 mL per hour. Current hemoglobin 11.1. White count 6.0. Sodium 128. Potassium 4.3. Creatinine 0.60. The patient is seen today 08/25/2019 in follow-up in the intensive care unit. He is currently sitting up in a chair at the bedside. Awake and alert in no acu te distress. No further bleeding noted. He is maintaining O2 saturations in the 90s on 3 L/m per nasal cannula.. He's been afebrile. Mean arterial pressure in the 70s. 0.9 normal saline at KVO. Off octreotide. White count 6.9. Hemoglobin 11.2. Platelets 102. Sodium 127. Creatinine 1.59. He remains in the CIWA protocol. NicoDerm patch in place. Remains on IV Protonix. Objective - Vital Signs Vital signs: Vital Signs Temp 96.3 F L 08/25/19 08:00 Pulse 83 08/25/19 08:00 Resp 13 08/25/19 08:00 BP 87/64 08/25/19 08:00 Pulse Ox 92 L 08/25/19 08:00 Intake & Output 08/24/19 08/25/19 08/25/19 18:59 06:59 18:59 Intake Total 550.0 550.0 475.0 Output Total 175 220 0 Balance 375.0 330.0 475.0 Weight 80 kg Intake: IV 550.0 550.0 75.0 0.9 NaCl 300 300 50 Levofloxacin 500Mg-D5w 100 Pmx 500 mg In Dextrose/ Water 1 100ml.bag @ 100 mls/hr IVPB Q24H [facility] Rx#: [id number] Octreotide 500 mcg In 150.0 150.0 25.0 Sodium Chloride 0.9% 250 ml @ 25 MCG/HR 12.5 mls/ hr IV .Q20H DEAN Rx#: [id number] Oral 400 Output: Urine 175 220 0 Other: Voiding Method Urinal Urinal Urinal # Voids 1 1 # Emeses 2 - Exam GENERAL EXAM: Alert, pleasant, 58-year-old male patient, quite disheveled, unkept, but pleasant, in no acute distress, on 3 L nasal cannula, comfortable in no apparent distress. HEAD: Normocephalic/atraumatic. EYES: Normal reaction of pupils, equal size. Conjunctiva pink, sclera white. NOSE: Clear with pink turbinates. THROAT: No erythema or exudates. NECK: No masses, no JVD, no thyroid enlargement, no adenopathy. CHEST: No chest wall deformity. Symmetrical expansion. LUNGS: Equal air entry with no crackles, wheeze, rhonchi or dullness. CVS: Regular rate and rhythm, normal S1 and S2, no gallops, no murmurs, no rubs ABDOMEN: Soft, nontender, distended. No hepatosplenomegaly, normal bowel sounds, no guarding or rigidity. EXTREMITIES: No clubbing, no edema, no cyanosis, 2+ pulses and upper and lower extremities. MUSCULOSKELETAL: Muscle strength and tone normal. SPINE: No scoliosis or deformity SKIN: No rashes CENTRAL NERVOUS SYSTEM: No focal deficits, tone is normal in all 4 extremities. PSYCHIATRIC: Alert and oriented -3. Appropriate affect. Intact judgment and insight. - Labs CBC & Chem 7: 08/25/19 04:23 08/25/19 04:23 Labs: Abnormal Lab Results - Last 24 Hours (Table) 08/25/19 08/25/19 Range/Units 04:23 04:23 RBC 3.53 L (4.30-5.90) m/uL Hgb 11.2 L (13.0-17.5) gm/dL Hct 33.3 L (39.0-53.0) % RDW 16.2 H (11.5-15.5) % Plt Count 102 L (150-450) k/uL Sodium 127 L (137-145) mmol/L Creatinine 0.59 L (0.66-1.25) mg/dL Glucose 136 H (74-99) mg/dL Calcium 7.9 L (8.4-10.2) mg/dL Microbiology - Last 24 Hours (Table) 08/23/19 11:52 Gram Stain - Preliminary Ascites Fluid Body Fluid Culture - Preliminary Assessment and Plan Assessment: #1. Acute GI bleeding, patient presented with hematemesis. Status post EGD today that revealed distal esophageal varices with no stigmata of bleeding status post variceal ligation. Mild portal hypertensive gastropathy. Off octreotide. #2. Acute blood loss anemia related to the above, stable current hemoglobin 11.2 #3. Chronic alcoholic liver disease #4. Straight of portal hypertension, ascites requiring frequent paracentesis, last paracentesis was on 08/08/2019 would removal of 3.3 L of straw-colored ascitic fluid #5. Recent admission for abdominal distention, and anasarca, patient has been diuresed, and discharged home on 08/21/2019 #6. Chronic and ongoing alcohol abuse, alcohol level was 199 on admission #7. Chronic smoker #8. Hyponatremia, likely hypervolemic #9. Hypertension #10. Hyperlipidemia Plan: The patient was seen and evaluated by Dr. Ramirez He is cleared for transfer out of the ICU today Continue to monitor hemoglobin Continue Protonix Educated regarding the importance of complete alcohol and smoking cessation NicoDerm patch in place We will continue to follow I, the cosigning physician, performed a history & physical examination of the patient. Lungs sounds are clear. Maintaining good O2 saturations in the 90s on 3 L/m per nasal cannula. I discussed the assessment and plan of care with my nurse practitioner, Anaya Benavidez. I attest to the above note as dictated by her.
[2019-08-25] MEDS: FUROSEMIDE 40 MG TAB PO SCH (12:57)
[2019-08-25] MEDS: ONDANSETRON 4 MG/2 ML VIAL IVP PRN ×2 (12:59→18:44)
--- NOTE | 2019-08-25 13:17 | P.PN ---
Subjective Patient is a very pleasant 58-year-old male came in with the hematemesis. Patient was discharged couple days ago from my service after he was treated for abdominal discomfort and patient insisted on going home and getting outpatient paracentesis. Patient went home and started drinking again. Patient to started having hematemesis yesterday came back to the hospital. Patient does have history of cirrhosis portal hypertension. Patient undergoes frequent paracentesis. Patient underwent paracentesis today with new mole of around 2.3 L patient is presently not sure tried patient is bit hyponatremic because of which I'm holding of diuretics. Patient was started on octreotide and antibiotics patient is ALLERGIC to Rocephin because of which patient was started on levofloxacin and this is for possible variceal bleed rather than spontaneous back hepatitis patient doesn't have any evidence of SBP. 08/24/2019 Patient underwent EGD and had clipping of distal esophageal varices. Patient can he is to be on the octreotide patient had portal hypertensive gastropathy as well. Patient presently is not having any bleed patient is now willing to quit drinking. We'll commuter hold off on the diuretics as his blood pressure can use to live be low and serum sodium continues to be low. Patient is complaining of some abdominal pain along with all call withdrawal patient is having withdrawals at this time. 08/25/2019 Patient is still having some withdrawal symptoms complaining of abdominal discomfort. Patient's octreotide will be discontinued patient sodium continue to go down probably hypervolemic hyponatremia patient will be started back on Lasix and Aldactone. We'll recheck developed lites. Patient blood pressure is a in 90s to 100 systolic. Patient already will be transferred to ICU Constitutional: Denied any fatigue denied any fever. Cardio vascular: denied any chest pain, palpitations Gastrointestinal as mentioned in the interval history Pulmonary: Denied any shortness of breath cough Neurologic denied any new focal deficits All inpatient medications were reviewed and appropriate changes in these medications as dictated in the interval history and assessment and plan. Objective - Vital Signs Vital signs: Vital Signs Temp 96.3 F L 08/25/19 08:00 Pulse 83 08/25/19 08:00 Resp 13 08/25/19 08:00 BP 87/64 08/25/19 08:00 Pulse Ox 92 L 08/25/19 08:00 Intake & Output 08/24/19 08/25/19 08/25/19 18:59 06:59 18:59 Intake Total 550.0 550.0 475.0 Output Total 175 220 0 Balance 375.0 330.0 475.0 Weight 80 kg Intake: IV 550.0 550.0 75.0 0.9 NaCl 300 300 50 Levofloxacin 500Mg-D5w 100 Pmx 500 mg In Dextrose/ Water 1 100ml.bag @ 100 mls/hr IVPB Q24H [facility] Rx#: [id number] Octreotide 500 mcg In 150.0 150.0 25.0 Sodium Chloride 0.9% 250 ml @ 25 MCG/HR 12.5 mls/ hr IV .Q20H [facility] Rx#: [id number] Oral 400 Output: Urine 175 220 0 Other: Voiding Method Urinal Urinal Urinal # Voids 1 1 # [place] 2 - Exam PHYSICAL EXAMINATION: GENERAL: The patient is alert and oriented x3, not in any acute distress. Well developed, well nourished. HEENT: Pupils are round and equally reacting to light. EOMI. does have scleral icterus. No conjunctival pallor. Normocephalic, atraumatic. No pharyngeal erythema. No thyromegaly. CARDIOVASCULAR: S1 and S2 present. No murmurs, rubs, or gallops. PULMONARY: Chest is clear to auscultation, no wheezing or crackles. ABDOMEN: Soft, patient is status post paracentesis with improvement in his ascites nondistended, normoactive bowel sounds. No palpable organomegaly. MUSCULOSKELETAL: No joint swelling or deformity. EXTREMITIES: No cyanosis, clubbing, or pedal edema. NEUROLOGICAL: Gross neurological examination did not reveal any focal deficits. SKIN: No rashes. - Labs CBC & Chem 7: 08/25/19 04:23 08/25/19 04:23 Labs: Abnormal Lab Results - Last 24 Hours (Table) 08/25/19 08/25/19 Range/Units 04:23 04:23 RBC 3.53 L (4.30-5.90) m/uL Hgb 11.2 L (13.0-17.5) gm/dL Hct 33.3 L (39.0-53.0) % RDW 16.2 H (11.5-15.5) % Plt Count 102 L (150-450) k/uL Sodium 127 L (137-145) mmol/L Creatinine 0.59 L (0.66-1.25) mg/dL Glucose 136 H (74-99) mg/dL Calcium 7.9 L (8.4-10.2) mg/dL Microbiology - Last 24 Hours (Table) 08/23/19 11:52 Gram Stain - Preliminary Ascites Fluid Body Fluid Culture - Preliminary Assessment and Plan Plan: Acute blood loss anemia from acute the upper GI bleed: Patient had variceal bleed and patient underwent clipping of the valve disease. Patient remains on octreotide. Does have portal hypertensive gastropathy -Alcohol withdrawal for which patient is on Ativan CIWA protocol. She is having withdrawals -Hyponatremia probably hypervolemic hyponatremia patient was started on Lasix, Aldactone today slowly if blood pressure can tolerate -Alcoholic hepatitis -Alcohol abuse patient is now willing to quit alcohol after seeing so much blood. Hemoglobin is 11.1 -Hypertension patient is actually hypotensive and patient was started on meropenem patient probably doesn't have essential hypertension - hyperlipidemia -Portal hypertension -Gastroesophageal reflux disease Have nicotine abuse: Counseling was provided
[2019-08-25] MEDS: SPIRONOLACTONE 25 MG TAB PO SCH (16:59)
[2019-08-25] MEDS: MIDODRINE 5 MG TAB PO SCH ×2 (16:59→20:55)
[2019-08-25] MEDS: LEVOFLOXACIN 500MG-D5W PMX 500 MG in DEXTROSE/WATER 1 100ML.BAG IVPB SCH (20:45)
[2019-08-26] MEDS: MORPHINE SULFATE 2 MG/ML SYRINGE IVP PRN ×4 (02:32→19:46)
[2019-08-26 04:43] LABS: Anisocytosis Slight; Basophils # (A) 0.1 k/uL (0-0.2); Basophils % (A) 1 %; Eosinophils # (A) 0.6 k/uL (0-0.7); Eosinophils % (A) 7 %; HCT 34.6 % (39.0-53.0); HGB 11.5 gm/dL (13.0-17.5); Lymphocytes % (A) 22 %; MCH 31.2 pg (25.0-35.0); MCHC 33.2 g/dL (31.0-37.0); Mean Platelet Volume 8.8; Monocytes # (A) 0.9 k/uL (0-1.0); Monocytes % (A) 10 %; Neutrophils # (A) 5.3 k/uL (1.3-7.7); Neutrophils % (A) 59 %; Platelet Count 130 k/uL (150-450); RBC 3.69 m/uL (4.30-5.90); RDW 16.4 % (11.5-15.5)
[2019-08-26 05:05] LABS: ALT 11 U/L (4-49); AST 40 U/L (17-59); African American GFR (CKD) >90 (>60 ml/min/1.73 sqM); Albumin 2.2 g/dL (3.5-5.0); Alkaline Phosphatase 65 U/L (38-126); Anion Gap 5 mmol/L; Blood Urea Nitrogen 9 mg/dL (9-20); Calcium 7.7 mg/dL (8.4-10.2); Carbon Dioxide 24 mmol/L (22-30); Chloride 99 mmol/L (98-107); Glucose 114 mg/dL (74-99); Non-African American GFR(CKD) >90 (>60 ml/min/1.73 sqM); Potassium 4.3 mmol/L (3.5-5.1); Sodium 128 mmol/L (137-145); Total Bilirubin 1.8 mg/dL (0.2-1.3); Total Protein 5.5 g/dL (6.3-8.2)
[2019-08-26] MEDS: THIAMINE 100 MG TAB PO SCH ×2 (06:49→17:51)
[2019-08-26] MEDS ORDERED: SODIUM CHLORIDE 0.9% 1,000 ML IV SCH (08:45)
[2019-08-26] MEDS ORDERED: THIAMINE 100 MG TAB PO SCH (09:00)
--- NOTE | 2019-08-26 09:08 | XR ---
EXAMINATION TYPE: XR abdomen 2V DATE OF EXAM: 08/26/2019 COMPARISON: 08/07/2019 HISTORY: Pain TECHNIQUE: Single supine KUB image of the abdomen is obtained FINDINGS: Small bowel demonstrates no evidence for dilatation or air fluid levels. Gas and fecal material is seen in non-distended colon. No convincing evidence for pneumoperitoneum. No unusual calcifications. The lung bases are clear. The osseous structures are intact. IMPRESSION: 1. Overall nonobstructive bowel gas pattern.
[2019-08-26] MEDS: NICOTINE 21MG/24HR PATCH TRANSDERM SCH (09:12)
[2019-08-26] MEDS: PANTOPRAZOLE 40 MG/10 ML VIAL IVP SCH (09:13)
[2019-08-26] MEDS: ONDANSETRON 4 MG/2 ML VIAL IVP PRN (09:13)
[2019-08-26] MEDS: FUROSEMIDE 40 MG TAB PO SCH ×2 (10:07→17:51)
[2019-08-26] MEDS: SPIRONOLACTONE 25 MG TAB PO SCH (10:07)
[2019-08-26] MEDS: MIDODRINE 5 MG TAB PO SCH ×3 (10:07→23:37)
--- NOTE | 2019-08-26 12:53 | P.PN ---
Subjective Progress Note Date: 08/26/19 This is a 58-year-old patient, alcoholic with alcoholic liver disease and portal hypertension and ascites but required multiple paracenteses in the past for recurrent abdominal distention and addition to hypertension and hyperlipidemia and history of smoking. The patient came in for an acute upper GI bleeding. The patient underwent EGD and he was found to have a distal esophageal varices without any stigmata of acute bleeding. There was mild portal hypertensive gastropathy. He was given IV culture otitis was ultimately discontinued. Currently is about 2 by nasal cannula. IV fluids are hep-locked. Hemoglobin is at 11.5. During the course of this hospitalization, the patient had another large volume paracenteses were a total of 3 L of fluid was drained from the patient's abdominal cavity. No complications were encountered. Earlier this morning, the patient bout of emesis along with some nausea. No emesis was not bloody and there was no coffee-ground material. Noted of the abdominal distention. No abdominal pain. The patient has no signs of any delirium tremens. In terms of the blood work, hemoglobin is 11.5 which is stable compared to yesterday. Platelet count is at 1:30 which is stable compared to yesterday. Sodium is at 128 with a BUN of 9 and creatinine of 0.8. The patient has an ammonia level of 47. Albumin is at 2.2. Objective - Vital Signs Vital signs: Vital Signs Temp 97.9 F 08/26/19 08:00 Pulse 84 08/26/19 10:00 Resp 12 08/26/19 10:00 BP 91/64 08/26/19 10:00 Pulse Ox 92 L 08/26/19 08:00 Intake & Output 08/25/19 08/26/19 08/26/19 18:59 06:59 18:59 Intake Total 475.0 400 100 Output Total 250 440 120 Balance 225.0 -40 -20 Intake: IV 75.0 100 0.9 NaCl 50 0 Levofloxacin 500Mg-D5w 100 Pmx 500 mg In Dextrose/ Water 1 100ml.bag @ 100 mls/hr IVPB Q24H [facility] Rx#: [id number] Octreotide 500 mcg In 25.0 0 Sodium Chloride 0.9% 250 ml @ 25 MCG/HR 12.5 mls/ hr IV .Q20H [facility] Rx#: [id number] Intake, IV Titration 100 Amount Sodium Chloride 0.9% 1, 100 000 ml @ 50 mls/hr IV . Q20H [facility] Rx#:[id number] Oral 400 300 Output: Urine 250 440 100 Urine/Stool Mix 20 Other: Voiding Method Urinal Urinal Urinal # Voids 1 1 - Exam GENERAL EXAM: Alert, pleasant, 58-year-old male patient, quite disheveled, unkept, but pleasant, in no acute distress, on 3 L nasal cannula, comfortable in no apparent distress. HEAD: Normocephalic/atraumatic. EYES: Normal reaction of pupils, equal size. Conjunctiva pink, sclera white. NOSE: Clear with pink turbinates. THROAT: No erythema or exudates. NECK: No masses, no JVD, no thyroid enlargement, no adenopathy. CHEST: No chest wall deformity. Symmetrical expansion. LUNGS: Equal air entry with no crackles, wheeze, rhonchi or dullness. CVS: Regular rate and rhythm, normal S1 and S2, no gallops, no murmurs, no rubs ABDOMEN: Soft, nontender, distended. No hepatosplenomegaly, normal bowel sounds, no guarding or rigidity. There is some recurrent ascites a cannulating in the abdominal cavity. EXTREMITIES: No clubbing, no edema, no cyanosis, 2+ pulses and upper and lower extremities. MUSCULOSKELETAL: Muscle strength and tone normal. SPINE: No scoliosis or deformity SKIN: No rashes CENTRAL NERVOUS SYSTEM: No focal deficits, tone is normal in all 4 extremities. PSYCHIATRIC: Alert and oriented -3. Appropriate affect. Intact judgment and insight. - Labs CBC & Chem 7: 08/26/19 03:51 08/26/19 03:51 Labs: Abnormal Lab Results - Last 24 Hours (Table) 08/26/19 08/26/19 08/26/19 Range/Units 03:51 03:51 11:52 RBC 3.69 L (4.30-5.90) m/uL Hgb 11.5 L (13.0-17.5) gm/dL Hct 34.6 L (39.0-53.0) % RDW 16.4 H (11.5-15.5) % Plt Count 130 L (150-450) k/uL Sodium 128 L (137-145) mmol/L Glucose 114 H (74-99) mg/dL Calcium 7.7 L (8.4-10.2) mg/dL Total Bilirubin 1.8 H (0.2-1.3) mg/dL Ammonia 47 H (<30) umol/L Total Protein 5.5 L (6.3-8.2) g/dL Albumin 2.2 L (3.5-5.0) g/dL Microbiology - Last 24 Hours (Table) 08/23/19 11:52 Anaerobic Culture - Preliminary Ascites Fluid 08/23/19 11:52 Gram Stain - Preliminary Ascites Fluid Body Fluid Culture - Preliminary Assessment and Plan Plan: #1. Acute GI bleeding, patient presented with hematemesis. Status post EGD tod ay that revealed distal esophageal varices with no stigmata of bleeding status post variceal ligation. Mild portal hypertensive gastropathy. Off octreotide. The patient had some emesis this morning along with nausea. If that's of the abdomen will be done to rule out any possibility of ileus/bowel obstruction. There is some recurrence of his abdominal ascites. #2. Acute blood loss anemia related to the above, stable current hemoglobin 11.5 #3. Chronic alcoholic liver disease #4. Straight of portal hypertension, ascites requiring frequent paracentesis, last paracentesis was on 08/08/2019 would removal of 3.3 L of straw-colored ascitic fluid. The fluid cultures been negative thus far. #5. Recent admission for abdominal distention, and anasarca, patient has been diuresed, and discharged home on 08/21/2019 #6. Chronic and ongoing alcohol abuse, alcohol level was 199 on admission #7. Chronic smoker #8. Hyponatremia, likely hypervolemic, sodium is at 128. #9. Hypertension #10. Hyperlipidemia Plan Add Zofran for nausea Monitor hemoglobin Obtain a fasting with the abdomen Watch for any signs of delirium tremens Continue Aldactone and Lasix Continue supportive care Long-term prognosis poor baseline above-mentioned comorbidities. We'll continue to follow.
--- NOTE | 2019-08-26 12:56 | P.PN ---
Subjective Patient is a very pleasant 58-year-old male came in with the hematemesis. Patient was discharged couple days ago from my service after he was treated for abdominal discomfort and patient insisted on going home and getting outpatient paracentesis. Patient went home and started drinking again. Patient to started having hematemesis yesterday came back to the hospital. Patient does have history of cirrhosis portal hypertension. Patient undergoes frequent paracentesis. Patient underwent paracentesis today with new mole of around 2.3 L patient is presently not sure tried patient is bit hyponatremic because of which I'm holding of diuretics. Patient was started on octreotide and antibiotics patient is ALLERGIC to Rocephin because of which patient was started on levofloxacin and this is for possible variceal bleed rather than spontaneous back hepatitis patient doesn't have any evidence of SBP. 08/24/2019 Patient underwent EGD and had clipping of distal esophageal varices. Patient can he is to be on the octreotide patient had portal hypertensive gastropathy as well. Patient presently is not having any bleed patient is now willing to quit drinking. We'll commuter hold off on the diuretics as his blood pressure can use to live be low and serum sodium continues to be low. Patient is complaining of some abdominal pain along with all call withdrawal patient is having withdrawals at this time. 08/25/2019 Patient is still having some withdrawal symptoms complaining of abdominal discomfort. Patient's octreotide will be discontinued patient sodium continue to go down probably hypervolemic hyponatremia patient will be started back on Lasix and Aldactone. We'll recheck developed lites. Patient blood pressure is a in 90s to 100 systolic. Patient already will be transferred to ICU 08/26/2019 Patient's bit lethargic today. Does have abdominal distention mostly tympanic was constipated. Patient was started on lactulose to Zoloft and ammonia level. IV fluids will be discontinued continue with diuretics Constitutional: Denied any fatigue denied any fever. Cardio vascular: denied any chest pain, palpitations Gastrointestinal as mentioned in the interval history Pulmonary: Denied any shortness of breath cough Neurologic denied any new focal deficits All inpatient medications were reviewed and appropriate changes in these medications as dictated in the interval history and assessment and plan. Objective - Vital Signs Vital signs: Vital Signs Temp 97.9 F 08/26/19 08:00 Pulse 84 08/26/19 10:00 Resp 12 08/26/19 10:00 BP 91/64 08/26/19 10:00 Pulse Ox 92 L 08/26/19 08:00 Intake & Output 08/25/19 08/26/19 08/26/19 18:59 06:59 18:59 Intake Total 475.0 400 100 Output Total 250 440 120 Balance 225.0 -40 -20 Intake: IV 75.0 100 0.9 NaCl 50 0 Levofloxacin 500Mg-D5w 100 Pmx 500 mg In Dextrose/ Water 1 100ml.bag @ 100 mls/hr IVPB Q24H [facility] Rx#: [id number] Octreotide 500 mcg In 25.0 0 Sodium Chloride 0.9% 250 ml @ 25 MCG/HR 12.5 mls/ hr IV .Q20H [facility] Rx#: [id number] Intake, IV Titration 100 Amount Sodium Chloride 0.9% 1, 100 000 ml @ 50 mls/hr IV . Q20H [facility] Rx#:[id number] Oral 400 300 Output: Urine 250 440 100 Urine/Stool Mix 20 Other: Voiding Method Urinal Urinal Urinal # Voids 1 1 - Exam PHYSICAL EXAMINATION: GENERAL: The patient is alert and oriented x3, not in any acute distress. Well developed, well nourished. HEENT: Pupils are round and equally reacting to light. EOMI. does have scleral icterus. No conjunctival pallor. Normocephalic, atraumatic. No pharyngeal erythema. No thyromegaly. CARDIOVASCULAR: S1 and S2 present. No murmurs, rubs, or gallops. PULMONARY: Chest is clear to auscultation, no wheezing or crackles. ABDOMEN: Soft, patient is status post paracentesis with improvement in his ascites nondistended, normoactive bowel sounds. No palpable organomegaly. MUSCULOSKELETAL: No joint swelling or deformity. EXTREMITIES: No cyanosis, clubbing, or pedal edema. NEUROLOGICAL: Gross neurological examination did not reveal any focal deficits. SKIN: No rashes. - Labs CBC & Chem 7: 08/26/19 03:51 08/26/19 03:51 Labs: Abnormal Lab Results - Last 24 Hours (Table) 08/26/19 08/26/19 08/26/19 Range/Units 03:51 03:51 11:52 RBC 3.69 L (4.30-5.90) m/uL Hgb 11.5 L (13.0-17.5) gm/dL Hct 34.6 L (39.0-53.0) % RDW 16.4 H (11.5-15.5) % Plt Count 130 L (150-450) k/uL Sodium 128 L (137-145) mmol/L Glucose 114 H (74-99) mg/dL Calcium 7.7 L (8.4-10.2) mg/dL Total Bilirubin 1.8 H (0.2-1.3) mg/dL Ammonia 47 H (<30) umol/L Total Protein 5.5 L (6.3-8.2) g/dL Albumin 2.2 L (3.5-5.0) g/dL Microbiology - Last 24 Hours (Table) 08/23/19 11:52 Anaerobic Culture - Preliminary Ascites Fluid 08/23/19 11:52 Gram Stain - Preliminary Ascites Fluid Body Fluid Culture - Preliminary Assessment and Plan Plan: Acute blood loss anemia from acute the upper GI bleed: Patient had variceal bleed and patient underwent clipping of the valve disease. Patient remains on octreotide. Does have portal hypertensive gastropathy -Alcohol withdrawal for which patient is on Ativan CIWA protocol. Patient withdraws her much better -Hyponatremia probably hypervolemic hyponatremia patient was started on Lasix, Aldactone -Alcoholic hepatitis -Alcohol abuse patient is now willing to quit alcohol after seeing so much blood. Hemoglobin is 11.1 -Past patient will use lactulose and loss obtain ammonia level - hyperlipidemia -Portal hypertension -Gastroesophageal reflux disease Have nicotine abuse: Counseling was provided
[2019-08-26 13:50] VITALS: RESP 18
[2019-08-26] MEDS: OCTREOTIDE 500 MCG in SODIUM CHLORIDE 0.9% 250 ML IV SCH (14:48)
[2019-08-26] MEDS: PANTOPRAZOLE 40 MG TABLET PO SCH (19:46)
[2019-08-26] MEDS: LACTULOSE 20 GM/30 ML CUP PO SCH ×2 (19:49→19:50)
[2019-08-26] MEDS ORDERED: LEVOFLOXACIN 500 MG TAB PO SCH (21:00)
[2019-08-27] MEDS: MORPHINE SULFATE 2 MG/ML SYRINGE IVP PRN (01:38)
[2019-08-27] MEDS: ONDANSETRON 4 MG/2 ML VIAL IVP PRN (02:20)
[2019-08-27 07:00] LABS: African American GFR (CKD) >90 (>60 ml/min/1.73 sqM); Anion Gap 7 mmol/L; Blood Urea Nitrogen 11 mg/dL (9-20); Calcium 7.6 mg/dL (8.4-10.2); Carbon Dioxide 25 mmol/L (22-30); Chloride 99 mmol/L (98-107); Glucose 92 mg/dL (74-99); Non-African American GFR(CKD) >90 (>60 ml/min/1.73 sqM); Potassium 3.6 mmol/L (3.5-5.1); Sodium 131 mmol/L (137-145)
[2019-08-27] MEDS: LACTULOSE 20 GM/30 ML CUP PO SCH (08:56)
[2019-08-27] MEDS: FUROSEMIDE 40 MG TAB PO SCH ×2 (08:56→16:04)
[2019-08-27] MEDS: PANTOPRAZOLE 40 MG TABLET PO SCH (08:56)
[2019-08-27] MEDS: MIDODRINE 5 MG TAB PO SCH ×2 (08:56→16:04)
[2019-08-27] MEDS: THIAMINE 100 MG TAB PO SCH ×2 (08:56→16:04)
[2019-08-27] MEDS: SPIRONOLACTONE 25 MG TAB PO SCH (08:56)
[2019-08-27] MEDS ORDERED: PROCHLORPERAZINE 5 MG TAB PO PRN (08:57)
[2019-08-27] MEDS: NICOTINE 21MG/24HR PATCH TRANSDERM SCH (08:57)
[2019-08-27 09:53] LABS: Anisocytosis Slight; HGB 10.5 gm/dL (13.0-17.5); MCH 30.4 pg (25.0-35.0); MCHC 32.9 g/dL (31.0-37.0); MCV 92.5 fL (80.0-100.0); Platelet Count 135 k/uL (150-450); RBC 3.46 m/uL (4.30-5.90); RDW 17.1 % (11.5-15.5); WBC 8.1 k/uL (3.8-10.6)
[2019-08-27 10:03] LABS: INR 1.4 (<1.2); Prothrombin Time 14.1 sec (9.0-12.0)
--- NOTE | 2019-08-27 13:22 | P.PN ---
Subjective Progress Note Date: 08/27/19 Principal diagnosis: Acute GI bleeding, hematemesis, esophageal varices This is a 58-year-old patient, alcoholic with alcoholic liver disease and portal hypertension and ascites but required multiple paracenteses in the past for recurrent abdominal distention and addition to hypertension and hyperlipidemia and history of smoking. The patient came in for an acute upper GI bleeding. The patient underwent EGD and he was found to have a distal esophageal varices without any stigmata of acute bleeding. There was mild portal hypertensive gastropathy. He was given IV culture otitis was ultimately discontinued. Currently is about 2 by nasal cannula. IV fluids are hep-locked. Hemoglobin is at 11.5. During the course of this hospitalization, the patient had another large volume paracenteses were a total of 3 L of fluid was drained from the patient's abdominal cavity. No complications were encountered. Earlier this morning, the patient bout of emesis along with some nausea. No emesis was not bloody and there was no coffee-ground material. Noted of the abdominal distention. No abdominal pain. The patient has no signs of any delirium tremens. In terms of the blood work, hemoglobin is 11.5 which is stable compared to yesterday. Platelet count is at 1:30 which is stable compared to yesterday. Sodium is at 128 with a BUN of 9 and creatinine of 0.8. The patient has an ammonia level of 47. Albumin is at 2.2. On 08/27/2019 patient seen in follow-up on general medical floor. He is awake and alert, in no acute distress, room air pulse ox is 96%, denies any difficulty breathing, states last night he was slightly nauseous, but no vomiting, no hematemesis, no melena, no hematochezia, vital signs have been stable, his been afebrile, his abdomen is distended, but nontender. Repeat abdominal x-ray yesterday was done showing overall nonobstructive bowel gas pattern. And lung bases were clear. Today's hemoglobin is 10.5, INR is 1.4. There has been no recurrence of bleeding overnight. Vital signs been stable. His ascitic fluid Gram stain has shown no growth. Patient did not require any blood transfusions this admission, he is status post EGD, and there was esophageal varices without any stigmata of acute bleeding. Objective - Vital Signs Vital signs: Vital Signs Temp 98.4 F 08/27/19 05:00 Pulse 84 08/27/19 05:00 Resp 18 08/27/19 05:00 BP 93/48 08/27/19 08:55 Pulse Ox 96 08/27/19 05:00 Intake & Output 08/26/19 08/27/19 08/27/19 18:59 06:59 18:59 Intake Total 450 250 Output Total 745 350 Balance -295 250 -350 Intake: Intake, IV Titration 450 Amount Sodium Chloride 0.9% 1, 450 000 ml @ 50 mls/hr IV . Q20H [facility] Rx#:[id number] Oral 250 Output: Urine 725 350 Urine/Stool Mix 20 Other: Voiding Method Urinal Urinal Urinal # Voids 1 3 1 # Bowel Movements 0 - Exam GENERAL EXAM: Alert, pleasant, 58-year-old male patient, pleasant, in no acute distress, on room air, with a pulse ox of 96% comfortable in no apparent d istress. HEAD: Normocephalic/atraumatic. EYES: Normal reaction of pupils, equal size. Conjunctiva pink, sclera white. NOSE: Clear with pink turbinates. THROAT: No erythema or exudates. NECK: No masses, no JVD, no thyroid enlargement, no adenopathy. CHEST: No chest wall deformity. Symmetrical expansion. LUNGS: Equal air entry with no crackles, wheeze, rhonchi or dullness. CVS: Regular rate and rhythm, normal S1 and S2, no gallops, no murmurs, no rubs ABDOMEN: Soft, nontender, distended. No hepatosplenomegaly, normal bowel sounds, no guarding or rigidity. There is some recurrent ascites a cannulating in the abdominal cavity. EXTREMITIES: No clubbing, no edema, no cyanosis, 2+ pulses and upper and lower extremities. MUSCULOSKELETAL: Muscle strength and tone normal. SPINE: No scoliosis or deformity SKIN: No rashes CENTRAL NERVOUS SYSTEM: No focal deficits, tone is normal in all 4 extremities. PSYCHIATRIC: Alert and oriented -3. Appropriate affect. Intact judgment and insight. - Labs CBC & Chem 7: 08/27/19 09:41 08/27/19 06:03 Labs: Abnormal Lab Results - Last 24 Hours (Table) 08/27/19 08/27/19 08/27/19 Range/Units 06:03 09:41 09:41 RBC 3.46 L (4.30-5.90) m/uL Hgb 10.5 L (13.0-17.5) gm/dL Hct 32.0 L (39.0-53.0) % RDW 17.1 H (11.5-15.5) % Plt Count 135 L (150-450) k/uL PT 14.1 H (9.0-12.0) sec INR 1.4 H (<1.2) Sodium 131 L (137-145) mmol/L Calcium 7.6 L (8.4-10.2) mg/dL Microbiology - Last 24 Hours (Table) 08/23/19 11:52 Gram Stain - Preliminary Ascites Fluid Body Fluid Culture - Preliminary Assessment and Plan Plan: Assessment: #1. Acute GI bleeding, likely from upper GI tract, patient presented with hematemesis. Status post EGD on 08/26/2019 revealing distal esophageal varices with no stigmata of bleeding status post variceal ligation. Mild portal hypertensive gastropathy off octreotide infusion, no recurrent bleeding in the last 24 hours, patient did not require blood transfusion this admission. Abdomen is distended, abdominal x-ray on 08/26/2019 revealed nonobstructive bowel pattern. There is some recurrence of abdominal ascites. #2. Acute blood loss anemia related to the above #3. Chronic alcoholic liver disease #4. History of portal hypertension, ascites requiring frequent paracentesis, last paracentesis was on 08/08/2019 would removal of 3.3 L of straw-colored ascitic fluid #5. Recent admission for abdominal distention, and anasarca, patient has been diuresed, and discharged home on 08/21/2019 #6. Chronic and ongoing alcohol abuse, alcohol level was 199 on admission #7. Chronic smoker #8. Hyponatremia, likely hypervolemic #9. Hypertension #10. Hyperlipidemia #11. Abdominal ascites, status post paracentesis on 08/23/2019 with removal of 7.3 L of serous fluid which was sent for cultures, and so far ascitic fluid Gram stain has shown no growth Plan: Hemodynamically stable, no recurrence of GI bleeding, no hematemesis or melena or hematochezia, vitals are stable, no acute events overnight. Tolerating full liquid diet, no nausea, abdominal x-ray did not show any obstructive pattern. Pulmonary/critical care service will sign off and follow on as-needed basis I performed a history & physical examination of the patient and discussed their management with my nurse practitioner, Alisson Chadwick. I reviewed the nurse practitioner's note and agree with the documented findings and plan of care. Lung sounds are positive for clear breath sounds. The findings and the impression was discussed with the patient. I attest to the documentation by the nurse practitioner. Time with Patient: Less than 30
[2019-08-27 13:53] VITALS: TEMP 98.2
[2019-08-27 15:43] VITALS: BP 99/60; PULSE 94
--- NOTE | 2019-08-27 15:48 | P.PN ---
Subjective Progress Note Date: 08/27/19 Principal diagnosis: Patient is a very pleasant 58-year-old male came in with the hematemesis. Patient was discharged couple days ago from my service after he was treated for abdominal discomfort and patient insisted on going home and getting outpatient paracentesis. Patient went home and started drinking again. Patient to started having hematemesis yesterday came back to the hospital. Patient does have history of cirrhosis portal hypertension. Patient undergoes frequent paracentesis. Patient underwent paracentesis today with new mole of around 2.3 L patient is presently not sure tried patient is bit hyponatremic because of which I'm holding of diuretics. Patient was started on octreotide and antibiotics patient is ALLERGIC to Rocephin because of which patient was started on levofloxacin and this is for possible variceal bleed rather than spontaneous back hepatitis patient doesn't have any evidence of SBP. 08/24/2019 Patient underwent EGD and had clipping of distal esophageal varices. Patient can he is to be on the octreotide patient had portal hypertensive gastropathy as well. Patient presently is not having any bleed patient is now willing to quit drinking. We'll commuter hold off on the diuretics as his blood pressure can use to live be low and serum sodium continues to be low. Patient is complaining of some abdominal pain along with all call withdrawal patient is having withdrawals at this time. 08/25/2019 Patient is still having some withdrawal symptoms complaining of abdominal discomfort. Patient's octreotide will be discontinued patient sodium continue to go down probably hypervolemic hyponatremia patient will be started back on La six and Aldactone. We'll recheck developed lites. Patient blood pressure is a in 90s to 100 systolic. Patient already will be transferred to ICU 08/26/2019 Patient's bit lethargic today. Does have abdominal distention mostly tympanic was constipated. Patient was started on lactulose to Zoloft and ammonia level. IV fluids will be discontinued continue with diuretics Constitutional: Denied any fatigue denied any fever. Cardio vascular: denied any chest pain, palpitations Gastrointestinal as mentioned in the interval history Pulmonary: Denied any shortness of breath cough Neurologic denied any new focal deficits 08/27/2019 Patient continues to be lethargic although is arousable. Patient continues to have abdominal distention and will need ultrasound with interventional radiology and paracentesis. GI following closely. Patient to continue with lactulose and ammonia level was slightly elevated at 47. Patient underwent abdominal x-ray showing overall nonobstructive bowel gas pattern. GI and pulmonary following. Repeat INR today is 1.4 and an order was placed for ultrasound-guided paracentesis. Patient is maintained on oral Lasix and Aldactone and will continue at this time. Patient denies any chest pain or palpitations. Patient is having intermittent shortness of breath with exertion and feels it is due to his abdominal distention. Patient is afebrile. Patient is having belching but no reports of nausea or vomiting. Patient instructed to increase activity as t olerated and get up and sit in the chair more often. Patient is maintained on CIWA protocol and will continue to monitor for alcohol withdrawals. Objective - Vital Signs Vital signs: Vital Signs Temp 98.2 F 08/27/19 13:00 Pulse 95 08/27/19 15:26 Resp 18 08/27/19 15:26 BP 104/71 08/27/19 15:26 Pulse Ox 95 08/27/19 15:26 Intake & Output 08/26/19 08/27/19 08/27/19 18:59 06:59 18:59 Intake Total 450 250 Output Total 745 350 Balance -295 250 -350 Intake: Intake, IV Titration 450 Amount Sodium Chloride 0.9% 1, 450 000 ml @ 50 mls/hr IV . Q20H [facility] Rx#:[id number] Oral 250 Output: Urine 725 350 Urine/Stool Mix 20 Other: Voiding Method Urinal Urinal Urinal # Voids 1 3 1 # Bowel Movements 0 - Exam GENERAL: The patient is alert and oriented x3, lethargic but arousable. not in any acute distress. Well developed, well nourished. HEENT: Pupils are round and equally reacting to light. EOMI. does have scleral icterus. No conjunctival pallor. Normocephalic, atraumatic. No pharyngeal erythema. No thyromegaly. CARDIOVASCULAR: S1 and S2 present. No murmurs, rubs, or gallops. PULMONARY: Chest is clear to auscultation, no wheezing or crackles. ABDOMEN: Taut, mildly distended, tympanic, normoactive bowel sounds. No palpable organomegaly. MUSCULOSKELETAL: No joint swelling or deformity. EXTREMITIES: No cyanosis, clubbing, or pedal edema. NEUROLOGICAL: Gross neurological examination did not reveal any focal deficits. SKIN: No rashes. - Labs CBC & Chem 7: 08/27/19 09:41 08/27/19 06:03 Labs: Abnormal Lab Results - Last 24 Hours (Table) 08/27/19 08/27/19 08/27/19 Range/Units 06:03 09:41 09:41 RBC 3.46 L (4.30-5.90) m/uL Hgb 10.5 L (13.0-17.5) gm/dL Hct 32.0 L (39.0-53.0) % RDW 17.1 H (11.5-15.5) % Plt Count 135 L (150-450) k/uL PT 14.1 H (9.0-12.0) sec INR 1.4 H (<1.2) Sodium 131 L (137-145) mmol/L Calcium 7.6 L (8.4-10.2) mg/dL Microbiology - Last 24 Hours (Table) 08/23/19 11:52 Gram Stain - Preliminary Ascites Fluid Body Fluid Culture - Preliminary Assessment and Plan Assessment: -Acute blood loss anemia from acute upper GI bleed: Patient had variceal bleed and patient underwent clipping of the valve disease. Octreotide discontinued. Does have portal hypertensive gastropathy. GI following. Current hemoglobin is 10.5 today -Alcohol withdrawal for which patient is on Ativan CIWA protocol. Patient withdraws appear much better -Hyponatremia probably hypervolemic hyponatremia patient was started on Lasix, Aldactone, current sodium slightly improved at 131. -Alcoholic hepatitis -Alcohol abuse patient is now willing to quit alcohol after seeing so much blood. Hemoglobin is 10.5 -Abdominal ascites status post recent paracentesis. Patient abdomen distended and will likely need repeat paracentesis. INR is 1.4 today and in order was placed for ultrasound-guided paracentesis. GI is following. -hyperlipidemia -Portal hypertension -Gastroesophageal reflux disease -Continued ongoing nicotine abuse: Counseling was provided
--- NOTE | 2019-08-27 16:30 | US ---
EXAMINATION TYPE: US paracentesis abd w/image DATE OF EXAM: 08/27/2019 COMPARISON: NONE HISTORY: Ascites. PROCEDURE: Maximal barrier technique was utilized. The skin overlying a suitable pocket of fluid was localized with ultrasound and the overlying skin was prepped and draped. Ultrasound was utilized with sterile technique. Lidocaine was used for local anesthesia and a skin mark anthony made with a scalpel. Catheter was advanced under direct ultrasound guidance into a suitable pocket of fluid and approximately 3.5 liter s of serous fluid were removed. Catheter was withdrawn and hemostasis achieved. There is no immedia te complication; the patient is discharged in stable condition. IMPRESSION: STATUS POST ULTRASOUND GUIDED PARACENTESIS FOR PALLIATION OF ASCITES. THIS PROCEDURE WA S PERFORMED BY THE UNDERSIGNED.
--- NOTE | 2019-08-27 17:43 | P.DS ---
Providers Date of admission: 08/23/19 00:15 Expected date of discharge: 08/27/19 Attending physician: Cortney Matthews Consults: 08/23/19 00:15 Consult Physician Routine Consulting Provider: Fred Dinero Consult Reason/Comments: upper GI bleed, alcoholic Do you want consulting provider notified?: Already Contacted Consult Physician Stat Consulting Provider: Manuel Ramirez Consult Reason/Comments: upper GIB Do you want consulting provider notified?: Already Contacted 08/23/19 07:40 Consult Physician Stat Consulting Provider: Ramesh Jamil Consult Reason/Comments: Paracentesis Do you want consulting provider notified?: Yes Primary care physician: Rachana Crockett [facility] Course: final diagnosis -Acute blood loss anemia from acute upper GI bleed: Patient had variceal bleed and patient underwent clipping of the valve disease portal hypertensive gastropathy. -Alcohol withdrawal -Hyponatremia probably hypervolemic hyponatremia -Alcoholic hepatitis -Alcohol abuse -Abdominal ascites -hyperlipidemia -Portal hypertension -Gastroesophageal reflux disease -Continued ongoing nicotine abuse Discharge disposition Patient is being discharged in a stable condition with guarded prognosis to home. Patient will continue with home care in the outpatient setting. Patient will follow-up with Dr. Reich as well as GI upon discharge. Patient will continue on oral Levaquin for the next 4 days to complete the course. Total time taken is 35 minutes. History of present illness This is a 58-year-old male who was recently admitted with acute GI bleed and was being closely monitored. Patient was initially worked up and monitored closely in the ICU and underwent EGD with GI and had clipping of distal esophageal varices. Patient was placed on octreotide patient had portal hypertensive gastropathy . Patient has undergone multiple paracenteses for abdominal ascites and was continuing to drink alcohol. Had a lengthy discussion about refraining from alcohol. Patient verbalized understanding and made comments of discontinuing alcohol. Patient will follow up with GI in the outpatient setting and will continue with home care. Patient will also continue with lasix and aldactone. Patient had a paracentesis this afternoon with approximately 3 liters removed. Patient is requesting to go home. No active bleeding noted. Currently no reports of chest pain, palpitations, or shortness. Patient is afebrile. No reports of nausea or vomiting and patient is tolerating diet. On exam vital signs are stable. pulse is 94, respirations are 18, blood pressure 99/60, oxygen saturation is 93-95% on room air. Cardio S1, S2 are present. Respiratory shows clear to auscultation. Abdomen is soft and nontender. Nervous system shows no focal deficits. Please refer to medication reconciliation sheet for a list of medications. Patient Condition at Discharge: Stable Plan - Discharge Summary Discharge Rx Participant: Yes New Discharge Prescriptions: New Lactulose [Cephulac] 20 gm PO BID #240 ml Furosemide [Lasix] 40 mg PO BID@0900,1600 30 Days #60 tab Levofloxacin [Levaquin] 500 mg PO HS 4 Days #4 tab Pantoprazole [Protonix] 40 mg PO DAILY 30 Days #30 tablet. Continue Multivitamins, Thera [Multivitamin (formulary)] 1 tab PO DAILY Midodrine HCl [ProAmatine] 10 mg PO TID Thiamine [Vitamin B-1] 100 mg PO DAILY Spironolactone [Aldactone] 50 mg PO DAILY Ibuprofen [Motrin Ib] 400 mg PO Q8H PRN PRN Reason: Pain Or Fever > 100.5 Discontinued Isosorbide Mononitrate ER [Imdur] 30 mg PO DAILY #30 tab.er.24h traMADol HCL 50 mg PO BID PRN PRN Reason: Pain Furosemide [Lasix] 20 mg PO BID Discharge Medication List Multivitamins, Thera [Multivitamin (formulary)] 1 tab PO DAILY 07/11/19 [History] Midodrine HCl [ProAmatine] 10 mg PO TID 08/07/19 [History] Thiamine [Vitamin B-1] 100 mg PO DAILY 08/07/19 [History] Ibuprofen [Motrin Ib] 400 mg PO Q8H PRN 08/23/19 [History] Spironolactone [Aldactone] 50 mg PO DAILY 08/23/19 [History] Furosemide [Lasix] 40 mg PO BID@0900,1600 30 Days #60 tab 08/27/19 [Rx] Lactulose [Cephulac] 20 gm PO BID #240 ml 08/27/19 [Rx] Levofloxacin [Levaquin] 500 mg PO HS 4 Days #4 tab 08/27/19 [Rx] Pantoprazole [Protonix] 40 mg PO DAILY 30 Days #30 tablet. 08/27/19 [Rx] Follow up Appointment(s)/Referral(s): Bon Reich MD [Primary Care Provider] - 1-2 days [facility], [NON-STAFF] - 1-2 Days (This is also the information to contact [facility]. ) Keily Mcintyre NPC [Nurse Practitioner] - 1 Week Activity/Diet/Wound Care/Special Instructions: activity limited until follow up follow up with pcp upon discharge follow up with GI in the outpatient setting avoid alcohol intake continue with antibiotics until finished Discharge Disposition: HOME WITH HOME HEALTH SERVICES
== END 2019-08-27 18:38 | disposition home health service (06) | DRG 441 ==
LOC: EC 22:56 → 2SICU 08-23 00:15 → 5NMEDONC 08-26 12:46
PROVIDERS: ADMIT Hospitalist; ATTEND Hospitalist
PROC: 06L38CZ Occlusion of Esophageal Vein with Extraluminal Device, Via Natural or Artificial Opening Endoscopic (ICD-10-PCS; principal; 2019-08-23)
PROC: 0DJ08ZZ Inspection of Upper Intestinal Tract, Via Natural or Artificial Opening Endoscopic (ICD-10-PCS; principal; 2019-08-23)
PROC: 0W9G3ZZ Drainage of Peritoneal Cavity, Percutaneous Approach (ICD-10-PCS; 2019-08-23)
DX: K76.6 Portal hypertension (principal); I85.11 Secondary esophageal varices with bleeding; D62 Acute posthemorrhagic anemia; F10.239 Alcohol dependence with withdrawal, unspecified; E87.1 Hypo-osmolality and hyponatremia; K31.89 Other diseases of stomach and duodenum; K70.11 Alcoholic hepatitis with ascites; D69.59 Other secondary thrombocytopenia; F10.229 Alcohol dependence with intoxication, unspecified; Y90.6 Blood alcohol level of 120-199 mg/100 ml; E78.5 Hyperlipidemia, unspecified; T50.2X5A Adverse effect of carbonic-anhydrase inhibitors, benzothiadiazides and other diuretics, initial encounter; E87.70 Fluid overload, unspecified; F17.210 Nicotine dependence, cigarettes, uncomplicated; I10 Essential (primary) hypertension; K21.9 Gastro-esophageal reflux disease without esophagitis; K59.00 Constipation, unspecified; K70.31 Alcoholic cirrhosis of liver with ascites; K72.10 Chronic hepatic failure without coma; Z79.51 Long term (current) use of inhaled steroids; Z79.899 Other long term (current) drug therapy; Z82.49 Family history of ischemic heart disease and other diseases of the circulatory system; Z11.59 Encounter for screening for other viral diseases; Z82.5 Family history of asthma and other chronic lower respiratory diseases; Z80.9 Family history of malignant neoplasm, unspecified; Z83.6 Family history of other diseases of the respiratory system; Z83.79 Family history of other diseases of the digestive system; Z88.5 Allergy status to narcotic agent; Z88.0 Allergy status to penicillin; Z88.8 Allergy status to other drugs, medicaments and biological substances
CPT/HCPCS: 36415; 43244; 49083; 71045; 74019; 80048; 80053; 80320; 81003; 82140; 83605; 84484; 85025; 85027; 85610; 85730; 86850; 86900; 86901; 86920; 87070; 87075; 87205; 96365; 96366; 96375; 96376; 99291

== ENCOUNTER 2019-09-02 10:25 | Inpatient (IN) | payer MEDICARE ==
--- NOTE | 2019-09-02 11:00 | ED ---
Abdominal Pain HPI <RaheemManuel - Last Filed: 09/02/19 12:23> - General Source: patient Mode of arrival: ambulatory Limitations: no limitations <Shantelle Hastings - Last Filed: 09/02/19 12:51> - General Chief Complaint: Abdominal Pain Stated Complaint: fluid retention Time Seen by Provider: 09/02/19 10:44 - History of Present Illness Initial Comments: 58-year-old male with history of liver cirrhosis he receives frequent paracentesis with the last being approximately 3-4 weeks ago presenting to the emergency department today for abdominal distention bloating and belching and abdominal pain. Patient states that he has had abdominal pain, distention, bloating sensation and increased belching for the past 2-3 days. He states this usually occurrs when he has "fluid on his belly and needs it drained". Patient denies fevers, vomiting, diarrhea. Denies chest pain or SOB. Patient has no additional complaints. He saw his PCP today Dr. Reich who sent him to the ER today for evaluation. (Shantelle Hastings) - Related Data Home Medications Medication Instructions Recorded Confirmed Spironolactone [Aldactone] 50 mg PO BID 09/02/19 09/02/19 Previous Rx's Medication Instructions Recorded Furosemide [Lasix] 40 mg PO BID@0900,1600 30 Days #60 08/27/19 tab Lactulose [Cephulac] 20 gm PO BID #240 ml 08/27/19 Allergies Allergy/AdvReac Type Severity Reaction Status Date / Time Penicillins Allergy Anaphylaxis Verified 09/02/19 11:06 meperidine [From Demerol] AdvReac Hallucinati Verified 09/02/19 11:06 ons quetiapine [From Seroquel] AdvReac Hallucinati Verified 09/02/19 11:06 ons Review of Systems ROS Other: All systems not noted in ROS Statement are negative. <Manuel Maciel - Last Filed: 09/02/19 12:23> ROS Other: All systems not noted in ROS Statement are negative. <Shantelle Hastings - Last Filed: 09/02/19 12:51> ROS Statement: Those systems with pertinent positive or pertinent negative responses have been documented in the HPI. Past Medical History Past Medical History: GERD/Reflux, Hyperlipidemia, Hypertension, Liver Disease Additional Past Medical History / Comment(s): alcholism - sober now History of Any Multi-Drug Resistant Organisms: None Reported Past Surgical History: Heart Catheterization, Orthopedic Surgery Additional Past Surgical History / Comment(s): LEFT KNEE AND RIGHT ANKLE SX. LEFT FEMUR FX. HEART CATH NO STENTS Past Anesthesia/Blood Transfusion Reactions: No Reported Reaction Past Psychological History: No Psychological Hx Reported Smoking Status: Current every day smoker Past Alcohol Use History: None Reported Past Drug Use History: None Reported - Past Family History Father Family Medical History: Coronary Artery Disease (CAD), Liver Disease Mother Family Medical History: Cancer Additional Family Medical History / Comment(s): LUNG DISEASE <Shantelle Hastings - Last Filed: 09/02/19 12:51> General Exam Limitations: no limitations <Shantelle Hastings - Last Filed: 09/02/19 12:51> - General Exam Comments Initial Comments: General: The patient is awake and alert, in no distress Eye: Pupils are equal, round and reactive to light, extra-ocular movements are intact. No nystagmus. There is normal conjunctiva bilaterally. No signs of icterus. Ears, nose, mouth and throat: There are moist mucous membranes and no oral lesions. Neck: The neck is supple, there is no tenderness or JVD. Cardiovascular: There is a regular rate and rhythm. No murmur, rub or gallop is appreciated. Respiratory: Lungs are clear to auscultation, respirations are non-labored, breath sounds are equal. No wheezes, stridor, rales, or rhonchi. Gastrointestinal: Distended diffusely tender abdomen without masses or organomegaly noted. There is no rebound or guarding present. Musculoskeletal: Normal ROM, no tenderness. Strength 5/5. Sensation intact. Radial pulses equal bilaterally 2+. Neurological: A&O x 3. CN II-XII intact grossly, There are no obvious motor or sensory deficits. Coordination appears grossly intact. Speech is normal. Skin: Skin is warm and dry and no rashes or lesions are noted. Psychiatric: Cooperative, appropriate mood & affect, normal judgment. (Shantelle Hastings) Course <Manuel Maciel - Last Filed: 09/02/19 12:23> Vital Signs 09/02/19 09/02/19 10:41 12:32 Temperature 97.9 F Pulse Rate 95 81 Respiratory 18 16 Rate Blood Pressure 104/70 101/62 O2 Sat by Pulse 98 99 Oximetry - Reevaluation(s) Reevaluation #1: 09/02/19 12:23 PA supervision: I personally evaluate this case and did discuss the findings with Dr. Griffith the patient does present with abdominal distention consistent with his known history of ascites. Also found to be hyponatremic. He will be admitted with appropriate consultation. I do agree with the assessment and plan. (Manuel Maciel) Medical Decision Making - Lab Data Result diagrams: 09/02/19 11:24 09/02/19 11:24 <Manuel Maciel - Last Filed: 09/02/19 12:23> - Lab Data Result diagrams: 09/02/19 11:24 09/02/19 11:24 <Shantelle Hastings - Last Filed: 09/02/19 12:51> - Medical Decision Making 58yo male presenting for cc of abdominal distention,, pain. History of cirrhosis and frequent ascites with paracentesis. No fevers no leukocytosis patient appears nontoxic. Moderate ascites on ultrasound. Patient is found to have low sodium and chloride and potassium. Will gently correct abnormalities. Patient will be admitted for further monitoring and care. Patient case discussed with Dr. Maciel who evaluated patient and spoke with accepting admitting provider. (Shantelle Hastings) - Lab Data Lab Results 09/02/19 09/02/19 09/02/19 Range/Units 10:58 11:24 11:24 WBC 7.3 (3.8-10.6) k/uL RBC 3.79 L (4.30-5.90) m/uL Hgb 11.6 L (13.0-17.5) gm/dL Hct 34.5 L (39.0-53.0) % MCV 91.2 (80.0-100.0) fL MCH 30.6 (25.0-35.0) pg MCHC 33.6 (31.0-37.0) g/dL RDW 16.1 H (11.5-15.5) % Plt Count 129 L (150-450) k/uL Neutrophils % 58 % Lymphocytes % 22 % Monocytes % 14 % Eosinophils % 2 % Basophils % 1 % Neutrophils # 4.2 (1.3-7.7) k/uL Lymphocytes # 1.6 (1.0-4.8) k/uL Monocytes # 1.0 (0-1.0) k/uL Eosinophils # 0.1 (0-0.7) k/uL Basophils # 0.1 (0-0.2) k/uL Anisocytosis Slight PT 12.7 H (9.0-12.0) sec INR 1.3 H (<1.2) APTT 24.1 (22.0-30.0) sec Sodium (137-145) mmol/L Potassium (3.5-5.1) mmol/L Chloride (98-107) mmol/L Carbon Dioxide (22-30) mmol/L Anion Gap mmol/L BUN (9-20) mg/dL Creatinine (0.66-1.25) mg/dL Est GFR (CKD-EPI)AfAm (>60 ml/min/1.73 sqM) Est GFR (CKD-EPI)NonAf (>60 ml/min/1.73 sqM) Glucose (74-99) mg/dL Calcium (8.4-10.2) mg/dL Total Bilirubin (0.2-1.3) mg/dL AST (17-59) U/L ALT (4-49) U/L Alkaline Phosphatase (38-126) U/L Total Protein (6.3-8.2) g/dL Albumin (3.5-5.0) g/dL Amylase (30-110) U/L Lipase (23-300) U/L Urine Color Yellow Urine Appearance Clear (Clear) Urine pH 5.5 (5.0-8.0) Ur Specific Ashley 1.012 (1.001-1.035) Urine Protein Negative (Negative) Urine Glucose (UA) Negative (Negative) Urine Ketones Trace H (Negative) Urine Blood Negative (Negative) Urine Nitrite Negative (Negative) Urine Bilirubin Negative (Negative) Urine Urobilinogen 2.0 (<2.0) mg/dL Ur Leukocyte Esterase Negative (Negative) 09/02/19 Range/Units 11:24 WBC (3.8-10.6) k/uL RBC (4.30-5.90) m/uL Hgb (13.0-17.5) gm/dL Hct (39.0-53.0) % MCV (80.0-100.0) fL MCH (25.0-35.0) pg MCHC (31.0-37.0) g/dL RDW (11.5-15.5) % Plt Count (150-450) k/uL Neutrophils % % Lymphocytes % % Monocytes % % Eosinophils % % Basophils % % Neutrophils # (1.3-7.7) k/uL Lymphocytes # (1.0-4.8) k/uL Monocytes # (0-1.0) k/uL Eosinophils # (0-0.7) k/uL Basophils # (0-0.2) k/uL Anisocytosis PT (9.0-12.0) sec INR (<1.2) APTT (22.0-30.0) sec Sodium 124 L (137-145) mmol/L Potassium 3.2 L (3.5-5.1) mmol/L Chloride 84 L (98-107) mmol/L Carbon Dioxide 31 H (22-30) mmol/L Anion Gap 9 mmol/L BUN 13 (9-20) mg/dL Creatinine 0.86 (0.66-1.25) mg/dL Est GFR (CKD-EPI)AfAm >90 (>60 ml/min/1.73 sqM) Est GFR (CKD-EPI)NonAf >90 (>60 ml/min/1.73 sqM) Glucose 103 H (74-99) mg/dL Calcium 7.6 L (8.4-10.2) mg/dL Total Bilirubin 2.2 H (0.2-1.3) mg/dL AST 47 (17-59) U/L ALT 12 (4-49) U/L Alkaline Phosphatase 61 (38-126) U/L Total Protein 6.5 (6.3-8.2) g/dL Albumin 2.8 L (3.5-5.0) g/dL Amylase 105 (30-110) U/L Lipase 370 H (23-300) U/L Urine Color Urine Appearance (Clear) Urine pH (5.0-8.0) Ur Specific Ashley (1.001-1.035) Urine Protein (Negative) Urine Glucose (UA) (Negative) Urine Ketones (Negative) Urine Blood (Negative) Urine Nitrite (Negative) Urine Bilirubin (Negative) Urine Urobilinogen (<2.0) mg/dL Ur Leukocyte Esterase (Negative) - EKG Data EKG Comments: Ventricular rate 83 bpm, CT interval 144 ms, QRS duration 80 ms, QT/QTC 456/35 ms. This a sinus rhythm with occasional PVCs and PACs is low voltage QRS with a slightly prolonged QT. No ST elevation or depression. (Shantelle Hastings) Disposition <Manuel Maciel - Last Filed: 09/02/19 12:23> Is patient prescribed a controlled substance at d/c from ED?: No Time of Disposition: 12:25 Decision to Admit Reason: Admit from EC Decision Date: 09/02/19 Decision Time: 12:25 <Shantelle Hastings - Last Filed: 09/02/19 12:51> Clinical Impression: Ascites, Abdominal pain, QT prolongation, Hyponatremia, Hypokalemia, Hypochloremia Disposition: ADMITTED IP TO THIS HOSP Condition: Stable
--- NOTE | 2019-09-02 11:45 | US ---
EXAMINATION TYPE: US abdomen limited DATE OF EXAM: 09/02/2019 COMPARISON: 08/27/2019 CLINICAL HISTORY: Assess severity of ascites. Ascites check All four quadrants scanned. Fluid visualized mostly on right side in RUQ and RLQ. Limited scan IMPRESSION: Moderate ascites
[2019-09-02 12:01] LABS: Appearance,Urine Clear (Clear); Bilirubin,Urine Negative (Negative); Blood,Urine Negative (Negative); Color,Urine Yellow; Glucose,Urine (UA) Negative (Negative); Ketones,Urine Trace (Negative); Leukocyte Esterase,Urine Negative (Negative); Nitrite,Urine Negative (Negative); PH, Urine 5.5 (5.0-8.0); Protein,Urine Negative (Negative); Specific Gravity,Urine 1.012 (1.001-1.035)
[2019-09-02 12:02] LABS: Anisocytosis Slight; Basophils # (A) 0.1 k/uL (0-0.2); Basophils % (A) 1 %; Eosinophils # (A) 0.1 k/uL (0-0.7); Eosinophils % (A) 2 %; HCT 34.5 % (39.0-53.0); HGB 11.6 gm/dL (13.0-17.5); Lymphocytes # (A) 1.6 k/uL (1.0-4.8); Lymphocytes % (A) 22 %; MCH 30.6 pg (25.0-35.0); MCHC 33.6 g/dL (31.0-37.0); MCV 91.2 fL (80.0-100.0); Mean Platelet Volume 8.9; Monocytes % (A) 14 %; Neutrophils # (A) 4.2 k/uL (1.3-7.7); Neutrophils % (A) 58 %; Platelet Count 129 k/uL (150-450); RBC 3.79 m/uL (4.30-5.90); RDW 16.1 % (11.5-15.5); WBC 7.3 k/uL (3.8-10.6)
[2019-09-02 12:13] LABS: INR 1.3 (<1.2); Partial Thromboplastin Time 24.1 sec (22.0-30.0); Prothrombin Time 12.7 sec (9.0-12.0)
[2019-09-02 12:14] LABS: ALT 12 U/L (4-49); AST 47 U/L (17-59); African American GFR (CKD) >90 (>60 ml/min/1.73 sqM); Albumin 2.8 g/dL (3.5-5.0); Alkaline Phosphatase 61 U/L (38-126); Amylase 105 U/L (30-110); Anion Gap 9 mmol/L; Blood Urea Nitrogen 13 mg/dL (9-20); Calcium 7.6 mg/dL (8.4-10.2); Carbon Dioxide 31 mmol/L (22-30); Chloride 84 mmol/L (98-107); Glucose 103 mg/dL (74-99); Non-African American GFR(CKD) >90 (>60 ml/min/1.73 sqM); Potassium 3.2 mmol/L (3.5-5.1); Sodium 124 mmol/L (137-145); Total Bilirubin 2.2 mg/dL (0.2-1.3); Total Protein 6.5 g/dL (6.3-8.2)
[2019-09-02] MEDS ORDERED: NALOXONE 0.4 MG/ML 1 ML VIAL IV PRN (12:21)
[2019-09-02] MEDS ORDERED: SODIUM CHLORIDE 0.9% 500 ML 500 ML IV ONE (12:21)
[2019-09-02] MEDS ORDERED: POTASSIUM CHLORIDE ER 10 MEQ TAB.ER.PRT PO STA (12:21)
[2019-09-02] MEDS: SODIUM CHLORIDE 0.9% 1,000 ML IV SCH ×2 (12:29→20:47)
[2019-09-02 12:34] VITALS: RESP 16
--- NOTE | 2019-09-02 16:29 | P.HPIM ---
History of Present Illness H&P Date: 09/02/19 Chief Complaint: Abdominal distention Mr. Ontiveros is a 58-year-old male, who is a patient of Dr. Dewey, with a past medical history of alcohol liver disease, portal hypertension, ascites requiring frequent paracentesis, hypertension, hyperlipidemia coming to the hospital with a chief complaint of abdominal pain and distention. Patient denies having any nausea or vomiting. He states that he comes frequently to get paracentesis done. Mentions that his last paracentesis was couple of weeks back. Patient denied any alcohol use since last hospital admission. He said that he cut down on the salt intake as well. Patient denies having any fevers chills or rigors. No nausea vomiting diarrhea or constipation. Denies having any chest pain or difficulty in breathing. Patient denies having any dysuria or hematuria. No orthopnea, PND or lower extremity swelling. In the emergency room patient's vitals have been stable, temperature 97.9, blood pressure 104/70, saturating at 98% on room air. He had blood work done showing severe electrolyte abnormalities with sodium of 124, pretension 3.2, chloride 84, bicarbonate 31. Slightly elevated INR at 1.3. Hemoglobin stable around 11.6. Platelets 129. Review of Systems onstitutional: Denies chills, Denies fever Eyes: denies blurred vision, denies pain Ears, nose, mouth and throat: Denies headache, Denies sore throat Cardiovascular: Denies chest pain, Denies shortness of breath Respiratory: Denies cough Gastrointestinal: As per HPI Musculoskeletal: Denies myalgias Integumentary: Denies pruritus, Denies rash Neurological: Denies numbness, Denies weakness Psychiatric: Denies anxiety, Denies depression Endocrine: Denies fatigue, Denies weight change Past Medical History Past Medical History: GERD/Reflux, Hyperlipidemia, Hypertension, Liver Disease Additional Past Medical History / Comment(s): alcholism - sober now History of Any Multi-Drug Resistant Organisms: None Reported Past Surgical History: Heart Catheterization, Orthopedic Surgery Additional Past Surgical History / Comment(s): LEFT KNEE AND RIGHT ANKLE SX. LEFT FEMUR FX. HEART CATH NO STENTS Past Anesthesia/Blood Transfusion Reactions: No Reported Reaction Past Psychological History: No Psychological Hx Reported Smoking Status: Current every day smoker Past Alcohol Use History: None Reported Past Drug Use History: None Reported - Past Family History Father Family Medical History: Coronary Artery Disease (CAD), Liver Disease Mother Family Medical History: Cancer Additional Family Medical History / Comment(s): LUNG DISEASE Medications and Allergies Home Medications Medication Instructions Recorded Confirmed Type Furosemide [Lasix] 40 mg PO BID@0900,1600 30 Days #60 08/27/19 09/02/19 Rx tab Lactulose [Cephulac] 20 gm PO BID #240 ml 08/27/19 09/02/19 Rx Spironolactone [Aldactone] 50 mg PO BID 09/02/19 09/02/19 History Allergies Allergy/AdvReac Type Severity Reaction Status Date / Time Penicillins Allergy Anaphylaxis Verified 09/02/19 11:06 meperidine [From Demerol] AdvReac Hallucinati Verified 09/02/19 11:06 ons quetiapine [From Seroquel] AdvReac Hallucinati Verified 09/02/19 11:06 ons Physical Exam Vitals: Vital Signs Temp Pulse Resp BP Pulse Ox 09/02/19 12:32 81 16 101/62 99 09/02/19 10:41 97.9 F 95 18 104/70 98 Intake and Output 09/02/19 09/02/19 09/02/19 06:59 14:59 22:59 Other: Weight 75.296 kg GENERAL EXAM: Alert, pleasant, 58-year-old white male, quite disheveled, but pleasant, in no acute distress HEENT : No pallor. No icterus. CHEST: No chest wall deformity. Symmetrical expansion. LUNGS: Equal air entry with no crackles, wheeze, rhonchi or dullness. CVS: Regular rate and rhythm, normal S1 and S2, no gallops, no murmurs, no rubs ABDOMEN: Abdomen is distended. Nontender. Bowel sounds positive. No guarding, rigidity or rebound tenderness EXTREMITIES: No clubbing, no edema, no cyanosis, 2+ pulses and upper and lower extremities. MUSCULOSKELETAL: Muscle strength and tone normal. SKIN: No rashes CENTRAL NERVOUS SYSTEM: Alert and oriented -3. No focal deficits PSYCHIATRIC: Alert and oriented -3. Appropriate affect. Results CBC & Chem 7: 09/02/19 11:24 09/02/19 11:24 Labs: Abnormal Lab Results - Last 24 Hours (Table) 0709/02/19 09/02/19 Range/Units 10:58 11:24 11:24 RBC 3.79 L (4.30-5.90) m/uL Hgb 11.6 L (13.0-17.5) gm/dL Hct 34.5 L (39.0-53.0) % RDW 16.1 H (11.5-15.5) % Plt Count 129 L (150-450) k/uL PT 12.7 H (9.0-12.0) sec INR 1.3 H (<1.2) Sodium (137-145) mmol/L Potassium (3.5-5.1) mmol/L Chloride (98-107) mmol/L Carbon Dioxide (22-30) mmol/L Glucose (74-99) mg/dL Calcium (8.4-10.2) mg/dL Total Bilirubin (0.2-1.3) mg/dL Albumin (3.5-5.0) g/dL Lipase (23-300) U/L Urine Ketones Trace H (Negative) 09/02/19 Range/Units 11:24 RBC (4.30-5.90) m/uL Hgb (13.0-17.5) gm/dL Hct (39.0-53.0) % RDW (11.5-15.5) % Plt Count (150-450) k/uL PT (9.0-12.0) sec INR (<1.2) Sodium 124 L (137-145) mmol/L Potassium 3.2 L (3.5-5.1) mmol/L Chloride 84 L (98-107) mmol/L Carbon Dioxide 31 H (22-30) mmol/L Glucose 103 H (74-99) mg/dL Calcium 7.6 L (8.4-10.2) mg/dL Total Bilirubin 2.2 H (0.2-1.3) mg/dL Albumin 2.8 L (3.5-5.0) g/dL Lipase 370 H (23-300) U/L Urine Ketones (Negative) Assessment and Plan Assessment: ASSESSMENT Recurrent ascites Hyponatremia Hypochloremia Portal hypertension requiring frequent paracentesis Chronic alcohol his liver disease Ongoing alcohol abuse Chronic smoker Hypertension Hyperlipidemia PLAN: Patient is admitted for electrolyte abnormalities. He has been started on IV normal saline at 1 30 mL/h. We will hold off Lasix. He will be scheduled for paracentesis. PPI therapy. SCDs for DVT prophylaxis as the patient has low platelet count. Further recommendations to follow depending on the progress of the patient.
[2019-09-02] MEDS: PANTOPRAZOLE 40 MG TABLET PO SCH (18:10)
[2019-09-02] MEDS: SPIRONOLACTONE 25 MG TAB PO SCH (20:45)
[2019-09-02] MEDS: LACTULOSE 20 GM/30 ML CUP PO SCH (20:46)
[2019-09-03 06:30] LABS: Anisocytosis Slight; HCT 33.2 % (39.0-53.0); HGB 11.3 gm/dL (13.0-17.5); MCH 31.8 pg (25.0-35.0); MCV 93.6 fL (80.0-100.0); Mean Platelet Volume 8.8; Platelet Count 115 k/uL (150-450); RBC 3.55 m/uL (4.30-5.90); RDW 16.3 % (11.5-15.5); WBC 6.5 k/uL (3.8-10.6)
[2019-09-03 06:42] LABS: African American GFR (CKD) >90 (>60 ml/min/1.73 sqM); Albumin 2.4 g/dL (3.5-5.0); Anion Gap 7 mmol/L; Calcium 7.5 mg/dL (8.4-10.2); Carbon Dioxide 26 mmol/L (22-30); Chloride 95 mmol/L (98-107); Glucose 122 mg/dL (74-99); Non-African American GFR(CKD) >90 (>60 ml/min/1.73 sqM); Sodium 128 mmol/L (137-145); Total Bilirubin 1.3 mg/dL (0.2-1.3); Total Protein 5.8 g/dL (6.3-8.2)
[2019-09-03 06:46] LABS: Potassium 3.8 mmol/L (3.5-5.1)
[2019-09-03 06:47] LABS: ALT 11 U/L (4-49); AST 48 U/L (17-59); Alkaline Phosphatase 68 U/L (38-126); Blood Urea Nitrogen 10 mg/dL (9-20); Magnesium 1.7 mg/dL (1.6-2.3)
[2019-09-03] MEDS: PANTOPRAZOLE 40 MG TABLET PO SCH (06:48)
[2019-09-03] MEDS: SODIUM CHLORIDE 0.9% 1,000 ML IV SCH (06:48)
[2019-09-03] MEDS: LACTULOSE 20 GM/30 ML CUP PO SCH (08:17)
[2019-09-03] MEDS: SPIRONOLACTONE 25 MG TAB PO SCH (08:17)
[2019-09-03] MEDS ORDERED: FUROSEMIDE 40 MG TAB PO SCH (09:00)
[2019-09-03 11:43] VITALS: PULSE 80; TEMP 98.3
[2019-09-03 12:26] VITALS: BP 99/56
--- NOTE | 2019-09-03 12:42 | P.DS ---
Providers Date of admission: 09/02/19 12:23 Attending physician: Cortney Matthews Consults: 09/02/19 12:23 Consult Physician Routine Consulting Provider: Phu Marion Consult Reason/Comments: ascites, paracentesis Do you want consulting provider notified?: Yes Primary care physician: Rachana Crockett [facility] Course: Diagnoses: Recurrent ascites Hyponatremia Hypochloremia Portal hypertension requiring frequent paracentesis Chronic alcohol his liver disease Ongoing alcohol abuse Chronic smoker Hypertension Hyperlipidemia Hospital course: Mr. Ontiveros is a 58-year-old male, who is a patient of Dr. Reich, with a past medical history of alcohol liver disease, portal hypertension, ascites requiring frequent paracentesis, hypertension, hyperlipidemia coming to the hospital with a chief complaint of abdominal pain and distention. Also patient found to be hyponatremic with sodium 124, patient Lasix was held and he was started on normal saline and with 30 mL per hour, he underwent paracentesis at 2.75 L of fluids and taken out post procedure patient feels fine and today he was adamant to go home. He denies chest pain or dyspnea, no dizziness, no headache, no weakness or numbness, no abdominal pain or tenderness, no nausea vomiting and hysterectomy type well, has no change in urine or bowel habits. No fever His sodium went up to 130 preoperative admission. Patient can be resumed his home medication Problems and management plan were discussed with the patient and he verbalized understanding and acceptance Patient was found stable and can be discharged home however he needs follow-up as an outpatient. Patient was instructed to follow up with PCP Dr. Olivo within one week and patient agrees. Gen: patient is a AAOx3, no distress CVS: S1-S2, RRR, no murmur Lungs: B/L CTA, no wheezing Abdomen: soft, no distention, no tenderness, positive bowel sounds Extremity: no leg edema or induration Time spent more than 35 minutes Patient Condition at Discharge: Stable Plan - Discharge Summary Discharge Rx Participant: Yes New Discharge Prescriptions: Continue Lactulose [Cephulac] 20 gm PO BID #240 ml Furosemide [Lasix] 40 mg PO BID@0900,1600 30 Days #60 tab Spironolactone [Aldactone] 50 mg PO BID Discharge Medication List Furosemide [Lasix] 40 mg PO BID@0900,1600 30 Days #60 tab 08/27/19 [Rx] Lactulose [Cephulac] 20 gm PO BID #240 ml 08/27/19 [Rx] Spironolactone [Aldactone] 50 mg PO BID 09/02/19 [History] Follow up Appointment(s)/Referral(s): Bon Reich MD [Primary Care Provider] - 1-2 days Patient Instructions/Handouts: Hyponatremia (DC), Hypokalemia (DC), Ascites (DC), Hypocalcemia (DC), Paracentesis (DC) Activity/Diet/Wound Care/Special Instructions: Low-salt diet Activity is limited till you see your doctor Discharge Disposition: HOME SELF-CARE
--- NOTE | 2019-09-03 16:49 | US ---
EXAMINATION TYPE: US paracentesis abd w/image DATE OF EXAM: 09/03/2019 CLINICAL HISTORY: Ascites Preliminary ultrasound imaging demonstrates moderate right and small left volume ascites. The procedure was discussed with the patient. The risks, complications, benefits, and alternatives we re discussed and any questions were answered. Informed consent was obtained. The patient was placed s upine on the ultrasound table and prepped and draped in the usual sterile fashion. All elements of maximal barrier technique were utilized. 1% lidocaine was administered for local ane sthesia. Under ultrasound guidance, access into the right upper quadrant was obtained with a 5 Italian one-step centesis catheter. Approximately 2.75 liters of clear serous fluid was removed. Catheter was removed and sterile bandage was applied. The patient was stable throughout the procedure and remained stable upon discharge from Department of Radiology. IMPRESSION: Successful ultrasound-guided paracentesis, with removal of 2.75 liters of clear serous fluid.
== END 2019-09-03 14:25 | disposition home or self-care (01) | DRG 433 ==
LOC: EC 10:25 → 3SCARD 12:23
PROVIDERS: ADMIT Hospitalist; ATTEND Hospitalist
PROC: 0W9G3ZZ Drainage of Peritoneal Cavity, Percutaneous Approach (ICD-10-PCS; principal; 2019-09-03)
DX: K74.60 Unspecified cirrhosis of liver (principal); E87.1 Hypo-osmolality and hyponatremia; R18.8 Other ascites; K76.6 Portal hypertension; K21.9 Gastro-esophageal reflux disease without esophagitis; F17.200 Nicotine dependence, unspecified, uncomplicated; I10 Essential (primary) hypertension; E78.5 Hyperlipidemia, unspecified; E87.8 Other disorders of electrolyte and fluid balance, not elsewhere classified; F10.10 Alcohol abuse, uncomplicated; E87.6 Hypokalemia; R79.1 Abnormal coagulation profile; Z11.59 Encounter for screening for other viral diseases; Z79.899 Other long term (current) drug therapy; Z88.0 Allergy status to penicillin; Z88.8 Allergy status to other drugs, medicaments and biological substances; Z98.890 Other specified postprocedural states; Z82.49 Family history of ischemic heart disease and other diseases of the circulatory system; Z83.79 Family history of other diseases of the digestive system; Z80.9 Family history of malignant neoplasm, unspecified
CPT/HCPCS: 36415; 49083; 76705; 80053; 81003; 82150; 83690; 83735; 84295; 85025; 85027; 85610; 85730; 93005; 96360; 99285

== ENCOUNTER 2019-09-09 12:12 | Observation (INO) | payer MEDICARE ==
--- NOTE | 2019-09-09 12:28 | ED ---
Recheck HPI - General Source: patient Mode of arrival: ambulatory Limitations: no limitations <Shantelle Hastings - Last Filed: 09/09/19 13:47> <Morro Cartagena - Last Filed: 09/09/19 14:14> - General Chief Complaint: Recheck/Abnormal Lab/Rx Stated Complaint: abd pain/fluid retention Time Seen by Provider: 09/09/19 12:26 - Related Data Home Medications Medication Instructions Recorded Confirmed Spironolactone [Aldactone] 50 mg PO BID 09/02/19 09/09/19 Docusate [Colace] 100 mg PO DAILY 09/09/19 09/09/19 Previous Rx's Medication Instructions Recorded Lactulose [Cephulac] 20 gm PO BID #240 ml 08/27/19 Furosemide [Lasix] 40 mg PO DAILY 30 Days #60 tab 09/03/19 Allergies Allergy/AdvReac Type Severity Reaction Status Date / Time Penicillins Allergy Anaphylaxis Verified 09/09/19 13:24 meperidine [From Demerol] AdvReac Hallucinati Verified 09/09/19 13:24 ons quetiapine [From Seroquel] AdvReac Hallucinati Verified 09/09/19 13:24 ons Review of Systems ROS Other: All systems not noted in ROS Statement are negative. <Shantelle Hastings - Last Filed: 09/09/19 13:47> ROS Other: All systems not noted in ROS Statement are negative. <Morro Cartagena - Last Filed: 09/09/19 14:14> ROS Statement: Those systems with pertinent positive or pertinent negative responses have been documented in the HPI. Past Medical History Past Medical History: GERD/Reflux, GI Bleed, Hyperlipidemia, Hypertension, Liver Disease Additional Past Medical History / Comment(s): alcholism - sober now History of Any Multi-Drug Resistant Organisms: None Reported Past Surgical History: Heart Catheterization, Orthopedic Surgery Additional Past Surgical History / Comment(s): LEFT KNEE AND RIGHT ANKLE SX. LEFT FEMUR FX. HEART CATH NO STENTS Past Anesthesia/Blood Transfusion Reactions: No Reported Reaction Past Psychological History: No Psychological Hx Reported Smoking Status: Current every day smoker Past Alcohol Use History: Heavy Past Drug Use History: None Reported - Past Family History Father Family Medical History: Coronary Artery Disease (CAD), Liver Disease Mother Family Medical History: Cancer Additional Family Medical History / Comment(s): LUNG DISEASE <Shantelle Hastings - Last Filed: 09/09/19 13:47> General Exam Limitations: no limitations <Shantelle Hastings - Last Filed: 09/09/19 13:47> Course Vital Signs 09/09/19 12:19 Temperature 98.4 F Pulse Rate 100 Respiratory 18 Rate Blood Pressure 90/59 O2 Sat by Pulse 99 Oximetry Medical Decision Making - Lab Data Result diagrams: 09/09/19 12:40 09/09/19 12:40 <Shantelle Hastings - Last Filed: 09/09/19 13:47> - Lab Data Result diagrams: 09/09/19 12:40 09/09/19 12:40 <Morro Cartagena - Last Filed: 09/09/19 14:14> - Medical Decision Making Patient reevaluated and reexamined by myself, Dr. Cartagena. Patient resting comfortably in bed. I do agree with PA findings. This includes diagnostic interpretation and treatment plan. Patient has moderate abdominal distention consistent with history of previous ascites. Patient states his last paracen tesis was 7-10 days ago. Patient is feeling uncomfortable and requesting paracentesis. Case discussed with Dr. Griffith, who will admit covering for Dr. Reich from observation. Interventional radiology will be consult. (Morro Cartagena) - Lab Data Lab Results 09/09/19 09/09/19 09/09/19 Range/Units 12:40 12:40 12:40 WBC 6.9 (3.8-10.6) k/uL RBC 3.69 L (4.30-5.90) m/uL Hgb 11.1 L (13.0-17.5) gm/dL Hct 33.8 L (39.0-53.0) % MCV 91.4 (80.0-100.0) fL MCH 29.9 (25.0-35.0) pg MCHC 32.7 (31.0-37.0) g/dL RDW 16.0 H (11.5-15.5) % Plt Count 205 (150-450) k/uL Neutrophils % 60 % Lymphocytes % 22 % Monocytes % 10 % Eosinophils % 4 % Basophils % 1 % Neutrophils # 4.1 (1.3-7.7) k/uL Lymphocytes # 1.5 (1.0-4.8) k/uL Monocytes # 0.7 (0-1.0) k/uL Eosinophils # 0.3 (0-0.7) k/uL Basophils # 0.1 (0-0.2) k/uL Anisocytosis Slight PT 11.4 (9.0-12.0) sec INR 1.1 (<1.2) APTT 26.7 (22.0-30.0) sec Sodium 129 L (137-145) mmol/L Potassium 3.6 (3.5-5.1) mmol/L Chloride 97 L (98-107) mmol/L Carbon Dioxide 26 (22-30) mmol/L Anion Gap 6 mmol/L BUN 12 (9-20) mg/dL Creatinine 0.69 (0.66-1.25) mg/dL Est GFR (CKD-EPI)AfAm >90 (>60 ml/min/1.73 sqM) Est GFR (CKD-EPI)NonAf >90 (>60 ml/min/1.73 sqM) Glucose 118 H (74-99) mg/dL Calcium 8.4 (8.4-10.2) mg/dL Total Bilirubin 1.6 H (0.2-1.3) mg/dL AST 50 (17-59) U/L ALT 16 (4-49) U/L Alkaline Phosphatase 69 (38-126) U/L Total Protein 6.2 L (6.3-8.2) g/dL Albumin 2.7 L (3.5-5.0) g/dL Disposition Is patient prescribed a controlled substance at d/c from ED?: No Time of Disposition: 13:47 Decision to Admit Reason: Admit from EC Decision Date: 09/09/19 Decision Time: 13:47 <Shantelle Hastings - Last Filed: 09/09/19 13:47> <Morro Cartagena - Last Filed: 09/09/19 14:14> Clinical Impression: Ascites, Cirrhosis, Abdominal pain Disposition: ADMITTED IP TO THIS [facility] Condition: Stable Referrals: Bon Reich MD [Primary Care Provider] - 1-2 days
[2019-09-09 13:24] LABS: Anisocytosis Slight; Basophils # (A) 0.1 k/uL (0-0.2); Basophils % (A) 1 %; Eosinophils # (A) 0.3 k/uL (0-0.7); Eosinophils % (A) 4 %; HCT 33.8 % (39.0-53.0); HGB 11.1 gm/dL (13.0-17.5); Lymphocytes # (A) 1.5 k/uL (1.0-4.8); Lymphocytes % (A) 22 %; MCH 29.9 pg (25.0-35.0); MCHC 32.7 g/dL (31.0-37.0); MCV 91.4 fL (80.0-100.0); Mean Platelet Volume 8.3; Monocytes # (A) 0.7 k/uL (0-1.0); Monocytes % (A) 10 %; Neutrophils # (A) 4.1 k/uL (1.3-7.7); Neutrophils % (A) 60 %; Platelet Count 205 k/uL (150-450); RBC 3.69 m/uL (4.30-5.90); WBC 6.9 k/uL (3.8-10.6)
[2019-09-09 13:35] LABS: INR 1.1 (<1.2); Partial Thromboplastin Time 26.7 sec (22.0-30.0); Prothrombin Time 11.4 sec (9.0-12.0)
[2019-09-09 13:36] LABS: ALT 16 U/L (4-49); AST 50 U/L (17-59); African American GFR (CKD) >90 (>60 ml/min/1.73 sqM); Albumin 2.7 g/dL (3.5-5.0); Alkaline Phosphatase 69 U/L (38-126); Anion Gap 6 mmol/L; Blood Urea Nitrogen 12 mg/dL (9-20); Calcium 8.4 mg/dL (8.4-10.2); Carbon Dioxide 26 mmol/L (22-30); Chloride 97 mmol/L (98-107); Glucose 118 mg/dL (74-99); Non-African American GFR(CKD) >90 (>60 ml/min/1.73 sqM); Potassium 3.6 mmol/L (3.5-5.1); Sodium 129 mmol/L (137-145); Total Bilirubin 1.6 mg/dL (0.2-1.3); Total Protein 6.2 g/dL (6.3-8.2)
[2019-09-09] MEDS ORDERED: NALOXONE 0.4 MG/ML 1 ML VIAL IV PRN (13:45)
--- NOTE | 2019-09-09 15:48 | US ---
EXAMINATION TYPE: US abdomen limited DATE OF EXAM: 09/09/2019 COMPARISON: NONE CLINICAL HISTORY: ascites. All four quadrants scanned, There is fluid in all four quadrants, with largest pocket in RLQ. IMPRESSION: 1. Ascites
[2019-09-09] MEDS: traMADol 50 MG TAB PO PRN (18:14)
[2019-09-09] MEDS: SPIRONOLACTONE 25 MG TAB PO SCH (21:30)
[2019-09-09] MEDS: LACTULOSE 20 GM/30 ML CUP PO SCH (21:31)
--- NOTE | 2019-09-09 23:43 | P.HPIM ---
History of Present Illness H&P Date: 09/09/19 Chief Complaint: Abdominal Distension Mr. Ontiveros is a 58-year-old male, who is a patient of Dr. Dewey, with a past medical history of alcohol liver disease, portal hypertension, ascites requiring frequent paracentesis, hypertension, hyperlipidemia coming to the hospital with a chief complaint of abdominal pain and distention. Patient denies having any nausea or vomiting. He states that he comes frequently to get paracentesis done. Mentions that his last paracentesis was one week back. Patient denied any alcohol use since last hospital admission. He said that he cut down on the salt intake as well. Patient denies having any fevers chills or rigors. No nausea vomiting diarrhea or constipation. Denies having any chest pain or difficulty in breathing. Patient denies having any dysuria or hematuria. No orthopnea, PND or lower extremity swelling. Laboratory data showed WBC 6.9, hemoglobin 10.1 and platelets 205 INR 1.1 Sodium 129, potassium 3.6, chloride 97, BUN 12 and creatinine 0.69 Albumin 2.7 Vitals blood pressure is 108/73, pulse is 89, respiration 12 and pulse ox 99% on room air Review of Systems Constitutional: Patient denies any fever or chills . No generalized weakness or weight loss. Abdomen: Patient denied nausea vomiting and diarrhea and abdominal pain. abdominal distension Cardiovascular: Patient denies any chest pain or short of breath no palpitations. Respiratory: patient denied any cough is from production. No shortness of breath Neurologic: Patient denied any numbness or tingling headache. Musculoskeletal: Patient denies any complaints of joint swelling or deformity. Skin: Negative Psychiatric: Negative Endocrine: No heat or cold intolerance. No recent weight gain. Genitourinary: No dysuria or hematuria. All other 14 point ROS negative except the above Past Medical History Past Medical History: GERD/Reflux, GI Bleed, Hyperlipidemia, Hypertension, Liver Disease Additional Past Medical History / Comment(s): alcholism - sober now History of Any Multi-Drug Resistant Organisms: None Reported Past Surgical History: Heart Catheterization, Orthopedic Surgery Additional Past Surgical History / Comment(s): LEFT KNEE AND RIGHT ANKLE SX. LEFT FEMUR FX. HEART CATH NO STENTS Past Anesthesia/Blood Transfusion Reactions: No Reported Reaction Past Psychological History: No Psychological Hx Reported Smoking Status: Current every day smoker Past Alcohol Use History: Heavy Additional Past Alcohol Use History / Comment(s): smoking for 48 years, half a pack\day, drinks 10-15 beers a day, drank 3 beers this morning Past Drug Use History: None Reported - Past Family History Father Family Medical History: Coronary Artery Disease (CAD), Liver Disease Mother Family Medical History: Cancer Additional Family Medical History / Comment(s): LUNG DISEASE Medications and Allergies Home Medications Medication Instructions Recorded Confirmed Type Lactulose [Cephulac] 20 gm PO BID #240 ml 08/27/19 09/09/19 Rx Spironolactone [Aldactone] 50 mg PO BID 09/02/19 09/09/19 History Furosemide [Lasix] 40 mg PO DAILY 30 Days #60 tab 09/03/19 09/09/19 Rx Docusate [Colace] 100 mg PO DAILY 09/09/19 09/09/19 History Allergies Allergy/AdvReac Type Severity Reaction Status Date / Time Penicillins Allergy Anaphylaxis Verified 09/09/19 13:24 meperidine [From Demerol] AdvReac Hallucinati Verified 09/09/19 13:24 ons quetiapine [From Seroquel] AdvReac Hallucinati Verified 09/09/19 13:24 ons Physical Exam Vitals: Vital Signs Temp Pulse Pulse Resp BP BP Pulse Ox 09/09/19 15:01 98.3 F 89 12 108/73 99 09/09/19 14:21 82 18 98/73 98 09/09/19 12:19 98.4 F 100 18 90/59 99 Intake and Output 09/09/19 09/09/19 09/09/19 06:59 14:59 22:59 Other: Voiding Method Toilet Weight 79.379 kg 79.379 kg GENERAL EXAM: Alert, pleasant, 58-year-old white male, quite disheveled, but pleasant, in no acute distress HEENT : No pallor. No icterus. CHEST: No chest wall deformity. Symmetrical expansion. LUNGS: Equal air entry with no crackles, wheeze, rhonchi or dullness. CVS: Regular rate and rhythm, normal S1 and S2, no gallops, no murmurs, no rubs ABDOMEN: Abdomen is distended. Nontender. Bowel sounds positive. No guarding, rigidity or rebound tenderness EXTREMITIES: No clubbing, no edema, no cyanosis, 2+ pulses and upper and lower extremities. MUSCULOSKELETAL: Muscle strength and tone normal. SKIN: No rashes CENTRAL NERVOUS SYSTEM: Alert and oriented -3. No focal deficits PSYCHIATRIC: Alert and oriented -3. Appropriate affect. Results CBC & Chem 7: 09/09/19 12:40 09/09/19 12:40 Labs: Abnormal Lab Results - Last 24 Hours (Table) 09/09/19 09/09/19 Range/Units 12:40 12:40 RBC 3.69 L (4.30-5.90) m/uL Hgb 11.1 L (13.0-17.5) gm/dL Hct 33.8 L (39.0-53.0) % RDW 16.0 H (11.5-15.5) % Sodium 129 L (137-145) mmol/L Chloride 97 L (98-107) mmol/L Glucose 118 H (74-99) mg/dL Total Bilirubin 1.6 H (0.2-1.3) mg/dL Total Protein 6.2 L (6.3-8.2) g/dL Albumin 2.7 L (3.5-5.0) g/dL Thrombosis Risk Factor Assmnt - DVT/VTE Prophylaxis DVT/VTE Prophylaxis: Pharmacologic Prophylaxis ordered - Choose All That Apply Each Factor Represents 1 point: Age 41-60 years Thrombosis Risk Factor Assessment Total Risk Factor Score: 1 Thrombosis Risk Factor Assessment Level: Low Risk Assessment and Plan Assessment: Recurrent ascites due to alcoholic liver disease Hyponatremia likely Hypervolemic Hypochloremia Portal hypertension requiring frequent paracentesis Chronic alcohol his liver disease Ongoing alcohol abuse Chronic smoker Hypertension Hyperlipidemia PLAN: Patient will be continued on Lasix and spironolactone. Monitor sodium level. He will be scheduled for paracentesis. PPI therapy. SCDs for DVT prophylaxis as the patient has low platelet count. Further recommendations to follow depending on the progress of the patient.
[2019-09-10] MEDS: traMADol 50 MG TAB PO PRN (04:08)
[2019-09-10 07:12] VITALS: TEMP 99.2
[2019-09-10] MEDS: SPIRONOLACTONE 25 MG TAB PO SCH (07:15)
[2019-09-10] MEDS: LACTULOSE 20 GM/30 ML CUP PO SCH (07:15)
[2019-09-10] MEDS ORDERED: PANTOPRAZOLE 40 MG TABLET PO SCH (07:30)
[2019-09-10 07:54] LABS: Anisocytosis Slight; Basophils # (A) 0.1 k/uL (0-0.2); Basophils % (A) 1 %; Eosinophils # (A) 0.3 k/uL (0-0.7); Eosinophils % (A) 6 %; HCT 33.6 % (39.0-53.0); HGB 10.7 gm/dL (13.0-17.5); Lymphocytes # (A) 1.9 k/uL (1.0-4.8); Lymphocytes % (A) 32 %; MCH 29.4 pg (25.0-35.0); MCHC 31.8 g/dL (31.0-37.0); MCV 92.4 fL (80.0-100.0); Mean Platelet Volume 8.3; Monocytes # (A) 0.5 k/uL (0-1.0); Monocytes % (A) 9 %; Neutrophils # (A) 2.9 k/uL (1.3-7.7); Neutrophils % (A) 49 %; Platelet Count 198 k/uL (150-450); RBC 3.63 m/uL (4.30-5.90); WBC 5.9 k/uL (3.8-10.6)
[2019-09-10 08:08] LABS: African American GFR (CKD) >90 (>60 ml/min/1.73 sqM); Anion Gap 5 mmol/L; Blood Urea Nitrogen 11 mg/dL (9-20); Calcium 8.2 mg/dL (8.4-10.2); Carbon Dioxide 26 mmol/L (22-30); Chloride 100 mmol/L (98-107); Glucose 79 mg/dL (74-99); Non-African American GFR(CKD) >90 (>60 ml/min/1.73 sqM); Potassium 3.7 mmol/L (3.5-5.1); Sodium 131 mmol/L (137-145)
[2019-09-10] MEDS ORDERED: FUROSEMIDE 40 MG TAB PO SCH (09:00)
[2019-09-10] MEDS ORDERED: DOCUSATE 100 MG CAP PO SCH (09:00)
[2019-09-10 09:53] VITALS: RESP 16
[2019-09-10 10:52] VITALS: BP 105/63; PULSE 79
--- NOTE | 2019-09-10 11:14 | US ---
EXAMINATION TYPE: US paracentesis abd w/image DATE OF EXAM: 09/10/2019 CLINICAL HISTORY: Ascites Preliminary imaging demonstrated large volume ascites, right greater than left. The procedure was discussed with the patient. The risks, complications, benefits, and alternatives we re discussed and any questions were answered. Informed consent was obtained. The patient was placed s upine on the ultrasound table and prepped and draped in the usual sterile fashion. All elements of maximal barrier technique were utilized. Under ultrasound guidance, access into the right lower quadrant was obtained with a 5 [place]ian one-step centesis catheter. Approximately 5.0 liters of clear serous fluid was removed. Catheter was removed and sterile bandage was applied. The patient was stable throughout the procedure and remained stable upon discharge from Department of Radiology. IMPRESSION: Successful ultrasound-guided therapeutic paracentesis, with removal of 5.0 liters of clear serous flu id.
== END 2019-09-10 11:23 | disposition home or self-care (01) ==
LOC: EC 12:12 → 1SOBS 14:14
PROVIDERS: ADMIT Hospitalist; ATTEND Hospitalist
DX: R18.8 Other ascites (principal); K70.9 Alcoholic liver disease, unspecified; F10.10 Alcohol abuse, uncomplicated; E87.1 Hypo-osmolality and hyponatremia; E87.8 Other disorders of electrolyte and fluid balance, not elsewhere classified; K76.6 Portal hypertension; F17.210 Nicotine dependence, cigarettes, uncomplicated; I10 Essential (primary) hypertension; E78.5 Hyperlipidemia, unspecified; K21.9 Gastro-esophageal reflux disease without esophagitis; Z87.19 Personal history of other diseases of the digestive system; Z79.899 Other long term (current) drug therapy; Z88.0 Allergy status to penicillin; Z88.5 Allergy status to narcotic agent; Z88.8 Allergy status to other drugs, medicaments and biological substances; Z98.890 Other specified postprocedural states; Z87.81 Personal history of (healed) traumatic fracture; Y90.9 Presence of alcohol in blood, level not specified; Z82.49 Family history of ischemic heart disease and other diseases of the circulatory system; Z83.79 Family history of other diseases of the digestive system; Z80.1 Family history of malignant neoplasm of trachea, bronchus and lung
CPT/HCPCS: 99285; 36415; 80053; 80048; 85025 ×2; 85610; 85730; 76705; 49083; G0378 ×2

== ENCOUNTER 2019-09-17 12:18 | Day surgery (SDC) | payer MEDICARE ==
[2019-09-17 12:33] VITALS: TEMP 98.1
[2019-09-17 12:51] LABS: Mean Platelet Volume 8.3; Platelet Count 207 k/uL (150-450)
[2019-09-17 13:00] LABS: African American GFR (CKD) >90 (>60 ml/min/1.73 sqM); Non-African American GFR(CKD) >90 (>60 ml/min/1.73 sqM)
[2019-09-17 13:01] LABS: INR 1.2 (<1.2); Prothrombin Time 11.7 sec (9.0-12.0)
[2019-09-17] MEDS: ALBUMIN HUMAN 25% 50 ML in EMPTY BAG 1 BAG IVPB SCH ×3 (14:43→15:30)
[2019-09-17 15:33] VITALS: BP 98/64; PULSE 82; RESP 18
--- NOTE | 2019-09-17 17:13 | US ---
EXAMINATION TYPE: US paracentesis abd w/image DATE OF EXAM: 09/17/2019 CLINICAL HISTORY: Ascites COMPARISON: Ultrasound guided paracentesis 09/10/2019 TYPIST: Dr. Winter Rangel D.O. Preprocedure preliminary imaging demonstrated large volume ascites. The procedure was discussed with the patient. The risks, complications, benefits, and alternatives we re discussed and any questions were answered. Informed consent was obtained. The patient was placed s upine on the ultrasound table and prepped and draped in the usual sterile fashion. All elements of maximal barrier technique were utilized. Under ultrasound guidance, access into the right lower quadrant was obtained with a 5 [place] one-step centesis catheter. Approximately 5.3 liters of clear serous fluid was removed. Catheter was removed and sterile bandage was applied. The patient was stable throughout the procedure and remained stable upon discharge from Department of Radiology. IMPRESSION: Successful ultrasound-guided paracentesis, with removal of 5.3 liters of clear serous fluid.
== END 2019-09-17 15:40 | disposition home or self-care (01) ==
LOC: RADPROMAIN 12:18
PROVIDERS: ATTEND Internal Medicine
DX: R18.8 Other ascites (principal)
CPT/HCPCS: 82565; 85049; 85610; 36415; 49083; P9047

== ENCOUNTER 2019-09-24 12:18 | Day surgery (SDC) | payer MEDICARE ==
[2019-09-24 12:58] LABS: African American GFR (CKD) >90 (>60 ml/min/1.73 sqM); Non-African American GFR(CKD) >90 (>60 ml/min/1.73 sqM)
[2019-09-24 12:59] LABS: Mean Platelet Volume 8.3; Platelet Count 203 k/uL (150-450)
[2019-09-24 13:12] LABS: INR 1.2 (<1.2); Prothrombin Time 11.8 sec (9.0-12.0)
[2019-09-24 13:33] VITALS: RESP 18
[2019-09-24 15:03] VITALS: BP 101/64; PULSE 82
--- NOTE | 2019-09-24 16:12 | US ---
EXAMINATION TYPE: US paracentesis abd w/image DATE OF EXAM: 09/24/2019 COMPARISON: NONE HISTORY: Ascites. PROCEDURE: Maximal barrier technique was utilized. The skin overlying a suitable pocket of fluid was localized with ultrasound and the overlying skin was prepped and draped. Ultrasound was utilized with sterile technique. Lidocaine was used for local anesthesia and a skin mark anthony made with a scalpel. Catheter was advanced under direct ultrasound guidance into a suitable pocket of fluid and approximately 4.7 liter s of serous fluid were removed. Catheter was withdrawn and hemostasis achieved. There is no immedia te complication; the patient is discharged in stable condition. IMPRESSION: STATUS POST ULTRASOUND GUIDED PARACENTESIS FOR PALLIATION OF ASCITES. THIS PROCEDURE WA S PERFORMED BY THE UNDERSIGNED.
== END 2019-09-24 15:00 | disposition home or self-care (01) ==
LOC: RADPROMAIN 12:18
PROVIDERS: ATTEND Internal Medicine
DX: R18.8 Other ascites (principal)
CPT/HCPCS: 49083; 82565; 85049; 85610

== ENCOUNTER → 2019-10-03 | Outpatient (CLI) | payer MEDICARE ==
--- NOTE | 2019-10-03 10:22 | US ---
EXAMINATION TYPE: US liver DATE OF EXAM: 10/03/2019 COMPARISON: NONE CLINICAL HISTORY: K70.9, K74.60, K21.9 GERD. Cirrhosis EXAM MEASUREMENTS: Liver Length: 14.1 cm CBD: 0.7 cm Right Kidney: 9.4 x 5.4 x 4.7 cm Pancreas: Obscured by bowel gas Liver: no evident masses Gallbladder: Surgically absent Evidence for sonographic Tidwell's sign: no CBD: wnl Right Kidney: wnl Moderate ascites. IMPRESSION: 1. Moderate amount of ascites 2. Postcholecystectomy 3. Liver is somewhat coarsened correlate for hepatocellular disease or hepatitis.
[2019-10-03 11:37] LABS: ALT 14 U/L (4-49); AST 47 U/L (17-59); African American GFR (CKD) >90 (>60 ml/min/1.73 sqM); Albumin 3.1 g/dL (3.5-5.0); Alkaline Phosphatase 84 U/L (38-126); Anion Gap 9 mmol/L; Blood Urea Nitrogen 13 mg/dL (9-20); Calcium 8.8 mg/dL (8.4-10.2); Carbon Dioxide 30 mmol/L (22-30); Chloride 91 mmol/L (98-107); Glucose 97 mg/dL (74-99); Non-African American GFR(CKD) 90 (>60 ml/min/1.73 sqM); Potassium 3.7 mmol/L (3.5-5.1); Sodium 130 mmol/L (137-145); Total Bilirubin 2.3 mg/dL (0.2-1.3); Total Protein 6.9 g/dL (6.3-8.2)
== END | disposition home or self-care (01) ==
LOC: RADUSWWP 09:36
PROVIDERS: ATTEND Internal Medicine
DX: R18.8 Other ascites (principal); Z90.49 Acquired absence of other specified parts of digestive tract
CPT/HCPCS: 36415; 76705; 80053

== ENCOUNTER 2019-10-14 08:29 | Day surgery (SDC) | payer MEDICARE ==
[2019-10-14 09:31] VITALS: TEMP 98.4
[2019-10-14 10:05] LABS: Mean Platelet Volume 8.1; Platelet Count 174 k/uL (150-450)
[2019-10-14 10:15] LABS: INR 1.2 (<1.2); Prothrombin Time 12.2 sec (9.0-12.0)
[2019-10-14 10:16] LABS: African American GFR (CKD) >90 (>60 ml/min/1.73 sqM); Non-African American GFR(CKD) >90 (>60 ml/min/1.73 sqM)
[2019-10-14] MEDS: ALBUMIN HUMAN 25% 50 ML in EMPTY BAG 1 BAG IVPB SCH ×3 (10:51→11:49)
[2019-10-14 12:24] VITALS: BP 118/70; PULSE 89; RESP 16
--- NOTE | 2019-10-14 15:41 | US ---
EXAMINATION TYPE: US paracentesis abd w/image DATE OF EXAM: 10/14/2019 COMPARISON: NONE HISTORY: Ascites. PROCEDURE: Maximal barrier technique was utilized. The skin overlying a suitable pocket of fluid was localized with ultrasound and the overlying skin was prepped and draped. Ultrasound was utilized with sterile technique. Lidocaine was used for local anesthesia and a skin mark anthony made with a scalpel. Catheter was advanced under direct ultrasound guidance into a suitable pocket of fluid and approximately 7.5 liter s of serous fluid were removed. Catheter was withdrawn and hemostasis achieved. There is no immedia te complication; the patient is discharged in stable condition. IMPRESSION: STATUS POST ULTRASOUND GUIDED PARACENTESIS FOR PALLIATION OF ASCITES. THIS PROCEDURE WA S PERFORMED BY THE UNDERSIGNED.
== END 2019-10-14 12:40 | disposition home or self-care (01) ==
LOC: RADPROMAIN 08:29
PROVIDERS: ATTEND Internal Medicine
DX: R18.8 Other ascites (principal)
CPT/HCPCS: 82565; 85049; 85610; 36415; 49083; P9047

== ENCOUNTER 2019-10-26 23:43 | Emergency (ER) | payer MEDICARE ==
[2019-10-26 23:58] VITALS: RESP 22; TEMP 98.7
[2019-10-27] MEDS ORDERED: ONDANSETRON 4 MG/2 ML VIAL IVP STA ×2 (00:21→00:22)
[2019-10-27 01:03] LABS: Basophils # (A) 0.1 k/uL (0-0.2); Basophils % (A) 2 %; Eosinophils # (A) 0.2 k/uL (0-0.7); Eosinophils % (A) 4 %; HGB 11.6 gm/dL (13.0-17.5); Lymphocytes # (A) 1.6 k/uL (1.0-4.8); Lymphocytes % (A) 31 %; MCH 28.4 pg (25.0-35.0); MCHC 32.2 g/dL (31.0-37.0); MCV 88.1 fL (80.0-100.0); Mean Platelet Volume 7.6; Monocytes # (A) 0.5 k/uL (0-1.0); Monocytes % (A) 9 %; Neutrophils # (A) 2.7 k/uL (1.3-7.7); Neutrophils % (A) 52 %; Platelet Count 216 k/uL (150-450); RBC 4.09 m/uL (4.30-5.90); RDW 15.5 % (11.5-15.5); WBC 5.2 k/uL (3.8-10.6)
[2019-10-27 01:13] LABS: ALT 15 U/L (4-49); AST 53 U/L (17-59); African American GFR (CKD) >90 (>60 ml/min/1.73 sqM); Alkaline Phosphatase 105 U/L (38-126); Amylase 100 U/L (30-110); Anion Gap 9 mmol/L; Blood Urea Nitrogen 5 mg/dL (9-20); Calcium 8.2 mg/dL (8.4-10.2); Carbon Dioxide 20 mmol/L (22-30); Chloride 102 mmol/L (98-107); Glucose 110 mg/dL (74-99); Non-African American GFR(CKD) >90 (>60 ml/min/1.73 sqM); Potassium 4.5 mmol/L (3.5-5.1); Sodium 131 mmol/L (137-145); Total Bilirubin 1.2 mg/dL (0.2-1.3); Total Protein 6.8 g/dL (6.3-8.2)
[2019-10-27 01:49] LABS: Appearance,Urine Clear (Clear); Bilirubin,Urine Negative (Negative); Blood,Urine Negative (Negative); Color,Urine Yellow; Glucose,Urine (UA) Negative (Negative); Ketones,Urine Negative (Negative); Leukocyte Esterase,Urine Negative (Negative); Nitrite,Urine Negative (Negative); PH, Urine 5.5 (5.0-8.0); Protein,Urine Negative (Negative); Specific Gravity,Urine 1.009 (1.001-1.035)
--- NOTE | 2019-10-27 01:49 | ED ---
Abdominal Pain HPI - General Chief Complaint: Abdominal Pain Stated Complaint: abd pain Time Seen by Provider: 10/27/19 00:01 Source: patient Mode of arrival: ambulatory Limitations: no limitations - History of Present Illness Initial Comments: This patient's 58-year-old man with history of alcohol abuse and also liver disease. The patient states that he was to have paracentesis for his ascites performed as outpatient last week but he was feeling too sick. Asked to further elaborate, he describes having vomiting and diarrhea thatkept him from wanting to come to the hospital. Further questioning reveals that he had described some abdominal pain to the triage staff and he describes this as being a fullness related to the ascites. No fever or chills. MD Complaint: abdominal pain -: days(s) Location: diffuse Radiation: none Migration to: no migration Severity: moderate Quality: fullness Consistency: constant Improves With: nothing Worsens With: nothing Associated Symptoms: denies other symptoms - Related Data Home Medications Medication Instructions Recorded Confirmed Spironolactone [Aldactone] 50 mg PO DAILY 09/02/19 10/14/19 Docusate [Colace] 100 mg PO DAILY 09/09/19 10/14/19 Previous Rx's Medication Instructions Recorded Lactulose [Cephulac] 20 gm PO BID #240 ml 08/27/19 Furosemide [Lasix] 40 mg PO DAILY 30 Days #60 tab 09/03/19 Ondansetron Odt [Zofran ODT] 4 mg PO Q8HR PRN #10 tab 10/27/19 Allergies Allergy/AdvReac Type Severity Reaction Status Date / Time meperidine [From Demerol] Allergy heart rate Verified 10/26/19 23:59 >200 Penicillins Allergy Anaphylaxis Verified 10/26/19 23:59 quetiapine [From Seroquel] AdvReac Hallucinati Verified 10/26/19 23:59 ons Review of Systems ROS Statement: Those systems with pertinent positive or pertinent negative responses have been documented in the HPI. ROS Other: All systems not noted in ROS Statement are negative. Constitutional: Denies: fever, chills Respiratory: Denies: cough, dyspnea Cardiovascular: Denies: chest pain Gastrointestinal: Reports: abdominal pain, nausea, vomiting, diarrhea. Denies: constipation, hematemesis, melena, hematochezia Genitourinary: Denies: dysuria, hematuria, testicular pain Musculoskeletal: Denies: back pain Skin: Denies: rash Neurological: Denies: headache, weakness Past Medical History Past Medical History: GERD/Reflux, GI Bleed, Hyperlipidemia, Hypertension, Liver Disease Additional Past Medical History / Comment(s): alcholism - states still drinking and does not want to stop or help stoppping, acites, liver cirrhosis History of Any Multi-Drug Resistant Organisms: None Reported Past Surgical History: Heart Catheterization, Orthopedic Surgery Additional Past Surgical History / Comment(s): LEFT KNEE AND RIGHT ANKLE SX. LEFT FEMUR FX. HEART CATH NO STENTS, multiiple paracentesis Past Anesthesia/Blood Transfusion Reactions: No Reported Reaction Past Psychological History: No Psychological Hx Reported Smoking Status: Current every day smoker Past Alcohol Use History: Heavy Past Drug Use History: None Reported - Past Family History Father Family Medical History: Coronary Artery Disease (CAD), Liver Disease Mother Family Medical History: Cancer Additional Family Medical History / Comment(s): LUNG DISEASE General Exam Limitations: no limitations General appearance: alert, in no apparent distress, appears intoxicated Head exam: Present: atraumatic, normocephalic Eye exam: Present: normal appearance. Absent: scleral icterus, conjunctival injection ENT exam: Present: normal oropharynx Respiratory exam: Present: normal lung sounds bilaterally. Absent: respiratory distress, wheezes, rales, rhonchi, stridor Cardiovascular Exam: Present: regular rate, normal rhythm, normal heart sounds. Absent: systolic murmur, diastolic murmur, rubs, gallop GI/Abdominal exam: Present: soft, hernia. Absent: distended, tenderness, guarding, rebound, rigid, mass, pulsatile mass Extremities exam: Present: normal inspection, normal capillary refill, pedal edema. Absent: calf tenderness Back exam: Present: normal inspection. Absent: CVA tenderness (R), CVA tenderness (L) Neurological exam: Present: alert Skin exam: Present: warm, dry, intact, normal color. Absent: rash Course Vital Signs 10/26/19 10/27/19 23:53 02:03 Temperature 98.7 F Pulse Rate 107 H 100 Respiratory 22 22 Rate Blood Pressure 120/75 93/62 O2 Sat by Pulse 97 95 Oximetry Medical Decision Making - Medical Decision Making Patient's 58-year-old man with history of ascites, liver disease, alcohol abuse, presenting with request that he receive a paracentesis tonight. The patient is in no distress. The patient's respiratory effort is not limited by the ascites. When walking back to the exam room he was singing and dancing. There is no evidence of peritonitis on the exam. Discussed with the patient that it's interventional radiology is not available tonight weekend's. He will follow-up to have the ascites drained as outpatient. On discharge, the patient is again singing and dancing toward the exit. - Lab Data Result diagrams: 10/27/19 00:35 10/27/19 00:35 Lab Results 10/27/19 10/27/19 10/27/19 Range/Units 00:35 00:35 00:35 WBC 5.2 (3.8-10.6) k/uL RBC 4.09 L (4.30-5.90) m/uL Hgb 11.6 L (13.0-17.5) gm/dL Hct 36.0 L (39.0-53.0) % MCV 88.1 (80.0-100.0) fL MCH 28.4 (25.0-35.0) pg MCHC 32.2 (31.0-37.0) g/dL RDW 15.5 (11.5-15.5) % Plt Count 216 (150-450) k/uL Neutrophils % 52 % Lymphocytes % 31 % Monocytes % 9 % Eosinophils % 4 % Basophils % 2 % Neutrophils # 2.7 (1.3-7.7) k/uL Lymphocytes # 1.6 (1.0-4.8) k/uL Monocytes # 0.5 (0-1.0) k/uL Eosinophils # 0.2 (0-0.7) k/uL Basophils # 0.1 (0-0.2) k/uL Sodium 131 L (137-145) mmol/L Potassium 4.5 (3.5-5.1) mmol/L Chloride 102 (98-107) mmol/L Carbon Dioxide 20 L (22-30) mmol/L Anion Gap 9 mmol/L BUN 5 L (9-20) mg/dL Creatinine 0.56 L (0.66-1.25) mg/dL Est GFR (CKD-EPI)AfAm >90 (>60 ml/min/1.73 sqM) Est GFR (CKD-EPI)NonAf >90 (>60 ml/min/1.73 sqM) Glucose 110 H (74-99) mg/dL Plasma Lactic Acid Hayden (0.7-2.0) mmol/L Calcium 8.2 L (8.4-10.2) mg/dL Total Bilirubin 1.2 (0.2-1.3) mg/dL AST 53 (17-59) U/L ALT 15 (4-49) U/L Alkaline Phosphatase 105 (38-126) U/L Total Protein 6.8 (6.3-8.2) g/dL Albumin 3.0 L (3.5-5.0) g/dL Amylase 100 (30-110) U/L Lipase 258 (23-300) U/L Urine Color Yellow Urine Appearance Clear (Clear) Urine pH 5.5 (5.0-8.0) Ur Specific [place] 1.009 (1.001-1.035) Urine Protein Negative (Negative) Urine Glucose (UA) Negative (Negative) Urine Ketones Negative (Negative) Urine Blood Negative (Negative) Urine Nitrite Negative (Negative) Urine Bilirubin Negative (Negative) Urine Urobilinogen 2.0 (<2.0) mg/dL Ur Leukocyte Esterase Negative (Negative) 10/27/19 Range/Units 00:35 WBC (3.8-10.6) k/uL RBC (4.30-5.90) m/uL Hgb (13.0-17.5) gm/dL Hct (39.0-53.0) % MCV (80.0-100.0) fL MCH (25.0-35.0) pg MCHC (31.0-37.0) g/dL RDW (11.5-15.5) % Plt Count (150-450) k/uL Neutrophils % % Lymphocytes % % Monocytes % % Eosinophils % % Basophils % % Neutrophils # (1.3-7.7) k/uL Lymphocytes # (1.0-4.8) k/uL Monocytes # (0-1.0) k/uL Eosinophils # (0-0.7) k/uL Basophils # (0-0.2) k/uL Sodium (137-145) mmol/L Potassium (3.5-5.1) mmol/L Chloride (98-107) mmol/L Carbon Dioxide (22-30) mmol/L Anion Gap mmol/L BUN (9-20) mg/dL Creatinine (0.66-1.25) mg/dL Est GFR (CKD-EPI)AfAm (>60 ml/min/1.73 sqM) Est GFR (CKD-EPI)NonAf (>60 ml/min/1.73 sqM) Glucose (74-99) mg/dL Plasma Lactic Acid [place]den 1.9 (0.7-2.0) mmol/L Calcium (8.4-10.2) mg/dL Total Bilirubin (0.2-1.3) mg/dL AST (17-59) U/L ALT (4-49) U/L Alkaline Phosphatase (38-126) U/L Total Protein (6.3-8.2) g/dL Albumin (3.5-5.0) g/dL Amylase (30-110) U/L Lipase (23-300) U/L Urine Color Urine Appearance (Clear) Urine pH (5.0-8.0) Ur Specific [place] (1.001-1.035) Urine Protein (Negative) Urine Glucose (UA) (Negative) Urine Ketones (Negative) Urine Blood (Negative) Urine Nitrite (Negative) Urine Bilirubin (Negative) Urine Urobilinogen (<2.0) mg/dL Ur Leukocyte Esterase (Negative) Disposition Clinical Impression: Ascites Disposition: HOME SELF-CARE Condition: Fair Instructions (If sedation given, give patient instructions): Ascites (ED) Prescriptions: Ondansetron Odt [Zofran ODT] 4 mg PO Q8HR PRN #10 tab PRN Reason: Nausea Is patient prescribed a controlled substance at d/c from ED?: No Referrals: Bon Reich MD [Primary Care Provider] - 1-2 days
[2019-10-27 02:09] VITALS: BP 93/62; PULSE 100
== END 2019-10-27 02:03 | disposition home or self-care (01) ==
LOC: EC 23:43
DX: R18.8 Other ascites (principal); I10 Essential (primary) hypertension; Z79.899 Other long term (current) drug therapy; F17.200 Nicotine dependence, unspecified, uncomplicated; Z88.0 Allergy status to penicillin; Z88.5 Allergy status to narcotic agent; Z88.8 Allergy status to other drugs, medicaments and biological substances; Z95.5 Presence of coronary angioplasty implant and graft
CPT/HCPCS: 36415; 80053; 82150; 83605; 83690; 85025; 81003; 99284; 96374; J2405